=== PATIENT | male | born 1960 | race Caucasian/White ===

== ENCOUNTER 2016-12-30 17:47 | Inpatient (IN) | payer OTHER ==
[2016-12-30] MEDS ORDERED: SODIUM CHLORIDE 0.9% 1,000 ML IV STA (18:07)
[2016-12-30] MEDS ORDERED: IPRATROPIUM-ALBUTEROL 3 ML NEB INHALATION STA (18:07)
--- NOTE | 2016-12-30 18:12 | ED ---
SOB HPI <RonaldDuane - Last Filed: 12/30/16 21:44> - General Source: patient, RN notes reviewed Mode of arrival: wheelchair Limitations: no limitations <Tess Duncanily - Last Filed: 12/30/16 21:57> - General Chief Complaint: Shortness of Breath Stated Complaint: Sob Time Seen by Provider: 12/30/16 17:56 - History of Present Illness Initial Comments: Patient is a 56-year-old male with chief complaint of right-sided chest pain or shortness of breath for approximately 2 days. Patient reports that he has a history of COPD. He states that he is a heavy smoker and smokes approximately one to 2 packs a day. Patient states that he does occasionally take albuterol inhalers however he has ran out of those and cannot last time he used it. Patient reports that he has no other associated symptoms including fever or chills, abdominal pain, nausea or vomiting. Patient denies any past medical history of coronary artery disease. (Juli Duncan) - Related Data Home Medications Medication Instructions Recorded Confirmed Albuterol Inhaler [Ventolin Hfa 2 puff INHALATION RT-Q6H PRN 04/01/16 12/30/16 Inhaler] Allergies Allergy/AdvReac Type Severity Reaction Status Date / Time No Known Allergies Allergy Verified 12/30/16 18:12 Review of Systems ROS Other: All systems not noted in ROS Statement are negative. <RonaldDuane - Last Filed: 12/30/16 21:44> ROS Other: All systems not noted in ROS Statement are negative. <Juli Duncan - Last Filed: 12/30/16 21:57> ROS Statement: Those systems with pertinent positive or pertinent negative responses have been documented in the HPI. Past Medical History Past Medical History: COPD, Prostate Disorder Additional Past Medical History / Comment(s): Emphysema; Alcoholism, prostate CA History of Any Multi-Drug Resistant Organisms: None Reported Past Surgical History: Hernia Repair, Tonsillectomy Past Psychological History: No Psychological Hx Reported Smoking Status: Current every day smoker Past Alcohol Use History: Daily Past Drug Use History: None Reported <Juli Duncan - Last Filed: 12/30/16 21:57> General Exam <Duane Cardenas - Last Filed: 12/30/16 21:44> Limitations: no limitations General appearance: alert, in no apparent distress Head exam: Present: atraumatic, normocephalic, normal inspection Eye exam: Present: normal appearance, PERRL, EOMI. Absent: scleral icterus, conjunctival injection, periorbital swelling ENT exam: Present: normal exam, normal oropharynx, mucous membranes moist, TM's normal bilaterally Neck exam: Present: normal inspection. Absent: tenderness, meningismus, lymphadenopathy Respiratory exam: Present: normal lung sounds bilaterally. Absent: respiratory distress, wheezes, rales, rhonchi, stridor Cardiovascular Exam: Present: regular rate, normal rhythm, normal heart sounds. Absent: systolic murmur, diastolic murmur, rubs, gallop, clicks GI/Abdominal exam: Present: soft, normal bowel sounds. Absent: distended, tenderness, guarding, rebound, rigid Extremities exam: Present: normal inspection, full ROM, normal capillary refill. Absent: tenderness, pedal edema, joint swelling, calf tenderness Back exam: Present: normal inspection Neurological exam: Present: alert, oriented X3, CN II-XII intact Psychiatric exam: Present: normal affect, normal mood Skin exam: Present: warm, dry, intact, normal color. Absent: rash <Juli Duncan - Last Filed: 12/30/16 21:57> - General Exam Comments Initial Comments: Patient is a thin 56-year-old male. He does not appear to be in any acute distress at this time. Temperature 97.7. Heart rate of 100 bpm. Respiratory rate 20 breaths per minute. A pressure is 90/63. Patient is satting 93% on room air. (Juli Duncan) Medical Decision Making - Lab Data Result diagrams: 12/30/16 18:00 12/30/16 18:00 <Duane Cardenas - Last Filed: 12/30/16 21:44> - Lab Data Result diagrams: 12/30/16 18:00 12/30/16 18:00 - Radiology Data Radiology results: report reviewed <Juli Duncan - Last Filed: 12/30/16 21:57> - Medical Decision Making I saw this patient in conjunction with the physician autopsy assistant. I performed independent history and physical exam. Agree with case management. (Duane Cardenas) Patient is a 36-year-old male with 2 days of right-sided chest pain and increased cough. Patient has history of COPD. He reports that he does not use any albuterol inhaler since he does not have any [place]. Patient arrived to the at 93% on room air. Patient chest x-ray shows evidence of a right middle lobe pneumonia. Patient did have an elevated dimer of 4.03. CT angios of the chest reveals no evidence of PE however there is right middle and upper lobe consolidation consistent with pneumonia. Patient was initially given IV Levaquin. Patient reports that his pain is much improved after Toradol and breathing treatment. Patient will be placed on subsequent breathing treatments and also given IV Zosyn for aspiration pneumonia. Patient does have a history of alcoholism and is continue the past. Also placed on CIMI protocol. Patient will be admitted by Dr. Burgos with consult of . ([facility]) - Lab Data Lab Results 12/30/16 12/30/16 12/30/16 Range/Units 18:00 18:00 18:00 WBC 14.5 H (3.8-10.6) k/uL RBC 4.02 L (4.30-5.90) m/uL Hgb 11.6 L (13.0-17.5) gm/dL Hct 36.3 L (39.0-53.0) % MCV 90.2 (80.0-100.0) fL MCH 28.9 (25.0-35.0) pg MCHC 32.0 (31.0-37.0) g/dL RDW 14.2 (11.5-15.5) % Plt Count 412 (150-450) k/uL Neutrophils % 75 % Lymphocytes % 17 % Monocytes % 4 % Eosinophils % 1 % Basophils % 0 % Neutrophils # 10.8 H (1.3-7.7) k/uL Lymphocytes # 2.5 (1.0-4.8) k/uL Monocytes # 0.6 (0-1.0) k/uL Eosinophils # 0.2 (0-0.7) k/uL Basophils # 0.1 (0-0.2) k/uL PT (9.0-12.0) sec INR (<1.1) APTT (22.0-30.0) sec D-Dimer (<0.60) mg/L FEU Sodium 136 L (137-145) mmol/L Potassium 3.7 (3.5-5.1) mmol/L Chloride 99 (98-107) mmol/L Carbon Dioxide 21 L (22-30) mmol/L Anion Gap 16 mmol/L BUN 8 L (9-20) mg/dL Creatinine 0.59 L (0.66-1.25) mg/dL Est GFR (MDRD) Af Amer >60 (>60 ml/min/1.73 sqM) Est GFR (MDRD) Non-Af >60 (>60 ml/min/1.73 sqM) Glucose 115 H (74-99) mg/dL Plasma Lactic Acid Jw (0.7-2.0) mmol/L Calcium 8.8 (8.4-10.2) mg/dL Total Bilirubin 0.4 (0.2-1.3) mg/dL AST 12 L (17-59) U/L ALT 20 L (21-72) U/L Alkaline Phosphatase 93 (38-126) U/L Total Creatine Kinase 27 L (55-170) U/L CK-MB (CK-2) 0.5 (0.0-2.4) ng/mL CK-MB (CK-2) Rel Index 1.9 Troponin I <0.012 (0.000-0.034) ng/mL NT-Pro-B Natriuret Pep pg/mL Total Protein 7.8 (6.3-8.2) g/dL Albumin 3.3 L (3.5-5.0) g/dL Urine Color Urine Appearance (Clear) Urine pH (5.0-8.0) Ur Specific [place] (1.001-1.035) Urine Protein (Negative) Urine Glucose (UA) (Negative) Urine Ketones (Negative) Urine Blood (Negative) Urine Nitrate (Negative) Urine Bilirubin (Negative) Urine Urobilinogen (<2.0) mg/dL Ur Leukocyte Esterase (Negative) 12/30/16 12/30/16 12/30/16 Range/Units 18:00 18:00 18:00 WBC (3.8-10.6) k/uL RBC (4.30-5.90) m/uL Hgb (13.0-17.5) gm/dL Hct (39.0-53.0) % MCV (80.0-100.0) fL MCH (25.0-35.0) pg MCHC (31.0-37.0) g/dL RDW (11.5-15.5) % Plt Count (150-450) k/uL Neutrophils % % Lymphocytes % % Monocytes % % Eosinophils % % Basophils % % Neutrophils # (1.3-7.7) k/uL Lymphocytes # (1.0-4.8) k/uL Monocytes # (0-1.0) k/uL Eosinophils # (0-0.7) k/uL Basophils # (0-0.2) k/uL PT 10.5 (9.0-12.0) sec INR 1.0 (<1.1) APTT 27.3 (22.0-30.0) sec D-Dimer 4.08 H (<0.60) mg/L FEU Sodium (137-145) mmol/L Potassium (3.5-5.1) mmol/L Chloride (98-107) mmol/L Carbon Dioxide (22-30) mmol/L Anion Gap mmol/L BUN (9-20) mg/dL Creatinine (0.66-1.25) mg/dL Est GFR (MDRD) Af Amer (>60 ml/min/1.73 sqM) Est GFR (MDRD) Non-Af (>60 ml/min/1.73 sqM) Glucose (74-99) mg/dL Plasma Lactic Acid Jw (0.7-2.0) mmol/L Calcium (8.4-10.2) mg/dL Total Bilirubin (0.2-1.3) mg/dL AST (17-59) U/L ALT (21-72) U/L Alkaline Phosphatase (38-126) U/L Total Creatine Kinase (55-170) U/L CK-MB (CK-2) (0.0-2.4) ng/mL CK-MB (CK-2) Rel Index Troponin I (0.000-0.034) ng/mL NT-Pro-B Natriuret Pep 261 pg/mL Total Protein (6.3-8.2) g/dL Albumin (3.5-5.0) g/dL Urine Color Light Yellow Urine Appearance Clear (Clear) Urine pH 5.5 (5.0-8.0) Ur Specific [place] 1.002 (1.001-1.035) Urine Protein Negative (Negative) Urine Glucose (UA) Negative (Negative) Urine Ketones Negative (Negative) Urine Blood Negative (Negative) Urine Nitrate Negative (Negative) Urine Bilirubin Negative (Negative) Urine Urobilinogen <2.0 (<2.0) mg/dL Ur Leukocyte Esterase Negative (Negative) 12/30/16 Range/Units 19:30 WBC (3.8-10.6) k/uL RBC (4.30-5.90) m/uL Hgb (13.0-17.5) gm/dL Hct (39.0-53.0) % MCV (80.0-100.0) fL MCH (25.0-35.0) pg MCHC (31.0-37.0) g/dL RDW (11.5-15.5) % Plt Count (150-450) k/uL Neutrophils % % Lymphocytes % % Monocytes % % Eosinophils % % Basophils % % Neutrophils # (1.3-7.7) k/uL Lymphocytes # (1.0-4.8) k/uL Monocytes # (0-1.0) k/uL Eosinophils # (0-0.7) k/uL Basophils # (0-0.2) k/uL PT (9.0-12.0) sec INR (<1.1) APTT (22.0-30.0) sec D-Dimer (<0.60) mg/L FEU Sodium (137-145) mmol/L Potassium (3.5-5.1) mmol/L Chloride (98-107) mmol/L Carbon Dioxide (22-30) mmol/L Anion Gap mmol/L BUN (9-20) mg/dL Creatinine (0.66-1.25) mg/dL Est GFR (MDRD) Af Amer (>60 ml/min/1.73 sqM) Est GFR (MDRD) Non-Af (>60 ml/min/1.73 sqM) Glucose (74-99) mg/dL Plasma Lactic Acid Jw 1.5 (0.7-2.0) mmol/L Calcium (8.4-10.2) mg/dL Total Bilirubin (0.2-1.3) mg/dL AST (17-59) U/L ALT (21-72) U/L Alkaline Phosphatase (38-126) U/L Total Creatine Kinase (55-170) U/L CK-MB (CK-2) (0.0-2.4) ng/mL CK-MB (CK-2) Rel Index Troponin I (0.000-0.034) ng/mL NT-Pro-B Natriuret Pep pg/mL Total Protein (6.3-8.2) g/dL Albumin (3.5-5.0) g/dL Urine Color Urine Appearance (Clear) Urine pH (5.0-8.0) Ur Specific [place] (1.001-1.035) Urine Protein (Negative) Urine Glucose (UA) (Negative) Urine Ketones (Negative) Urine Blood (Negative) Urine Nitrate (Negative) Urine Bilirubin (Negative) Urine Urobilinogen (<2.0) mg/dL Ur Leukocyte Esterase (Negative) 12/30/16 18:12 EKG shows sinus tachycardia. Ventricular 103 bpm. WA interval 154 milliseconds. QRS tracing any formal seconds. QT/QTc is 340/ 445 ms. Normal axis deviation. No evidence of ST elevation or T-wave inversion. No evidence of atrial or ventricular arrhythmias (Juli Duncan) - Radiology Data States he injured chest shows some patchy pneumonic consolidation in the superior segment of the right lower lobe. I see no filling defects in the pulmonary arteries. There is no evidence of thoracic aortic aneurysm or dissection. There is 2 cm renal lymph node. There is increased density at the right pulmonary hilum. There is difficult to establish between adenopathy and pulled her consolidation. There is no pleural effusion. Left lung is clear. Bony thorax is intact. Impression is extensive consolidation in the right lung involving the right upper lobe and right lower lobe. There is probably some) [place] adenopathy. No evidence of pulmonary embolism. Follow-up to show clearing. (Juli Duncan) Disposition <Duane Cardenas - Last Filed: 12/30/16 21:44> Time of Disposition: 21:57 <Juli Duncan - Last Filed: 12/30/16 21:57> Clinical Impression: Right middle lobe pneumonia, COPD (chronic obstructive pulmonary disease), Alcohol abuse, Nicotine addiction Disposition: ADMITTED IP TO THIS HOSP Condition: Good
[2016-12-30 18:52] LABS: Appearance,Urine Clear (Clear); Basophils # (A) 0.1 k/uL (0-0.2); Basophils % (A) 0 %; Bilirubin,Urine Negative (Negative); CHCM 32.3; Eosinophils # (A) 0.2 k/uL (0-0.7); Eosinophils % (A) 1 %; Glucose,Urine (UA) Negative (Negative); HCT 36.3 % (39.0-53.0); HDW 2.24; HGB 11.6 gm/dL (13.0-17.5); Ketones,Urine Negative (Negative); Leukocyte Esterase,Urine Negative (Negative); Luc # (Auto) 0.29; Luc % (Auto) 2; Lymphocytes # (A) 2.5 k/uL (1.0-4.8); Lymphocytes % (A) 17 %; MCH 28.9 pg (25.0-35.0); MCV 90.2 fL (80.0-100.0); Mean Platelet Volume 6.4; Monocytes # (A) 0.6 k/uL (0-1.0); Monocytes % (A) 4 %; Neutrophils # (A) 10.8 k/uL (1.3-7.7); Neutrophils % (A) 75 %; Nitrite,Urine Negative (Negative); PH, Urine 5.5 (5.0-8.0); Protein,Urine Negative (Negative); RBC 4.02 m/uL (4.30-5.90); RDW 14.2 % (11.5-15.5); Specific Gravity,Urine 1.002 (1.001-1.035); UA Billing (MACRO vs. MICRO) CHEM; Urobilinogen,Urine <2.0 mg/dL (<2.0); WBC 14.5 k/uL (3.8-10.6); WBC (Perox) 14.46
[2016-12-30 19:08] LABS: Partial Thromboplastin Time 27.3 sec (22.0-30.0); Prothrombin Time 10.5 sec (9.0-12.0)
[2016-12-30 19:11] LABS: ALT 20 U/L (21-72); AST 12 U/L (17-59); Alkaline Phosphatase 93 U/L (38-126); Anion Gap 16 mmol/L; Blood Urea Nitrogen 8 mg/dL (9-20); Calcium 8.8 mg/dL (8.4-10.2); Carbon Dioxide 21 mmol/L (22-30); Chloride 99 mmol/L (98-107); Glucose 115 mg/dL (74-99); Non-African American GFR(MDRD) >60 (>60 ml/min/1.73 sqM); Potassium 3.7 mmol/L (3.5-5.1); Sodium 136 mmol/L (137-145); Total Bilirubin 0.4 mg/dL (0.2-1.3); Total Protein 7.8 g/dL (6.3-8.2)
[2016-12-30 19:18] LABS: Creatine Kinase 27 U/L (55-170)
[2016-12-30] MEDS ORDERED: LEVOFLOXACIN 750MG-D5W PMX 750 MG in DEXTROSE/WATER 1 150ML.BAG IVPB STA (19:19)
[2016-12-30] MEDS ORDERED: RX INFO: IV CONTRAST WAS GIVEN 1 EACH MISC MISCELLANE PRN (19:19)
--- NOTE | 2016-12-30 19:25 | XR ---
EXAMINATION TYPE: XR chest 2V DATE OF EXAM: 12/30/2016 6:50 PM COMPARISON: NONE HISTORY: Difficulty breathing TECHNIQUE: Frontal and lateral views of the chest are obtained. FINDINGS: There is patchy pneumonic consolidation involving the superior segment of the right lower lobe and probably also some involvement of the posterior segment of the right upper lobe. The left ambrose ng is clear. Heart and mediastinum are normal. There is no pleural effusion. Bony thorax is intact. IMPRESSION: Consolidation in the right lung consistent with pneumonia. Follow-up is recommended to s how radiographic clearing.
[2016-12-30 19:29] LABS: Creatine Kinase MB 0.5 ng/mL (0.0-2.4); Troponin I <0.012 ng/mL (0.000-0.034)
--- NOTE | 2016-12-30 20:09 | CT ---
EXAMINATION TYPE: CT chest angio for PE DATE OF EXAM: 12/30/2016 7:55 PM COMPARISON: NONE HISTORY: Difficulty breathing and right sided chest pain. CT DLP: 418.00 mGycm Automated exposure control for dose reduction was used. CONTRAST: CT Chest for pulmonary embolism performed with with IV Contrast, patient injected with 66 mL of Omnip aque 350. FINDINGS: There are 3-D post processed images. There is some patchy pneumonic consolidation involving the superior segment of the right lower lobe a nd also posterior segment of the right upper lobe. I see no filling defects in the pulmonary arteries . There is no evidence of thoracic aortic aneurysm or dissection. There is a 2 cm subcarinal lymph no de. There is increased density at the right pulmonary hilum. It is difficult to distinguish between a denopathy and the pulmonary consolidation. There is no pleural effusion. The left lung is clear. The bony thorax is intact. IMPRESSION: Extensive consolidation in the right lung involving the right upper lobe and right lower lobe. There is probably some right bronchial adenopathy. No evidence of pulmonary embolism. Follow-up is recommen ded to show clearing.
[2016-12-30] MEDS ORDERED: KETOROLAC 30 MG/ML 1 ML VIAL IVP STA (20:22)
[2016-12-30] MEDS ORDERED: NALOXONE 0.4 MG/ML 1 ML VIAL IV PRN (21:10)
[2016-12-30] MEDS ORDERED: ACETAMINOPHEN TAB 325 MG TAB PO PRN (21:10)
[2016-12-30] MEDS ORDERED: ALPRAZolam 0.25 MG TAB PO PRN (21:10)
[2016-12-30] MEDS ORDERED: ONDANSETRON 4 MG/2 ML VIAL IVP PRN (21:10)
[2016-12-30] MEDS ORDERED: LEVOFLOXACIN 750MG-D5W PMX 750 MG in DEXTROSE/WATER 1 150ML.BAG IVPB SCH (21:15)
[2016-12-30] MEDS ORDERED: IPRATROPIUM-ALBUTEROL 3 ML NEB INHALATION PRN (21:16)
[2016-12-30] MEDS ORDERED: PIPERACILLIN-TAZOBACTAM 3.375 GM in DEXTROSE/WATER 1 50ML.BAG IVPB STA (21:17)
[2016-12-30] MEDS ORDERED: LORazepam 2 MG/ML SYRINGE IV PRN ×3 (21:53)
[2016-12-30] MEDS: SODIUM CHLORIDE 0.9% 1,000 ML IV SCH (22:20)
--- NOTE | 2016-12-31 10:24 | HP ---
DATE OF ADMISSION: 12/30/2016 CHIEF COMPLAINT: A 56-year-old white male with right-sided chest pain. HISTORY OF PRESENT ILLNESS: This is a 56-year-old white male with unremarkable past medical history: COPD and multiple smoking for 2 packs per day for many years, was admitted to the hospital for right upper and lower lobe pneumonia. He also had history of COPD but he came in with right-sided chest pain presumably secondary to pneumonia, ( ) pneumonia to the right lung field. No fever, chills, nausea, vomiting. Denies any heart disease. Home medications: Albuterol once in a while. Otherwise does not take any medicines or sees doctors. ALLERGIES: Negative. REVIEW OF SYSTEMS: Negative except for HPI. Fourteen-point review of systems negative. PAST MEDICAL HISTORY: Possibly a prostate disorder, COPD. Alcoholism. Prostate cancer. PAST SURGICAL HISTORY: Hernia repair, tonsillectomy. SOCIAL HISTORY: Current every day smoker and alcohol drinker. No drug use. PHYSICAL EXAMINATION: CARDIOVASCULAR: Regular rate and rhythm. LUNGS: Show decreased breath sounds on the entire right side of the lung. CARDIOVASCULAR: S1, S2. PSYCH: Fair mood and affect. NEUROLOGIC: Alert and oriented x3. SKIN: Warm, dry. Mild skin turgor. ENDOCRINE: He appears thin and cachectic. Temperature 97.7, heart rate around 100, respiratory 20-25, blood pressure is 90/63 on admission. White count high 14.5, hemoglobin 11.6, platelets 115, sodium 136, BUN 8, creatinine 0.59, potassium 3.7. ASSESSMENT: 1. Acute chronic obstructive pulmonary disease exacerbation. 2. Acute right-sided pneumonia upper and lower lobes. 3. Acute hypoxemia secondary to above. 4. Elevated d-dimer. 5. CT of the chest is negative for pulmonary embolism. 6. History of alcoholism. He is on CIWA protocol. He is started on IV Levaquin and IV Zosyn. Dr. Isidro is consulted. Please see further orders on the chart.
--- NOTE | 2016-12-31 15:37 | P.CNPUL ---
History of Present Illness Consult date: 12/31/16 Reason for consult: cough, chest pain, pneumonia Chief complaint: chest pain and cough History of present illness: 56 year old male presented to the ED complaining of shortness of breath and chest pain. The patient states this began several weeks ago but has gotten worse in the last few days. He states that he was having a hard time breathing in. He is also complaining of cough productive of yellow sputum. He denies any fevers or chills. He is an active smoker he smokes less than 1 pack per day since the age of [age] years old. He states he has been told he has COPD in the past however has never had a PFT. He does use albuterol inhaler 2-3 times a day at baseline however he states that since he's been sick she's been using it more like 5-6 times a day. He states it does help bring up the phlegm. He denies any exposure to asbestosis or inhalational toxins. The patient denies any sick contacts. He states he lives in a newer home and is not exposed to mold. He has no pets in the home. He states that this time he does not have a primary care physician. Review of Systems All systems: negative Past Medical History Past Medical History: Cancer, COPD, Prostate Disorder Additional Past Medical History / Comment(s): Emphysema; Alcoholism, prostate CA History of Any Multi-Drug Resistant Organisms: None Reported Past Surgical History: Hernia Repair, Prostate Surgery, Tonsillectomy Additional Past Surgical History / Comment(s): R inguinal hernia repair, prostate-radiation implant, colonoscopy-normal Past Anesthesia/Blood Transfusion Reactions: No Reported Reaction Past Psychological History: No Psychological Hx Reported Additional Psychological History / Comment(s): Pt denies depression. Pt lives alone. He uses no assistive device. He does not drive. He either walks or takes the bus to [place]. Smoking Status: Current every day smoker Past Alcohol Use History: Daily Additional Past Alcohol Use History / Comment(s): Pt states he started smoking as a teen and is a ppd smoker. He states he now drinks 3-4 beers a day. He states he is an alcoholic. Past Drug Use History: None Reported - Past Family History Father Family Medical History: COPD Additional Family Medical History / Comment(s): Father of COPD in his 70's Mother Family Medical History: Coronary Artery Disease (CAD) Additional Family Medical History / Comment(s): Mother of heart disease at the age of 65 yrs. Medications and Allergies Home Medications Medication Instructions Recorded Confirmed Type Albuterol Inhaler [Ventolin Hfa 2 puff INHALATION RT-Q6H PRN 04/01/16 12/30/16 History Inhaler] Allergies Allergy/AdvReac Type Severity Reaction Status Date / Time No Known Allergies Allergy Verified 12/30/16 18:12 Physical Exam Osteopathic Statement: *. No significant issues noted on an osteopathic structural exam other than those noted in the History and Physical/Consult. Vitals: Vital Signs Temp Pulse Pulse Resp BP BP Pulse Ox 12/31/16 15:14 97.1 F L 95 20 141/87 96 12/31/16 14:32 98.4 F 87 18 135/67 95 12/31/16 13:07 98.4 F 85 16 136/84 96 12/31/16 07:53 99.1 F 100 18 146/85 95 12/31/16 05:00 88 16 162/89 12/31/16 02:21 98.2 F 98 18 129/87 94 L 12/30/16 22:25 98.4 F 90 18 97/62 95 Gen.: Patient is alert and oriented 3, no acute distress Cardiovascular: Regular rate and rhythm, S1/S2 Lungs: Right sided rhonchi, left lung is clear Abdomen: Soft nontender nondistended positive bowel sounds Extremities: No edema Results - Laboratory Findings CBC and BMP: 12/30/16 18:00 12/30/16 18:00 PT/INR, D-dimer PT 10.5 sec (9.0-12.0) 12/30/16 18:00 INR 1.0 (<1.1) 12/30/16 18:00 D-Dimer 4.08 mg/L FEU (<0.60) H 12/30/16 18:00 - Diagnostic Findings Chest x-ray: report reviewed, image reviewed CT scan - chest: report reviewed, image reviewed Assessment and Plan Plan: Right-sided community acquired pneumonia, multilobar Acute exacerbation of COPD Leukocytosis Mild anemia Hyponatremia Active tobacco abuse Alcohol abuse O2 to maintain saturation greater than equal to 88% Antibiotics: Levaquin and Zosyn Bronchodilators and Pulmicort Smoking cessation is highly recommended [facility] protocol Solumedrol taper Sputum culture and blood cultures Mucinex Will check influenza, mycoplasma, legionella IV fluid hydration GI and DVT prophylaxis Incentive spirometry and pulmonary hygiene
[2016-12-31] MEDS: IPRATROPIUM-ALBUTEROL 3 ML NEB INHALATION SCH ×2 (16:40→19:46)
[2016-12-31] MEDS: methylPREDNISolone SOD SUCCI 125 MG/2 ML VIAL IV SCH ×4 (17:10→23:02)
[2016-12-31] MEDS: SODIUM CHLORIDE 0.9% 1,000 ML IV SCH ×3 (17:10→21:01)
[2016-12-31] MEDS: PIPERACILLIN-TAZOBACTAM 3.375 GM in DEXTROSE/WATER 1 50ML.BAG IVPB SCH ×2 (17:13→18:14)
[2016-12-31] MEDS: THIAMINE 100 MG TAB PO SCH ×2 (17:13→18:14)
[2016-12-31] MEDS: NICOTINE 14MG/24HR PATCH TRANSDERM SCH (17:15)
[2016-12-31] MEDS: KETOROLAC 30 MG/ML 1 ML VIAL IVP PRN (18:30)
[2016-12-31] MEDS ORDERED: LEVOFLOXACIN 500MG-D5W PMX 500 MG in DEXTROSE/WATER 1 100ML.BAG IVPB SCH (19:00)
[2016-12-31] MEDS: BUDESONIDE 0.5 MG/2 ML NEBU INHALATION SCH (19:46)
[2016-12-31 21:00] LABS: Glucose,Whole Blood 139 mg/dL (75-99)
[2016-12-31] MEDS: guaiFENesin 600 MG TABLET.ER PO SCH (21:01)
[2016-12-31] MEDS: INSULIN LISPRO (humaLOG) 300 UNIT/3 ML VIAL SQ SCH (21:02)
[2016-12-31 22:19] LABS: Hemoglobin A1C 5.7 % (4.2-6.1)
[2017-01-01] MEDS: PIPERACILLIN-TAZOBACTAM 3.375 GM in DEXTROSE/WATER 1 50ML.BAG IVPB SCH ×4 (01:52→23:38)
[2017-01-01] MEDS: methylPREDNISolone SOD SUCCI 125 MG/2 ML VIAL IV SCH ×4 (05:20→23:38)
[2017-01-01 07:23] LABS: Glucose,Whole Blood 151 mg/dL (75-99)
[2017-01-01 09:55] LABS: Basophils % (A) 0 %; CH 28.8; CHCM 31.1; Eosinophils % (A) 0 %; HCT 38.9 % (39.0-53.0); HDW 2.31; HGB 11.7 gm/dL (13.0-17.5); Hypochromasia Slight; Luc # (Auto) 0.02; Luc % (Auto) 0; Lymphocytes # (A) 0.7 k/uL (1.0-4.8); Lymphocytes % (A) 9 %; MCH 28.1 pg (25.0-35.0); MCHC 30.2 g/dL (31.0-37.0); MCV 92.8 fL (80.0-100.0); Mean Platelet Volume 7.3; Monocytes # (A) 0.1 k/uL (0-1.0); Monocytes % (A) 1 %; Neutrophils # (A) 7.5 k/uL (1.3-7.7); Neutrophils % (A) 89 %; RBC 4.19 m/uL (4.30-5.90); RDW 14.1 % (11.5-15.5); WBC 8.4 k/uL (3.8-10.6); WBC (Perox) 7.69
[2017-01-01] MEDS: BUDESONIDE 0.5 MG/2 ML NEBU INHALATION SCH ×2 (09:55→21:08)
[2017-01-01] MEDS: IPRATROPIUM-ALBUTEROL 3 ML NEB INHALATION SCH ×4 (09:55→21:08)
[2017-01-01] MEDS: guaiFENesin 600 MG TABLET.ER PO SCH ×2 (09:59→21:04)
[2017-01-01] MEDS: NICOTINE 14MG/24HR PATCH TRANSDERM SCH (10:01)
[2017-01-01] MEDS: INSULIN LISPRO (humaLOG) 300 UNIT/3 ML VIAL SQ SCH ×4 (10:02→21:05)
[2017-01-01 10:37] LABS: ALT 20 U/L (21-72); AST 12 U/L (17-59); Alkaline Phosphatase 82 U/L (38-126); Anion Gap 11 mmol/L; Blood Urea Nitrogen 10 mg/dL (9-20); Calcium 8.7 mg/dL (8.4-10.2); Carbon Dioxide 23 mmol/L (22-30); Chloride 101 mmol/L (98-107); Glucose 257 mg/dL (74-99); Non-African American GFR(MDRD) >60 (>60 ml/min/1.73 sqM); Potassium 4.3 mmol/L (3.5-5.1); Sodium 135 mmol/L (137-145); Total Bilirubin 0.4 mg/dL (0.2-1.3); Total Protein 7.1 g/dL (6.3-8.2)
[2017-01-01 11:41] VITALS: BMI 22.6
[2017-01-01 12:11] LABS: Glucose,Whole Blood 266 mg/dL (75-99)
--- NOTE | 2017-01-01 12:39 | P.PN ---
Subjective 56-year-old who presented on day admission to the emergency room with a chief complaint of developing shortness of breath symptomatic ongoing decreased endurance use of accessory muscles to breathe. Patient stated that he been coughing up yellowish secretions. Patient does give a history of significant nicotine dependency 1 pack a day onset at the age of 14 greater than a 40 year history. Influenza AB not detected Pulmonary recommendations reviewed noted and appreciated pulmonary is treating patient for right-sided community-acquired pneumonia multilobular with an acute exacerbation of COPD Patients being seen this morning on rounds states breathing feels slightly improved but continues to feel short of breath with any exertion. Objective - Vital Signs Vital signs: Vital Signs Temp 97.4 F L 01/01/17 07:00 Pulse 96 01/01/17 10:15 Resp 16 01/01/17 08:00 BP 132/87 01/01/17 07:00 Pulse Ox 97 01/01/17 07:00 Intake & Output 12/31/16 01/01/17 01/01/17 18:59 06:59 18:59 Intake Total 1800 240 Balance 1800 240 Weight 63.503 kg 63.503 kg Intake: IV 1000 Sodium Chloride 0.9% 1, 1000 000 ml @ 125 mls/hr IV . Q8H LB Rx#:[id number] Intake, IV Titration 100 Amount Levofloxacin 500Mg-D5w 100 Pmx 500 mg In Dextrose/ Water 1 100ml.bag @ 100 mls/hr IVPB Q24HR@1900 [facility] Rx#:[id number] Oral 700 240 Other: Voiding Method Urinal # Voids 2 - Exam Physical exam 56-year-old male sitting up in bed states feels short of breath with exertion Lungs diminished at the bases bilateral audible wheezing noted no cough noted Heart S1-S2 audible regular Abdomen soft nontender no reports of nausea vomiting Extremities no edema - Labs CBC & Chem 7: 01/01/17 09:09 01/01/17 09:09 Labs: Abnormal Lab Results - Last 24 Hours (Table) 12/31/16 01/01/17 01/01/17 Range/Units 20:59 07:02 09:09 RBC 4.19 L (4.30-5.90) m/uL Hgb 11.7 L (13.0-17.5) gm/dL Hct 38.9 L (39.0-53.0) % MCHC 30.2 L (31.0-37.0) g/dL Lymphocytes # 0.7 L (1.0-4.8) k/uL Sodium (137-145) mmol/L Creatinine (0.66-1.25) mg/dL Glucose (74-99) mg/dL POC Glucose (mg/dL) 139 H 151 H (75-99) mg/dL AST (17-59) U/L ALT (21-72) U/L Albumin (3.5-5.0) g/dL 01/01/17 01/01/17 Range/Units 09:09 12:00 RBC (4.30-5.90) m/uL Hgb (13.0-17.5) gm/dL Hct (39.0-53.0) % MCHC (31.0-37.0) g/dL Lymphocytes # (1.0-4.8) k/uL Sodium 135 L (137-145) mmol/L Creatinine 0.51 L (0.66-1.25) mg/dL Glucose 257 H (74-99) mg/dL POC Glucose (mg/dL) 266 H (75-99) mg/dL AST 12 L (17-59) U/L ALT 20 L (21-72) U/L Albumin 2.8 L (3.5-5.0) g/dL Assessment and Plan Plan: Impression Present on admission shortness of breath suspect due to right side community acquired pneumonia multilobular Acute exacerbation of COPD present on admission COPD Significant nicotine dependency greater than a 40 year history active alcohol abuse Present on admission hyponatremia mild present on admission leukocytosis suspect reactive Elevated d-dimer with a negative CAT scan of the chest for pulmonary emboli present on admission acute hypoxemia respiratory failure Plan Continue recommendations by pulmonology service Continue IV Levaquin and Zosyn Smoking cessation information has been provided patient's been advised to stop smoking cigarettes Monitor for impending DTs using CIWA protocol Respiratory treatments as ordered DVT and GI prophylaxis Further recommendations pending The above dictated assessment and findings were discussed with dr neil . Impression and the plan of care have been dictated as directed. Sujata Moctezuma nurse practitioner acting as a scribe for dr neil
[2017-01-01] MEDS: KETOROLAC 30 MG/ML 1 ML VIAL IVP PRN (13:21)
[2017-01-01] MEDS: THIAMINE 100 MG TAB PO SCH ×2 (13:24→16:16)
[2017-01-01] MEDS: SODIUM CHLORIDE 0.9% 1,000 ML IV SCH ×3 (13:29→21:41)
[2017-01-01] MEDS: HEPARIN SODIUM,PORCINE 5,000 UNIT/ML 1 ML VIAL SQ SCH ×2 (16:13→23:38)
[2017-01-01 17:57] LABS: Glucose,Whole Blood 129 mg/dL (75-99)
--- NOTE | 2017-01-01 18:21 | PN ---
DATE OF SERVICE: 01/01/2017. The patient is a 56-year-old male who is seen sitting up in bed, he is awake and alert. Does feel less short of breath; however, continues to have a productive cough and is not moving much air. The patient is hemodynamically stable, afebrile, in no acute distress. On physical exam, vital signs, temp is 97.4, heart rate is 75, respiratory rate 16, blood pressure is 132/87, oxygen saturation 97% on room air. HEENT: Head is normocephalic, atraumatic. NECK: Supple. Trachea is midline. LUNGS: With decreased breath sounds throughout and prolonged expiratory phase. HEART: S1 and S2 are heard. Not tachycardic. ABDOMEN: Soft. Bowel sounds are heard. EXTREMITIES: With no edema. NEUROLOGIC: The patient is awake and alert. LABS: White count is 8.4, hemoglobin is 11.7, hematocrit 38.9 with 411,000 platelets. Sodium is 135, potassium is 4.3, chloride 101, CO2 is 23. Anion gap is 11. BUN is 10, creatinine 0.5, glucose is 257, calcium is 8.7. Total bilirubin 0.4, AST ALT is 28, alkaline phosphatase 82, total protein 7.1. Albumin is 2.8. No new imaging to review. IMPRESSION: 1. Right-sided multilobar pneumonia community acquired. 2. Acute exacerbation of chronic obstructive pulmonary disease. 3. Leukocytosis resolved. 4. Mild anemia. 5. Hyponatremia. 6. Active tobacco abuse. 7. Alcohol abuse. PLAN: Continue current medications which have been reviewed with bronchodilators and aerosolized steroids. IV Solu-Medrol and IV antibiotics. Continue with oxygen to maintain saturations greater than or equal to 88%. Smoking cessation is highly recommended. Continue with CIWA protocol p.r.n. Will follow up on sputum and blood cultures. Continue GI and DVT prophylaxis with incentive spirometry and pulmonary hygiene and will follow the patient closely with you, making further changes as necessary. I performed a history and physical examination of this patient and discussed the same with the dictator. I agree with the dictator's note. Any additional findings/opinions, etc. will be noted.
[2017-01-01] MEDS ORDERED: LEVOFLOXACIN 500 MG TAB PO SCH (19:00)
[2017-01-01] MEDS: FAMOTIDINE 20 MG TAB PO SCH (20:09)
[2017-01-01 21:40] LABS: Glucose,Whole Blood 183 mg/dL (75-99)
[2017-01-02] MEDS: methylPREDNISolone SOD SUCCI 125 MG/2 ML VIAL IV SCH ×3 (05:37→17:29)
[2017-01-02 06:25] LABS: Mycoplasma IgG Antibody (EIA) 1.99 INDEX (<=0.90); Mycoplasma IgM Antibody 1.35 INDEX (<=0.90)
[2017-01-02] MEDS: IPRATROPIUM-ALBUTEROL 3 ML NEB INHALATION SCH ×4 (07:08→19:34)
[2017-01-02] MEDS: BUDESONIDE 0.5 MG/2 ML NEBU INHALATION SCH ×2 (07:08→19:34)
[2017-01-02 07:13] LABS: Glucose,Whole Blood 141 mg/dL (75-99)
[2017-01-02] MEDS: SODIUM CHLORIDE 0.9% 1,000 ML IV SCH ×3 (08:56→21:18)
[2017-01-02] MEDS: PIPERACILLIN-TAZOBACTAM 3.375 GM in DEXTROSE/WATER 1 50ML.BAG IVPB SCH (08:57)
[2017-01-02] MEDS: HEPARIN SODIUM,PORCINE 5,000 UNIT/ML 1 ML VIAL SQ SCH ×2 (08:57→17:29)
[2017-01-02] MEDS: NICOTINE 14MG/24HR PATCH TRANSDERM SCH (08:57)
[2017-01-02] MEDS: guaiFENesin 600 MG TABLET.ER PO SCH ×2 (08:58→21:13)
[2017-01-02] MEDS: INSULIN LISPRO (humaLOG) 300 UNIT/3 ML VIAL SQ SCH ×4 (08:58→21:13)
[2017-01-02 11:09] LABS: Glucose,Whole Blood 137 mg/dL (75-99)
[2017-01-02] MEDS: THIAMINE 100 MG TAB PO SCH ×2 (13:59→17:29)
--- NOTE | 2017-01-02 14:26 | P.PN ---
Subjective Principal diagnosis: pneumonia Patient seen and examined. Patient states he is still feeling sick. He is c/o shortness of breath, cough, body aches. He states he does feel a little better than when he came in. Objective - Vital Signs Vital signs: Vital Signs Temp 96.4 F L 01/02/17 07:00 Pulse 82 01/02/17 11:35 Resp 20 01/02/17 08:00 BP 134/82 01/02/17 07:00 Pulse Ox 98 01/02/17 07:00 Intake & Output 01/01/17 01/02/17 01/02/17 18:59 06:59 18:59 Intake Total 600 1450 1605 Output Total 600 Balance 600 1450 1005 Weight 63.503 kg Intake: IV 1000 1000 Sodium Chloride 0.9% 1, 1000 1000 000 ml @ 125 mls/hr IV . Q8H [facility] Rx#:[id number] Intake, IV Titration 5 Amount Levofloxacin 500Mg-D5w 5 Pmx 500 mg In Dextrose/ Water 1 100ml.bag @ 100 mls/hr IVPB Q24HR@1900 [facility] Rx#:[id number] Oral 600 450 600 Output: Urine 600 Other: Voiding Method Urinal Urinal Urinal # Voids 2 2 - Exam Gen.: Patient is alert and oriented 3, no acute distress Cardiovascular: Regular rate and rhythm, S1/S2 Lungs: Right sided rhonchi, left lung is clear Abdomen: Soft nontender nondistended positive bowel sounds Extremities: No edema - Labs CBC & Chem 7: 01/01/17 09:09 01/01/17 09:09 Labs: Abnormal Lab Results - Last 24 Hours (Table) 12/31/16 01/01/17 01/01/17 Range/Units 15:54 17:55 20:22 POC Glucose (mg/dL) 129 H 183 H (75-99) mg/dL Mycoplasma pneumon IgG 1.99 H (<=0.90) INDEX Mycoplasma pneumon IgM 1.35 H (<=0.90) INDEX 01/02/17 01/02/17 Range/Units 07:12 11:05 POC Glucose (mg/dL) 141 H 137 H (75-99) mg/dL Mycoplasma pneumon IgG (<=0.90) INDEX Mycoplasma pneumon IgM (<=0.90) INDEX Microbiology - Last 24 Hours (Table) 01/01/17 05:25 Gram Stain - Preliminary Sputum 12/31/16 15:54 Blood Culture - Preliminary Blood No Growth after 24 hours Assessment and Plan Plan: Right-sided community acquired pneumonia, multilobar Myocoplasma pneumonia Acute exacerbation of COPD Leukocytosis Mild anemia Hyponatremia Active tobacco abuse Alcohol abuse O2 to maintain saturation greater than equal to 88% Antibiotics: Will change to macrolide - Azithromycin Bronchodilators and Pulmicort Smoking cessation is highly recommended CIWA protocol Solumedrol taper Sputum culture and blood cultures Mucinex IV fluid hydration GI and DVT prophylaxis Incentive spirometry and pulmonary hygiene
--- NOTE | 2017-01-02 15:41 | P.PN ---
Subjective 56-year-old being seen with the attending on rounds this morning sitting up continues to report having shortness of breath states he does feel a little better but no significant improvement in his breathing. Patient is being followed by pulmonology service Objective - Vital Signs Vital signs: Vital Signs Temp 98 F 01/02/17 14:19 Pulse 81 01/02/17 15:20 Resp 20 01/02/17 14:19 BP 107/65 01/02/17 14:19 Pulse Ox 98 01/02/17 14:19 Intake & Output 01/01/17 01/02/17 01/02/17 18:59 06:59 18:59 Intake Total 600 1450 1605 Output Total 600 Balance 600 1450 1005 Weight 63.503 kg Intake: IV 1000 1000 Sodium Chloride 0.9% 1, 1000 1000 000 ml @ 125 mls/hr IV . Q8H [facility] Rx#:[id number] Intake, IV Titration 5 Amount Levofloxacin 500Mg-D5w 5 Pmx 500 mg In Dextrose/ Water 1 100ml.bag @ 100 mls/hr IVPB Q24HR@1900 [facility] Rx#:[id number] Oral 600 450 600 Output: Urine 600 Other: Voiding Method Urinal Urinal Urinal # Voids 2 2 - Exam Physical exam 56-year-old male sitting up in bed states feels short of breath with exertion Lungs diminished at the bases bilateral audible wheezing noted no cough noted Heart S1-S2 audible regular Abdomen soft nontender no reports of nausea vomiting Extremities no edema - Constitutional Constitutional Comment(s): Physical exam 56-year-old sitting up on the edge of the bed. States breathing feels slightly improved continues to feel short of breath with exertion pleasant oriented 3 Lungs coarse rhonchi throughout right left left lung clear sats are 98% on room air Heart S1-S2 audible regular Abdomen soft nontender Extremities no edema - Labs CBC & Chem 7: 01/01/17 09:09 01/01/17 09:09 Labs: Abnormal Lab Results - Last 24 Hours (Table) 12/31/16 01/01/17 01/01/17 Range/Units 15:54 17:55 20:22 POC Glucose (mg/dL) 129 H 183 H (75-99) mg/dL Mycoplasma pneumon IgG 1.99 H (<=0.90) INDEX Mycoplasma pneumon IgM 1.35 H (<=0.90) INDEX 01/02/17 01/02/17 Range/Units 07:12 11:05 POC Glucose (mg/dL) 141 H 137 H (75-99) mg/dL Mycoplasma pneumon IgG (<=0.90) INDEX Mycoplasma pneumon IgM (<=0.90) INDEX Microbiology - Last 24 Hours (Table) 01/01/17 05:25 Gram Stain - Preliminary Sputum 12/31/16 15:54 Blood Culture - Preliminary Blood No Growth after 24 hours Assessment and Plan Plan: Impression Present on admission shortness of breath suspect due to right side community acquired pneumonia multilobular Acute exacerbation of COPD present on admission Leukocytosis Significant nicotine dependency greater than a 40 year history active alcohol abuse Present on admission hyponatremia mild present on admission leukocytosis suspect reactive Elevated d-dimer with a negative CAT scan of the chest for pulmonary emboli present on admission acute hypoxemia respiratory failure Myocoplasma pneumonia Plan Continue recommendations by pulmonology service Obtain sputum culture follow up on results Smoking cessation information has been provided patient's been advised to stop smoking cigarettes Monitor for impending DTs using CIWA protocol Respiratory treatments as ordered DVT and GI prophylaxis Further recommendations pending Continue zithomax as ordered The above dictated assessment and findings were discussed with dr neil . Impression and the plan of care have been dictated as directed. Sujata Moctezuma nurse practitioner acting as a scribe for dr neil
[2017-01-02 16:53] LABS: Glucose,Whole Blood 171 mg/dL (75-99)
[2017-01-02] MEDS: AZITHROMYCIN 500 MG TAB PO SCH (17:28)
[2017-01-02] MEDS: KETOROLAC 30 MG/ML 1 ML VIAL IVP PRN (17:41)
[2017-01-02 20:17] LABS: Glucose,Whole Blood 179 mg/dL (75-99)
[2017-01-02] MEDS: FAMOTIDINE 20 MG TAB PO SCH (21:13)
[2017-01-02 22:17] VITALS: RESP 16
[2017-01-03] MEDS: methylPREDNISolone SOD SUCCI 125 MG/2 ML VIAL IV SCH ×3 (00:11→12:22)
[2017-01-03] MEDS: HEPARIN SODIUM,PORCINE 5,000 UNIT/ML 1 ML VIAL SQ SCH ×3 (00:12→17:49)
[2017-01-03] MEDS: SODIUM CHLORIDE 0.9% 1,000 ML IV SCH ×3 (06:22→22:29)
[2017-01-03 06:52] LABS: Glucose,Whole Blood 151 mg/dL (75-99)
[2017-01-03 07:19] LABS: Basophils % (A) 0 %; CH 28.5; CHCM 30.9; Eosinophils % (A) 0 %; HCT 32.2 % (39.0-53.0); HDW 2.25; HGB 10.2 gm/dL (13.0-17.5); Hypochromasia Slight; Luc # (Auto) 0.06; Luc % (Auto) 1; Lymphocytes # (A) 0.6 k/uL (1.0-4.8); Lymphocytes % (A) 5 %; MCH 29.4 pg (25.0-35.0); MCHC 31.7 g/dL (31.0-37.0); MCV 92.9 fL (80.0-100.0); Mean Platelet Volume 6.9; Monocytes # (A) 0.2 k/uL (0-1.0); Monocytes % (A) 1 %; Neutrophils # (A) 11.2 k/uL (1.3-7.7); Neutrophils % (A) 93 %; RBC 3.47 m/uL (4.30-5.90); RDW 14.1 % (11.5-15.5); WBC (Perox) 12.15
[2017-01-03 07:40] LABS: ALT 27 U/L (21-72); AST 17 U/L (17-59); Alkaline Phosphatase 62 U/L (38-126); Anion Gap 9 mmol/L; Blood Urea Nitrogen 16 mg/dL (9-20); Calcium 8.4 mg/dL (8.4-10.2); Carbon Dioxide 24 mmol/L (22-30); Chloride 104 mmol/L (98-107); Glucose 138 mg/dL (74-99); Non-African American GFR(MDRD) >60 (>60 ml/min/1.73 sqM); Potassium 4.3 mmol/L (3.5-5.1); Sodium 137 mmol/L (137-145); Total Bilirubin 0.2 mg/dL (0.2-1.3); Total Protein 6.1 g/dL (6.3-8.2)
[2017-01-03] MEDS: guaiFENesin 600 MG TABLET.ER PO SCH ×2 (08:27→21:50)
[2017-01-03] MEDS: INSULIN LISPRO (humaLOG) 300 UNIT/3 ML VIAL SQ SCH ×4 (08:27→21:51)
[2017-01-03] MEDS: AZITHROMYCIN 500 MG TAB PO SCH (08:27)
[2017-01-03] MEDS: NICOTINE 14MG/24HR PATCH TRANSDERM SCH (08:27)
[2017-01-03] MEDS: IPRATROPIUM-ALBUTEROL 3 ML NEB INHALATION SCH ×4 (09:10→19:45)
[2017-01-03] MEDS: BUDESONIDE 0.5 MG/2 ML NEBU INHALATION SCH ×2 (09:10→19:45)
[2017-01-03 12:14] LABS: Glucose,Whole Blood 127 mg/dL (75-99)
[2017-01-03] MEDS: THIAMINE 100 MG TAB PO SCH ×2 (12:23→17:49)
--- NOTE | 2017-01-03 12:59 | P.PN ---
Subjective Principal diagnosis: Community-acquired pneumonia Patient seen and examined. Patient states he is feeling much better today. He is hopeful to go home soon. He denies fevers and chills. He states his breathing is much better today. Objective - Vital Signs Vital signs: Vital Signs Temp 97.7 F 01/03/17 07:00 Pulse 84 01/03/17 12:21 Resp 16 01/03/17 07:00 BP 144/82 01/03/17 07:00 Pulse Ox 99 01/03/17 07:00 Intake & Output 01/02/17 01/03/17 01/03/17 18:59 06:59 18:59 Intake Total 1605 590 Output Total 600 600 Balance 1005 590 -600 Intake: IV 1000 50 Sodium Chloride 0.9% 1, 1000 50 000 ml @ 125 mls/hr IV . Q8H [facility] Rx#:[id number] Intake, IV Titration 5 Amount Levofloxacin 500Mg-D5w 5 Pmx 500 mg In Dextrose/ Water 1 100ml.bag @ 100 mls/hr IVPB Q24HR@1900 [facility] Rx#:[id number] Oral 600 540 Output: Urine 600 600 Other: Voiding Method Urinal # Voids 2 1 - Exam Gen.: Patient is alert and oriented 3, no acute distress Cardiovascular: Regular rate and rhythm, S1/S2 Lungs: Right sided rhonchi, left lung is clear Abdomen: Soft nontender nondistended positive bowel sounds Extremities: No edema - Labs CBC & Chem 7: 01/03/17 06:20 01/03/17 06:20 Labs: Abnormal Lab Results - Last 24 Hours (Table) 01/02/17 01/02/17 01/03/17 Range/Units 16:52 20:11 06:20 WBC (3.8-10.6) k/uL RBC (4.30-5.90) m/uL Hgb (13.0-17.5) gm/dL Hct (39.0-53.0) % Neutrophils # (1.3-7.7) k/uL Lymphocytes # (1.0-4.8) k/uL Creatinine 0.50 L (0.66-1.25) mg/dL Glucose 138 H (74-99) mg/dL POC Glucose (mg/dL) 171 H 179 H (75-99) mg/dL Total Protein 6.1 L (6.3-8.2) g/dL Albumin 2.5 L (3.5-5.0) g/dL 01/03/17 01/03/17 01/03/17 Range/Units 06:20 06:48 12:13 WBC 12.0 H (3.8-10.6) k/uL RBC 3.47 L (4.30-5.90) m/uL Hgb 10.2 L (13.0-17.5) gm/dL Hct 32.2 L (39.0-53.0) % Neutrophils # 11.2 H (1.3-7.7) k/uL Lymphocytes # 0.6 L (1.0-4.8) k/uL Creatinine (0.66-1.25) mg/dL Glucose (74-99) mg/dL POC Glucose (mg/dL) 151 H 127 H (75-99) mg/dL Total Protein (6.3-8.2) g/dL Albumin (3.5-5.0) g/dL Microbiology - Last 24 Hours (Table) 01/01/17 05:25 Gram Stain - Final Sputum Sputum Culture - Final 12/31/16 15:54 Blood Culture - Preliminary Blood No Growth after 48 hours Assessment and Plan Plan: Right-sided community acquired pneumonia, multilobar Myocoplasma pneumonia Acute exacerbation of COPD Leukocytosis Mild anemia Hyponatremia Active tobacco abuse Alcohol abuse O2 to maintain saturation greater than equal to 88% Antibiotics: Will change to macrolide - Azithromycin Bronchodilators and Pulmicort Smoking cessation is highly recommended [place] protocol Solumedrol taper - change to PO Prednisone today Mucinex GI and DVT prophylaxis Incentive spirometry and pulmonary hygiene Ok to DC from pulmonary standpoint with ABX, steroids, Combivent QID Patient to follow up in office in 1 week Will need repeat CXR as outpatient to ensure clearance
[2017-01-03 17:19] LABS: Glucose,Whole Blood 161 mg/dL (75-99)
[2017-01-03 20:11] LABS: Glucose,Whole Blood 169 mg/dL (75-99)
[2017-01-03] MEDS: FAMOTIDINE 20 MG TAB PO SCH (21:51)
--- NOTE | 2017-01-03 22:27 | DS ---
DATE OF ADMISSION: 12/30/2016 DATE OF DISCHARGE: DISCHARGE MEDICATIONS: 1. Z-Amrik dispense one. 2. Medrol Dosepak dispense one. 3. Combivent inhaler 2 puffs q.4 hours p.r.n. CONDITION: Stable. PROGNOSIS: Guarded. Follow up with Dr. Isidro in a week. HOSPITAL COURSE OF EVENTS: This is a white male who was admitted with right upper and lower lobe pneumonias and acute chronic obstructive pulmonary disease exacerbation. He received IV steroids, IV antibiotics. Also has a history of BPH and alcoholism, prostate cancer. The patient received IV antibiotics, IV steroids. CT scan of the chest was done due to elevated d-dimer. ASSESSMENT: 1. Rule out pulmonary embolism. 2. Hyponatremia. Continue with IV fluids and he continues to do well from a medical standpoint. [facility] protocol for alcohol withdrawal was given. The patient stabilized and sent home to follow up as an outpatient.
[2017-01-04] MEDS: HEPARIN SODIUM,PORCINE 5,000 UNIT/ML 1 ML VIAL SQ SCH ×2 (01:24→09:44)
[2017-01-04] MEDS: SODIUM CHLORIDE 0.9% 1,000 ML IV SCH (05:16)
[2017-01-04 06:56] LABS: Glucose,Whole Blood 95 mg/dL (75-99)
[2017-01-04] MEDS: IPRATROPIUM-ALBUTEROL 3 ML NEB INHALATION SCH ×2 (07:16→11:10)
[2017-01-04] MEDS: BUDESONIDE 0.5 MG/2 ML NEBU INHALATION SCH (07:16)
[2017-01-04 07:57] LABS: ALT 99 U/L (21-72); AST 75 U/L (17-59); Alkaline Phosphatase 59 U/L (38-126); Anion Gap 6 mmol/L; Blood Urea Nitrogen 17 mg/dL (9-20); Calcium 8.5 mg/dL (8.4-10.2); Carbon Dioxide 27 mmol/L (22-30); Chloride 104 mmol/L (98-107); Glucose 91 mg/dL (74-99); Non-African American GFR(MDRD) >60 (>60 ml/min/1.73 sqM); Potassium 4.7 mmol/L (3.5-5.1); Sodium 137 mmol/L (137-145); Total Bilirubin 0.2 mg/dL (0.2-1.3); Total Protein 5.8 g/dL (6.3-8.2)
[2017-01-04 08:18] VITALS: BP 160/77; PULSE 77; TEMP 97.7
[2017-01-04] MEDS ORDERED: predniSONE 20 MG TAB PO SCH (09:00)
[2017-01-04] MEDS: INSULIN LISPRO (humaLOG) 300 UNIT/3 ML VIAL SQ SCH (09:44)
[2017-01-04] MEDS: guaiFENesin 600 MG TABLET.ER PO SCH (09:44)
[2017-01-04] MEDS: AZITHROMYCIN 500 MG TAB PO SCH (09:45)
[2017-01-04] MEDS: NICOTINE 14MG/24HR PATCH TRANSDERM SCH (09:48)
== END 2017-01-04 11:10 | disposition home or self-care (01) | DRG 190 ==
LOC: EC 17:47 → 4MS4W 21:10 → 5MS5E 12-31 14:28
PROVIDERS: ADMIT Family Medicine; ATTEND Family Medicine
DX: J44.0 Chronic obstructive pulmonary disease with (acute) lower respiratory infection (principal); J96.01 Acute respiratory failure with hypoxia; I26.99 Other pulmonary embolism without acute cor pulmonale; J18.9 Pneumonia, unspecified organism; E87.1 Hypo-osmolality and hyponatremia; D64.9 Anemia, unspecified; F10.10 Alcohol abuse, uncomplicated; J44.1 Chronic obstructive pulmonary disease with (acute) exacerbation; Y95 Nosocomial condition; F17.210 Nicotine dependence, cigarettes, uncomplicated; Z82.49 Family history of ischemic heart disease and other diseases of the circulatory system; Z82.5 Family history of asthma and other chronic lower respiratory diseases; Z85.46 Personal history of malignant neoplasm of prostate
CPT/HCPCS: 36415; 71020; 71275; 80053; 81003; 82550; 82553; 83036; 83605; 83880; 84484; 85025; 85379; 85610; 85730; 86738; 87040; 87070; 87205; 87449; 87502; 93005; 94640; 96361; 96365; 96366; 96367; 96375; 99285

== ENCOUNTER 2017-10-05 15:31 | Inpatient (IN) | payer OTHER ==
[2017-10-05] MEDS ORDERED: ALBUTEROL NEBULIZED 2.5 MG/3 ML INHALATION STA (15:47)
[2017-10-05] MEDS ORDERED: SODIUM CHLORIDE 0.9% 1,000 ML IV STA (15:47)
[2017-10-05] MEDS ORDERED: IPRATROPIUM 0.5 MG/2.5 ML NEBU INHALATION STA (15:47)
[2017-10-05] MEDS ORDERED: MORPHINE SULFATE 10 MG/ML SYRINGE IVP ONE (15:48)
[2017-10-05] MEDS ORDERED: LORazepam 2 MG/ML INJ IV STA (15:48)
--- NOTE | 2017-10-05 16:05 | ED ---
General Adult HPI - General Chief complaint: Shortness of Breath Stated complaint: SOB Time Seen by Provider: 10/05/17 15:47 Source: patient, RN notes reviewed, old records reviewed Mode of arrival: wheelchair Limitations: no limitations - History of Present Illness Initial comments: this is a 49-year-old male to the ER for evaluation. The patient is a for evaluation regarding short of breath. Patient has history of COPD and CVA. Multiple hospital admissions for pneumonia. Patient comes in for evaluation regarding severe shortness of breath and this cough and congestion. Patient denies specific fever at this time. Taking all medications as directed. No travel history no sick contacts. - Related Data Previous Rx's Medication Instructions Recorded Albuterol Inhaler [Ventolin Hfa 1 - 2 puff INHALATION Q4HR PRN #1 09/26/17 Inhaler] inhaler Allergies Allergy/AdvReac Type Severity Reaction Status Date / Time No Known Allergies Allergy Verified 10/05/17 16:29 Review of Systems ROS Statement: Those systems with pertinent positive or pertinent negative responses have been documented in the HPI. ROS Other: All systems not noted in ROS Statement are negative. Past Medical History Past Medical History: Cancer, COPD, Prostate Disorder Additional Past Medical History / Comment(s): Emphysema; Alcoholism, prostate CA History of Any Multi-Drug Resistant Organisms: None Reported Past Surgical History: Hernia Repair, Prostate Surgery, Tonsillectomy Additional Past Surgical History / Comment(s): R inguinal hernia repair, prostate-radiation implant, colonoscopy-normal Past Anesthesia/Blood Transfusion Reactions: No Reported Reaction Past Psychological History: No Psychological Hx Reported Smoking Status: Current every day smoker Past Alcohol Use History: Abuse, Daily Past Drug Use History: None Reported - Past Family History Father Family Medical History: COPD Additional Family Medical History / Comment(s): Father of COPD in his 70's Mother Family Medical History: Coronary Artery Disease (CAD) Additional Family Medical History / Comment(s): Mother of heart disease at the age of 65 yrs. General Exam Limitations: no limitations General appearance: alert, in no apparent distress Head exam: Present: atraumatic, normocephalic, normal inspection Eye exam: Present: normal appearance, PERRL, EOMI. Absent: scleral icterus, conjunctival injection, periorbital swelling ENT exam: Present: normal exam, mucous membranes moist Neck exam: Present: normal inspection. Absent: tenderness, meningismus, lymphadenopathy Respiratory exam: Present: normal lung sounds bilaterally. Absent: respiratory distress, wheezes, rales, rhonchi, stridor Cardiovascular Exam: Present: regular rate, normal rhythm, normal heart sounds. Absent: systolic murmur, diastolic murmur, rubs, gallop, clicks GI/Abdominal exam: Present: soft, normal bowel sounds. Absent: distended, tenderness, guarding, rebound, rigid Extremities exam: Present: normal inspection, full ROM, normal capillary refill. Absent: tenderness, pedal edema, joint swelling, calf tenderness Back exam: Present: normal inspection Neurological exam: Present: alert, oriented X3, CN II-XII intact Psychiatric exam: Present: normal affect, normal mood Skin exam: Present: warm, dry, intact, normal color. Absent: rash Course Vital Signs 10/05/17 10/05/17 10/05/17 15:34 15:58 16:06 Temperature 97.0 F L Pulse Rate 107 H 101 H 103 H Respiratory 16 26 H Rate Blood Pressure 144/89 126/88 O2 Sat by Pulse 96 99 Oximetry 10/05/17 10/05/17 10/05/17 16:13 16:24 16:47 Temperature Pulse Rate 98 116 H Respiratory 26 H Rate Blood Pressure O2 Sat by Pulse Oximetry - Reevaluation(s) Reevaluation #1: 10/05/17 16:55 patient has mild improvement with breathing treatments EKG Findings - EKG Comments: EKG Findings:: EKG shows normal sinus rhythm rate of 99, UT 156, QRS 60, QTc 426 Medical Decision Making - Medical Decision Making 57 no ER for various of significant shortness of breath cough congestion episodic fevers. Positive pneumonia on x-ray. History of severe COPD. Patient be admitted for breathing treatments and cardiopulmonary resuscitation and monitoring - Lab Data Result diagrams: 10/05/17 15:50 10/05/17 15:50 Lab Results 10/05/17 10/05/17 10/05/17 Range/Units 15:50 15:50 15:50 WBC 11.0 H (3.8-10.6) k/uL RBC 4.40 (4.30-5.90) m/uL Hgb 14.0 (13.0-17.5) gm/dL Hct 43.2 (39.0-53.0) % MCV 98.2 (80.0-100.0) fL MCH 31.8 (25.0-35.0) pg MCHC 32.4 (31.0-37.0) g/dL RDW 13.5 (11.5-15.5) % Plt Count 220 (150-450) k/uL Neutrophils % 73 % Lymphocytes % 17 % Monocytes % 7 % Eosinophils % 1 % Basophils % 0 % Neutrophils # 8.0 H (1.3-7.7) k/uL Lymphocytes # 1.9 (1.0-4.8) k/uL Monocytes # 0.7 (0-1.0) k/uL Eosinophils # 0.1 (0-0.7) k/uL Basophils # 0.1 (0-0.2) k/uL PT (9.0-12.0) sec INR (<1.2) APTT (22.0-30.0) sec Sodium 131 L (137-145) mmol/L Potassium 4.1 (3.5-5.1) mmol/L Chloride 94 L (98-107) mmol/L Carbon Dioxide 25 (22-30) mmol/L Anion Gap 12 mmol/L BUN 10 (9-20) mg/dL Creatinine 0.50 L (0.66-1.25) mg/dL Est GFR (MDRD) Af Amer >60 (>60 ml/min/1.73 sqM) Est GFR (MDRD) Non-Af >60 (>60 ml/min/1.73 sqM) Glucose 90 (74-99) mg/dL Calcium 9.6 (8.4-10.2) mg/dL Total Bilirubin 0.7 (0.2-1.3) mg/dL AST 25 (17-59) U/L ALT 34 (21-72) U/L Alkaline Phosphatase 117 (38-126) U/L CK-MB (CK-2) 1.5 (0.0-2.4) ng/mL Troponin I <0.012 (0.000-0.034) ng/mL NT-Pro-B Natriuret Pep pg/mL Total Protein 7.6 (6.3-8.2) g/dL Albumin 4.1 (3.5-5.0) g/dL 10/05/17 10/05/17 Range/Units 15:50 15:50 WBC (3.8-10.6) k/uL RBC (4.30-5.90) m/uL Hgb (13.0-17.5) gm/dL Hct (39.0-53.0) % MCV (80.0-100.0) fL MCH (25.0-35.0) pg MCHC (31.0-37.0) g/dL RDW (11.5-15.5) % Plt Count (150-450) k/uL Neutrophils % % Lymphocytes % % Monocytes % % Eosinophils % % Basophils % % Neutrophils # (1.3-7.7) k/uL Lymphocytes # (1.0-4.8) k/uL Monocytes # (0-1.0) k/uL Eosinophils # (0-0.7) k/uL Basophils # (0-0.2) k/uL PT 9.8 (9.0-12.0) sec INR 1.0 (<1.2) APTT 28.3 (22.0-30.0) sec Sodium (137-145) mmol/L Potassium (3.5-5.1) mmol/L Chloride (98-107) mmol/L Carbon Dioxide (22-30) mmol/L Anion Gap mmol/L BUN (9-20) mg/dL Creatinine (0.66-1.25) mg/dL Est GFR (MDRD) Af Amer (>60 ml/min/1.73 sqM) Est GFR (MDRD) Non-Af (>60 ml/min/1.73 sqM) Glucose (74-99) mg/dL Calcium (8.4-10.2) mg/dL Total Bilirubin (0.2-1.3) mg/dL AST (17-59) U/L ALT (21-72) U/L Alkaline Phosphatase (38-126) U/L CK-MB (CK-2) (0.0-2.4) ng/mL Troponin I (0.000-0.034) ng/mL NT-Pro-B Natriuret Pep 412 pg/mL Total Protein (6.3-8.2) g/dL Albumin (3.5-5.0) g/dL - Radiology Data Radiology results: report reviewed (chest x-ray is positive for pneumonia), image reviewed Disposition Clinical Impression: Right middle lobe pneumonia, COPD (chronic obstructive pulmonary disease), Acute exacerbation of chronic obstructive airways disease Disposition: ADMITTED IP TO THIS HOSP Condition: Serious Referrals: Aiden Mayfield MD [Primary Care Provider] - 1-2 days
[2017-10-05 16:17] LABS: Basophils # (A) 0.1 k/uL (0-0.2); Basophils % (A) 0 %; CH 31.8; CHCM 32.5; Eosinophils # (A) 0.1 k/uL (0-0.7); Eosinophils % (A) 1 %; HCT 43.2 % (39.0-53.0); HDW 2.08; Luc # (Auto) 0.25; Luc % (Auto) 2; Lymphocytes # (A) 1.9 k/uL (1.0-4.8); Lymphocytes % (A) 17 %; MCH 31.8 pg (25.0-35.0); MCHC 32.4 g/dL (31.0-37.0); MCV 98.2 fL (80.0-100.0); Monocytes # (A) 0.7 k/uL (0-1.0); Monocytes % (A) 7 %; Neutrophils % (A) 73 %; RDW 13.5 % (11.5-15.5); WBC (Perox) 10.88
[2017-10-05 16:25] LABS: Partial Thromboplastin Time 28.3 sec (22.0-30.0); Prothrombin Time 9.8 sec (9.0-12.0)
[2017-10-05 16:31] LABS: ALT 34 U/L (21-72); AST 25 U/L (17-59); Alkaline Phosphatase 117 U/L (38-126); Anion Gap 12 mmol/L; Blood Urea Nitrogen 10 mg/dL (9-20); Calcium 9.6 mg/dL (8.4-10.2); Carbon Dioxide 25 mmol/L (22-30); Chloride 94 mmol/L (98-107); Glucose 90 mg/dL (74-99); Non-African American GFR(MDRD) >60 (>60 ml/min/1.73 sqM); Potassium 4.1 mmol/L (3.5-5.1); Sodium 131 mmol/L (137-145); Total Bilirubin 0.7 mg/dL (0.2-1.3); Total Protein 7.6 g/dL (6.3-8.2)
--- NOTE | 2017-10-05 16:50 | XR ---
EXAMINATION TYPE: XR chest 2V DATE OF EXAM: 10/05/2017 COMPARISON: 09/26/2017 HISTORY: Shortness of breath TECHNIQUE: Frontal and lateral views of the chest are obtained. FINDINGS: Scattered senescent parenchymal changes noted. Hyperinflation compatible with COPD. Increasing right perihilar infiltrate with stable left perihilar infiltrate. Correlate for pneumonia. Peribronchial cuffing noted as well. Heart size is stable. Mediastinal structures are stable and grossly unremarkable. No evidence for hilar prominence. Degenerative changes dorsal spine. IMPRESSION: 1. Increasing right perihilar infiltrate with stable left perihilar infiltrate. Correlate for pneumon ia. Peribronchial cuffing noted as well.
[2017-10-05 16:51] LABS: Creatine Kinase MB 1.5 ng/mL (0.0-2.4); Troponin I <0.012 ng/mL (0.000-0.034)
[2017-10-05] MEDS ORDERED: PIPERACILLIN-TAZOBACTAM 3.375 GM in DEXTROSE/WATER 1 50ML.BAG IVPB STA (16:51)
[2017-10-05] MEDS ORDERED: PNEUMONIA PROTOCOL UTILIZED 1 EACH MISC PO PRN (16:51)
[2017-10-05] MEDS ORDERED: LEVOFLOXACIN 750MG-D5W PMX 750 MG in DEXTROSE/WATER 1 150ML.BAG IVPB STA (16:51)
[2017-10-05] MEDS ORDERED: THIAMINE 100 MG/ML 2 ML VIAL IM STA (16:57)
[2017-10-05] MEDS ORDERED: LORazepam 2 MG/ML INJ IV PRN ×3 (16:57)
[2017-10-05 17:38] LABS: Creatine Kinase 47 U/L (55-170)
[2017-10-05] MEDS: THIAMINE 100 MG TAB PO SCH (20:10)
[2017-10-05] MEDS: SODIUM CHLORIDE 0.9% 1,000 ML IV SCH (20:11)
[2017-10-05] MEDS ORDERED: IPRATROPIUM-ALBUTEROL 3 ML NEB INHALATION PRN (20:46)
[2017-10-05] MEDS: IPRATROPIUM-ALBUTEROL 3 ML NEB INHALATION SCH (21:08)
[2017-10-06] MEDS ORDERED: TEMAZEPAM 15 MG CAP PO PRN (00:03)
[2017-10-06] MEDS: PIPERACILLIN-TAZOBACTAM 3.375 GM in DEXTROSE/WATER 1 50ML.BAG IVPB SCH ×3 (01:21→15:59)
--- NOTE | 2017-10-06 06:07 | HP ---
HISTORY AND PHYSICAL CHIEF COMPLAINT: Shortness of breath and cough. HISTORY OF PRESENT ILLNESS: This 57-year-old gentleman with a past history of COPD, history of prostate disorder, history of alcoholism, prostate cancer, being followed by Dr. Mayfield in the outpatient setting apparently continues to smoke. The patient also has history of alcohol abuse also. The patient complaining of fever, shortness of breath and cough and sputum. Patient is found to have right lower lobe pneumonia and perihilar pneumonia and the patient admitted for further evaluation and treatment. There is no history of any rigors or chills. No history of headache, loss of consciousness or seizures. PAST MEDICAL HISTORY: History of COPD, history of prostate cancer, history of alcohol intake, prostate surgery. MEDICATIONS: Albuterol one to two puffs q.4h p.r.n. ALLERGIES: None. FAMILY HISTORY: Family history of chronic obstructive pulmonary disease. SOCIAL HISTORY: History of smoking and alcohol. REVIEW OF SYSTEMS: ENT is no diminished vision, no diminished hearing. Cardiovascular: No angina. Respiratory: As mentioned earlier. GI no nausea or vomiting. no dysuria. Nervous system: No numbness or weakness. ALLERGY: No asthma or hayfever. Musculoskeletal as mentioned earlier. HEMATOLOGY/ONCOLOGY: No history of anemia. Endocrine no history of diabetes or hypothyroidism. Constitutional: As mentioned earlier. Rheumatology: Negative. Dermatology: Negative. Psychiatric: As mentioned earlier. PHYSICAL EXAMINATION: Alert and orient x3, the pulse is 114, blood pressure 127/71, respiration 18, temperature 98.9, pulse ox 98% on 2 L. HEENT is conjunctivae normal. Oral mucosa moist. Neck is no jugular venous distention. No carotid bruit. No thyroid enlargement. No lymph node enlargement. Cardiovascular system: S1, S2 normal, no S3, no S4. No murmur. Respiratory: Breath sounds diminished in the bases. Breathing efforts are markedly increased. Bilateral scattered rhonchi and crackles. No bronchial breath sounds heard. ABDOMEN: Soft, nontender. No mass palpable. Legs no edema. No swelling. Nervous system: Higher functions as mentioned. Moves all 4 limbs. No focal motor or sensory deficits. Lymphatics: No lymph nodes palpable in the neck, axillae or groin. Skin no ulcer, rash or bleeding. Joints no active deforming arthropathy. LAB: Investigations at this time shows WBC 11, hemoglobin is 14, sodium 139, potassium 4.1. Other labs noted influenza negative. ASSESSMENT: 1. Chronic obstructive pulmonary disease exacerbation with right lower lobe pneumonia possibly gram-negative. 2. History of ETOH. 3. Hyponatremia. 4. History of prostate cancer. 5. History of hernia surgery. 6. History of continued ongoing nicotine dependence. RECOMMENDATIONS AND DISCUSSION: This 57-year-old gentleman who presented with multiple complex medical issues, will monitor the patient closely, continue the current medications, management and will initiate broad-spectrum IV antibiotics and also bronchodilators. I would also recommend pulmonary consultation and otherwise DVT prophylaxis. Guarded prognosis because of multiple complex medical issues. See orders for details. Further recommendations to follow. A copy of dictation being forwarded to Dr. Mayfield who is the primary physician. KORY / HAYDEE: [id number] /
[2017-10-06] MEDS: IPRATROPIUM-ALBUTEROL 3 ML NEB INHALATION SCH ×4 (07:32→20:30)
[2017-10-06] MEDS: ENOXAPARIN 40 MG/0.4 ML SYRINGE SQ SCH (07:48)
[2017-10-06] MEDS: PANTOPRAZOLE 40 MG TABLET PO SCH (07:48)
--- NOTE | 2017-10-06 08:31 | XR ---
EXAMINATION TYPE: XR chest 2V DATE OF EXAM: 10/06/2017 COMPARISON: Prior chest x-ray 10/05/2017 chest x-ray 12/30/2016 HISTORY: Pneumonia TECHNIQUE: Frontal and lateral views of the chest are obtained. FINDINGS: Pleural parenchymal changes show a similar appearance to prior exam. No evident pneumothor ax or pleural effusion. Cardiac mediastinal silhouette, pulmonary vascularity and mainor are stable. Pr ominent lung volumes suggest underlying COPD. Interstitium is increased bilaterally. Left clavicular fracture is chronic. IMPRESSION: Correlate for pneumonia. Emphysema, interstitial lung disease, consider chest CT as jesus cated, follow-up is recommended.
[2017-10-06] MEDS: NICOTINE 21MG/24HR PATCH TRANSDERM SCH (10:35)
[2017-10-06] MEDS: FOLIC ACID 1 MG TAB PO SCH (12:22)
[2017-10-06] MEDS: THIAMINE 100 MG TAB PO SCH ×2 (12:22→17:26)
[2017-10-06] MEDS: MULTIVITAMINS, THERA 1 EACH TAB PO SCH (12:22)
[2017-10-06] MEDS ORDERED: RX INFO: IV CONTRAST WAS GIVEN 1 EACH MISC MISCELLANE PRN (14:36)
--- NOTE | 2017-10-06 14:37 | P.CNPUL ---
History of Present Illness Consult date: 10/06/17 Reason for consult: dyspnea, COPD Chief complaint: Shortness of breath History of present illness: This is a 57 year old male who presented to the emergency department complaining of shortness of breath that began 2-3 days ago. He has been coughing up a copious amount of yellow phlegm. The patient was recently hospitalized with CAP mycoplasma pneumonia. He denies fevers and chills. He does not wear home oxygen. He is complaining of feeling like his chest is tight. He does not have a nebulizer at home. He has an albuterol inhaler he uses 3-4 times per day. He continues to smoke 1 ppd since the age of [age] years old. Review of Systems All systems: negative Past Medical History Past Medical History: Cancer, COPD, Prostate Disorder Additional Past Medical History / Comment(s): Emphysema; Alcoholism, prostate CA History of Any Multi-Drug Resistant Organisms: None Reported Past Surgical History: Hernia Repair, Prostate Surgery, Tonsillectomy Additional Past Surgical History / Comment(s): R inguinal hernia repair, prostate-radiation implant, colonoscopy-normal Past Anesthesia/Blood Transfusion Reactions: No Reported Reaction Past Psychological History: No Psychological Hx Reported Additional Psychological History / Comment(s): Pt denies depression. Pt lives alone. He uses no assistive device. He does not drive. He either walks or takes the bus [place] [employer]. Smoking Status: Current every day smoker Past Alcohol Use History: Abuse, Daily Additional Past Alcohol Use History / Comment(s): Pt states he started smoking as a teen and is a ppd smoker. He states he now drinks 3-4 beers a day. He states he is an alcoholic. Past Drug Use History: None Reported - Past Family History Father Family Medical History: COPD Additional Family Medical History / Comment(s): Father of COPD in his 70's Mother Family Medical History: Coronary Artery Disease (CAD) Additional Family Medical History / Comment(s): Mother of heart disease at the age of 65 yrs. Medications and Allergies Home Medications Medication Instructions Recorded Confirmed Type Albuterol Inhaler [Ventolin Hfa 1 - 2 puff INHALATION Q4HR PRN #1 09/26/1710/05 Rx Inhaler] inhaler Allergies Allergy/AdvReac Type Severity Reaction Status Date / Time No Known Allergies Allergy Verified 10/05/17 16:29 Physical Exam Osteopathic Statement: *. No significant issues noted on an osteopathic structural exam other than those noted in the History and Physical/Consult. Vitals: Vital Signs Temp Pulse Pulse Resp BP BP Pulse Ox 10/06/17 11:43 96 10/06/17 11:33 96 10/06/17 07:43 104 H 10/06/17 07:32 96 10/06/17 07:00 98.2 F 90 18 113/73 96 10/05/17 23:00 98.8 F 103 H 16 112/75 93 L 10/05/17 21:26 114 H 10/05/17 21:12 117 H 10/05/17 20:00 16 10/05/17 19:00 98.9 F 114 H 18 127/71 92 L 10/05/17 18:52 98.6 F 107 H 24 103/59 94 L 10/05/17 18:31 99.8 F H 108 H 16 108/68 93 L 10/05/17 17:00 115 H 22 117/74 96 10/05/17 16:47 26 H 10/05/17 16:24 116 H 10/05/17 16:13 98 10/05/17 16:06 103 H 26 H 126/88 99 10/05/17 15:58 101 H 10/05/17 15:34 97.0 F L 107 H 16 144/89 96 Intake and Output 10/05/17 10/06/17 10/06/17 22:59 06:59 14:59 Intake Total 100 800 Output Total 200 Balance -100 800 Intake: Amount of Fluid Infused ( 100 ml) Intake, IV Titration 800 Amount Levofloxacin 750Mg-D5w 550 Pmx 750 mg In Dextrose/ Water 1 150ml.bag @ 100 mls/hr IVPB ONCE [facility] Rx#: [id number] Levofloxacin 750Mg-D5w 150 Pmx 750 mg In Dextrose/ Water 1 150ml.bag @ 100 mls/hr IVPB Q24H [facility] Rx#: [id number] Piperacillin-Tazobactam 3 100 .375 gm In Dextrose/Water 1 50ml.bag @ 12.5 mls/hr IVPB Q8HR [facility] Rx#: [id number] Output: Urine 200 Other: Weight 67.585 kg General: A+OX3, NAD CV: RRR, s1/s2 Lungs: coarse breath sounds bilaterally with expiratory wheezing Abd: Soft, NT/ND, +BS Ext: no edema Results - Laboratory Findings CBC and BMP: 10/05/17 15:50 10/05/17 15:50 PT/INR, D-dimer PT 9.8 sec (9.0-12.0) 10/05/17 15:50 INR 1.0 (<1.2) 10/05/17 15:50 Abnormal lab findings: Abnormal Labs 10/05/17 10/05/17 10/05/17 15:50 15:50 15:50 WBC 11.0 H Neutrophils # 8.0 H Sodium 131 L Chloride 94 L Creatinine 0.50 L Total Creatine Kinase 47 L - Diagnostic Findings Chest x-ray: report reviewed, image reviewed Assessment and Plan Assessment: Acute hypoxic respiratory failure AECOPD Purulent tracheobronchitis Active tobacco abuse Hyponatremia Increased interstitial markings on CXR Emphysema O2 to maintain saturation > or = 90% Bronchodilators Pulmicort Incentive spirometry and pulmonary hygiene Sputum culture CT chest Smoking cessation Monitor labs Nebulizer for home prior to discharge Outpatient PFT and pulmonary follow up Thank you for this consultation. We will continue to follow along.
[2017-10-06] MEDS: HYDROcodone/APAP 5-325MG 1 EACH TAB PO PRN ×2 (14:53→21:46)
[2017-10-06] MEDS: SODIUM CHLORIDE 0.9% 1,000 ML IV SCH ×2 (16:00→17:26)
[2017-10-06] MEDS ORDERED: LORazepam 2 MG/ML INJ IV PRN ×3 (16:58)
[2017-10-06] MEDS ORDERED: THIAMINE 100 MG/ML 2 ML VIAL IM STA (16:58)
--- NOTE | 2017-10-06 16:58 | P.PN ---
Subjective Progress Note Date: 10/06/17 Progress note being dictated for Dr. Flanagan. Interval history: This is a 57-year-old gentleman admitted with acute hypoxic respiratory failure, acute COPD exacerbation with purulent tracheobronchitis, hyponatremia and multiple other medical issues in a patient with ongoing nicotine abuse. Maintained on nebulized bronchodilators, Zosyn, with slow improvement and breathing. Sodium 131. Denies chest pain, palpitations. Chest x-ray reporting emphysema, interstitial lung disease. Chest CT pending. Objective - Vital Signs Vital signs: Vital Signs Temp 98.2 F 10/06/17 07:00 Pulse 96 10/06/17 11:43 Resp 18 10/06/17 07:00 BP 113/73 10/06/17 07:00 Pulse Ox 96 10/06/17 07:00 Intake & Output 10/05/17 10/06/17 10/06/17 18:59 06:59 18:59 Intake Total 900 Output Total 200 Balance 700 Weight 67.585 kg Intake: Amount of Fluid Infused ( 100 ml) Intake, IV Titration 800 Amount Levofloxacin 750Mg-D5w 550 Pmx 750 mg In Dextrose/ Water 1 150ml.bag @ 100 mls/hr IVPB ONCE [facility] Rx#: [id number] Levofloxacin 750Mg-D5w 150 Pmx 750 mg In Dextrose/ Water 1 150ml.bag @ 100 mls/hr IVPB Q24H [facility] Rx#: [id number] Piperacillin-Tazobactam 3 100 .375 gm In Dextrose/Water 1 50ml.bag @ 12.5 mls/hr IVPB Q8HR [facility] Rx#: [id number] Output: Urine 200 - Exam PHYSICAL EXAM: VITAL SIGNS: As above GENERAL: Sitting up in bed, weak, shaky HEENT: Conjunctivae normal. eyes normal. NECK: No JVD. No thyroid enlargement. No LNs CARDIOVASCULAR: S1, S2 muffled. No murmur RESPIRATION: Breath sounds diminished in the bases. Coarse rhonchi, no crackles. Expiratory wheezing. ABDOMEN: Soft, nontender . No guarding. no masses palpable. No ascites, No hepatosplenomegaly.Bowel sounds heard. LEGS: No edema. no swelling PSYCHIATRY: Alert and oriented -3, mood and affect normal. NERVOUS SYSTEM: Cranial N 2-12 grossly normal. Moves all 4 limbs. Diffuse weakness No focal deficits. Skin: no ulcer no rash Joints: No active swelling. No inflammation. Lymphatic system. No LN neck axilla or groin. - Labs CBC & Chem 7: 10/05/17 15:50 10/05/17 15:50 Labs: Abnormal Lab Results - Last 24 Hours (Table) 10/05/17 Range/Units 15:50 Total Creatine Kinase 47 L (55-170) U/L Assessment and Plan Assessment: 1. [ Acute COPD exacerbation with purulent tracheobronchitis & right lower lobe pneumonia, possibly gram-negative]. 2. [ History of EtOH abuse]. 3. [ Hyponatremia, hypovolemic]. 4. [ Acute hypoxic respiratory failure]. 5. [ Ongoing nicotine dependence]. 6. [ Emphysema, interstitial lung disease per chest x-ray, CT pending]. Plan: Continue on current medication regime, he relates bronchodilators, Pulmicort, antibiotics, monitoring. Aggressive pulmonary toileting. Sputum culture and chest CT pending. IV fluids at 100 MLS an hour ordered. Close monitoring of electrolytes with repeat labs ordered for a.m. Titrate down oxygen, maintaining O2 sats greater than or equal to 90% as per parameters established per pulmonary. Smoking cessation and alcohol cessation readdressed. CIWA Protocol initiated. The impression and plan of care has been dictated as directed. : I performed a history and examination of this patient, discussed the same with the dictator. I agree with the dictator's note ,documented as a scribe. Any additional findings or plans will be noted.
[2017-10-06] MEDS ORDERED: THIAMINE 100 MG TAB PO SCH (17:00)
--- NOTE | 2017-10-06 17:04 | CT ---
EXAMINATION TYPE: CT angio chest DATE OF EXAM: 10/06/2017 COMPARISON: 12/30/2016 HISTORY: 14-year-old male complains of difficulty breathing, chest pain, cough, and diagnosis of pneu monia. TECHNIQUE: Contiguous axial scanning of the chest performed with IV Contrast, patient injected with 1 00 mL of Omnipaque 350. Coronal/sagittal MIP reconstructions performed. CT DLP: 174.6 mGycm Automated exposure control for dose reduction was used. FINDINGS: The heart is normal size without pericardial effusion. Coronary vessel calcifications are present and are remarkable for coronary disease. The aorta is normal-caliber with mild atherosclerotic calcifications and conventional arch vessel bra nching anatomy. Borderline satisfactory opacification of the pulmonary arterial system. No evidence for pulmonary emb olus. Mediastinal lymph nodes are nonenlarged and borderline and mildly enlarged measuring up to 1.3 cm in the AP window, 8 mm precarinal region, and 1.5 cm subcarinal region. There appears to be excessive soft tissue in the right hilar region measuring 2.3 cm. This was also p resent previously and some of the pulmonary arterial branches extend through this thickening. Moderate diffuse bronchial wall thickening is noted. Extensive previous consolidation dependently in the mid to lower right lung seen previously has largely improved though there is residual patchy infi ltrate superior segment right lower lobe, dependent right upper lobe, and scattered tree-in-bud opaci ties throughout the lungs, especially mid to lower lungs. Emphysematous change particularly in the ri ght upper lobe. There are scattered areas of endobronchial plugging in the lower lobes also noted. The visualized upper abdomen shows prominent ingested debris in the stomach with stable nodular thick ening of the left adrenal gland Bones: Spondylosis mid to lower thoracic spine. Subacute to chronic ununited fracture deformity of th e distal third left clavicular shaft. IMPRESSION: 1. COPD WITH MILD EMPHYSEMA. NO EVIDENCE FOR PULMONARY EMBOLUS. 2. DIFFUSE TREE-IN-BUD OPACITIES IN THE MID AND LOWER LUNGS WITH SCATTERED AREAS OF ENDOBRONCHIAL PLU GGING IN THE LOWER LUNGS. CORRELATE FOR POSSIBLE ETIOLOGIES INCLUDING CHRONIC ASPIRATION AND ATYPICAL INFECTIONS. 3. MUCH OF THE PREVIOUSLY SEEN DEPENDENT CONSOLIDATION ON THE RIGHT HAS RESOLVED. THERE IS SOME RESID UAL PATCHY INFILTRATE THAT COULD REPRESENT ACUTE INFECTIOUS OR ASPIRATION PNEUMONITIS. 4. EXCESS SOFT TISSUE IN THE RIGHT HILUM MEASURING UP TO 2.3 CM COULD REPRESENT UNDERLYING HILAR LYMP HADENOPATHY WHICH COULD BE REACTIVE. ADDITIONAL BORDERLINE AND MILDLY ENLARGED MEDIASTINAL LYMPH NODE S ARE UNCHANGED FROM 12/30/2016. RECOMMEND THREE-MONTH FOLLOW-UP AFTER TREATMENT TO REASSESS. IF ANY ROSARIO SPICIOUS GROWTH IS NOTED AT THAT TIME, PET/CT CAN BE PERFORMED.
[2017-10-06] MEDS: LEVOFLOXACIN 750 MG TAB PO SCH (17:26)
[2017-10-06] MEDS ORDERED: LEVOFLOXACIN 750MG-D5W PMX 750 MG in DEXTROSE/WATER 1 150ML.BAG IVPB SCH (18:00)
[2017-10-06] MEDS: BUDESONIDE 0.5 MG/2 ML NEBU INHALATION SCH (20:30)
[2017-10-07] MEDS: PIPERACILLIN-TAZOBACTAM 3.375 GM in DEXTROSE/WATER 1 50ML.BAG IVPB SCH ×5 (06:26→23:19)
[2017-10-07] MEDS: SODIUM CHLORIDE 0.9% 1,000 ML IV SCH ×5 (06:26→23:20)
[2017-10-07] MEDS: BUDESONIDE 0.5 MG/2 ML NEBU INHALATION SCH ×2 (07:36→20:15)
[2017-10-07] MEDS: IPRATROPIUM-ALBUTEROL 3 ML NEB INHALATION SCH ×4 (07:36→20:14)
[2017-10-07] MEDS: ENOXAPARIN 40 MG/0.4 ML SYRINGE SQ SCH (07:51)
[2017-10-07] MEDS: NICOTINE 21MG/24HR PATCH TRANSDERM SCH (07:52)
[2017-10-07] MEDS: PANTOPRAZOLE 40 MG TABLET PO SCH (07:52)
[2017-10-07] MEDS: HYDROcodone/APAP 5-325MG 1 EACH TAB PO PRN ×2 (08:02→14:39)
[2017-10-07 08:03] LABS: Basophils % (A) 1 %; CH 30.7; CHCM 30.7; Eosinophils # (A) 0.2 k/uL (0-0.7); Eosinophils % (A) 3 %; HCT 39.1 % (39.0-53.0); HDW 1.99; HGB 12.4 gm/dL (13.0-17.5); Hypochromasia Slight; Luc # (Auto) 0.18; Luc % (Auto) 3; Lymphocytes # (A) 1.5 k/uL (1.0-4.8); Lymphocytes % (A) 21 %; MCH 31.8 pg (25.0-35.0); MCHC 31.7 g/dL (31.0-37.0); MCV 100.5 fL (80.0-100.0); Macrocytosis Slight; Mean Platelet Volume 7.5; Monocytes # (A) 0.5 k/uL (0-1.0); Monocytes % (A) 8 %; Neutrophils # (A) 4.6 k/uL (1.3-7.7); Neutrophils % (A) 65 %; RBC 3.89 m/uL (4.30-5.90); RDW 14.7 % (11.5-15.5); WBC 7.1 k/uL (3.8-10.6); WBC (Perox) 7.33
[2017-10-07 08:24] LABS: Anion Gap 7 mmol/L; Blood Urea Nitrogen 8 mg/dL (9-20); Calcium 8.9 mg/dL (8.4-10.2); Carbon Dioxide 30 mmol/L (22-30); Chloride 98 mmol/L (98-107); Glucose 117 mg/dL (74-99); Non-African American GFR(MDRD) >60 (>60 ml/min/1.73 sqM); Potassium 3.7 mmol/L (3.5-5.1); Sodium 135 mmol/L (137-145)
--- NOTE | 2017-10-07 11:16 | P.PN ---
Subjective Progress Note Date: 10/07/17 Principal diagnosis: AECOPD Patient seen and examined. Patient states his breathing is much better today. He does note that he is still wheezing although he feels it is improved. He denies daily drinking. He states he does drink alcohol 2-3 times a week. He denies any episodes of aspiration or acid reflux. Objective - Vital Signs Vital signs: Vital Signs Temp 97.0 F L 10/07/17 07:00 Pulse 100 10/07/17 07:49 Resp 18 10/07/17 07:00 BP 116/74 10/07/17 07:00 Pulse Ox 95 10/07/17 07:00 Intake & Output 10/06/17 10/07/17 10/07/17 18:59 06:59 18:59 Intake Total 1200 Output Total 500 900 Balance 700 -900 Intake: Oral 1200 Output: Urine 500 900 Other: Voiding Method Urinal # Voids 2 - Exam General: A+OX3, NAD CV: RRR, s1/s2 Lungs: coarse breath sounds bilaterally with expiratory wheezing Abd: Soft, NT/ND, +BS Ext: no edema - Labs CBC & Chem 7: 10/07/17 07:21 10/07/17 07:21 Labs: Abnormal Lab Results - Last 24 Hours (Table) 10/07/17 10/07/17 Range/Units 07:21 07:21 RBC 3.89 L (4.30-5.90) m/uL Hgb 12.4 L (13.0-17.5) gm/dL MCV 100.5 H (80.0-100.0) fL Sodium 135 L (137-145) mmol/L BUN 8 L (9-20) mg/dL Creatinine 0.59 L (0.66-1.25) mg/dL Glucose 117 H (74-99) mg/dL Microbiology - Last 24 Hours (Table) 10/06/17 07:54 Gram Stain - Preliminary Sputum 10/05/17 17:40 Blood Culture - Preliminary Blood No Growth after 24 hours Assessment and Plan Assessment: Acute hypoxic respiratory failure AECOPD Community acquired pneumonia Active tobacco abuse Hyponatremia Emphysema O2 to maintain saturation > or = 90% Bronchodilators Pulmicort Incentive spirometry and pulmonary hygiene Sputum culture Prednisone taper CT chest reviewed Smoking cessation Monitor labs Nebulizer for home prior to discharge Outpatient PFT and pulmonary follow up Repeat CT chest in 3 months to follow lymphadenopathy and ensure resolution of infiltrates
[2017-10-07] MEDS: FOLIC ACID 1 MG TAB PO SCH (12:41)
[2017-10-07] MEDS: MULTIVITAMINS, THERA 1 EACH TAB PO SCH (12:41)
[2017-10-07] MEDS: THIAMINE 100 MG TAB PO SCH ×2 (12:42→16:49)
--- NOTE | 2017-10-07 16:34 | P.PN ---
Subjective Progress Note Date: 10/07/17 Progress note being dictated for Dr. Flanagan. Interval history: This is a 57-year-old gentleman admitted with acute hypoxic respiratory failure, acute COPD exacerbation with purulent tracheobronchitis, hyponatremia and multiple other medical issues in a patient with ongoing nicotine abuse. Maintained on nebulized bronchodilators, Zosyn, with slow improvement and breathing. Sodium 131. Denies chest pain, palpitations. Chest x-ray reporting emphysema, interstitial lung disease. Chest CT pending. 10/07/2017 significant improvement in breathing. Less overall shaking. Chest CT reporting no evidence for PE, COPD with mild emphysema, diffuse opacities a mid and lower lungs with scattered endobronchial plugging in the lower lungs, possible chronic aspiration and atypical infection, residual patchy infiltrate of the right lung, possible pneumonitis, excess soft tissue in the right hilum measuring up to 2.3 cm, possible underlying hilar lymphadenopathy, borderline and mildly enlarged mediastinal lymph nodes unchanged from 12/30/2016- reevaluate outpatient in 3 months. Denies aspiration, denies reflux. Objective - Vital Signs Vital signs: Vital Signs Temp 97.0 F L 10/07/17 07:00 Pulse 100 10/07/17 11:46 Resp 18 10/07/17 07:00 BP 116/74 10/07/17 07:00 Pulse Ox 95 10/07/17 07:00 Intake & Output 10/06/17 10/07/17 10/07/17 18:59 06:59 18:59 Intake Total 1200 Output Total 500 900 Balance 700 -900 Intake: Oral 1200 Output: Urine 500 900 Other: Voiding Method Urinal # Voids 2 - Exam PHYSICAL EXAM: VITAL SIGNS: As above GENERAL: Sitting up in bed, weak, shaky HEENT: Conjunctivae normal. eyes normal. NECK: No JVD. No thyroid enlargement. No LNs CARDIOVASCULAR: S1, S2 muffled. No murmur RESPIRATION: Breath sounds diminished in the bases. Coarse rhonchi, no crackles. Improving Expiratory wheezing. ABDOMEN: Soft, nontender . No guarding. no masses palpable. No ascites, No hepatosplenomegaly.Bowel sounds heard. LEGS: No edema. no swelling PSYCHIATRY: Alert and oriented -3, mood and affect normal. NERVOUS SYSTEM: Cranial N 2-12 grossly normal. Moves all 4 limbs. Diffuse weakness No focal deficits. Skin: no ulcer no rash Joints: No active swelling. No inflammation. Lymphatic system. No LN neck axilla or groin. - Labs CBC & Chem 7: 10/07/17 07:21 10/07/17 07:21 Labs: Abnormal Lab Results - Last 24 Hours (Table) 10/07/17 10/07/17 Range/Units 07:21 07:21 RBC 3.89 L (4.30-5.90) m/uL Hgb 12.4 L (13.0-17.5) gm/dL MCV 100.5 H (80.0-100.0) fL Sodium 135 L (137-145) mmol/L BUN 8 L (9-20) mg/dL Creatinine 0.59 L (0.66-1.25) mg/dL Glucose 117 H (74-99) mg/dL Microbiology - Last 24 Hours (Table) 10/06/17 07:54 Gram Stain - Preliminary Sputum 10/05/17 17:40 Blood Culture - Preliminary Blood No Growth after 24 hours Assessment and Plan Assessment: 1. [ Acute COPD exacerbation with purulent tracheobronchitis & right lower lobe pneumonia, possibly gram-negative]. 2. [ History of EtOH abuse]. 3. [ Hyponatremia, hypovolemic]. 4. [ Acute hypoxic respiratory failure]. 5. [ Ongoing nicotine dependence]. 6. [ Emphysema, interstitial lung disease per chest x-ray, CT pending]. Plan: Continue on current medication regime, he relates bronchodilators, Pulmicort, antibiotics, monitoring. Wean down oxygen to parameters established by pulmonary, maintaining O2 sats of greater than 90%. Aggressive pulmonary toileting. Sputum culture pending. Increase ambulation with assistance. Close monitoring of electrolytes with repeat labs ordered for a.m. Smoking cessation and alcohol cessation readdressed. Discharge planning in progress for tomorrow, pending pulmonary clearance. The impression and plan of care has been dictated as directed. : I performed a history and examination of this patient, discussed the same with the dictator. I agree with the dictator's note ,documented as a scribe. Any additional findings or plans will be noted.
[2017-10-07] MEDS: LEVOFLOXACIN 750 MG TAB PO SCH (16:49)
[2017-10-08] MEDS: BUDESONIDE 0.5 MG/2 ML NEBU INHALATION SCH ×2 (07:34→19:16)
[2017-10-08] MEDS: IPRATROPIUM-ALBUTEROL 3 ML NEB INHALATION SCH ×4 (07:34→19:16)
[2017-10-08 07:57] LABS: Basophils # (A) 0.1 k/uL (0-0.2); Basophils % (A) 1 %; CH 31.6; Eosinophils # (A) 0.2 k/uL (0-0.7); Eosinophils % (A) 2 %; HDW 2.11; HGB 13.2 gm/dL (13.0-17.5); Luc # (Auto) 0.25; Luc % (Auto) 3; Lymphocytes # (A) 1.6 k/uL (1.0-4.8); Lymphocytes % (A) 19 %; MCHC 31.3 g/dL (31.0-37.0); MCV 102.3 fL (80.0-100.0); Macrocytosis Slight; Mean Platelet Volume 7.1; Monocytes # (A) 0.5 k/uL (0-1.0); Monocytes % (A) 6 %; Neutrophils # (A) 5.9 k/uL (1.3-7.7); Neutrophils % (A) 70 %; RBC 4.11 m/uL (4.30-5.90); RDW 13.4 % (11.5-15.5); WBC 8.5 k/uL (3.8-10.6); WBC (Perox) 8.43
[2017-10-08 08:18] LABS: Anion Gap 7 mmol/L; Blood Urea Nitrogen 10 mg/dL (9-20); Calcium 8.9 mg/dL (8.4-10.2); Carbon Dioxide 30 mmol/L (22-30); Chloride 98 mmol/L (98-107); Glucose 104 mg/dL (74-99); Non-African American GFR(MDRD) >60 (>60 ml/min/1.73 sqM); Potassium 4.4 mmol/L (3.5-5.1); Sodium 135 mmol/L (137-145)
[2017-10-08] MEDS: PIPERACILLIN-TAZOBACTAM 3.375 GM in DEXTROSE/WATER 1 50ML.BAG IVPB SCH ×2 (08:18→15:23)
[2017-10-08] MEDS: HYDROcodone/APAP 5-325MG 1 EACH TAB PO PRN (08:18)
[2017-10-08] MEDS: NICOTINE 21MG/24HR PATCH TRANSDERM SCH (08:19)
[2017-10-08] MEDS: PANTOPRAZOLE 40 MG TABLET PO SCH (08:19)
[2017-10-08] MEDS: ENOXAPARIN 40 MG/0.4 ML SYRINGE SQ SCH (08:19)
[2017-10-08] MEDS: SODIUM CHLORIDE 0.9% 1,000 ML IV SCH ×3 (08:19→17:25)
[2017-10-08] MEDS: predniSONE 20 MG TAB PO SCH (08:19)
[2017-10-08] MEDS: FOLIC ACID 1 MG TAB PO SCH (11:14)
[2017-10-08] MEDS: THIAMINE 100 MG TAB PO SCH ×2 (11:14→17:24)
[2017-10-08] MEDS: MULTIVITAMINS, THERA 1 EACH TAB PO SCH (11:14)
--- NOTE | 2017-10-08 13:12 | P.PN ---
Subjective Progress Note Date: 10/08/17 Progress note being dictated for Dr. Flanagan. Interval history: This is a 57-year-old gentleman admitted with acute hypoxic respiratory failure, acute COPD exacerbation with purulent tracheobronchitis, hyponatremia and multiple other medical issues in a patient with ongoing nicotine abuse. Maintained on nebulized bronchodilators, Zosyn, with slow improvement and breathing. Sodium 131. Denies chest pain, palpitations. Chest x-ray reporting emphysema, interstitial lung disease. Chest CT pending. 10/07/2017 significant improvement in breathing. Less overall shaking. Chest CT reporting no evidence for PE, COPD with mild emphysema, diffuse opacities a mid and lower lungs with scattered endobronchial plugging in the lower lungs, possible chronic aspiration and atypical infection, residual patchy infiltrate of the right lung, possible pneumonitis, excess soft tissue in the right hilum measuring up to 2.3 cm, possible underlying hilar lymphadenopathy, borderline and mildly enlarged mediastinal lymph nodes unchanged from 12/30/2016- reevaluate outpatient in 3 months. Denies aspiration, denies reflux. 10/08/2017. Ambulating in hallway, maintaining O2 sats of 97% on room air. Increased coarseness, wheezing this morning.denies chest pain, palpitations. Afebrile. Objective - Vital Signs Vital signs: Vital Signs Temp 98.3 F 10/08/17 07:00 Pulse 96 10/08/17 11:30 Resp 18 10/08/17 07:00 BP 142/86 10/08/17 07:00 Pulse Ox 95 10/08/17 10:20 Intake & Output 10/07/17 10/08/17 10/08/17 18:59 06:59 18:59 Other: Voiding Method Urinal # Voids 4 2 - Exam PHYSICAL EXAM: VITAL SIGNS: As above GENERAL: Sitting up at side of bed, weak, no acute distress HEENT: Conjunctivae normal. eyes normal. oral mucosa moist NECK: No JVD. No thyroid enlargement. No LNs CARDIOVASCULAR: S1, S2 muffled. No murmur RESPIRATION: Breath sounds diminished in the bases. Coarse rhonchi, no crackles. Improving Expiratory wheezing. ABDOMEN: Soft, nontender . No guarding. no masses palpable.Bowel sounds heard. LEGS: No edema. no swelling PSYCHIATRY: Alert and oriented -3, mood and affect normal. NERVOUS SYSTEM: Cranial N 2-12 grossly normal. Moves all 4 limbs. Diffuse weakness No focal deficits. Skin: no ulcer no rash Joints: No active swelling. No inflammation. Lymphatic system. No LN neck axilla or groin. Microbiology 10/06/17 07:54 Sputum Gram Stain - Final 10/06/17 07:54 Sputum Sputum Culture - Final 10/05/17 17:40 Blood Blood Culture - Preliminary No Growth after 48 hours - Labs CBC & Chem 7: 10/08/17 07:20 10/08/17 07:20 Labs: Abnormal Lab Results - Last 24 Hours (Table) 10/08/17 10/08/17 Range/Units 07:20 07:20 RBC 4.11 L (4.30-5.90) m/uL MCV 102.3 H (80.0-100.0) fL Sodium 135 L (137-145) mmol/L Creatinine 0.60 L (0.66-1.25) mg/dL Glucose 104 H (74-99) mg/dL Microbiology - Last 24 Hours (Table) 10/06/17 07:54 Gram Stain - Final Sputum Sputum Culture - Final 10/05/17 17:40 Blood Culture - Preliminary Blood No Growth after 48 hours Assessment and Plan Assessment: 1. [ Acute COPD exacerbation with purulent tracheobronchitis & right lower lobe pneumonia, possibly gram-negative]. 2. [ History of EtOH abuse]. 3. [ Hyponatremia, hypovolemic]. 4. [ Acute hypoxic respiratory failure]. 5. [ Ongoing nicotine dependence]. 6. [ Emphysema, interstitial lung disease per chest x-ray, CT pending]. Plan: Continue on current medication regime, he relates bronchodilators, Pulmicort, antibiotics, monitoring. oxygen recently weaned off this morning. flutter valve and Mucinexbeen added to med regime as per pulmonary.Aggressive pulmonary toileting. Pulmonary wishes to monitor patient for another 24 hours.Increase ambulation with assistance. Smoking cessation and alcohol cessation readdressed. Discharge planning in progress for tomorrow, pending pulmonary clearance. The impression and plan of care has been dictated as directed. : I performed a history and examination of this patient, discussed the same with the dictator. I agree with the dictator's note ,documented as a scribe. Any additional findings or plans will be noted.
--- NOTE | 2017-10-08 14:12 | P.PN ---
Subjective Progress Note Date: 10/08/17 Principal diagnosis: AECOPD Patient seen and examined. Patient states he is feeling more short of breath today. He was ambulating in the halls and became short of breath. His O2 saturation did not drop below 88% on RA. He is still wheezing and coughing. Objective - Vital Signs Vital signs: Vital Signs Temp 98.3 F 10/08/17 07:00 Pulse 96 10/08/17 11:30 Resp 18 10/08/17 07:00 BP 142/86 10/08/17 07:00 Pulse Ox 95 10/08/17 10:20 Intake & Output 10/07/17 10/08/17 10/08/17 18:59 06:59 18:59 Other: Voiding Method Urinal # Voids 4 2 - Exam General: A+OX3, NAD CV: RRR, s1/s2 Lungs: coarse breath sounds bilaterally with expiratory wheezing Abd: Soft, NT/ND, +BS Ext: no edema - Labs CBC & Chem 7: 10/08/17 07:20 10/08/17 07:20 Labs: Abnormal Lab Results - Last 24 Hours (Table) 10/08/17 10/08/17 Range/Units 07:20 07:20 RBC 4.11 L (4.30-5.90) m/uL MCV 102.3 H (80.0-100.0) fL Sodium 135 L (137-145) mmol/L Creatinine 0.60 L (0.66-1.25) mg/dL Glucose 104 H (74-99) mg/dL Microbiology - Last 24 Hours (Table) 10/06/17 07:54 Gram Stain - Final Sputum Sputum Culture - Final 10/05/17 17:40 Blood Culture - Preliminary Blood No Growth after 48 hours Assessment and Plan Assessment: Acute hypoxic respiratory failure AECOPD Community acquired pneumonia Active tobacco abuse Hyponatremia Emphysema O2 to maintain saturation > or = 90% Bronchodilators Pulmicort Incentive spirometry and pulmonary hygiene Sputum culture Prednisone taper CT chest reviewed Smoking cessation Monitor labs Nebulizer for home prior to discharge Outpatient PFT and pulmonary follow up Repeat CT chest in 3 months to follow lymphadenopathy and ensure resolution of infiltrates Mucinex, flutter Encourage ambulation
[2017-10-08] MEDS: LEVOFLOXACIN 750 MG TAB PO SCH (17:24)
[2017-10-08] MEDS: guaiFENesin 600 MG TABLET.ER PO SCH (20:16)
[2017-10-09] MEDS: PIPERACILLIN-TAZOBACTAM 3.375 GM in DEXTROSE/WATER 1 50ML.BAG IVPB SCH ×3 (00:01→14:59)
[2017-10-09] MEDS: SODIUM CHLORIDE 0.9% 1,000 ML IV SCH ×3 (05:52→17:42)
[2017-10-09] MEDS: HYDROcodone/APAP 5-325MG 1 EACH TAB PO PRN (06:40)
[2017-10-09] MEDS: ENOXAPARIN 40 MG/0.4 ML SYRINGE SQ SCH (07:30)
[2017-10-09] MEDS: guaiFENesin 600 MG TABLET.ER PO SCH (07:30)
[2017-10-09] MEDS: NICOTINE 21MG/24HR PATCH TRANSDERM SCH (07:30)
[2017-10-09] MEDS: predniSONE 20 MG TAB PO SCH (07:30)
[2017-10-09] MEDS: PANTOPRAZOLE 40 MG TABLET PO SCH (07:30)
[2017-10-09] MEDS: IPRATROPIUM-ALBUTEROL 3 ML NEB INHALATION SCH ×3 (07:59→16:37)
[2017-10-09] MEDS: BUDESONIDE 0.5 MG/2 ML NEBU INHALATION SCH (07:59)
--- NOTE | 2017-10-09 08:35 | PN ---
PROGRESS NOTE He was seen on 10/09/2017. He has been hemodynamically stable. He is less short of breath. On physical examination, his blood pressure is 153/92, respiratory rate of 18, pulse rate 85, temperature 98 degrees Fahrenheit. HEENT is unremarkable. Chest reveals prolonged expiration. No clear wheeze. Cardiovascular system reveals an S1, S2. Abdomen is soft. There is no edema. IMPRESSION AT THIS TIME: Chronic obstructive pulmonary disease with acute exacerbation. Medications were reviewed. I agree with discharge planning today. Would be happy to see him in the outpatient setting if need be. Would continue him on oral steroids and antibiotics. MMODL / IJN: [id number] /
[2017-10-09 08:36] LABS: Basophils # (A) 0.1 k/uL (0-0.2); Basophils % (A) 1 %; CH 30.3; CHCM 30.2; Eosinophils # (A) 0.1 k/uL (0-0.7); Eosinophils % (A) 1 %; HDW 2.05; HGB 12.4 gm/dL (13.0-17.5); Hypochromasia Slight; Luc # (Auto) 0.22; Luc % (Auto) 2; Lymphocytes # (A) 2.2 k/uL (1.0-4.8); Lymphocytes % (A) 22 %; MCH 31.2 pg (25.0-35.0); MCHC 31.1 g/dL (31.0-37.0); MCV 100.5 fL (80.0-100.0); Macrocytosis Slight; Mean Platelet Volume 7.5; Monocytes # (A) 0.6 k/uL (0-1.0); Monocytes % (A) 6 %; Neutrophils % (A) 69 %; RBC 3.98 m/uL (4.30-5.90); RDW 14.4 % (11.5-15.5); WBC 10.2 k/uL (3.8-10.6); WBC (Perox) 9.73
[2017-10-09 08:49] LABS: Anion Gap 8 mmol/L; Blood Urea Nitrogen 10 mg/dL (9-20); Calcium 8.9 mg/dL (8.4-10.2); Carbon Dioxide 23 mmol/L (22-30); Chloride 103 mmol/L (98-107); Glucose 95 mg/dL (74-99); Non-African American GFR(MDRD) >60 (>60 ml/min/1.73 sqM); Sodium 134 mmol/L (137-145)
[2017-10-09] MEDS: THIAMINE 100 MG TAB PO SCH (11:37)
[2017-10-09] MEDS: FOLIC ACID 1 MG TAB PO SCH (11:37)
[2017-10-09] MEDS: MULTIVITAMINS, THERA 1 EACH TAB PO SCH (11:37)
[2017-10-09 15:37] VITALS: BP 146/87; RESP 20; TEMP 97.1
--- NOTE | 2017-10-09 15:46 | P.DS ---
Providers Date of admission: 10/05/17 16:54 Expected date of discharge: 10/09/17 Attending physician: Jelly Flanagan Consults: 10/05/17 16:56 Consult Physician Routine Consulting Provider: Laurita Montero Consult Reason/Comments: known Do you want consulting provider notified?: Yes Primary care physician: Tran Wolfe Hospital Course: final Diagnoses: 1. [ Acute COPD exacerbation with purulent tracheobronchitis & right lower lobe pneumonia, possibly gram-negative]. 2. [ History of EtOH abuse]. 3. [ Hyponatremia, hypovolemic]. 4. [ Acute hypoxic respiratory failure]. 5. [ Ongoing nicotine dependence]. 6. [ Emphysema, interstitial lung disease per chest x-ray, mild emphysema right hilum soft tissue mass 2.3 cm, possible hilar lymphadenopathy possibly reactive, borderline and mildly enlarged mediastinal lymph nodes unchanged from prior CT of 12/30/[address]]. Hospital course:This is a 57-year-old gentleman admitted with acute hypoxic respiratory failure, acute COPD exacerbation with purulent tracheobronchitis, hyponatremia and multiple other medical issues in a patient with ongoing nicotine abuse. Maintained on nebulized bronchodilators, steroids,antibiotics .Chest x-ray reported emphysema, interstitial lung disease. Chest CT repored no evidence for PE, COPD with mild emphysema, diffuse opacities a mid and lower lungs with scattered endobronchial plugging in the lower lungs, possible chronic aspiration and atypical infection, residual patchy infiltrate of the right lung, possible pneumonitis, excess soft tissue in the right hilum measuring up to 2.3 cm, possible underlying hilar lymphadenopathy, borderline and mildly enlarged mediastinal lymph nodes unchanged from 12/30/2016- reevaluate outpatient in 3 months. Denies aspiration, denies reflux.oxygen weaned off. Evaluated by pulmonary. Significant clinical improvement. Patient is being discharged home in a stable condition with guarded prognosis. The impression and plan of care has been dictated as directed. : I performed a history and examination of this patient, discussed the same with the dictator. I agree with the dictator's note ,documented as a scribe. Any additional findings or plans will be noted. Patient Condition at Discharge: Stable Plan - Discharge Summary Discharge Rx Participant: Yes New Discharge Prescriptions: New Folic Acid 1 mg PO DAILY@1200 #30 tab guaiFENesin [Mucinex] 1,200 mg PO Q12HR #20 tablet.er Multivitamins, Thera [Multivitamin (formulary)] 1 each PO DAILY@1200 #30 tab Nicotine 21Mg/24Hr Patch [Habitrol] 1 patch TRANSDERM DAILY #30 patch Thiamine [Vitamin B-1] 100 mg PO BID@1200,1700 #30 tab predniSONE 10 mg PO DIRECTED #30 tab Amoxic-Pot Clav 875-125Mg [Augmentin 875-125] 1 tab PO Q12HR #10 tablet Budesonide-Formot 160-4.5 Mcg [Symbicort 160-4.5 Mcg Inhaler] 2 puff INHALATION BID #1 inhaler Ipratropium [place] [Atrovent Hfa] 2 puff INHALATION QID #1 inhaler Changed Albuterol Inhaler [Ventolin Hfa Inhaler] 2 puff INHALATION QID #1 inhaler Discharge Medication List Albuterol Inhaler [Ventolin Hfa Inhaler] 2 puff INHALATION QID #1 inhaler [Rx] Amoxic-Pot Clav 875-125Mg [Augmentin 875-125] 1 tab PO Q12HR #10 tablet [Rx] Budesonide-Formot 160-4.5 Mcg [Symbicort 160-4.5 Mcg Inhaler] 2 puff INHALATION BID #1 inhaler 10/09/17 [Rx] Folic Acid 1 mg PO DAILY@1200 #30 tab 10/09/17 [Rx] Ipratropium [place] [Atrovent Hfa] 2 puff INHALATION QID #1 inhaler 10/09/17 [Rx ] Multivitamins, Thera [Multivitamin (formulary)] 1 each PO DAILY@1200 #30 tab [Rx] Nicotine 21Mg/24Hr Patch [Habitrol] 1 patch TRANSDERM DAILY #30 patch 10/09/17 [ Rx] Thiamine [Vitamin B-1] 100 mg PO BID@1200,1700 #30 tab 10/09/17 [Rx] guaiFENesin [Mucinex] 1,200 mg PO Q12HR #20 tablet.er 10/09/17 [Rx] predniSONE 10 mg PO DIRECTED #30 tab 10/09/17 [Rx] Follow up Appointment(s)/Referral(s): Aiden Mayfield MD [Primary Care Provider] - 1 Week Laurita Montero DO [Doctor of Osteopathic Medicine] - 2 Weeks Ambulatory/Diagnostic Orders: Complete Blood Count w/diff [LAB.AMB] Time Frame: 3 Days, Location: Determined By Patient Patient Instructions/Handouts: Pneumonia (DC) Activity/Diet/Wound Care/Special Instructions: No alcohol use, references provided. Smoking cessation information provided and nicotine patch encouraged.
[2017-10-09 16:46] VITALS: PULSE 89
== END 2017-10-09 17:43 | disposition home or self-care (01) | DRG 137 ==
LOC: EC 15:31 → 4MS4W 16:54
PROVIDERS: ADMIT Hospitalist; ATTEND Hospitalist
DX: J15.6 Pneumonia due to other Gram-negative bacteria (principal); J96.01 Acute respiratory failure with hypoxia; J84.9 Interstitial pulmonary disease, unspecified; E87.1 Hypo-osmolality and hyponatremia; J44.0 Chronic obstructive pulmonary disease with (acute) lower respiratory infection; J20.9 Acute bronchitis, unspecified; F17.200 Nicotine dependence, unspecified, uncomplicated; J44.1 Chronic obstructive pulmonary disease with (acute) exacerbation; F10.21 Alcohol dependence, in remission; E86.1 Hypovolemia; R59.1 Generalized enlarged lymph nodes; Z79.52 Long term (current) use of systemic steroids; Z85.46 Personal history of malignant neoplasm of prostate; Z82.5 Family history of asthma and other chronic lower respiratory diseases
CPT/HCPCS: 36415; 71020; 71275; 80048; 80053; 82550; 82553; 83880; 84484; 85025; 85610; 85730; 87040; 87070; 87205; 87502; 93005; 94640; 94667; 94760; 96361; 96365; 96372; 96375; 99285

== ENCOUNTER 2018-12-29 16:34 | Emergency (ER) | payer OTHER ==
[2018-12-29 16:41] VITALS: RESP 18; TEMP 97.4
[2018-12-29] MEDS ORDERED: SODIUM CHLORIDE 0.9% 1,000 ML IV STA (16:57)
--- NOTE | 2018-12-29 17:01 | ED ---
General Adult HPI - General Chief complaint: Dizziness Stated complaint: Left side numbness, dizzy Time Seen by Provider: 12/29/18 16:52 Source: patient, RN notes reviewed Mode of arrival: ambulatory Limitations: no limitations - History of Present Illness Initial comments: Patient is a pleasant 38-year-old male presenting to the emergency department with concerns for left-sided tingling. Onset of symptoms was around a half an hour ago. Patient states this is the left arm and left leg. Patient later admits that it feels somewhat heavy as well. Patient denies specific weakness however. Patient states he did have some mild chest discomfort earlier which has improved however not completely resolved. Patient denies confusion. Patient states he does feel dizzy and does have a spinning type sensation when he sits up and moves around. No syncope. No nausea or vomiting. No dyspnea. History of similar symptoms previously. - Related Data Allergies Allergy/AdvReac Type Severity Reaction Status Date / Time No Known Allergies Allergy Verified 12/29/18 17:41 Review of Systems ROS Statement: Those systems with pertinent positive or pertinent negative responses have been documented in the HPI. ROS Other: All systems not noted in ROS Statement are negative. Constitutional: Denies: fever Eyes: Denies: eye pain ENT: Denies: ear pain Respiratory: Denies: cough, dyspnea Cardiovascular: Reports: as per HPI Endocrine: Denies: fatigue Gastrointestinal: Denies: abdominal pain Genitourinary: Denies: dysuria Musculoskeletal: Denies: back pain Skin: Denies: rash Neurological: Reports: paresthesias, vertigo. Denies: headache, confusion Past Medical History Past Medical History: Cancer, COPD, Eye Disorder, Pneumonia, Prostate Disorder Additional Past Medical History / Comment(s): tracheobronchitis,Emphysema, past resp failure;hx of Alcoholism, prostate CA, glaucoma History of Any Multi-Drug Resistant Organisms: None Reported Past Surgical History: Hernia Repair, Prostate Surgery, Tonsillectomy Additional Past Surgical History / Comment(s): R inguinal hernia repair, prostate-radiation implant, colonoscopy-normal Past Anesthesia/Blood Transfusion Reactions: No Reported Reaction Past Psychological History: No Psychological Hx Reported Smoking Status: Current every day smoker Past Alcohol Use History: None Reported, Daily Past Drug Use History: None Reported - Past Family History Father Family Medical History: COPD Additional Family Medical History / Comment(s): Father of COPD in his 70's Mother Family Medical History: Coronary Artery Disease (CAD) Additional Family Medical History / Comment(s): Mother of heart disease at the age of 65 yrs. General Exam Limitations: no limitations General appearance: alert, in no apparent distress Head exam: Present: atraumatic Eye exam: Present: normal appearance, PERRL, EOMI. Absent: nystagmus ENT exam: Present: normal oropharynx Neck exam: Present: normal inspection Respiratory exam: Present: normal lung sounds bilaterally Cardiovascular Exam: Present: regular rate, normal rhythm Expanded Peripheral pulses: 2+: Radial (R), Radial (L), Posterior Tibialis (R), Posterior Tibialis (L), Dorsalis Pedis (R), Dorsalis Pedis (L) GI/Abdominal exam: Present: soft. Absent: distended, tenderness Extremities exam: Present: normal inspection. Absent: pedal edema, calf tenderness Neurological exam: Present: alert, CN II-XII intact (Except minimal facial droop left side and some decreased sensation left side of face.) Expanded Neurological exam: Present: protecting the airway Speech: Present: fluid speech Cranial nerves: EOM's Intact: Normal, Facial Sensation: Abnormal Left Cerebellar function: Finger to Nose: Normal Sensory exam: Upper Extremity Light Touch: Normal, Lower Extremity Light Touch: Normal Motor strength exam: RUE: 5, LUE: 5, RLE: 5, LLE: 5 Eye Response: (4) open spontaneously Motor Response: (6) obeys commands Verbal Response: (5) oriented Psychiatric exam: Present: normal affect, normal mood Skin exam: Present: normal color Course Vital Signs 12/29/18 12/29/18 12/29/18 16:38 17:00 17:15 Temperature 97.4 F L Pulse Rate 85 73 75 Respiratory 18 18 18 Rate Blood Pressure 142/85 165/98 152/100 O2 Sat by Pulse 99 10 L 100 Oximetry 12/29/18 12/29/18 12/29/18 17:30 17:45 18:00 Temperature Pulse Rate 82 71 75 Respiratory 18 18 18 Rate Blood Pressure 146/81 142/91 157/89 O2 Sat by Pulse 98 98 100 Oximetry EKG Findings - EKG Comments: EKG Findings:: Normal sinus rhythm 78. SD 162. QRS 84. QT 382. QTC 435. Normal axis. Normal QRS. No acute ST change. Medical Decision Making - Medical Decision Making Patient reevaluated and states he does feel better. Patient is updated on results. Patient is updated on concern and diagnosis of stroke. Patient is recommended transfer secondary to no neurology available here. Patient refuses any transfer or admission. Patient does demonstrate understanding. Patient does them straight medical decision making capability. Patient refers is any further treatment and will leave AGAINST MEDICAL ADVICE. Patient is advised against this. - Lab Data Result diagrams: 12/29/18 17:00 12/29/18 17:00 Lab Results 12/29/18 12/29/18 12/29/18 Range/Units 17:00 17:00 17:00 WBC 7.5 (3.8-10.6) k/uL RBC 4.90 (4.30-5.90) m/uL Hgb 14.4 (13.0-17.5) gm/dL Hct 45.7 (39.0-53.0) % MCV 93.2 (80.0-100.0) fL MCH 29.3 (25.0-35.0) pg MCHC 31.5 (31.0-37.0) g/dL RDW 14.1 (11.5-15.5) % Plt Count 255 (150-450) k/uL Neutrophils % 57 % Lymphocytes % 27 % Monocytes % 4 % Eosinophils % 9 % Basophils % 1 % Neutrophils # 4.3 (1.3-7.7) k/uL Lymphocytes # 2.0 (1.0-4.8) k/uL Monocytes # 0.3 (0-1.0) k/uL Eosinophils # 0.7 (0-0.7) k/uL Basophils # 0.1 (0-0.2) k/uL PT (9.0-12.0) sec INR (<1.2) APTT (22.0-30.0) sec Sodium 138 (137-145) mmol/L Potassium 4.8 (3.5-5.1) mmol/L Chloride 104 (98-107) mmol/L Carbon Dioxide 24 (22-30) mmol/L Anion Gap 10 mmol/L BUN 13 (9-20) mg/dL Creatinine 0.68 (0.66-1.25) mg/dL Est GFR (CKD-EPI)AfAm >90 (>60 ml/min/1.73 sqM) Est GFR (CKD-EPI)NonAf >90 (>60 ml/min/1.73 sqM) Glucose 91 (74-99) mg/dL POC Glucose (mg/dL) (75-99) mg/dL POC Glu [employer] Consultant ID Calcium 9.6 (8.4-10.2) mg/dL Total Bilirubin 0.8 (0.2-1.3) mg/dL AST 22 (17-59) U/L ALT 21 (21-72) U/L Alkaline Phosphatase 48 (38-126) U/L Total Creatine Kinase 103 (55-170) U/L CK-MB (CK-2) 2.2 (0.0-2.4) ng/mL CK-MB (CK-2) Rel Index 2.1 Troponin I <0.012 (0.000-0.034) ng/mL Total Protein 8.0 (6.3-8.2) g/dL Albumin 4.4 (3.5-5.0) g/dL 12/29/18 12/29/18 Range/Units 17:00 17:01 WBC (3.8-10.6) k/uL RBC (4.30-5.90) m/uL Hgb (13.0-17.5) gm/dL Hct (39.0-53.0) % MCV (80.0-100.0) fL MCH (25.0-35.0) pg MCHC (31.0-37.0) g/dL RDW (11.5-15.5) % Plt Count (150-450) k/uL Neutrophils % % Lymphocytes % % Monocytes % % Eosinophils % % Basophils % % Neutrophils # (1.3-7.7) k/uL Lymphocytes # (1.0-4.8) k/uL Monocytes # (0-1.0) k/uL Eosinophils # (0-0.7) k/uL Basophils # (0-0.2) k/uL PT 9.8 (9.0-12.0) sec INR 0.9 (<1.2) APTT 26.4 (22.0-30.0) sec Sodium (137-145) mmol/L Potassium (3.5-5.1) mmol/L Chloride (98-107) mmol/L Carbon Dioxide (22-30) mmol/L Anion Gap mmol/L BUN (9-20) mg/dL Creatinine (0.66-1.25) mg/dL Est GFR (CKD-EPI)AfAm (>60 ml/min/1.73 sqM) Est GFR (CKD-EPI)NonAf (>60 ml/min/1.73 sqM) Glucose (74-99) mg/dL POC Glucose (mg/dL) 87 (75-99) mg/dL POC Glu [employer] Consultant ID [place] Calcium (8.4-10.2) mg/dL Total Bilirubin (0.2-1.3) mg/dL AST (17-59) U/L ALT (21-72) U/L Alkaline Phosphatase (38-126) U/L Total Creatine Kinase (55-170) U/L CK-MB (CK-2) (0.0-2.4) ng/mL CK-MB (CK-2) Rel Index Troponin I (0.000-0.034) ng/mL Total Protein (6.3-8.2) g/dL Albumin (3.5-5.0) g/dL - Radiology Data Radiology results: report reviewed (Computed tomography scan the brain and CTA reveals no acute abnormality.), image reviewed (Chest x-ray shows no acute process) Disposition Clinical Impression: Cerebrovascular accident Disposition: Left Against Medical Advice Condition: Serious Additional Instructions: You are leaving AGAINST MEDICAL ADVICE. Please follow-up with primary care physician tomorrow. Aspirin daily. Return at any time for any worsening symptoms or other concerns including but not limited to speech problems, dizziness, weakness or heaviness, odd sensations or any other concerns. Is patient prescribed a controlled substance at d/c from ED?: No Referrals: Aiden Mayfield MD [Primary Care Provider] - 1-2 days Time of Disposition: 19:03
[2018-12-29 17:18] LABS: Glucose,Whole Blood 87 mg/dL (75-99)
[2018-12-29 17:20] LABS: Basophils # (A) 0.1 k/uL (0-0.2); Basophils % (A) 1 %; Eosinophils # (A) 0.7 k/uL (0-0.7); Eosinophils % (A) 9 %; HCT 45.7 % (39.0-53.0); HGB 14.4 gm/dL (13.0-17.5); Lymphocytes % (A) 27 %; MCH 29.3 pg (25.0-35.0); MCHC 31.5 g/dL (31.0-37.0); MCV 93.2 fL (80.0-100.0); Mean Platelet Volume 7.1; Monocytes # (A) 0.3 k/uL (0-1.0); Monocytes % (A) 4 %; Neutrophils # (A) 4.3 k/uL (1.3-7.7); Neutrophils % (A) 57 %; Platelet Count 255 k/uL (150-450); RDW 14.1 % (11.5-15.5); WBC 7.5 k/uL (3.8-10.6)
[2018-12-29 17:26] LABS: ALT 21 U/L (21-72); AST 22 U/L (17-59); Albumin 4.4 g/dL (3.5-5.0); Alkaline Phosphatase 48 U/L (38-126); Anion Gap 10 mmol/L; Blood Urea Nitrogen 13 mg/dL (9-20); Calcium 9.6 mg/dL (8.4-10.2); Carbon Dioxide 24 mmol/L (22-30); Chloride 104 mmol/L (98-107); Glucose 91 mg/dL (74-99); Potassium 4.8 mmol/L (3.5-5.1); Sodium 138 mmol/L (137-145); Total Bilirubin 0.8 mg/dL (0.2-1.3)
--- NOTE | 2018-12-29 17:26 | CT ---
EXAMINATION TYPE: CT brain wo con for TPA DATE OF EXAM: 12/29/2018 COMPARISON: None HISTORY: Neuro deficits. CT DLP: 1175 mGycm Automated exposure control for dose reduction was used. FINDINGS: There is cerebral cortical atrophy. There is no mass effect nor midline shift. There is no sign of in tracranial hemorrhage. The calvarium is intact. IMPRESSION: CEREBRAL ATROPHY. NO ACUTE INTRACRANIAL ABNORMALITY.
[2018-12-29 17:28] LABS: INR 0.9 (<1.2); Partial Thromboplastin Time 26.4 sec (22.0-30.0); Prothrombin Time 9.8 sec (9.0-12.0)
[2018-12-29 17:38] LABS: Creatine Kinase 103 U/L (55-170)
[2018-12-29 17:51] LABS: Creatine Kinase MB 2.2 ng/mL (0.0-2.4); Troponin I <0.012 ng/mL (0.000-0.034)
--- NOTE | 2018-12-29 17:51 | CT ---
EXAMINATION TYPE: CT angio head neck DATE OF EXAM: 12/29/2018 HISTORY: Neuro deficits and chest pain. COMPARISON: None CT DLP: 375.3 mGycm. Automated Exposure Control for Dose Reduction was Utilized. TECHNIQUE: CTA scan of the neck and brain is performed with IV Contrast, patient injected with 65ml mL of Isovue 370, axial images are obtained, coronal and sagittal reformatted images are reviewed. Th ree-D reconstructed images are created on an independent workstation and reviewed. FINDINGS: There is normal branching pattern of the great vessels on the aortic arch. There is bilateral patency of the subclavian arteries. There is bilateral patency of the common internal and external carotid a rteries bilaterally. The carotid artery bifurcations appear widely patent. There is bilateral arteria l flow in the vertebral arteries which are fairly symmetric. There is no evidence of carotid or verte bral artery aneurysm or dissection. There is arterial flow in the vertebrobasilar artery system. There is arterial flow in the anterior middle and posterior cerebral arteries. There is no evidence o f aneurysm or neovascularity. There is no mass effect. There is no evidence of hemodynamics intracran ial arterial stenosis. There is normal contrast opacification of the venous sinuses. IMPRESSION: Normal CT angiogram of the neck. Normal CT angiogram of the brain. Bilateral maxillary sinusitis noted.
--- NOTE | 2018-12-29 17:53 | XR ---
EXAMINATION TYPE: XR chest 2V DATE OF EXAM: 12/29/2018 COMPARISON: 10/26/2017 HISTORY: Altered mental status TECHNIQUE: Frontal and lateral views of the chest are obtained. FINDINGS: There is no heart failure nor confluent pneumonic infiltrate. Heart size is normal. There are small linear density in the right midlung. There are chest leads. There is no evidence of pleural effusion. Bony thorax is intact but there is old left healed clavicle fracture. IMPRESSION: No active cardiopulmonary disease. There is clearing of the bilateral pneumonia compared to old exam.
[2018-12-29 18:10] VITALS: BP 157/89; PULSE 75
[2018-12-29] MEDS ORDERED: ASPIRIN 81 MG PO STA (18:11)
== END 2018-12-29 19:03 | disposition left against medical advice (07) ==
LOC: EC 16:34
DX: I63.9 Cerebral infarction, unspecified (principal); N42.9 Disorder of prostate, unspecified; F17.200 Nicotine dependence, unspecified, uncomplicated; Z85.46 Personal history of malignant neoplasm of prostate; Z53.29 Procedure and treatment not carried out because of patient's decision for other reasons
CPT/HCPCS: 99285 ×2; 96360 ×2; 96361 ×2; 36415; 80053; 82550; 82553; 84484; 85025; 85610; 85730; 71046; 70496; 70450; 70498; Q9967

== ENCOUNTER 2019-01-31 21:07 | Emergency (ER) | payer OTHER ==
[2019-01-31 21:38] VITALS: BP 114/73; PULSE 107; RESP 20; TEMP 98.5
--- NOTE | 2019-01-31 21:51 | ED ---
Back Pain HPI - General Chief Complaint: Back Pain/Injury Stated Complaint: Lower back and leg pain Time Seen by Provider: 01/31/19 21:47 Source: patient Limitations: no limitations - History of Present Illness Initial Comments: 58-year-old male past medical history of chronic low back pain presenting today for chief complaint of low back pain x 1 week. Patient states he has chronic low back pain however it has been bugging him for the past week. Patient states that increases with walking. Patient denies any radiation of pain. He states it is across the low back bilaterally. Patient denies any radiation of the back pain conscious by exertion, lower extremity edema, abdominal pain, nausea, vomiting, chest pain. Patient denies any falls, trauma or injury to the back. Patient denies any history of cancer, fever or chills night sweats, IV drug use, loss of bowel bladder control, urinary retention, numbness tingling or loss sensation of the lower extremities, muscle weakness of the lower extremities. Patient states he has had some recent weight loss. Remaining review of systems negative, Patient denies any recent numbness or tingling, dysuria or hematuria, constipation or diarrhea, headaches or visual changes, or any other complaints. - Related Data Home Medications Medication Instructions Recorded Confirmed No Known Home Medications 01/31/19 01/31/19 Allergies Allergy/AdvReac Type Severity Reaction Status Date / Time No Known Allergies Allergy Verified 01/31/19 22:26 Review of Systems ROS Statement: Those systems with pertinent positive or pertinent negative responses have been documented in the HPI. ROS Other: All systems not noted in ROS Statement are negative. Past Medical History Past Medical History: Cancer, COPD, Eye Disorder, Pneumonia, Prostate Disorder Additional Past Medical History / Comment(s): tracheobronchitis,Emphysema, past resp failure;hx of Alcoholism, prostate CA, glaucoma History of Any Multi-Drug Resistant Organisms: None Reported Past Surgical History: Hernia Repair, Prostate Surgery, Tonsillectomy Additional Past Surgical History / Comment(s): R inguinal hernia repair, prostate-radiation implant, colonoscopy-normal Past Anesthesia/Blood Transfusion Reactions: No Reported Reaction Past Psychological History: No Psychological Hx Reported Smoking Status: Current every day smoker Past Alcohol Use History: Daily Past Drug Use History: None Reported - Past Family History Father Family Medical History: COPD Additional Family Medical History / Comment(s): Father of COPD in his 70's Mother Family Medical History: Coronary Artery Disease (CAD) Additional Family Medical History / Comment(s): Mother of heart disease at the age of 65 yrs. General Exam - General Exam Comments Initial Comments: General: The patient is awake and alert, in no distress, and does not appear acutely ill. Eye: +3 mm pupils are equal, round and reactive to light, extra-ocular movements are intact. No nystagmus. There is normal conjunctiva bilaterally. No signs of icterus. Ears, nose, mouth and throat: There are moist mucous membranes and no oral lesions. Neck: The neck is supple, there is no tenderness or JVD. Cardiovascular: There is a regular rate and rhythm. No murmur, rub or gallop is appreciated. Respiratory: Lungs are clear to auscultation, respirations are non-labored, breath sounds are equal. No wheezes, stridor, rales, or rhonchi. Gastrointestinal: Soft, non-distended, non-tender abdomen without masses or organomegaly noted. There is no rebound or guarding present. No CVA tenderness. Bowel sounds are unremarkable. Musculoskeletal: Mild midline tenderness of the lumbar spine. Most pain paravertebral with palpable muscle tension. Normal ROM at hips knees and ankles bilaterally. (+) SLR b/l. Strength 5/5 of equal b/l of the lower extremities. Sensation intact of the LE equal b/l including saddle region. DP pulses equal bilaterally 2+. Capillary refill < 2 seconds. Neurological: A&O x 3. CN II-XII intact, There are no obvious motor or sensory deficits. Coordination appears grossly intact. Speech is normal. Skin: Skin is warm and dry and no rashes or lesions are noted. Psychiatric: Cooperative, appropriate mood & affect, normal judgment. Limitations: no limitations Course Vital Signs 01/31/19 21:34 Temperature 98.5 F Pulse Rate 107 H Respiratory 20 Rate Blood Pressure 114/73 O2 Sat by Pulse 94 L Oximetry Medical Decision Making - Medical Decision Making 58-year-old male presenting for low back pain acute on chronic. Patient neurovascular intact. No signs of cauda equina. History of recent weight loss therefore CT obtained, revealing no acute osseous abnormality. Patient given toradol stating it took the pain away. At this time feel patient is stable for discharge with outpatient follow-up for acute on chronic low back pain. Discussed the case with attending provider by Dr. Tipton prior to patient's discharge agreeable plan. Patient aware of all return parameters. Questions answered to the best of my ability. Patient discharged appearing well Disposition Clinical Impression: Acute exacerbation of chronic low back pain Disposition: HOME SELF-CARE Condition: Good Instructions (If sedation given, give patient instructions): Chronic Back Pain (ED) Additional Instructions: Please use medication as discussed. Please follow-up with family doctor in the next 2 days of symptoms have not improved. Please return to emergency room if the symptoms increase or worsen or for any other concerns. Is patient prescribed a controlled substance at d/c from ED?: No Referrals: None,Stated [REFERRING] - 1-2 days [facility] [place] [facility] [NON-STAFF] - 1-2 days Time of Disposition: 23:30
[2019-01-31] MEDS ORDERED: KETOROLAC 60 MG/2 ML VIAL IM STA (22:11)
--- NOTE | 2019-01-31 23:19 | CT ---
EXAM: CT Lumbar Spine Without Intravenous Contrast CLINICAL HISTORY: Pain TECHNIQUE: Axial computed tomography images of the lumbar spine without intravenous contrast. CTDI is 16.5 mGy and DLP is 498.4 mGy-cm. This CT exam was performed using one or more of the following dose reduction techniques: automated exposure control, adjustment of the mA and/or kV according to patient size, and/or use of iterative reconstruction technique. Coronal and sagittal reformatted images were created and reviewed. COMPARISON: No relevant prior studies available. FINDINGS: Vertebrae: Unremarkable. No acute fracture. Degenerative changes facets throughout the lumbar spine. 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 No spinal canal stenosis. Soft tissues: Unremarkable. IMPRESSION: Mild degenerative changes with no evidence for fracture or malalignment. 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
== END 2019-01-31 23:58 | disposition home or self-care (01) ==
LOC: EC 21:07
DX: M54.5 Low back pain (principal); G89.29 Other chronic pain; R63.4 Abnormal weight loss; F17.200 Nicotine dependence, unspecified, uncomplicated; Z85.46 Personal history of malignant neoplasm of prostate; Z98.890 Other specified postprocedural states
CPT/HCPCS: 72131; 99283; 96372; J1885

== ENCOUNTER 2019-06-02 12:58 | Observation (INO) | payer OTHER ==
[2019-06-02] MEDS ORDERED: SODIUM CHLORIDE 0.9% 1,000 ML IV ONE ×2 (13:25→14:46)
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
[2019-06-02] MEDS ORDERED: SODIUM CHLORIDE 0.9% 1,000 ML with MVI, ADULT NO.4 WITH VIT K 10 ML, THIAMINE 100 MG, F... IV ONE ×4 (14:00)
[2019-06-02 14:05] LABS: Basophils % (A) 0 %; Eosinophils # (A) 0.6 k/uL (0-0.7); Eosinophils % (A) 11 %; HCT 44.1 % (39.0-53.0); HGB 14.2 gm/dL (13.0-17.5); Lymphocytes # (A) 1.7 k/uL (1.0-4.8); Lymphocytes % (A) 31 %; MCH 30.7 pg (25.0-35.0); MCHC 32.1 g/dL (31.0-37.0); MCV 95.6 fL (80.0-100.0); Mean Platelet Volume 6.6; Monocytes # (A) 0.3 k/uL (0-1.0); Monocytes % (A) 5 %; Neutrophils # (A) 2.8 k/uL (1.3-7.7); Neutrophils % (A) 50 %; Platelet Count 188 k/uL (150-450); RBC 4.62 m/uL (4.30-5.90); RDW 14.9 % (11.5-15.5); WBC 5.6 k/uL (3.8-10.6)
[2019-06-02 14:10] LABS: ALT 68 U/L (21-72); AST 78 U/L (17-59); African American GFR (CKD) >90 (>60 ml/min/1.73 sqM); Albumin 4.7 g/dL (3.5-5.0); Alkaline Phosphatase 68 U/L (38-126); Anion Gap 14 mmol/L; Blood Urea Nitrogen 9 mg/dL (9-20); Carbon Dioxide 23 mmol/L (22-30); Chloride 106 mmol/L (98-107); Glucose 99 mg/dL (74-99); Magnesium 1.9 mg/dL (1.6-2.3); Potassium 4.4 mmol/L (3.5-5.1); Sodium 143 mmol/L (137-145); Total Bilirubin 0.5 mg/dL (0.2-1.3); Total Protein 8.4 g/dL (6.3-8.2)
[2019-06-02 14:30] LABS: Alcohol 348 mg/dL
[2019-06-02] MEDS ORDERED: THIAMINE 100 MG/ML 2 ML VIAL IM STA (14:44)
[2019-06-02] MEDS ORDERED: LORazepam 2 MG/ML INJ IV PRN ×3 (14:44)
[2019-06-02 15:58] VITALS: BMI 19.3
[2019-06-02] MEDS: THIAMINE 100 MG TAB PO SCH ×2 (16:44→16:52)
[2019-06-02] MEDS: FAMOTIDINE 20 MG TAB PO SCH (20:59)
[2019-06-02 22:39] VITALS: RESP 20
[2019-06-03 06:00] VITALS: BP 174/81; PULSE 71; TEMP 98.5
[2019-06-03] MEDS: THIAMINE 100 MG TAB PO SCH (06:46)
[2019-06-03] MEDS: FAMOTIDINE 20 MG TAB PO SCH (06:46)
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
--- NOTE | 2019-06-03 11:38 | P.DS ---
Providers Date of admission: 06/02/19 14:46 Attending physician: Jelly Murray Primary care physician: Tran Wolfe [facility] Course: 58-year-old admitted for alcohol intoxication patient is not willing to quit alcohol because of which I'll discharge the patient nicotine cessation counseling alcohol cessation counseling was provided patient was asked to take multivitamins at home. PHYSICAL EXAMINATION: GENERAL: The patient is alert and oriented x3, not in any acute distress. Well developed, well nourished. HEENT: Pupils are round and equally reacting to light. EOMI. No scleral icterus. No conjunctival pallor. Normocephalic, atraumatic. No pharyngeal erythema. No thyromegaly. CARDIOVASCULAR: S1 and S2 present. No murmurs, rubs, or gallops. PULMONARY: Chest is clear to auscultation, no wheezing or crackles. ABDOMEN: Soft, nontender, nondistended, normoactive bowel sounds. No palpable organomegaly. MUSCULOSKELETAL: No joint swelling or deformity. EXTREMITIES: No cyanosis, clubbing, or pedal edema. NEUROLOGICAL: Gross neurological examination did not reveal any focal deficits. SKIN: No rashes. Please refer to my dictation of HPI for further details Plan - Discharge Summary Discharge Rx Participant: No New Discharge Prescriptions: No Action No Known Home Medications Discharge Medication List No Known Home Medications 01/31/19 [History] Follow up Appointment(s)/Referral(s): Aiden Mayfield MD [Primary Care Provider] - 3 Days Discharge Disposition: HOME SELF-CARE
== END 2019-06-03 12:32 | disposition home or self-care (01) ==
LOC: EC 12:58 → 4MS4W 14:46
PROVIDERS: ADMIT Hospitalist; ATTEND Hospitalist
DX: F10.129 Alcohol abuse with intoxication, unspecified (principal); V19.3XXA Pedal cyclist (driver) (passenger) injured in unspecified nontraffic accident, initial encounter; H40.9 Unspecified glaucoma; J43.9 Emphysema, unspecified; K70.10 Alcoholic hepatitis without ascites; I48.91 Unspecified atrial fibrillation; Y90.8 Blood alcohol level of 240 mg/100 ml or more; Z85.46 Personal history of malignant neoplasm of prostate; Z87.01 Personal history of pneumonia (recurrent); Z92.3 Personal history of irradiation; Z71.41 Alcohol abuse counseling and surveillance of alcoholic; Z71.6 Tobacco abuse counseling; F17.200 Nicotine dependence, unspecified, uncomplicated; Z82.49 Family history of ischemic heart disease and other diseases of the circulatory system; Z82.5 Family history of asthma and other chronic lower respiratory diseases
CPT/HCPCS: 96366 ×3; 96365; 96372; 99285; 36415; 80053; 83735; 85025; G0378 ×2; G0480; J3411; 80320

== ENCOUNTER 2019-07-28 20:18 | Observation (INO) | payer OTHER ==
[2019-07-28] MEDS ORDERED: SODIUM CHLORIDE 0.9% 1,000 ML IV STA (21:37)
--- NOTE | 2019-07-28 21:49 | ED ---
General Adult HPI - General Chief complaint: Shortness of Breath Stated complaint: R side pain, SOB Time Seen by Provider: 07/28/19 20:58 Source: patient Mode of arrival: wheelchair Limitations: no limitations - History of Present Illness Initial comments: Dictation was produced using K[employer] dictation software. please excuse any gramma tical, word or spelling errors. Chief Complaint: 59-year-old male with past medical history of atrial fibrillation, pneumonia and prostate disease presents with pleuritic chest pain. History of Present Illness: Miladys is a 59-year-old male he presents today with pleuritic chest pain. He states his symptoms began 3 days ago. Patient has history of prostate cancer. He states that he has right anterior chest pain worse with deep inspiration. Denies any coughing. He describes the pain as sharp without any radiation symptoms. Patient has a history of blood clot. No history of DVT. The ROS documented in this emergency department record has been reviewed and confirmed by me. Those systems with pertinent positive or negative responses have been documented in the HPI. All other systems are other negative and/or noncontributory. PHYSICAL EXAM: General Impression: Alert and oriented x3, not in acute distress HEENT: Normocephalic atraumatic, extra-ocular movements intact, pupils equal and reactive to light bilaterally, mucous membranes moist. Cardiovascular: Heart regular rate and rhythm, S1&S2 audible, no murmurs, rubs or gallops Chest: Lungs clear to auscultation bilaterally, no rhonchi, no wheeze, no rales Abdomen: Bowel sounds present, abdomen soft, non-tender, non-distended, no organomegaly Musculoskeletal: Pulses present and equal in all extremities, no peripheral edema Motor: no focal deficits noted Neurological: CN II-XII grossly intact, no focal motor or sensory deficits noted Skin: Intact with no visualized rashes Psych: Normal affect and mood ED course: 59-year-old male presents with pleuritic chest pain. Onset of symptoms approximately 2 days ago. Vital signs upon arrival shows heart rate 11, respiratory of 26, rest of vital signs within acceptable limits. Laboratory evaluation obtained. Mild expressive dose of 11.2, coag panel unremarkable. Sodium was 131, this laboratory evaluation unremarkable. Chest x-ray shows right upper lobe pneumonia which is new compared to old exam. Patient has history of pneumonia multiple occasions in the past. Patient given medication for community acquired pneumonia. Patient be admitted for further m edical monitoring and pulmonology consultation for frequent pneumonia. EKG interpretation: Ventricular rate 100, normal sinus rhythm,. 142, QS 90, QTc 433. No GA prolongation, no QTC prolongation, no ST or T-wave changes noted. Overall, this EKG is unremarkable - Related Data Home Medications Medication Instructions Recorded Confirmed No Known Home Medications 01/31/19 07/28/19 Allergies Allergy/AdvReac Type Severity Reaction Status Date / Time No Known Allergies Allergy Verified 07/28/19 20:58 Review of Systems ROS Statement: Those systems with pertinent positive or pertinent negative responses have been documented in the HPI. ROS Other: All systems not noted in ROS Statement are negative. Past Medical History Past Medical History: Atrial Fibrillation, Cancer, COPD, Eye Disorder, Pneumoni a, Prostate Disorder Additional Past Medical History / Comment(s): ETOH abuse, DTs, tracheobronchitis, pneumonias, pleurisy, acute respiratory failure/vented, bilateral glaucoma History of Any Multi-Drug Resistant Organisms: None Reported Past Surgical History: Hernia Repair, Prostate Surgery, Tonsillectomy Additional Past Surgical History / Comment(s): R inguinal hernia repair, prostate-radiation implant, colonoscopy-normal Past Anesthesia/Blood Transfusion Reactions: No Reported Reaction Past Psychological History: No Psychological Hx Reported Smoking Status: Current every day smoker Past Alcohol Use History: Daily, Heavy Past Drug Use History: None Reported - Past Family History Father Family Medical History: COPD Additional Family Medical History / Comment(s): Father of COPD in his 70's Mother Family Medical History: Coronary Artery Disease (CAD) Additional Family Medical History / Comment(s): Mother of heart disease at the age of 65 yrs. General Exam Limitations: no limitations Course Vital Signs 07/28/19 07/28/19 20:48 22:01 Temperature 97.9 F Pulse Rate 101 H Respiratory 26 H 22 Rate Blood Pressure 118/72 O2 Sat by Pulse 96 Oximetry Medical Decision Making - Lab Data Result diagrams: 07/28/19 21:38 07/28/19 21:41 Lab Results 07/28/19 07/28/19 07/28/19 Range/Units 21:38 21:38 21:41 WBC 11.2 H (3.8-10.6) k/uL RBC 4.22 L (4.30-5.90) m/uL Hgb 12.7 L (13.0-17.5) gm/dL Hct 39.1 (39.0-53.0) % MCV 92.7 (80.0-100.0) fL MCH 30.1 (25.0-35.0) pg MCHC 32.5 (31.0-37.0) g/dL RDW 13.3 (11.5-15.5) % Plt Count 315 (150-450) k/uL Neutrophils % 76 % Lymphocytes % 13 % Monocytes % 7 % Eosinophils % 1 % Basophils % 1 % Neutrophils # 8.6 H (1.3-7.7) k/uL Lymphocytes # 1.5 (1.0-4.8) k/uL Monocytes # 0.8 (0-1.0) k/uL Eosinophils # 0.1 (0-0.7) k/uL Basophils # 0.1 (0-0.2) k/uL PT 9.7 (9.0-12.0) sec INR 0.9 (<1.2) APTT 27.0 (22.0-30.0) sec Sodium 131 L (137-145) mmol/L Potassium 4.7 (3.5-5.1) mmol/L Chloride 91 L (98-107) mmol/L Carbon Dioxide 27 (22-30) mmol/L Anion Gap 13 mmol/L BUN 8 L (9-20) mg/dL Creatinine 0.44 L (0.66-1.25) mg/dL Est GFR (CKD-EPI)AfAm >90 (>60 ml/min/1.73 sqM) Est GFR (CKD-EPI)NonAf >90 (>60 ml/min/1.73 sqM) Glucose 102 H (74-99) mg/dL Calcium 8.8 (8.4-10.2) mg/dL Magnesium 1.6 (1.6-2.3) mg/dL Total Bilirubin 0.5 (0.2-1.3) mg/dL AST 25 (17-59) U/L ALT 23 (21-72) U/L Alkaline Phosphatase 78 (38-126) U/L Troponin I (0.000-0.034) ng/mL Total Protein 7.0 (6.3-8.2) g/dL Albumin 3.4 L (3.5-5.0) g/dL 07/28/19 Range/Units 21:41 WBC (3.8-10.6) k/uL RBC (4.30-5.90) m/uL Hgb (13.0-17.5) gm/dL Hct (39.0-53.0) % MCV (80.0-100.0) fL MCH (25.0-35.0) pg MCHC (31.0-37.0) g/dL RDW (11.5-15.5) % Plt Count (150-450) k/uL Neutrophils % % Lymphocytes % % Monocytes % % Eosinophils % % Basophils % % Neutrophils # (1.3-7.7) k/uL Lymphocytes # (1.0-4.8) k/uL Monocytes # (0-1.0) k/uL Eosinophils # (0-0.7) k/uL Basophils # (0-0.2) k/uL PT (9.0-12.0) sec INR (<1.2) APTT (22.0-30.0) sec Sodium (137-145) mmol/L Potassium (3.5-5.1) mmol/L Chloride (98-107) mmol/L Carbon Dioxide (22-30) mmol/L Anion Gap mmol/L BUN (9-20) mg/dL Creatinine (0.66-1.25) mg/dL Est GFR (CKD-EPI)AfAm (>60 ml/min/1.73 sqM) Est GFR (CKD-EPI)NonAf (>60 ml/min/1.73 sqM) Glucose (74-99) mg/dL Calcium (8.4-10.2) mg/dL Magnesium (1.6-2.3) mg/dL Total Bilirubin (0.2-1.3) mg/dL AST (17-59) U/L ALT (21-72) U/L Alkaline Phosphatase (38-126) U/L Troponin I <0.012 (0.000-0.034) ng/mL Total Protein (6.3-8.2) g/dL Albumin (3.5-5.0) g/dL Disposition Clinical Impression: Pneumonia Disposition: ADMITTED IP TO THIS HOSP Condition: Fair Referrals: Aiden Mayfield MD [Primary Care Provider] - 1-2 days Decision Time: 23:00
--- NOTE | 2019-07-28 22:01 | XR ---
EXAMINATION TYPE: XR chest 2V DATE OF EXAM: 07/28/2019 COMPARISON: 12/29/2018 HISTORY: Right-sided rib pain TECHNIQUE: Frontal and lateral views of the chest are obtained. FINDINGS: There is a 10 cm area of airspace consolidation in the lateral aspect right upper lobe. Th e other lung boo are fairly clear. Heart and mediastinum are normal. There is old healed left clav icle fracture. There is no pleural effusion. There are chest leads. Bony thorax is intact. IMPRESSION: There is a right upper lobe pneumonia that is new compared to old exam. Normal heart.
[2019-07-28 22:04] LABS: Basophils # (A) 0.1 k/uL (0-0.2); Basophils % (A) 1 %; Eosinophils # (A) 0.1 k/uL (0-0.7); Eosinophils % (A) 1 %; HCT 39.1 % (39.0-53.0); HGB 12.7 gm/dL (13.0-17.5); Lymphocytes # (A) 1.5 k/uL (1.0-4.8); Lymphocytes % (A) 13 %; MCH 30.1 pg (25.0-35.0); MCHC 32.5 g/dL (31.0-37.0); MCV 92.7 fL (80.0-100.0); Mean Platelet Volume 6.6; Monocytes # (A) 0.8 k/uL (0-1.0); Monocytes % (A) 7 %; Neutrophils # (A) 8.6 k/uL (1.3-7.7); Neutrophils % (A) 76 %; Platelet Count 315 k/uL (150-450); RBC 4.22 m/uL (4.30-5.90); RDW 13.3 % (11.5-15.5); WBC 11.2 k/uL (3.8-10.6)
[2019-07-28 22:17] LABS: ALT 23 U/L (21-72); AST 25 U/L (17-59); African American GFR (CKD) >90 (>60 ml/min/1.73 sqM); Albumin 3.4 g/dL (3.5-5.0); Alkaline Phosphatase 78 U/L (38-126); Anion Gap 13 mmol/L; Blood Urea Nitrogen 8 mg/dL (9-20); Calcium 8.8 mg/dL (8.4-10.2); Carbon Dioxide 27 mmol/L (22-30); Chloride 91 mmol/L (98-107); Glucose 102 mg/dL (74-99); Magnesium 1.6 mg/dL (1.6-2.3); Potassium 4.7 mmol/L (3.5-5.1); Sodium 131 mmol/L (137-145); Total Bilirubin 0.5 mg/dL (0.2-1.3)
[2019-07-28 22:19] LABS: INR 0.9 (<1.2); Prothrombin Time 9.7 sec (9.0-12.0)
[2019-07-28] MEDS ORDERED: AZITHROMYCIN 500 MG in SODIUM CHLORIDE 0.9% 250 ML IVPB STA (22:31)
[2019-07-28] MEDS ORDERED: PNEUMONIA PROTOCOL UTILIZED 1 EACH MISC PO PRN (23:00)
[2019-07-29] MEDS: HEPARIN SODIUM,PORCINE 5,000 UNIT/ML 1 ML VIAL SQ SCH ×3 (00:17→15:06)
[2019-07-29 01:13] VITALS: BMI 21.2
[2019-07-29] MEDS: AZITHROMYCIN 500 MG TAB PO SCH (08:37)
--- NOTE | 2019-07-29 15:43 | XR ---
EXAMINATION TYPE: XR chest 2V DATE OF EXAM: 07/29/2019 COMPARISON: 07/28/2019 TECHNIQUE: PA and lateral views submitted. HISTORY: Right-sided pain FINDINGS: There is a large masslike area of consolidation right upper lobe. Coarsened interstitium noted and th ere is hyperinflation suggestive COPD. No pneumothorax. Arthropathy of the shoulders. Degenerative ch armando of the spine. IMPRESSION: 1. Large area of consolidation right upper lobe correlate for pneumonia otherwise consider neoplasm. No significant interval change. 2. COPD.
[2019-07-29] MEDS ORDERED: LORazepam 2 MG/ML INJ IV PRN ×3 (15:50)
[2019-07-29] MEDS: methylPREDNISolone SOD SUCCI 125 MG/2 ML VIAL IV SCH (17:57)
--- NOTE | 2019-07-29 18:23 | P.CNPUL ---
History of Present Illness Consult date: 07/29/19 Reason for consult: pneumonia History of present illness: A 59-year-old male patient known history of COPD known history of bronchiectasis known history of recurrent pneumonias in addition to previous history of tobacco smoking and alcohol abuse and previous history of prostate cancer and has undergone brachytherapy. The patient comes into the hospital because of other pleuritic right-sided chest pain. He was having some chills but no documented fever. He had a congested cough and he was bringing up purulent mucus. No hemoptysis. No previous history of DVT or pulmonary embolism. Does not utilize any form of maintenance of her medications. Note that utilize a nebulizer or oxygen. He has had previous bouts of pneumonias extensive wounds on the right treated either through another pulmonary practice or through our practice. He also has history of paroxysmal atrial fibrillation and he is not taking any form of rate control medications or anticoagulants at this point in time. His previous echo of the heart showed an ejection fraction of 50-55%. No altered mentation. No nausea. No vomiting. No renal insufficiency. Review of Systems Constitutional: Reports chills, Reports poor appetite, Reports weight loss Eyes: denies as per HPI, denies blurred vision, denies bulging eye, denies decreased vision, denies diplopia, denies discharge, denies dry eye, denies irritation, denies itching, denies pain, denies photophobia, denies loss of peripheral vision, denies loss of vision, denies tunnel vision/blind spots Ears: deny: decreased hearing, ear discharge, earache, tinnitus Ears, nose, mouth and throat: Denies headache, Denies sore throat Breasts: absent: as per HPI, gynecomastia Cardiovascular: Reports decreased exercise tolerance, Reports dyspnea on exertion Respiratory: Reports cough, Reports dyspnea, Reports pleurisy Gastrointestinal: Reports as per HPI Genitourinary: Reports as per HPI Musculoskeletal: Reports as per HPI Musculoskeletal: absent: ankle pain, ankle stiffness, ankle swelling, as per HPI, elbow pain, elbow stiffness, elbow swelling, foot pain, foot stiffness, foot swelling, hand pain, hand stiffness, hand swelling, hip pain, hip stiffness, hip swelling, knee pain, knee stiffness, knee swelling, shoulder pain, shoulder stiffness, shoulder swelling, wrist pain, wrist stiffness, wrist swelling Integumentary: Reports as per HPI Neurological: Reports as per HPI Psychiatric: Reports as per HPI Endocrine: Reports as per HPI Hematologic/Lymphatic: Reports as per HPI Allergic/Immunologic: Reports as per HPI Past Medical History Past Medical History: Atrial Fibrillation, Cancer, COPD, Eye Disorder, Pneumonia, Prostate Disorder Additional Past Medical History / Comment(s): COPD and bronchiectasis, smoker, ETOH abuse, DTs, tracheobronchitis, pneumonias, pleurisy, acute respiratory fail ure/vented, bilateral glaucoma, prostate cancer History of Any Multi-Drug Resistant Organisms: None Reported Past Surgical History: Hernia Repair, Prostate Surgery, Tonsillectomy Additional Past Surgical History / Comment(s): R inguinal hernia repair, prostate-radiation implant, colonoscopy-normal Past Anesthesia/Blood Transfusion Reactions: No Reported Reaction Past Psychological History: No Psychological Hx Reported Additional Psychological History / Comment(s): Pt is living with his niece. He rides his bike or walks. Smoking Status: Current every day smoker Past Alcohol Use History: Daily, Heavy Additional Past Alcohol Use History / Comment(s): Pt states he started smoking as a teen and is a 1.5 ppd smoker. Ptstates he drinks a couple like 2 beer a day. Last drank today. Past Drug Use History: None Reported - Past Family History Father Family Medical History: COPD Additional Family Medical History / Comment(s): Father of COPD in his 70's Mother Family Medical History: Coronary Artery Disease (CAD) Additional Family Medical History / Comment(s): Mother of heart disease at the age of 65 yrs. Medications and Allergies Home Medications Medication Instructions Recorded Confirmed Type Albuterol Inhaler [Ventolin Hfa 2 puff INHALATION Q6HR PRN 07/29/19 07/29/19 History Inhaler] Allergies Allergy/AdvReac Type Severity Reaction Status Date / Time No Known Allergies Allergy Verified 07/29/19 00:54 Physical Exam Vitals: Vital Signs Temp Pulse Pulse Resp BP BP Pulse Ox 07/29/19 16:25 16 07/29/19 13:50 98.5 F 79 16 122/76 96 07/29/19 07:11 99.3 F 97 15 122/77 94 L 07/29/19 00:51 98.8 F 89 24 124/80 98 07/28/19 23:41 98.1 F 94 18 105/79 98 07/28/19 23:00 94 34 H 125/79 96 07/28/19 22:30 96 39 H 138/112 93 L 07/28/19 22:01 22 07/28/19 20:48 97.9 F 101 H 26 H 118/72 96 Intake and Output 07/29/19 07/29/19 07/29/19 06:59 14:59 22:59 Intake Total 350 180 Output Total 350 Balance 0 180 Intake: Oral 350 180 Output: Urine 350 Other: Voiding Method Urinal # Voids 1 2 GENERAL EXAM: Appears older than stated age. Frail, cachectic. Disheveled. Alert, comfortable in no apparent distress. HEAD: Normocephalic. EYES: Normal reaction of pupils, equal size. Sclera icteric. NOSE: Clear with pink turbinates. THROAT: No erythema or exudates. NECK: No masses, no JVD. CHEST: No chest wall deformity. LUNGS: Equal air entry with few scattered rhonchi, bilateral wheeze, diminished. CVS: S1 and S2 normal with no audible murmur, irregular rhythm. ABDOMEN: No hepatosplenomegaly, normal bowel sounds, no guarding or rigidity. SPINE: No scoliosis or deformity SKIN: No rashes CENTRAL NERVOUS SYSTEM: No focal deficits, tone is normal in all 4 extremities. EXTREMITIES: There is no peripheral edema. No clubbing, no cyanosis. Peripheral pulses are intact. Results - Laboratory Findings CBC and BMP: 07/28/19 21:38 07/28/19 21:41 PT/INR, D-dimer PT 9.7 sec (9.0-12.0) 07/28/19 21:38 INR 0.9 (<1.2) 07/28/19 21:38 Abnormal lab findings: Abnormal Labs 07/28/19 07/28/19 21:38 21:41 WBC 11.2 H RBC 4.22 L Hgb 12.7 L Neutrophils # 8.6 H Sodium 131 L Chloride 91 L BUN 8 L Creatinine 0.44 L Glucose 102 H Albumin 3.4 L - Diagnostic Findings CT scan - chest: image reviewed Assessment and Plan Plan: 1 large right upper lobe pneumonia, likely bacterial in nature based on extensive consolidation and clinical presentation. 2 acute COPD exacerbation secondary to above 3 COPD/chronic bronchiectasis 4 chronic smoker 5 alcoholism 6 history of atrial fibrillation current rhythm is sinus 7 history of prostate cancer post-brachytherapy. 8 history of glaucoma Plan Obtain sputum Gram stain and culture. Obtain blood culture. Put the patient on a combination of Rocephin and Zithromax. IV Solu-Medrol. DuoNeb about treatments around the clock. Heparin subcu for DVT prophylaxis. Monitor the chest x-ray findings. We'll continue to follow and make further recommendations based on his progress. Smoking cessation counseling was done. Watch for any signs of delirium tremens.
[2019-07-29] MEDS: IPRATROPIUM-ALBUTEROL 3 ML NEB INHALATION SCH ×2 (19:47→19:48)
[2019-07-30] MEDS: methylPREDNISolone SOD SUCCI 125 MG/2 ML VIAL IV SCH ×5 (00:03→23:24)
[2019-07-30] MEDS: HEPARIN SODIUM,PORCINE 5,000 UNIT/ML 1 ML VIAL SQ SCH ×4 (00:03→23:23)
[2019-07-30 07:13] LABS: Basophils % (A) 0 %; Eosinophils # (A) 0.1 k/uL (0-0.7); Eosinophils % (A) 1 %; HCT 38.5 % (39.0-53.0); HGB 12.7 gm/dL (13.0-17.5); Lymphocytes # (A) 0.9 k/uL (1.0-4.8); Lymphocytes % (A) 12 %; MCH 30.8 pg (25.0-35.0); MCV 93.3 fL (80.0-100.0); Mean Platelet Volume 7.1; Monocytes # (A) 0.1 k/uL (0-1.0); Monocytes % (A) 2 %; Neutrophils % (A) 84 %; Platelet Count 405 k/uL (150-450); RBC 4.12 m/uL (4.30-5.90); RDW 14.8 % (11.5-15.5); WBC 7.2 k/uL (3.8-10.6)
[2019-07-30] MEDS: AZITHROMYCIN 500 MG TAB PO SCH (07:25)
[2019-07-30 07:26] LABS: African American GFR (CKD) >90 (>60 ml/min/1.73 sqM); Anion Gap 9 mmol/L; Blood Urea Nitrogen 12 mg/dL (9-20); Calcium 8.8 mg/dL (8.4-10.2); Carbon Dioxide 24 mmol/L (22-30); Chloride 98 mmol/L (98-107); Glucose 172 mg/dL (74-99); Potassium 4.4 mmol/L (3.5-5.1); Sodium 131 mmol/L (137-145)
[2019-07-30] MEDS: IPRATROPIUM-ALBUTEROL 3 ML NEB INHALATION SCH ×4 (07:59→20:21)
--- NOTE | 2019-07-30 09:43 | P.HPIM ---
History of Present Illness H&P Date: 07/29/19 Chief Complaint: pleuritic right-sided chest pain 59-year-old male patient known history of COPD known history of bronchiectasis known history of recurrent pneumonias in addition to previous history of tobacco smoking and alcohol abuse and previous history of prostate cancer and has undergone brachytherapy. The patient comes into the hospital because of other pleuritic right-sided chest pain. He was having some chills but no documented fever. He had a congested cough and he was bringing up purulent mucus. No hemoptysis. No previous history of DVT or pulmonary embolism. Does not utilize any form of maintenance of her medications. Note that utilize a nebulizer or oxygen. He has had previous bouts of pneumonias extensive wounds on the right treated either through another pulmonary practice or through our practice. He also has history of paroxysmal atrial fibrillation and he is not taking any form of rate control medications or anticoagulants at this point in time. His previous echo of the heart showed an ejection fraction of 50-55%. No altered mentation. No nausea. No vomiting. No renal insufficiency. Review of Systems Constitutional: Reports chills, Reports poor appetite, Reports weight loss Eyes: denies as per HPI, denies blurred vision, denies bulging eye, denies decreased vision, denies diplopia, denies discharge, denies dry eye, denies irritation, denies itching, denies pain, denies photophobia, denies loss of peripheral vision, denies loss of vision, denies tunnel vision/blind spots Ears: deny: decreased hearing, ear discharge, earache, tinnitus Ears, nose, mouth and throat: Denies headache, Denies sore throat Breasts: absent: as per HPI, gynecomastia Cardiovascular: Reports decreased exercise tolerance, Reports dyspnea on exertion Respiratory: Reports cough, Reports dyspnea, Reports pleurisy Gastrointestinal: Reports as per HPI Genitourinary: Reports as per HPI Musculoskeletal: Reports as per HPI Musculoskeletal: absent: ankle pain, ankle stiffness, ankle swelling, as per HPI, elbow pain, elbow stiffness, elbow swelling, foot pain, foot stiffness, foot swelling, hand pain, hand stiffness, hand swelling, hip pain, hip stiffness, hip swelling, knee pain, knee stiffness, knee swelling, shoulder pain, shoulder stiffness, shoulder swelling, wrist pain, wrist stiffness, wrist swelling Integumentary: Reports as per HPI Neurological: Reports as per HPI Psychiatric: Reports as per HPI Endocrine: Reports as per HPI Hematologic/Lymphatic: Reports as per HPI Allergic/Immunologic: Reports as per HPI Past Medical History Past Medical History: Atrial Fibrillation, Cancer, COPD, Eye Disorder, Pneumonia, Prostate Disorder Additional Past Medical History / Comment(s): ETOH abuse, DTs, tracheobronchitis, pneumonias, pleurisy, acute respiratory failure/vented, bilateral glaucoma, prostate cancer History of Any Multi-Drug Resistant Organisms: None Reported Past Surgical History: Hernia Repair, Prostate Surgery, Tonsillectomy Additional Past Surgical History / Comment(s): R inguinal hernia repair, prostate-radiation implant, colonoscopy-normal Past Anesthesia/Blood Transfusion Reactions: No Reported Reaction Past Psychological History: No Psychological Hx Reported Additional Psychological History / Comment(s): Pt is living with his niece. He rides his bike or walks. Smoking Status: Current every day smoker Past Alcohol Use History: Daily, Heavy Additional Past Alcohol Use History / Comment(s): Pt states he started smoking as a teen and is a 1.5 ppd smoker. Ptstates he drinks a couple like 2 beer a day. Last drank today. Past Drug Use History: None Reported - Past Family History Father Family Medical History: COPD Additional Family Medical History / Comment(s): Father of COPD in his 70's Mother Family Medical History: Coronary Artery Disease (CAD) Additional Family Medical History / Comment(s): Mother of heart disease at the age of 65 yrs. Medications and Allergies Home Medications Medication Instructions Recorded Confirmed Type Albuterol Inhaler [Ventolin Hfa 2 puff INHALATION Q6HR PRN 07/29/19 07/29/19 History Inhaler] Allergies Allergy/AdvReac Type Severity Reaction Status Date / Time No Known Allergies Allergy Verified 07/29/19 00:54 Physical Exam Vitals: Vital Signs Temp Pulse Pulse Resp BP BP Pulse Ox 07/29/19 07:11 99.3 F 97 15 122/77 94 L 07/29/19 00:51 98.8 F 89 24 124/80 98 07/28/19 23:41 98.1 F 94 18 105/79 98 07/28/19 23:00 94 34 H 125/79 96 07/28/19 22:30 96 39 H 138/112 93 L 07/28/19 22:01 22 07/28/19 20:48 97.9 F 101 H 26 H 118/72 96 Intake and Output 07/28/19 07/29/19 07/29/19 22:59 06:59 14:59 Intake Total 350 Output Total 350 Balance 0 Intake: Oral 350 Output: Urine 350 Other: Voiding Method Urinal # Voids 1 Weight 58.06 kg GENERAL EXAM: Appears older than stated age. Frail, cachectic. Disheveled. Alert, comfortable in no apparent distress. HEAD: Normocephalic. EYES: Normal reaction of pupils, equal size. Sclera icteric. NOSE: Clear with pink turbinates. THROAT: No erythema or exudates. NECK: No masses, no JVD. CHEST: No chest wall deformity. LUNGS: Equal air entry with few scattered rhonchi, bilateral wheeze, diminished. CVS: S1 and S2 normal with no audible murmur, irregular rhythm. ABDOMEN: No hepatosplenomegaly, normal bowel sounds, no guarding or rigidity. SPINE: No scoliosis or deformity SKIN: No rashes CENTRAL NERVOUS SYSTEM: No focal deficits, tone is normal in all 4 extremities. EXTREMITIES: There is no peripheral edema. No clubbing, no cyanosis. Peripheral pulses are intact. Results CBC & Chem 7: 07/30/19 06:49 07/30/19 06:49 Labs: Abnormal Lab Results - Last 24 Hours (Table) 07/28/19 07/28/19 Range/Units 21:38 21:41 WBC 11.2 H (3.8-10.6) k/uL RBC 4.22 L (4.30-5.90) m/uL Hgb 12.7 L (13.0-17.5) gm/dL Neutrophils # 8.6 H (1.3-7.7) k/uL Sodium 131 L (137-145) mmol/L Chloride 91 L (98-107) mmol/L BUN 8 L (9-20) mg/dL Creatinine 0.44 L (0.66-1.25) mg/dL Glucose 102 H (74-99) mg/dL Albumin 3.4 L (3.5-5.0) g/dL Thrombosis Risk Factor Assmnt - Choose All That Apply Any of the Below Risk Factors Present?: Yes Each Factor Represents 1 point: Abnormal pulmonary function (COPD), Age 41-60 years Other Risk Factors: No Other congenital or acquired thrombophilia - If yes, enter type in comment: No Thrombosis Risk Factor Assessment Total Risk Factor Score: 2 Thrombosis Risk Factor Assessment Level: Low Risk Assessment and Plan Assessment: 1. Right upper lobe pneumonia - likely bacterial in nature based on extensive consolidation and clinical presentation. - Pulmonary service is following and recommending to continue IV Rocephin and Zithromax; blood culture and sputum culture has been ordered and pending 2. Acute COPD exacerbation - IV Solu-Medrol 60 mg every 6 hours; DuoNeb nebulizer treatments 4 times a day and when necessary; continue O2 per nasal cannula keeping SpO2 greater than 92% 3. COPD/chronic bronchiectasis; patient not on any maintenance medications 4. Chronic EtOH abuse; we will monitor closely and add CIWA protocol if patient shows signs of withdrawal 5. Atrial fibrillation; in normal sinus rhythm - Patient does not take any medication for rate control or anticoagulation therapy; last echocardiogram showed an ejection fraction of 50-55% 6. Chronic smoker; counseling done for smoking cessation 7. History of prostate cancer post-brachytherapy. 8. DVT prophylaxis; subcu heparin CODE STATUS; DO NOT RESUSCITATE Time with Patient: Greater than 30
--- NOTE | 2019-07-30 14:11 | P.PN ---
Subjective Progress Note Date: 07/30/19 A 59-year-old male patient known history of COPD known history of bronchiectasis known history of recurrent pneumonias in addition to previous history of tobacco smoking and alcohol abuse and previous history of prostate cancer and has undergone brachytherapy. The patient comes into the hospital because of other pleuritic right-sided chest pain. He was having some chills but no documented fever. He had a congested cough and he was bringing up purulent mucus. No hemoptysis. No previous history of DVT or pulmonary embolism. Does not utilize any form of maintenance of her medications. Note that utilize a nebulizer or oxygen. He has had previous bouts of pneumonias extensive wounds on the right treated either through another pulmonary practice or through our practice. He also has history of paroxysmal atrial fibrillation and he is not taking any form of rate control medications or anticoagulants at this point in time. His previous echo of the heart showed an ejection fraction of 50-55%. No altered mentation. No nausea. No vomiting. No renal insufficiency. On 07/30/2019 of seeing this patient for a follow-up. Is less short of breath compared to yesterday. He was able to give us a sputum sample. Awaiting final cultures and sensitivities. No fever or chills. No hemoptysis. His pleurisy is improved on the right side. He has an extensive right lung consolidation as noted on the admitting chest x-ray. He also has bronchiectasis addition to COPD. No other complaints otherwise for now. White cell count is at 7.2. Renal function stable with a creatinine of 0.39. BUN is at 12. He is on a combination of antibiotics using Rocephin and Zithromax. Objective - Vital Signs Vital signs: Vital Signs Temp 97.6 F 07/30/19 07:00 Pulse 88 07/30/19 11:47 Resp 16 07/30/19 07:25 BP 119/72 07/30/19 07:00 Pulse Ox 94 L 07/30/19 07:00 Intake & Output 07/29/19 07/30/19 07/30/19 18:59 06:59 18:59 Intake Total 180 480 Output Total 650 Balance 180 -650 480 Intake: Oral 180 480 Output: Urine 650 Other: Voiding Method Urinal # Voids 2 1 - Exam GENERAL EXAM: Appears older than stated age. Frail, cachectic. Disheveled. Alert, comfortable in no apparent distress. HEAD: Normocephalic. EYES: Normal reaction of pupils, equal size. Sclera icteric. NOSE: Clear with pink turbinates. THROAT: No erythema or exudates. NECK: No masses, no JVD. CHEST: No chest wall deformity. LUNGS: Equal air entry with few scattered rhonchi, bilateral wheeze, diminished. CVS: S1 and S2 normal with no audible murmur, irregular rhythm. ABDOMEN: No hepatosplenomegaly, normal bowel sounds, no guarding or rigidity. SPINE: No scoliosis or deformity SKIN: No rashes CENTRAL NERVOUS SYSTEM: No focal deficits, tone is normal in all 4 extremities. EXTREMITIES: There is no peripheral edema. No clubbing, no cyanosis. [place] pheral pulses are intact. - Labs CBC & Chem 7: 07/30/19 06:49 07/30/19 06:49 Labs: Abnormal Lab Results - Last 24 Hours (Table) 07/30/19 07/30/19 Range/Units 06:49 06:49 RBC 4.12 L (4.30-5.90) m/uL Hgb 12.7 L (13.0-17.5) gm/dL Hct 38.5 L (39.0-53.0) % Lymphocytes # 0.9 L (1.0-4.8) k/uL Sodium 131 L (137-145) mmol/L Creatinine 0.39 L (0.66-1.25) mg/dL Glucose 172 H (74-99) mg/dL Microbiology - Last 24 Hours (Table) 07/28/19 22:55 Blood Culture - Preliminary Blood No Growth after 24 hours Assessment and Plan Plan: 1 large right upper lobe pneumonia, likely bacterial in nature based on extens alex consolidation and clinical presentation. 2 acute COPD exacerbation secondary to above 3 COPD/chronic bronchiectasis 4 chronic smoker 5 alcoholism 6 history of atrial fibrillation current rhythm is sinus 7 history of prostate cancer post-brachytherapy. 8 history of glaucoma Plan Awaiting sputum gas in and culture. Continue same antibiotic coverage. Clinically improved. Repeat chest x-ray in the morning. We'll continue to follow.
[2019-07-30] MEDS: NICOTINE 21MG/24HR PATCH TRANSDERM SCH (16:27)
[2019-07-31] MEDS: methylPREDNISolone SOD SUCCI 125 MG/2 ML VIAL IV SCH ×4 (05:27→23:25)
--- NOTE | 2019-07-31 07:46 | XR ---
EXAMINATION TYPE: XR chest 1V portable DATE OF EXAM: 07/31/2019 COMPARISON: 07/29/2019 HISTORY: Right upper lobe masslike consolidation. Follow-up exam. Shortness of breath. TECHNIQUE: Single frontal view of the chest is obtained. FINDINGS: Remains a right upper lobe cavitary mass measuring approximately 6 cm in craniocaudal dime nsion. There is improved surrounding reticular opacity. Remainder the lungs are well aerated and hype rexpanded. Cardiomediastinal silhouette is within normal limits. Old healed left clavicular fracture. No acute osseous pathology is seen. IMPRESSION: Improved reticular opacity surrounding the right upper lobe cavitary lesion. Bronchoscop y is recommended if not previously performed.
[2019-07-31] MEDS: IPRATROPIUM-ALBUTEROL 3 ML NEB INHALATION SCH ×4 (07:56→21:06)
[2019-07-31 08:13] LABS: Basophils % (A) 0 %; Eosinophils # (A) 0.1 k/uL (0-0.7); Eosinophils % (A) 0 %; HCT 37.2 % (39.0-53.0); HGB 12.1 gm/dL (13.0-17.5); Lymphocytes # (A) 0.9 k/uL (1.0-4.8); Lymphocytes % (A) 5 %; MCH 30.7 pg (25.0-35.0); MCHC 32.4 g/dL (31.0-37.0); MCV 94.7 fL (80.0-100.0); Mean Platelet Volume 7.1; Monocytes # (A) 0.4 k/uL (0-1.0); Monocytes % (A) 2 %; Neutrophils % (A) 92 %; Platelet Count 480 k/uL (150-450); RBC 3.93 m/uL (4.30-5.90); WBC 18.4 k/uL (3.8-10.6)
[2019-07-31 08:27] LABS: African American GFR (CKD) >90 (>60 ml/min/1.73 sqM); Anion Gap 10 mmol/L; Blood Urea Nitrogen 13 mg/dL (9-20); Calcium 9.1 mg/dL (8.4-10.2); Carbon Dioxide 27 mmol/L (22-30); Chloride 99 mmol/L (98-107); Glucose 130 mg/dL (74-99); Potassium 4.1 mmol/L (3.5-5.1); Sodium 136 mmol/L (137-145)
[2019-07-31] MEDS: NICOTINE 21MG/24HR PATCH TRANSDERM SCH (09:02)
[2019-07-31] MEDS: AZITHROMYCIN 500 MG TAB PO SCH (09:02)
[2019-07-31] MEDS: HEPARIN SODIUM,PORCINE 5,000 UNIT/ML 1 ML VIAL SQ SCH ×3 (09:02→23:24)
--- NOTE | 2019-07-31 13:20 | P.PN ---
Subjective Progress Note Date: 07/31/19 A 59-year-old male patient known history of COPD known history of bronchiectasis known history of recurrent pneumonias in addition to previous history of tobacco smoking and alcohol abuse and previous history of prostate cancer and has undergone brachytherapy. The patient comes into the hospital because of other pleuritic right-sided chest pain. He was having some chills but no documented fever. He had a congested cough and he was bringing up purulent mucus. No hemoptysis. No previous history of DVT or pulmonary embolism. Does not utilize any form of maintenance of her medications. Note that utilize a nebulizer or oxygen. He has had previous bouts of pneumonias extensive wounds on the right treated either through another pulmonary practice or through our practice. He also has history of paroxysmal atrial fibrillation and he is not taking any form of rate control medications or anticoagulants at this point in time. His previous echo of the heart showed an ejection fraction of 50-55%. No altered mentation. No nausea. No vomiting. No renal insufficiency. On 07/30/2019 of seeing this patient for a follow-up. Is less short of breath compared to yesterday. He was able to give us a sputum sample. Awaiting final cultures and sensitivities. No fever or chills. No hemoptysis. His pleurisy is improved on the right side. He has an extensive right lung consolidation as noted on the admitting chest x-ray. He also has bronchiectasis addition to COPD. No other complaints otherwise for now. White cell count is at 7.2. Renal function stable with a creatinine of 0.39. BUN is at 12. He is on a combination of antibiotics using Rocephin and Zithromax. On 07/31/2019, the patient reports pleurisy improving. Repeat chest x-ray was done today. The chest x-ray shows improvement in the right upper lobe consolidation although not completely recovered. The patient on examination Rocephin and Zithromax. He remains on IV Solu-Medrol. He remains on do not. No nausea or vomiting. No pain. No altered mentation. Sputum Gram stain and culture came back negative for any microbial growth for the time being. His blood work shows a white cell, of 18.4. His was a cause elevated despite the observed improvement in her chest x-ray findings. Renal function stable. Objective - Vital Signs Vital signs: Vital Signs Temp 98.4 F 07/31/19 07:00 Pulse 84 07/31/19 11:29 Resp 16 07/31/19 07:00 BP 150/79 07/31/19 07:00 Pulse Ox 95 07/31/19 07:00 Intake & Output 07/30/19 07/31/19 07/31/19 18:59 06:59 18:59 Intake Total 480 360 Balance 480 360 Intake: Oral 480 360 Other: Voiding Method Urinal # Voids 4 2 - Exam GENERAL EXAM: Appears older than stated age. Frail, cachectic. Disheveled. Alert, comfortable in no apparent distress. HEAD: Normocephalic. EYES: Normal reaction of pupils, equal size. Sclera icteric. NOSE: Clear with pink turbinates. THROAT: No erythema or exudates. NECK: No masses, no JVD. CHEST: No chest wall deformity. LUNGS: Equal air entry with few scattered rhonchi, bilateral wheeze, diminished. CVS: S1 and S2 normal with no audible murmur, irregular rhythm. ABDOMEN: No hepatosplenomegaly, normal bowel sounds, no guarding or rigidity. SPINE: No scoliosis or deformity SKIN: No rashes CENTRAL NERVOUS SYSTEM: No focal deficits, tone is normal in all 4 extremities. EXTREMITIES: There is no peripheral edema. No clubbing, no cyanosis. Peripheral pulses are intact. - Labs CBC & Chem 7: 07/31/19 07:17 07/31/19 07:17 Labs: Abnormal Lab Results - Last 24 Hours (Table) 07/31/19 07/31/19 Range/Units 07:17 07:17 WBC 18.4 H (3.8-10.6) k/uL RBC 3.93 L (4.30-5.90) m/uL Hgb 12.1 L (13.0-17.5) gm/dL Hct 37.2 L (39.0-53.0) % Plt Count 480 H (150-450) k/uL Neutrophils # 17.0 H (1.3-7.7) k/uL Lymphocytes # 0.9 L (1.0-4.8) k/uL Sodium 136 L (137-145) mmol/L Creatinine 0.49 L (0.66-1.25) mg/dL Glucose 130 H (74-99) mg/dL Microbiology - Last 24 Hours (Table) 07/30/19 08:05 Gram Stain - Preliminary Sputum Sputum Culture - Preliminary 07/28/19 22:55 Blood Culture - Preliminary Blood No Growth after 48 hours Assessment and Plan Plan: 1 large right upper lobe pneumonia, likely bacterial in nature based on extensive consolidation and clinical presentation, improving 2 acute COPD exacerbation secondary to above, improving 3 COPD/chronic bronchiectasis 4 chronic smoker 5 alcoholism 6 history of atrial fibrillation current rhythm is sinus 7 history of prostate cancer post-brachytherapy. 8 history of glaucoma Plan Continue Rocephin and Zithromax. Sputum Gram stain and culture is negative. The patient has an extensive right upper lobe consolidation which is improving and the follow-up chest x-ray shows improvement in the right upper lobe cons olidation. Continue Rocephin and Zithromax. Continue bronchodilators. Continue steroids. Encourage ambulation. Smoking cessation counseling was done. We'll continue to follow.
--- NOTE | 2019-07-31 13:23 | P.PN ---
Subjective Progress Note Date: 07/30/19 59-year-old male patient known history of COPD known history of bronchiectasis known history of recurrent pneumonias in addition to previous history of tobacco smoking and alcohol abuse and previous history of prostate cancer and has undergone brachytherapy. The patient comes into the hospital because of other pleuritic right-sided chest pain. Patient is admitted to the hospital for treatment of large right-sided pneumonia and acute exacerbation of COPD 07/30/2019 Patient is seen for a follow-up; less short of breath compared to yesterday. He was able to give us a sputum sample. Awaiting final cultures and sensitivities. No fever or chills. No hemoptysis. His pleurisy is improved on the right side. He has an extensive right lung consolidation as noted on the admitting chest x-ray. He also has bronchiectasis addition to COPD. No other complaints otherwise for now. White cell count is at 7.2. Renal function stable with a creatinine of 0.39. BUN is at 12. He is on a combination of antibiotics using Rocephin and Zithromax. Objective - Vital Signs Vital signs: Vital Signs Temp 97.6 F 07/30/19 07:00 Pulse 92 07/30/19 08:12 Resp 16 07/30/19 07:00 BP 119/72 07/30/19 07:00 Pulse Ox 94 L 07/30/19 07:00 Intake & Output 07/29/19 07/30/19 07/30/19 18:59 06:59 18:59 Intake Total 180 480 Output Total 650 Balance 180 -650 480 Intake: Oral 180 480 Output: Urine 650 Other: Voiding Method Urinal # Voids 2 1 - Exam GENERAL EXAM: Appears older than stated age. Frail, cachectic. Disheveled. Alert, comfortable in no apparent distress. HEAD: Normocephalic. EYES: Normal reaction of pupils, equal size. Sclera icteric. NOSE: Clear with pink turbinates. THROAT: No erythema or exudates. NECK: No masses, no JVD. CHEST: No chest wall deformity. LUNGS: Equal air entry with few scattered rhonchi, bilateral wheeze, diminished. CVS: S1 and S2 normal with no audible murmur, irregular rhythm. ABDOMEN: No hepatosplenomegaly, normal bowel sounds, no guarding or rigidity. SPINE: No scoliosis or deformity SKIN: No rashes - Labs CBC & Chem 7: 07/31/19 07:17 07/31/19 07:17 Labs: Abnormal Lab Results - Last 24 Hours (Table) 07/30/19 07/30/19 Range/Units 06:49 06:49 RBC 4.12 L (4.30-5.90) m/uL Hgb 12.7 L (13.0-17.5) gm/dL Hct 38.5 L (39.0-53.0) % Lymphocytes # 0.9 L (1.0-4.8) k/uL Sodium 131 L (137-145) mmol/L Creatinine 0.39 L (0.66-1.25) mg/dL Glucose 172 H (74-99) mg/dL Microbiology - Last 24 Hours (Table) 07/28/19 22:55 Blood Culture - Preliminary Blood No Growth after 24 hours Assessment and Plan Assessment: 1. Right upper lobe pneumonia - likely bacterial in nature based on extensive consolidation and clinical presentation. - Pulmonary service is following and recommending to continue IV Rocephin and Zithromax; blood culture and sputum culture has been ordered and pending 2. Acute COPD exacerbation - IV Solu-Medrol 60 mg every 6 hours; DuoNeb nebulizer treatments 4 times a day and when necessary; continue O2 per nasal cannula keeping SpO2 greater than 92% 3. COPD/chronic bronchiectasis; patient not on any maintenance medications 4. Chronic EtOH abuse; we will monitor closely and add CIWA protocol if patient shows signs of withdrawal 5. Atrial fibrillation; in normal sinus rhythm - Patient does not take any medication for rate control or anticoagulation therapy; last echocardiogram showed an ejection fraction of 50-55% 6. Chronic smoker; counseling done for smoking cessation 7. History of prostate cancer post-brachytherapy. 8. DVT prophylaxis; subcu heparin CODE STATUS; DO NOT RESUSCITATE Time with Patient: Greater than 30
--- NOTE | 2019-07-31 16:43 | P.PN ---
Subjective Progress Note Date: 07/31/19 Principal diagnosis: Large right upper lobe pneumonia Acute exacerbation COPD 59-year-old male patient known history of COPD known history of bronchiectasis known history of recurrent pneumonias in addition to previous history of tobacco smoking and alcohol abuse and previous history of prostate cancer and has undergone brachytherapy. The patient comes into the hospital because of other pleuritic right-sided chest pain. Patient is admitted to the hospital for treatment of large right-sided pneumonia and acute exacerbation of COPD 07/30/2019 Patient is seen for a follow-up; less short of breath compared to yesterday. He was able to give us a sputum sample. Awaiting final cultures and sensitivities. No fever or chills. No hemoptysis. His pleurisy is improved on the right side. He has an extensive right lung consolidation as noted on the admitting chest x-ray. He also has bronchiectasis addition to COPD. No other complaints otherwise for now. White cell count is at 7.2. Renal function stable with a creatinine of 0.39. BUN is at 12. He is on a combination of antibiotics using Rocephin and Zithromax. 07/31/2019, Patient is seen and evaluated in the room at bedside and reports improvement in symptoms. Vital signs remained stable with a temperature of 98.4, pulse 84, respirations 16 and blood pressure of 150/79. SpO2 of 95% on room air Repeat chest x-ray was done today. The chest x-ray shows improvement in the right upper lobe consolidation although not completely recovered. Sputum Gram s tain and culture is negative for any growth; Lab review shows a white blood count of 18.4, hemoglobin 12.1 and platelet count of 480 ; sodium 136, potassium 4.1; elevated white blood count most likely secondary to steroid treatment; patient shows clinical improvement The patient remains on IV Rocephin and Zithromax; IV Solu-Medrol; bronchodilator nebulizer treatments. 07/31/2019, Patient reports pleurisy improving. Repeat chest x-ray was done today. The chest x-ray shows improvement in the right upper lobe consolidation although not completely recovered. The patient on examination Rocephin and Zithromax. He remains on IV Solu-Medrol. He remains on do not. No nausea or vomiting. No pain. No altered mentation. Sputum Gram stain and culture came back negative for any microbial growth for the time being. His blood work shows a white cell, of 18.4. His was a cause elevated despite the observed improvement in her chest x-ray findings. Renal function stable. Objective - Vital Signs Vital signs: Vital Signs Temp 98.4 F 07/31/19 07:00 Pulse 84 07/31/19 11:29 Resp 16 07/31/19 07:00 BP 150/79 07/31/19 07:00 Pulse Ox 95 07/31/19 07:00 Intake & Output 07/30/19 07/31/19 07/31/19 18:59 06:59 18:59 Intake Total 480 360 Balance 480 360 Intake: Oral 480 360 Other: Voiding Method Urinal # Voids 4 2 - Exam GENERAL EXAM: Appears older than stated age. Frail, cachectic. Disheveled. Alert, comfortable in no apparent distress. HEAD: Normocephalic. EYES: Normal reaction of pupils, equal size. Sclera icteric. NOSE: Clear with pink turbinates. THROAT: No erythema or exudates. NECK: No masses, no JVD. CHEST: No chest wall deformity. LUNGS: Equal air entry with few scattered rhonchi, bilateral wheeze, diminished. CVS: S1 and S2 normal with no audible murmur, irregular rhythm. ABDOMEN: No hepatosplenomegaly, normal bowel sounds, no guarding or rigidity. SPINE: No scoliosis or deformity SKIN: No rashes - Labs CBC & Chem 7: 07/31/19 07:17 07/31/19 07:17 Labs: Abnormal Lab Results - Last 24 Hours (Table) 07/31/19 07/31/19 Range/Units 07:17 07:17 WBC 18.4 H (3.8-10.6) k/uL RBC 3.93 L (4.30-5.90) m/uL Hgb 12.1 L (13.0-17.5) gm/dL Hct 37.2 L (39.0-53.0) % Plt Count 480 H (150-450) k/uL Neutrophils # 17.0 H (1.3-7.7) k/uL Lymphocytes # 0.9 L (1.0-4.8) k/uL Sodium 136 L (137-145) mmol/L Creatinine 0.49 L (0.66-1.25) mg/dL Glucose 130 H (74-99) mg/dL Microbiology - Last 24 Hours (Table) 07/30/19 08:05 Gram Stain - Preliminary Sputum Sputum Culture - Preliminary 07/28/19 22:55 Blood Culture - Preliminary Blood No Growth after 48 hours Assessment and Plan Assessment: 1. Right upper lobe pneumonia - likely bacterial in nature based on extensive consolidation and clinical presentation. - Pulmonary service is following and recommending to continue IV Rocephin and Zithromax; blood culture and sputum culture has been ordered and pending 2. Acute COPD exacerbation - IV Solu-Medrol 60 mg every 6 hours; DuoNeb nebulizer treatments 4 times a day and when necessary; continue O2 per nasal cannula keeping SpO2 greater than 92% 3. COPD/chronic bronchiectasis; patient not on any maintenance medications 4. Chronic EtOH abuse; we will monitor closely and add CIWA protocol if patient shows signs of withdrawal 5. Atrial fibrillation; in normal sinus rhythm - Patient does not take any medication for rate control or anticoagulation therapy; last echocardiogram showed an ejection fraction of 50-55% 6. Chronic smoker; counseling done for smoking cessation 7. History of prostate cancer post-brachytherapy. 8. DVT prophylaxis; subcu heparin CODE STATUS; DO NOT RESUSCITATE Time with Patient: Greater than 30
[2019-08-01] MEDS: methylPREDNISolone SOD SUCCI 125 MG/2 ML VIAL IV SCH ×3 (05:50→17:33)
[2019-08-01 07:08] LABS: Basophils % (A) 0 %; Eosinophils % (A) 0 %; HCT 37.8 % (39.0-53.0); HGB 11.9 gm/dL (13.0-17.5); Lymphocytes # (A) 0.9 k/uL (1.0-4.8); Lymphocytes % (A) 7 %; MCH 30.1 pg (25.0-35.0); MCHC 31.6 g/dL (31.0-37.0); MCV 95.3 fL (80.0-100.0); Mean Platelet Volume 6.6; Monocytes # (A) 0.3 k/uL (0-1.0); Monocytes % (A) 2 %; Neutrophils % (A) 90 %; Platelet Count 457 k/uL (150-450); RBC 3.96 m/uL (4.30-5.90); RDW 13.4 % (11.5-15.5); WBC 13.4 k/uL (3.8-10.6)
[2019-08-01 07:30] LABS: African American GFR (CKD) >90 (>60 ml/min/1.73 sqM); Anion Gap 9 mmol/L; Blood Urea Nitrogen 17 mg/dL (9-20); Calcium 9.1 mg/dL (8.4-10.2); Carbon Dioxide 28 mmol/L (22-30); Chloride 99 mmol/L (98-107); Glucose 124 mg/dL (74-99); Potassium 4.3 mmol/L (3.5-5.1); Sodium 136 mmol/L (137-145)
[2019-08-01] MEDS: IPRATROPIUM-ALBUTEROL 3 ML NEB INHALATION SCH ×3 (07:31→16:16)
[2019-08-01 08:54] VITALS: TEMP 97.9
[2019-08-01] MEDS: NICOTINE 21MG/24HR PATCH TRANSDERM SCH (11:05)
[2019-08-01] MEDS: AZITHROMYCIN 500 MG TAB PO SCH (11:06)
[2019-08-01] MEDS: HEPARIN SODIUM,PORCINE 5,000 UNIT/ML 1 ML VIAL SQ SCH ×2 (11:06→17:32)
[2019-08-01 16:07] VITALS: BP 157/84
[2019-08-01 16:18] VITALS: RESP 16
[2019-08-01 16:25] VITALS: PULSE 81
--- NOTE | 2019-08-01 17:23 | P.PN ---
Subjective Progress Note Date: 08/01/19 Principal diagnosis: Large right upper lobe pneumonia, COPD exacerbation A 59-year-old male patient known history of COPD known history of bronchiectasis known history of recurrent pneumonias in addition to previous history of tobacco smoking and alcohol abuse and previous history of prostate cancer and has undergone brachytherapy. The patient comes into the hospital because of other pleuritic right-sided chest pain. He was having some chills but no documented fever. He had a congested cough and he was bringing up purulent mucus. No hemoptysis. No previous history of DVT or pulmonary embolism. Does not utilize any form of maintenance of her medications. Note that utilize a nebulizer or oxygen. He has had previous bouts of pneumonias extensive wounds on the right treated either through another pulmonary practice or through our practice. He also has history of paroxysmal atrial fibrillation and he is not taking any form of rate control medications or anticoagulants at this point in time. His previous echo of the heart showed an ejection fraction of 50-55%. No altered mentation. No nausea. No vomiting. No renal insufficiency. On 07/30/2019 of seeing this patient for a follow-up. Is less short of breath compared to yesterday. He was able to give us a sputum sample. Awaiting final cultures and sensitivities. No fever or chills. No hemoptysis. His pleurisy is improved on the right side. He has an extensive right lung consolidation as noted on the admitting chest x-ray. He also has bronchiectasis addition to COPD. No other complaints otherwise for now. White cell count is at 7.2. Renal function stable with a creatinine of 0.39. BUN is at 12. He is on a combination of antibiotics using Rocephin and Zithromax. On 07/31/2019, the patient reports pleurisy improving. Repeat chest x-ray was done today. The chest x-ray shows improvement in the right upper lobe consolidation although not completely recovered. The patient on examination Rocephin and Zithromax. He remains on IV Solu-Medrol. He remains on do not. No nausea or vomiting. No pain. No altered mentation. Sputum Gram stain and culture came back negative for any microbial growth for the time being. His blood work shows a white cell, of 18.4. His was a cause elevated despite the observed improvement in her chest x-ray findings. Renal function stable. On 08/01/2019 patient seen in follow-up in medical surgical floor. He states he is feeling much better, reading easier, he is tolerating ambulation, lung sounds reveal a few scattered rhonchi, no significant wheezing or rales, no cough or congestion, he is on room air, his been afebrile, sputum culture is pending, Gram stain was positive for a few gram positive cocci, few gram-negative bacilli, rare hyphae, final culture is pending, blood culture has been negative thus far. No hemoptysis, no chest wall tenderness. Today's blood work shows improvement in patient's white blood cell count down to 13.4 from 18.4 on yesterday's labs, hemoglobin is 11.9, serum sodium is 136, the rest of the electrolytes were within normal limits, BUN is 17 and creatinine 0.57. Patient has been treated with a combination of Zithromax and Rocephin, IV steroids and nebulized bronchodilators. Objective - Vital Signs Vital signs: Vital Signs Temp 97.9 F 08/01/19 08:53 Pulse 87 08/01/19 11:26 Resp 16 08/01/19 08:53 BP 149/86 08/01/19 08:53 Pulse Ox 96 08/01/19 08:53 Intake & Output 07/31/19 08/01/19 08/01/19 18:59 06:59 18:59 Intake Total 610 350 300 Output Total 950 Balance 610 -600 300 Intake: Intake, IV Titration 50 Amount cefTRIAXone 1 gm In 50 Sodium Chloride 0.9% 50 ml @ 100 mls/hr IVPB Q24H [facility] Rx#:[id number] Oral 610 300 300 Output: Urine 950 Other: Voiding Method Urinal Toilet Urinal # Voids 1 1 - Exam GENERAL EXAM: Alert, pleasant, 59-year-old white male, on room air, comfortable in no apparent distress. HEAD: Normocephalic/atraumatic. EYES: Normal reaction of pupils, equal size. Conjunctiva pink, sclera white. NOSE: Clear with pink turbinates. THROAT: No erythema or exudates. NECK: No masses, no JVD, no thyroid enlargement, no adenopathy. CHEST: No chest wall deformity. Symmetrical expansion. LUNGS: Equal air entry with few scattered rhonchi CVS: Regular rate and rhythm, normal S1 and S2, no gallops, no murmurs, no rubs ABDOMEN: Soft, nontender. No hepatosplenomegaly, normal bowel sounds, no guarding or rigidity. EXTREMITIES: No clubbing, no edema, no cyanosis, 2+ pulses and upper and lower extremities. MUSCULOSKELETAL: Muscle strength and tone normal. SPINE: No scoliosis or deformity SKIN: No rashes CENTRAL NERVOUS SYSTEM: Alert and oriented -3. No focal deficits, tone is normal in all 4 extremities. PSYCHIATRIC: Alert and oriented -3. Appropriate affect. Intact judgment and insight. - Labs CBC & Chem 7: 08/01/19 06:36 08/01/19 06:36 Labs: Abnormal Lab Results - Last 24 Hours (Table) 08/01/19 08/01/19 Range/Units 06:36 06:36 WBC 13.4 H (3.8-10.6) k/uL RBC 3.96 L (4.30-5.90) m/uL Hgb 11.9 L (13.0-17.5) gm/dL Hct 37.8 L (39.0-53.0) % Plt Count 457 H (150-450) k/uL Neutrophils # 12.0 H (1.3-7.7) k/uL Lymphocytes # 0.9 L (1.0-4.8) k/uL Sodium 136 L (137-145) mmol/L Creatinine 0.57 L (0.66-1.25) mg/dL Glucose 124 H (74-99) mg/dL Microbiology - Last 24 Hours (Table) 07/28/19 22:55 Blood Culture - Preliminary Blood No Growth after 72 hours Assessment and Plan Plan: Assessment: 1 large right upper lobe pneumonia, likely bacterial in nature based on extensive consolidation and clinical presentation, improving 2 acute COPD exacerbation secondary to above, improving 3 COPD/chronic bronchiectasis 4 chronic smoker 5 alcoholism 6 history of atrial fibrillation current rhythm is sinus 7 history of prostate cancer post-brachytherapy. 8 history of glaucoma Plan: Continue current antibiotics, patient is afebrile, he is on room air, tolerating ambulation, no fever or chills. Continue bronchodilators, smoking cessation was again addressed. Clinically stable, may be considered for discharge, with out patient follow-up with Dr. Thorne in the office in 7-10 days. I performed a history & physical examination of the patient and discussed their management with my nurse practitioner, Linda Donaldson. I reviewed the nurse practitioner's note and agree with the documented findings and plan of care. Lung sounds are positive for . The findings and the impression was discussed with the patient. I attest to the documentation by the nurse practitioner. Time with Patient: Less than 30
--- NOTE | 2019-08-02 09:07 | P.DS ---
Providers Date of admission: 07/30/19 15:26 Expected date of discharge: 08/01/19 Attending physician: Jelly Murray Consults: 07/28/19 23:00 Consult Physician Routine Consulting Provider: Tatyana Thorne Consult Reason/Comments: recurrent pneumonia Do you want consulting provider notified?: Yes Primary care physician: Tran Rao [facility] Course: Final diagnosis Large right upper lobe pneumonia, likely bacterial in nature Acute COPD exacerbation secondary to right upper lobe pneumonia COPD, chronic bronchiectasis Chronic smoker History of chronic EtOH abuse History of atrial fibrillation, currently in sinus rhythm History of prostate cancer post brachytherapy History of glaucoma DVT prophylaxis CODE STATUS: DO NOT RESUSCITATE Discharge disposition Patient is being discharged in a stable condition with guarded prognosis to home. Patient will follow up with pulmonary Dr. Thorne in the outpatient setting in 1-2 weeks. Patient will go home with a course of oral Levaquin 500 mg daily for the next 7 days. Patient will also go home on oral prednisone taper. Total time taken is 35 minutes. History of present illness This is a 59-year-old male who was recently admitted with a history of COPD and was found to have pneumonia of the right side as well as COPD exacerbation and was being closely monitored. Patient denies any chest pain or palpitations at this time. Patient states that his shortness of breath has improved and would like to go home today. Patient was maintained on bronchodilators as well as IV steroids and oral antibiotics. Patient will continue with his inhalers, oral prednisone taper, and oral Levaquin in the outpatient setting and will follow-up with pulmonary in one week. Patient denies any nausea or vomiting and has been tolerating diet. Patient has remained afebrile. Currently patient's condition is stable with much improvement. Guarded prognosis. On exam vital signs are stable. Temp is 97.9F, pulse is 74, respirations are 16, blood pressure is 149/86, oxygen saturation is 96% on room air. Cardio S1 and S2 are normal. Respiratory system shows diminished breath sounds at the bases with a few scattered rhonchi noted. Abdomen is soft, thin, nontender. Nervous system shows no focal deficits and gait is steady. Please refer to medication reconciliation sheet for a list of medications. Patient Condition at Discharge: Fair Plan - Discharge Summary Discharge Rx Participant: Yes New Discharge Prescriptions: New Nicotine 21Mg/24Hr Patch [Habitrol] 1 patch TRANSDERM DAILY 30 Days #30 patch Levofloxacin [Levaquin] 500 mg PO DAILY 7 Days #7 tab predniSONE 10 mg PO DIRECTED #30 tab Continue Albuterol Inhaler [Ventolin Hfa Inhaler] 2 puff INHALATION Q6HR PRN PRN Reason: Shortness Of Breath Discharge Medication List Albuterol Inhaler [Ventolin Hfa Inhaler] 2 puff INHALATION Q6HR PRN 07/29/19 [History] Levofloxacin [Levaquin] 500 mg PO DAILY 7 Days #7 tab 08/01/19 [Rx] Nicotine 21Mg/24Hr Patch [Habitrol] 1 patch TRANSDERM DAILY 30 Days #30 patch 08/01/19 [Rx] predniSONE 10 mg PO DIRECTED #30 tab 08/01/19 [Rx] Follow up Appointment(s)/Referral(s): Aiden Mayfield MD [Primary Care Provider] - 1-2 days (office closed at time of discharge please call to make appointment) Tatyana Thorne MD [STAFF PHYSICIAN] - 1 Week (office closed please call to make appointment) Ambulatory/Diagnostic Orders: Basic Metabolic Panel [LAB.AMB] Time Frame: 3 Days, Location: None Selected Complete Blood Count w/diff [LAB.AMB] Time Frame: 3 Days, Location: None Selected Patient Instructions/Handouts: Pneumonia (DC) Activity/Diet/Wound Care/Special Instructions: Activity Limited until follow-up Follow-up with primary care provider this week Continue antibiotics until complete Avoid cigarette smoking Repeat labs in 2-3 days Continue current diet Discharge Disposition: HOME SELF-CARE
== END 2019-08-01 17:45 | disposition home or self-care (01) ==
LOC: EC 20:18 → 4SSUR 23:00 → UNDOADMOB 23:00 → INTOOBSV 07-30 15:26 → OBSVTOIN 07-30 15:26 → UNDODISIN 08-01 17:45
PROVIDERS: ADMIT Hospitalist; ATTEND Hospitalist
DX: J18.1 Lobar pneumonia, unspecified organism (principal); J44.1 Chronic obstructive pulmonary disease with (acute) exacerbation; J44.0 Chronic obstructive pulmonary disease with (acute) lower respiratory infection; I48.0 Paroxysmal atrial fibrillation; H40.9 Unspecified glaucoma; F17.210 Nicotine dependence, cigarettes, uncomplicated; F10.10 Alcohol abuse, uncomplicated; R09.1 Pleurisy; R64 Cachexia; Z68.21 Body mass index [BMI] 21.0-21.9, adult; Z66 Do not resuscitate; Z85.46 Personal history of malignant neoplasm of prostate; Z87.01 Personal history of pneumonia (recurrent); Z82.49 Family history of ischemic heart disease and other diseases of the circulatory system; Z82.5 Family history of asthma and other chronic lower respiratory diseases
CPT/HCPCS: 96376 ×3; 96366; 96372 ×5; 96375; 96361; 96365; 96367; 99285; 36415; 94640 ×7; 94760 ×2; 93005; 80053; 80048 ×3; 83735; 84484; 85025 ×4; 85610; 85730; 87040; 87070; 87205; 71045; 71046 ×2; G0378 ×5; S4990 ×3; J1644 ×4; J2930 ×4; J0456; J0696 ×4; 96368

== ENCOUNTER 2019-08-04 16:44 | Inpatient (IN) | payer OTHER ==
[2019-08-04] MEDS ORDERED: KETOROLAC 60 MG/2 ML VIAL IVP STA (17:28)
[2019-08-04] MEDS ORDERED: cefTRIAXone IN SWFI 1,000 MG/10 ML SYRINGE IVP STA (17:28)
--- NOTE | 2019-08-04 17:28 | ED ---
General Adult HPI - General Chief complaint: Shortness of Breath Stated complaint: SOB, Chest Pain Time Seen by Provider: 08/04/19 16:45 Source: patient, RN notes reviewed Mode of arrival: ambulatory Limitations: no limitations - History of Present Illness Initial comments: This is a 59-year-old male who presents to the emergency department stating that he was just discharged 2 days ago after having been diagnosed with pneumonia. Patient states his symptoms still persist he still short of breath having quite a bit of right lateral chest wall pain and is coughing quite a bit. Patient states he thinks is actually gotten worse since he left. Patient denies any anterior chest pain. Patient denies any palpitations. Patient denies any lightheadedness or dizziness. Patient denies any abdominal pain patient's nausea vomiting. Patient denies any leg swelling or calf tenderness. Patient denies any injury or trauma. - Related Data Home Medications Medication Instructions Recorded Confirmed predniSONE See Taper PO DIRECTED 08/04/19 08/04/19 Previous Rx's Medication Instructions Recorded Levofloxacin [Levaquin] 500 mg PO DAILY 7 Days #7 tab 08/01/19 Nicotine 21Mg/24Hr Patch [Habitrol] 1 patch TRANSDERM DAILY 30 Days 08/01/19 #30 patch Allergies Allergy/AdvReac Type Severity Reaction Status Date / Time No Known Allergies Allergy Verified 08/04/19 17:48 Review of Systems ROS Statement: Those systems with pertinent positive or pertinent negative responses have been documented in the HPI. ROS Other: All systems not noted in ROS Statement are negative. Past Medical History Past Medical History: Atrial Fibrillation, Cancer, COPD, Eye Disorder, Pneumonia, Prostate Disorder Additional Past Medical History / Comment(s): ETOH abuse, DTs, tracheobronchitis, pneumonias, pleurisy, acute respiratory failure/vented, bilateral glaucoma, prostate cancer History of Any Multi-Drug Resistant Organisms: None Reported Past Surgical History: Hernia Repair, Prostate Surgery, Tonsillectomy Additional Past Surgical History / Comment(s): R inguinal hernia repair, prostate-radiation implant, colonoscopy-normal Past Anesthesia/Blood Transfusion Reactions: No Reported Reaction Past Psychological History: No Psychological Hx Reported Smoking Status: Current every day smoker Past Alcohol Use History: Daily, Heavy Past Drug Use History: None Reported - Past Family History Father Family Medical History: COPD Additional Family Medical History / Comment(s): Father of COPD in his 70's Mother Family Medical History: Coronary Artery Disease (CAD) Additional Family Medical History / Comment(s): Mother of heart disease at the age of 65 yrs. General Exam - General Exam Comments Initial Comments: GENERAL: Patient is well-developed and well-nourished. Patient is nontoxic and well-hydrated and is in mild distress. ENT: Neck is soft and supple. No significant lymphadenopathy is noted. Oropharynx is clear. Moist mucous membranes. Neck has full range of motion without eliciting any pain. EYES: The sclera were anicteric and conjunctiva were pink and moist. Extraocular movements were intact and pupils were equal round and reactive to light. Eyelids were unremarkable. PULMONARY: Unlabored respirations. Good breath sounds bilaterally. No audible rales rhonchi or wheezing was noted. CARDIOVASCULAR: Diminished breath sounds in the right middle lobe ABDOMEN: Soft and nontender with normal bowel sounds. No palpable organomegaly was noted. There is no palpable pulsatile mass. SKIN: Skin is clear with no lesions or rashes and otherwise unremarkable. NEUROLOGIC: Patient is alert and oriented x3. Cranial nerves II through XII are grossly intact. Motor and sensory are also intact. Normal speech, volume and content. Symmetrical smile. MUSCULOSKELETAL: Normal extremities with adequate strength and full range of motion. LYMPHATICS: No significant lymphadenopathy is noted PSYCHIATRIC: Normal psychiatric evaluation. Limitations: no limitations Course Vital Signs 08/04/19 08/04/19 08/04/19 16:47 18:20 18:29 Temperature 97.4 F L Pulse Rate 95 75 Respiratory 24 16 16 Rate Blood Pressure 102/68 121/74 O2 Sat by Pulse 98 98 Oximetry Medical Decision Making - Medical Decision Making EKG shows normal sinus rhythm at 76 bpm NC interval is 156 QRS is 82 QT interval 380 QTC is 427. Patient's EKG shows no ST segment elevation or depression. CT shows no PE. However does show a right upper lobe infiltrate versus possible mass however there is some clearing of the infiltrate since last chest x-ray. I spoke with because he agreed to admit the patient admitted the patient wrote admitting orders. - Lab Data Result diagrams: 08/04/19 18:00 08/04/19 18:00 Lab Results 08/04/19 08/04/19 08/04/19 Range/Units 18:00 18:00 18:00 WBC 11.2 H (3.8-10.6) k/uL RBC 4.08 L (4.30-5.90) m/uL Hgb 12.7 L (13.0-17.5) gm/dL Hct 38.2 L (39.0-53.0) % MCV 93.8 (80.0-100.0) fL MCH 31.2 (25.0-35.0) pg MCHC 33.2 (31.0-37.0) g/dL RDW 14.6 (11.5-15.5) % Plt Count 363 (150-450) k/uL Neutrophils % 71 % Lymphocytes % 20 % Monocytes % 5 % Eosinophils % 2 % Basophils % 1 % Neutrophils # 7.9 H (1.3-7.7) k/uL Lymphocytes # 2.2 (1.0-4.8) k/uL Monocytes # 0.5 (0-1.0) k/uL Eosinophils # 0.2 (0-0.7) k/uL Basophils # 0.1 (0-0.2) k/uL PT (9.0-12.0) sec INR (<1.2) APTT (22.0-30.0) sec Sodium 133 L (137-145) mmol/L Potassium 5.0 (3.5-5.1) mmol/L Chloride 100 (98-107) mmol/L Carbon Dioxide 23 (22-30) mmol/L Anion Gap 10 mmol/L BUN 20 (9-20) mg/dL Creatinine 0.54 L (0.66-1.25) mg/dL Est GFR (CKD-EPI)AfAm >90 (>60 ml/min/1.73 sqM) Est GFR (CKD-EPI)NonAf >90 (>60 ml/min/1.73 sqM) Glucose 84 (74-99) mg/dL Plasma Lactic Acid Jw 1.3 (0.7-2.0) mmol/L Calcium 8.6 (8.4-10.2) mg/dL Magnesium 2.2 (1.6-2.3) mg/dL Total Bilirubin 0.5 (0.2-1.3) mg/dL AST 34 (17-59) U/L ALT 30 (21-72) U/L Alkaline Phosphatase 62 (38-126) U/L Troponin I (0.000-0.034) ng/mL Total Protein 6.3 (6.3-8.2) g/dL Albumin 3.2 L (3.5-5.0) g/dL 08/04/19 08/04/19 Range/Units 18:00 18:00 WBC (3.8-10.6) k/uL RBC (4.30-5.90) m/uL Hgb (13.0-17.5) gm/dL Hct (39.0-53.0) % MCV (80.0-100.0) fL MCH (25.0-35.0) pg MCHC (31.0-37.0) g/dL RDW (11.5-15.5) % Plt Count (150-450) k/uL Neutrophils % % Lymphocytes % % Monocytes % % Eosinophils % % Basophils % % Neutrophils # (1.3-7.7) k/uL Lymphocytes # (1.0-4.8) k/uL Monocytes # (0-1.0) k/uL Eosinophils # (0-0.7) k/uL Basophils # (0-0.2) k/uL PT 9.8 (9.0-12.0) sec INR 0.9 (<1.2) APTT 25.0 (22.0-30.0) sec Sodium (137-145) mmol/L Potassium (3.5-5.1) mmol/L Chloride (98-107) mmol/L Carbon Dioxide (22-30) mmol/L Anion Gap mmol/L BUN (9-20) mg/dL Creatinine (0.66-1.25) mg/dL Est GFR (CKD-EPI)AfAm (>60 ml/min/1.73 sqM) Est GFR (CKD-EPI)NonAf (>60 ml/min/1.73 sqM) Glucose (74-99) mg/dL Plasma Lactic Acid Jw (0.7-2.0) mmol/L Calcium (8.4-10.2) mg/dL Magnesium (1.6-2.3) mg/dL Total Bilirubin (0.2-1.3) mg/dL AST (17-59) U/L ALT (21-72) U/L Alkaline Phosphatase (38-126) U/L Troponin I <0.012 (0.000-0.034) ng/mL Total Protein (6.3-8.2) g/dL Albumin (3.5-5.0) g/dL Disposition Clinical Impression: Pneumonia Disposition: ADMITTED IP TO THIS HOSP Referrals: Aiden Mayfield MD [Primary Care Provider] - 1-2 days Time of Disposition: 20:16
--- NOTE | 2019-08-04 18:10 | XR ---
EXAMINATION TYPE: XR chest 2V DATE OF EXAM: 08/04/2019 COMPARISON: 07/31/2019 HISTORY: Chest pain TECHNIQUE: Frontal and lateral views of the chest are obtained. FINDINGS: Heart is normal. There is a 6 x 4 cm patch of consolidation in the lateral aspect right up per lobe. Left lung is fairly clear. Heart size is normal. There are no hilar masses. There is no ple ural effusion. IMPRESSION: Right upper lobe pneumonia unchanged or slightly improved compared to last exam. Pneumon ia is new compared to 12/29/2018 and more consistent with inflammatory disease. Normal heart
[2019-08-04 18:54] LABS: Basophils # (A) 0.1 k/uL (0-0.2); Basophils % (A) 1 %; Eosinophils # (A) 0.2 k/uL (0-0.7); Eosinophils % (A) 2 %; HCT 38.2 % (39.0-53.0); HGB 12.7 gm/dL (13.0-17.5); Lymphocytes # (A) 2.2 k/uL (1.0-4.8); Lymphocytes % (A) 20 %; MCH 31.2 pg (25.0-35.0); MCHC 33.2 g/dL (31.0-37.0); MCV 93.8 fL (80.0-100.0); Mean Platelet Volume 7.1; Monocytes # (A) 0.5 k/uL (0-1.0); Monocytes % (A) 5 %; Neutrophils # (A) 7.9 k/uL (1.3-7.7); Neutrophils % (A) 71 %; Platelet Count 363 k/uL (150-450); RBC 4.08 m/uL (4.30-5.90); RDW 14.6 % (11.5-15.5); WBC 11.2 k/uL (3.8-10.6)
[2019-08-04 18:59] LABS: ALT 30 U/L (21-72); AST 34 U/L (17-59); African American GFR (CKD) >90 (>60 ml/min/1.73 sqM); Albumin 3.2 g/dL (3.5-5.0); Alkaline Phosphatase 62 U/L (38-126); Anion Gap 10 mmol/L; Blood Urea Nitrogen 20 mg/dL (9-20); Calcium 8.6 mg/dL (8.4-10.2); Carbon Dioxide 23 mmol/L (22-30); Chloride 100 mmol/L (98-107); Glucose 84 mg/dL (74-99); Magnesium 2.2 mg/dL (1.6-2.3); Sodium 133 mmol/L (137-145); Total Bilirubin 0.5 mg/dL (0.2-1.3); Total Protein 6.3 g/dL (6.3-8.2)
[2019-08-04 19:08] LABS: INR 0.9 (<1.2); Prothrombin Time 9.8 sec (9.0-12.0)
--- NOTE | 2019-08-04 20:08 | CT ---
EXAMINATION TYPE: CT chest angio for PE DATE OF EXAM: 08/04/2019 COMPARISON: 10/26/2017 HISTORY: Difficulty breathing. CT DLP: 260.9 mGycm Automated exposure control for dose reduction was used. CONTRAST: CT Chest for pulmonary embolism performed with with IV Contrast, patient injected with 85 mL of Isovu e 370. There are 3-D post processed images. FINDINGS: There is moderate bullous emphysema. There is a 4 cm spiculated infiltrate lateral aspect right upper lobe. There is more inferior coalescent infiltrate in the lateral aspect right midlung that measures 6 x 3 cm. There is coarse infiltrate right posterior lung base. There are enlarged right bronchial l ymph nodes. Thoracic aorta shows atheromatous change. There is no aneurysm or dissection. I see no fi lling defects in the pulmonary arteries. The left lung is clear of consolidation. There is mild pretr acheal mediastinal adenopathy with lymph nodes up to almost 1.5 cm. IMPRESSION: No evidence of pulmonary embolism. Extensive infiltrate in the right lung with right bronchial adenop athy. There is improvement at the right lung base but increased infiltrate in the right upper lobe co mpared to old CT scan. Pulmonary emphysema. Right bronchial adenopathy unchanged. Tumor and inflammat ory disease should both be considered. Adenopathy improved slightly compared to old CT scan.
[2019-08-04] MEDS ORDERED: LEVOFLOXACIN 750MG-D5W PMX 750 MG in DEXTROSE/WATER 1 150ML.BAG IVPB STA (20:20)
[2019-08-04] MEDS ORDERED: PIPERACILLIN-TAZOBACTAM 3.375 GM in SODIUM CHLORIDE 0.9% 100 ML IVPB STA (20:20)
[2019-08-04] MEDS ORDERED: PNEUMONIA PROTOCOL UTILIZED 1 EACH MISC PO PRN (20:20)
[2019-08-04 23:15] VITALS: BMI 20.6
[2019-08-05] MEDS: PIPERACILLIN-TAZOBACTAM 3.375 GM in SODIUM CHLORIDE 0.9% 100 ML IVPB SCH ×3 (04:50→21:44)
[2019-08-05] MEDS: HYDROcodone/APAP 5-325MG 1 EACH TAB PO PRN ×2 (04:57→19:53)
[2019-08-05] MEDS: NICOTINE 21MG/24HR PATCH TRANSDERM SCH ×2 (09:09→16:19)
--- NOTE | 2019-08-05 09:30 | XR ---
EXAMINATION TYPE: XR chest 2V DATE OF EXAM: 08/05/2019 COMPARISON: Prior chest x-ray and CT 08/04/2019 HISTORY: Pneumonia TECHNIQUE: Frontal and lateral views of the chest are obtained. FINDINGS: Prominent lung volumes compatible with underlying COPD, emphysema. Patchy increased density persists the right upper lobe. No evident pneumothorax or pleural effusion. Heart size is stable. Ao rta is dense. Bones are stable. IMPRESSION: Correlate for pneumonia, follow-up to resolution to exclude mass.
[2019-08-05] MEDS ORDERED: IPRATROPIUM-ALBUTEROL 3 ML NEB INHALATION PRN (10:12)
--- NOTE | 2019-08-05 10:23 | P.CNPUL ---
History of Present Illness Consult date: 08/05/19 Requesting physician: Carol Flanagan Reason for consult: dyspnea, pneumonia, abnormal CXR/CT Chief complaint: Right upper lobe pneumonia History of present illness: This is a 59-year-old white male patient who was recently discharged from the hospital on 08/01/2019 after being treated for community-acquired right upper lobe pneumonia. Cultures were negative during that admission, patient was treated with antibiotics in the form of Zithromax and Rocephin, IV steroids and nebulized bronchodilators, and was discharged home in stable condition. His last chest x-ray on 07/31/2019 was showing some improvement in appearance of the right upper lobe consolidation. After discharge patient did feel better, yesterday he took a bike ride, became very short of breath, started experiencing increased soreness in his right upper chest exacerbated by deep breathing and coughing. Some limited cough, with production of clear whitish sputum, denied any fever or chills. He did fill his prescription for outpatient antibiotics and was taking them. Patient has a long history of smoking, and did resume his smoking as well although he cut back. Other medical history includes COPD, his previous CT chest showed chronic bronchiectasis, history of atrial fibrillation currently in sinus, prostate cancer post brachii therapy, and history of glaucoma. On 08/04/2019 patient came in to the emergency department for evaluation. Chest x-ray shows right upper lobe pneumonia unchanged or slightly improved compared to last exam. CT angiogram of the chest negative for pulmonary embolism, did show extensive infiltrate in the right lung with the right bronchial adenopathy. There is background of pulmonary emphysema. Admission blood work showed white blood cell count of 11.2, hemoglobin of 12.7, white count of 363, coagulation profile is within normal limits, sodium is 133, the rest of the electrolytes and renal profile unremarkable. Troponin is negative 1, LFTs are within normal limits. Antibiotic coverage initiated in the form of Levaquin and Zosyn and this consult was initiated. Review of Systems All systems: negative Constitutional: Denies chills, Denies fever Eyes: denies blurred vision, denies pain Ears, nose, mouth and throat: Denies headache, Denies sore throat Cardiovascular: Denies chest pain, Denies shortness of breath Respiratory: Reports cough with sputum, Reports dyspnea, Reports pain on inspiration, Reports respiratory infections, Denies cough Gastrointestinal: Denies abdominal pain, Denies diarrhea, Denies nausea, Denies vomiting Musculoskeletal: Denies myalgias Integumentary: Denies pruritus, Denies rash Neurological: Denies numbness, Denies weakness Psychiatric: Denies anxiety, Denies depression Endocrine: Denies fatigue, Denies weight change Past Medical History Past Medical History: Atrial Fibrillation, Cancer, COPD, Eye Disorder, Pneumonia, Prostate Disorder Additional Past Medical History / Comment(s): ETOH abuse, DTs, tracheobronchitis, pneumonias, pleurisy, acute respiratory failure/vented, bilateral glaucoma, prostate cancer History of Any Multi-Drug Resistant Organisms: None Reported Past Surgical History: Hernia Repair, Prostate Surgery, Tonsillectomy Additional Past Surgical History / Comment(s): R inguinal hernia repair, prostate-radiation implant, colonoscopy-normal Past Anesthesia/Blood Transfusion Reactions: No Reported Reaction Past Psychological History: No Psychological Hx Reported Additional Psychological History / Comment(s): Pt is living with his niece. He rides his bike or walks. Smoking Status: Current every day smoker Past Alcohol Use History: Daily, Heavy Additional Past Alcohol Use History / Comment(s): Pt states he started smoking as a teen and is a 1.5 ppd smoker. Ptstates he drinks a couple like 2 beer a day. Last drank today. Past Drug Use History: None Reported - Past Family History Father Family Medical History: COPD Additional Family Medical History / Comment(s): Father of COPD in his 70's Mother Family Medical History: Coronary Artery Disease (CAD) Additional Family Medical History / Comment(s): Mother of heart disease at the age of 65 yrs. Medications and Allergies Home Medications Medication Instructions Recorded Confirmed Type Levofloxacin [Levaquin] 500 mg PO DAILY 7 Days #7 tab 08/01/19 08/04/19 Rx Nicotine 21Mg/24Hr Patch [Habitrol] 1 patch TRANSDERM DAILY 30 Days 08/01/19 08/04/19 Rx #30 patch predniSONE See Taper PO DIRECTED 08/04/19 08/04/19 History Allergies Allergy/AdvReac Type Severity Reaction Status Date / Time No Known Allergies Allergy Verified 08/04/19 17:48 Physical Exam Vitals: Vital Signs Temp Pulse Pulse Resp BP BP Pulse Ox 08/05/19 04:50 98.2 F 73 20 119/71 98 08/04/19 22:35 97.8 F 104 H 20 101/61 98 08/04/19 21:27 80 18 121/74 99 08/04/19 18:29 75 16 121/74 98 08/04/19 18:20 16 08/04/19 16:47 97.4 F L 95 24 102/68 98 Intake and Output 08/04/19 08/05/19 08/05/19 22:59 06:59 14:59 Intake Total 100 Balance 100 Intake: Oral 100 Other: Voiding Method Toilet # Voids 1 Weight 58.06 kg GENERAL EXAM: Alert, pleasant, thin 59-year-old white male, tanned, with multiple tattoos, on room air with a pulse ox of 98% comfortable in no apparent distress. HEAD: Normocephalic/atraumatic. EYES: Normal reaction of pupils, equal size. Conjunctiva pink, sclera white. NOSE: Clear with pink turbinates. THROAT: No erythema or exudates. NECK: No masses, no JVD, no thyroid enlargement, no adenopathy. CHEST: No chest wall deformity. Symmetrical expansion. Right upper chest tenderness on palpation, and with deep breathing and coughing LUNGS: Equal air entry with faint inspiratory crackles over right upper lung anteriorly and posteriorly, no wheeze, rhonchi or dullness. CVS: Regular rate and rhythm, normal S1 and S2, no gallops, no murmurs, no rubs ABDOMEN: Soft, nontender. No hepatosplenomegaly, normal bowel sounds, no guarding or rigidity. EXTREMITIES: No clubbing, no edema, no cyanosis, 2+ pulses and upper and lower extremities. MUSCULOSKELETAL: Muscle strength and tone normal. SPINE: No scoliosis or deformity SKIN: No rashes CENTRAL NERVOUS SYSTEM: Alert and oriented -3. No focal deficits, tone is normal in all 4 extremities. PSYCHIATRIC: Alert and oriented -3. Appropriate affect. Intact judgment and insight. Results - Laboratory Findings CBC and BMP: 08/04/19 18:00 08/04/19 18:00 PT/INR, D-dimer PT 9.8 sec (9.0-12.0) 08/04/19 18:00 INR 0.9 (<1.2) 08/04/19 18:00 Abnormal lab findings: Abnormal Labs 08/04/19 08/04/19 18:00 18:00 WBC 11.2 H RBC 4.08 L Hgb 12.7 L Hct 38.2 L Neutrophils # 7.9 H Sodium 133 L Creatinine 0.54 L Albumin 3.2 L - Diagnostic Findings Chest x-ray: report reviewed, image reviewed CT scan - chest: report reviewed, image reviewed Additional studies: EKG reviewed Assessment and Plan Plan: Assessment: #1. Shortness of breath related to right upper lobe pneumonia, community- acquired, versus lung malignancy #2. Recent hospitalization for treatment of community-acquired right upper lobe pneumonia, discharged home 3 days ago, the patient was completing his course of oral antibiotics at home #3. Chronic and ongoing independence #4. COPD and chronic bronchiectasis #5. History of previous pneumonias #6. History of atrial fibrillation, currently in sinus not on any chronic anticoagulation #7. History of chronic alcoholism #8. History of prostate cancer post brachii therapy #9. History of glaucoma Plan: Patient did eat breakfast this morning, we'll make him nothing by mouth after breakfast, will put him on the schedule for bronchoscopy with possible biopsy of the right upper lobe lesion, and bronchoalveolar lavage. Continue current antibiotic coverage, we'll add breathing treatments, will add oral steroids. The plan was discussed with the patient and he is agreeable to proceed I performed a history & physical examination of the patient and discussed their management with my nurse practitioner, Linda Donaldson. I reviewed the nurse practitioner's note and agree with the documented findings and plan of care. Lung sounds are positive for fine inspiratory crackles in the right upper lobe. The findings and the impression was discussed with the patient. I attest to the documentation by the nurse practitioner. Time with Patient: Greater than 30
[2019-08-05] MEDS: IPRATROPIUM-ALBUTEROL 3 ML NEB INHALATION SCH ×2 (12:51→19:44)
--- NOTE | 2019-08-05 13:51 | P.HPIM ---
History of Present Illness 5-year-old pleasant gentleman was discharged from hospital for 5 days ago after he was treated for right upper lobe pneumonia and COPD exacerbation patient had couple cigarettes after he was discharged and started having shortness of breath yesterday when she was a riding a bike. Patient also company of pleuritic chest pain sharp in nature and right side of the chest is with deep breathing and coughing moderate severity. Patient denied any fever chills chest x-ray is actually showing improving pneumonia patient apparently was wheezing yesterday although wheezing resolved at this time patient shortness of breath improved his chest pain is better as well. Patient had a CAT scan of the chest which did not show any pulmonary embolism but showed bronchiectasis. And patient is on appropriate antibiotics with the Zosyn and levofloxacin at this time patient is comparing of care were discontinued and production. Patient does have right mediastinal adenopathy probably from infection with significant pulmonary emphysema. There was a suspicion of a lesion where he has a pneumonic infiltrate because of which patient will undergo biopsy Review of Systems PHYSICAL EXAMINATION: GENERAL: The patient is alert and oriented x3, not in any acute distress. Well developed, well nourished. HEENT: Pupils are round and equally reacting to light. EOMI. No scleral icterus. No conjunctival pallor. Normocephalic, atraumatic. No pharyngeal erythema. No thyromegaly. CARDIOVASCULAR: S1 and S2 present. No murmurs, rubs, or gallops. PULMONARY: Chest is clear to auscultation, no wheezing or crackles. ABDOMEN: Soft, nontender, nondistended, normoactive bowel sounds. No palpable organomegaly. MUSCULOSKELETAL: No joint swelling or deformity. EXTREMITIES: No cyanosis, clubbing, or pedal edema. NEUROLOGICAL: Gross neurological examination did not reveal any focal deficits. SKIN: No rashes. Past Medical History Past Medical History: Atrial Fibrillation, Cancer, COPD, Eye Disorder, Pneumonia, Prostate Disorder Additional Past Medical History / Comment(s): ETOH abuse, DTs, tracheobronchitis, pneumonias, pleurisy, acute respiratory failure/vented, bilateral glaucoma, prostate cancer History of Any Multi-Drug Resistant Organisms: None Reported Past Surgical History: Hernia Repair, Prostate Surgery, Tonsillectomy Additional Past Surgical History / Comment(s): R inguinal hernia repair, prostate-radiation implant, colonoscopy-normal Past Anesthesia/Blood Transfusion Reactions: No Reported Reaction Past Psychological History: No Psychological Hx Reported Additional Psychological History / Comment(s): Pt is living with his niece. He rides his bike or walks. Smoking Status: Current every day smoker Past Alcohol Use History: Daily, Heavy Additional Past Alcohol Use History / Comment(s): Pt states he started smoking as a teen and is a 1.5 ppd smoker. Ptstates he drinks a couple like 2 beer a d ay. Last drank today. Past Drug Use History: None Reported - Past Family History Father Family Medical History: COPD Additional Family Medical History / Comment(s): Father of COPD in his 70's Mother Family Medical History: Coronary Artery Disease (CAD) Additional Family Medical History / Comment(s): Mother of heart disease at the age of 65 yrs. Medications and Allergies Home Medications Medication Instructions Recorded Confirmed Type Levofloxacin [Levaquin] 500 mg PO DAILY 7 Days #7 tab 08/01/19 08/04/19 Rx Nicotine 21Mg/24Hr Patch [Habitrol] 1 patch TRANSDERM DAILY 30 Days 08/01/19 08/04/19 Rx #30 patch predniSONE See Taper PO DIRECTED 08/04/19 08/04/19 History Allergies Allergy/AdvReac Type Severity Reaction Status Date / Time No Known Allergies Allergy Verified 08/04/19 17:48 Physical Exam Vitals: Vital Signs Temp Pulse Pulse Resp BP BP Pulse Ox 08/05/19 13:01 74 08/05/19 12:54 68 97 08/05/19 04:50 98.2 F 73 20 119/71 98 08/04/19 22:35 97.8 F 104 H 20 101/61 98 08/04/19 21:27 80 18 121/74 99 08/04/19 18:29 75 16 121/74 98 08/04/19 18:20 16 08/04/19 16:47 97.4 F L 95 24 102/68 98 Intake and Output 08/04/19 08/05/19 08/05/19 22:59 06:59 14:59 Intake Total 100 Balance 100 Intake: Oral 100 Other: Voiding Method Toilet # Voids 1 Weight 58.06 kg Results CBC & Chem 7: 08/04/19 18:00 08/04/19 18:00 Labs: Abnormal Lab Results - Last 24 Hours (Table) 08/04/19 08/04/19 Range/Units 18:00 18:00 WBC 11.2 H (3.8-10.6) k/uL RBC 4.08 L (4.30-5.90) m/uL Hgb 12.7 L (13.0-17.5) gm/dL Hct 38.2 L (39.0-53.0) % Neutrophils # 7.9 H (1.3-7.7) k/uL Sodium 133 L (137-145) mmol/L Creatinine 0.54 L (0.66-1.25) mg/dL Albumin 3.2 L (3.5-5.0) g/dL Thrombosis Risk Factor Assmnt - Choose All That Apply Each Factor Represents 1 point: Abnormal pulmonary function (COPD), Age 41-60 years Other congenital or acquired thrombophilia - If yes, enter type in comment: No Thrombosis Risk Factor Assessment Total Risk Factor Score: 2 Thrombosis Risk Factor Assessment Level: Low Risk Assessment and Plan Plan: -Pleuritic chest pain: Secondary to pleurisy from right upper lobe pneumonia symptomatically treatment for this -Right upper lobe pneumonia with possible lesion in the lung for which patient underwent will undergo biopsy and bronchoscopy. -Shortness of breath secondary to COPD exacerbation which improved patient will be continued on oral steroids -Continue nicotine dependence: Counseling was provided -COPD and bronchiectasis chronic -Chronic alcohol in the next and-hyponatremia euvolemic hyponatremia expected to improve with IV fluids. -History of prostate cancer which is in remission now. -DVT prophylaxis early ambulation and patient will need a GI prophylaxis because of systemic steroids
[2019-08-05] MEDS ORDERED: MIDAZOLAM 2 MG/2 ML VIAL ONE (15:00)
[2019-08-05] MEDS ORDERED: PROPOFOL 10 MG/ML 20 ML VIAL IV ONE (15:00)
[2019-08-05] MEDS ORDERED: GLYCOPYRROLATE 0.2 MG/ML 2 ML VIAL ONE (15:00)
[2019-08-05] MEDS ORDERED: KETAMINE 10 MG/ML 20 ML VIAL ONE (15:00)
[2019-08-05] MEDS ORDERED: IV FLUID CONTINUATION 400 ML IV ONE (15:10)
[2019-08-05] MEDS ORDERED: LIDOCAINE 2% INJ 20 MG/ML INTRATRACH ONE (15:42)
--- NOTE | 2019-08-05 16:11 | XR ---
EXAMINATION TYPE: XR chest 1V DATE OF EXAM: 08/05/2019 CLINICAL HISTORY: Postbronchoscopy with right upper lung sampling. TECHNIQUE: Single AP portable upright view of the chest is obtained. COMPARISON: Chest x-ray from earlier today. CTA chest yesterday. FINDINGS: Background chronic emphysematous change with peripheral right upper lung masslike consolid ation redemonstrated. No pneumothorax identified after bronchoscopy. Left lung is clear. Cardiac silh ouette size remains within normal limits. Osseous structures are intact. IMPRESSION: No pneumothorax after right-sided bronchoscopy and sampling.
[2019-08-05] MEDS: SODIUM CHLORIDE 0.9% 1,000 ML IV SCH (16:16)
--- NOTE | 2019-08-05 17:22 | FL ---
EXAMINATION TYPE: FL bronchoscopy DATE OF EXAM: 08/05/2019 CLINICAL HISTORY: Pneumonia, abnormal CT and x-ray. TECHNIQUE: Fluoroscopy. COMPARISON: None. FINDINGS: Fluoroscopic guidance was provided during bronchoscopy procedure performed by pulmonologhong friedman. A total of 41 seconds of fluoroscopic time was utilized during the procedure and single spot fluo roscopic intraoperative image is acquired. Single image shows advancement of the bronchoscope to the periphery of the right upper lung. IMPRESSION: As Above.
[2019-08-05 18:38] LABS: Appearance,BF Clear; Nucleated Cells, Body Fluid 85 /uL; RBC, Body Fluid 160 /uL
[2019-08-05 18:41] LABS: Mononuclear WBC,Body Fluid 9 %; Polynuclear WBC,Body Fluid 91 %; Total Cells Counted,Body Fluid 100
[2019-08-05] MEDS ORDERED: LEVOFLOXACIN 750MG-D5W PMX 750 MG in DEXTROSE/WATER 1 150ML.BAG IVPB SCH (20:30)
--- NOTE | 2019-08-05 22:18 | OP ---
OPERATIVE REPORT OPERATIVE PROCEDURE: Bronchoscopy, bronchoalveolar lavage of the right upper lobe, and transbronchial biopsies of the right upper lobe under fluoroscopy. PREOPERATIVE DIAGNOSIS: Right upper lobe pneumonia. POSTOPERATIVE DIAGNOSIS: Right upper lobe pneumonia; possible bronchogenic carcinoma. ANESTHESIA USED: IV conscious sedation. PROCEDURE DESCRIPTION: The patient was prepared according the bronchoscopy protocol. He was brought into the bronchoscopy suite, placed in supine position. Oxygen was applied via nasal cannula. After adequate IV conscious sedation, the bronchoscope was inserted through a bite block and it was advanced into the area of the vocal cords. In the meantime, the patient was being monitored. Oxygen saturation was continuously monitored. Blood pressure was monitored intermittently and cardiac rhythm was continuously monitored. The vocal cords were visualized. They were noted to be patent. Lidocaine was applied over the vocal cords, and the bronchoscope was advanced further down to the trachea. A thorough examination was done of the trachea, danna, right upper lobe, right middle lobe, right lower lobe, left upper lobe, lingula and left lower lobe. There was no evidence of any endobronchial tumors. There was no evidence of purulent secretions noted in the right upper lobe. Then bronchoalveolar lavage was done of the different segments of the right upper lobe; more specifically, the anterior segment and the apical segment. Then the bronchoscope was wedged into the right upper lobe anterior segment, and multiple transbronchial biopsies were done using fluoroscopy. The procedure was well tolerated; no evidence of any immediate complications. Minimal blood loss; less than 10 mL total. Chest x-ray postoperatively showed no evidence of complications. MMODL / IJN: [id number] /
[2019-08-06] MEDS: SODIUM CHLORIDE 0.9% 1,000 ML IV SCH ×2 (00:16→10:45)
[2019-08-06 05:41] VITALS: BP 120/72; RESP 24; TEMP 98.2
[2019-08-06] MEDS: PIPERACILLIN-TAZOBACTAM 3.375 GM in SODIUM CHLORIDE 0.9% 100 ML IVPB SCH (07:10)
[2019-08-06] MEDS: NICOTINE 21MG/24HR PATCH TRANSDERM SCH (07:25)
[2019-08-06] MEDS: IPRATROPIUM-ALBUTEROL 3 ML NEB INHALATION SCH (07:35)
[2019-08-06 07:47] VITALS: PULSE 89
[2019-08-06 08:22] LABS: HCT 38.3 % (39.0-53.0); HGB 11.9 gm/dL (13.0-17.5); MCH 30.1 pg (25.0-35.0); Mean Platelet Volume 6.8; Platelet Count 384 k/uL (150-450); RBC 3.95 m/uL (4.30-5.90); RDW 13.5 % (11.5-15.5)
[2019-08-06 08:25] LABS: African American GFR (CKD) >90 (>60 ml/min/1.73 sqM); Anion Gap 6 mmol/L; Blood Urea Nitrogen 12 mg/dL (9-20); Calcium 8.3 mg/dL (8.4-10.2); Carbon Dioxide 27 mmol/L (22-30); Chloride 101 mmol/L (98-107); Glucose 97 mg/dL (74-99); Potassium 4.8 mmol/L (3.5-5.1); Sodium 134 mmol/L (137-145)
[2019-08-06] MEDS ORDERED: FAMOTIDINE 20 MG TAB PO SCH (09:00)
[2019-08-06] MEDS ORDERED: predniSONE 10 MG TAB PO SCH (09:00)
--- NOTE | 2019-08-06 11:53 | P.DS ---
Providers Date of admission: 08/04/19 20:20 Attending physician: Carol Flanagan Consults: 08/04/19 20:20 Consult Physician Routine Consulting Provider: Adan Smith Consult Reason/Comments: Pneumonia Do you want consulting provider notified?: Yes Primary care physician: Tran Wolfe [place] [facility] Course: 59-year-old pleasant gentleman was discharged from hospital for 5 days ago after he was treated for right upper lobe pneumonia and COPD exacerbation patient had couple cigarettes after he was discharged and started having shortness of breath yesterday when she was a riding a bike. Patient also company of pleuritic chest pain sharp in nature and right side of the chest is with deep breathing and coughing moderate severity. Patient denied any fever chills chest x-ray is actually showing improving pneumonia patient apparently was wheezing yesterday although wheezing resolved at this time patient shortness of breath improved his chest pain is better as well. Patient had a CAT scan of the chest which did not show any pulmonary embolism but showed bronchiectasis. And patient is on appropriate antibiotics with the Zosyn and levofloxacin at this time patient is comparing of care were discontinued and production. Patient does have right mediastinal adenopathy probably from infection with significant pulmonary emphysema. There was a suspicion of a lesion where he has a pneumonic infilt rate because of which patient will undergo biopsy. 08/06/2019 Patient underwent bronchoscopy and biopsy those are pending patient will be discharged today on Augmentin for 5 more days and inhalational the steroids along with the Spiriva and albuterol. Patient is clinically doing well, will follow with pulmonology as an outpatient. PHYSICAL EXAMINATION: GENERAL: The patient is alert and oriented x3, not in any acute distress. Well developed, well nourished. HEENT: Pupils are round and equally reacting to light. EOMI. No scleral icterus. No conjunctival pallor. Normocephalic, atraumatic. No pharyngeal erythema. No thyromegaly. CARDIOVASCULAR: S1 and S2 present. No murmurs, rubs, or gallops. PULMONARY: Chest is clear to auscultation, no wheezing or crackles. ABDOMEN: Soft, nontender, nondistended, normoactive bowel sounds. No palpable organomegaly. MUSCULOSKELETAL: No joint swelling or deformity. EXTREMITIES: No cyanosis, clubbing, or pedal edema. NEUROLOGICAL: Gross neurological examination did not reveal any focal deficits. SKIN: No rashes. Assessment and Plan Plan: -Pleuritic chest pain: Secondary to pleurisy from right upper lobe pneumonia symptomatically treatment for this, doesn't have any recurrence of pneumonia this is from his previous pneumonia -Right upper lobe pneumonia with possible lesion in the lung for which patient underwent will undergo biopsy and bronchoscopy. -Shortness of breath secondary to COPD exacerbation which improved patient will be continued on oral steroids -Continue nicotine dependence: Counseling was provided -COPD and bronchiectasis chronic -Chronic alcohol in the -hyponatremia hypovolemichyponatremia improved minimally with IV fluids -History of prostate cancer which is in remission now. Plan - Discharge Summary Discharge Rx Participant: Yes New Discharge Prescriptions: New Amoxicillin/Potassium Clav [Augmentin 875-125 Tablet] 1 tab PO BID 5 Days #10 tab Tiotropium [place] [Spiriva] 1 cap INHALATION DAILY #1 device Budesonide-Formot 160-4.5 Mcg [Symbicort 160-4.5 Mcg Inhaler] 2 puff INHALATION BID #1 inhaler Albuterol Inhaler [Ventolin Hfa Inhaler] 1 - 2 puff INHALATION Q6HR PRN #1 inhaler PRN Reason: Shortness Of Breath Or Wheezing Ranitidine HCl [Zantac] 150 mg PO BID #20 tab Discontinued Levofloxacin [Levaquin] 500 mg PO DAILY 7 Days #7 tab No Action Nicotine 21Mg/24Hr Patch [Habitrol] 1 patch TRANSDERM DAILY 30 Days #30 patch predniSONE See Taper PO DIRECTED Discharge Medication List Nicotine 21Mg/24Hr Patch [Habitrol] 1 patch TRANSDERM DAILY 30 Days #30 patch 08/01/19 [Rx] predniSONE See Taper PO DIRECTED 08/04/19 [History] Albuterol Inhaler [Ventolin Hfa Inhaler] 1 - 2 puff INHALATION Q6HR PRN #1 inhaler 08/06/19 [Rx] Amoxicillin/Potassium Clav [Augmentin 875-125 Tablet] 1 tab PO BID 5 Days #10 tab 08/06/19 [Rx] Budesonide-Formot 160-4.5 Mcg [Symbicort 160-4.5 Mcg Inhaler] 2 puff INHALATION BID #1 inhaler 08/06/19 [Rx] Ranitidine HCl [Zantac] 150 mg PO BID #20 tab 08/06/19 [Rx] Tiotropium [place] [Spiriva] 1 cap INHALATION DAILY #1 device 08/06/19 [Rx] Follow up Appointment(s)/Referral(s): Aiden Mayfield MD [Primary Care Provider] - 3 Days Activity/Diet/Wound Care/Special Instructions: Wants D/c Rx. Discharge Disposition: HOME SELF-CARE
--- NOTE | 2019-08-06 14:48 | P.PN ---
Subjective Progress Note Date: 08/06/19 Principal diagnosis: Right upper lobe pneumonia This is a 59-year-old white male patient who was recently discharged from the hospital on 08/01/2019 after being treated for community-acquired right upper lobe pneumonia. Cultures were negative during that admission, patient was treated with antibiotics in the form of Zithromax and Rocephin, IV steroids and nebulized bronchodilators, and was discharged home in stable condition. His last chest x-ray on 07/31/2019 was showing some improvement in appearance of the right upper lobe consolidation. After discharge patient did feel better, yesterday he took a bike ride, became very short of breath, started experiencing increased soreness in his right upper chest exacerbated by deep breathing and coughing. Some limited cough, with production of clear whitish sputum, denied any fever or chills. He did fill his prescription for outpatient antibiotics and was taking them. Patient has a long history of smoking, and did resume his smoking as well although he cut back. Other medical history includes COPD, his previous CT chest showed chronic bronchiectasis, history of atrial fibrillation currently in sinus, prostate cancer post brachii therapy, and history of glaucoma. On 08/04/2019 patient came in to the emergency department for evaluation. Chest x-ray shows right upper lobe pneumonia unchanged or slightly improved compared to last exam. CT angiogram of the chest negative for pulmonary embolism, did show extensive infiltrate in the right lung with the right bronchial adenopathy. There is background of pulmonary emphysema. Admission blood work showed white blood cell count of 11.2, hemoglobin of 12.7, white count of 363, coagulation profile is within normal limits, sodium is 133, the rest of the electrolytes and renal profile unremarkable. Troponin is negative 1, LFTs are within normal limits. Antibiotic coverage initiated in the form of Levaquin and Zosyn and this consult was initiated. The patient is seen today August 06 2019 in follow-up on the regular medical floor. He is awake and alert in no acute distress. Denies any worsening shortness of breath, cough or congestion. He did undergo bronchoscopy with BAL and biopsies of the right upper lobe yesterday. No complications. Maintaining good O2 saturations in the 90s on room air. He is afebrile. Hemodynamically stable. Bronchial wash cultures and pathology are pending. White count 8.0. Hemoglobin 11.9. Platelet count 384,000. Sodium 134. Creatinine 0.67. Objective - Vital Signs Vital signs: Vital Signs Temp 98.2 F 08/06/19 05:00 Pulse 89 08/06/19 07:47 Resp 24 08/06/19 05:00 BP 120/72 08/06/19 05:00 Pulse Ox 97 08/06/19 07:37 Intake & Output 08/05/19 08/06/19 08/06/19 18:59 06:59 18:59 Intake Total 350 400 Balance 350 400 Intake: IV 350 Oral 400 Other: Voiding Method Toilet # Voids 3 4 - Exam GENERAL EXAM: Alert, pleasant, thin 59-year-old male patient, on room air, comfortable in no apparent distress. HEAD: Normocephalic/atraumatic. EYES: Normal reaction of pupils, equal size. Conjunctiva pink, sclera white. NOSE: Clear with pink turbinates. THROAT: No erythema or exudates. NECK: No masses, no JVD, no thyroid enlargement, no adenopathy. CHEST: No chest wall deformity. Symmetrical expansion. Right upper chest tenderness on palpation, and with deep breathing and coughing LUNGS: Equal air entry with faint inspiratory crackles over right upper lung anteriorly and posteriorly, no wheeze, rhonchi or dullness. CVS: Regular rate and rhythm, normal S1 and S2, no gallops, no murmurs, no rubs ABDOMEN: Soft, nontender. No hepatosplenomegaly, normal bowel sounds, no guarding or rigidity. EXTREMITIES: No clubbing, no edema, no cyanosis, 2+ pulses and upper and lower extremities. MUSCULOSKELETAL: Muscle strength and tone normal. SPINE: No scoliosis or deformity SKIN: No rashes CENTRAL NERVOUS SYSTEM: No focal deficits, tone is normal in all 4 extremities. PSYCHIATRIC: Alert and oriented -3. Appropriate affect. Intact judgment and insight. - Labs CBC & Chem 7: 08/06/19 07:39 08/06/19 07:39 Labs: Abnormal Lab Results - Last 24 Hours (Table) 08/06/19 08/06/19 Range/Units 07:39 07:39 RBC 3.95 L (4.30-5.90) m/uL Hgb 11.9 L (13.0-17.5) gm/dL Hct 38.3 L (39.0-53.0) % Sodium 134 L (137-145) mmol/L Calcium 8.3 L (8.4-10.2) mg/dL Microbiology - Last 24 Hours (Table) 08/05/19 15:15 Gram Stain - Preliminary Bronchoalviolar Lavage - Right Bronchial Washings Culture - Preliminary 08/05/19 09:30 Gram Stain - Preliminary Sputum Sputum Culture - Preliminary 08/05/19 15:15 Acid Fast Bacilli Culture - Preliminary Bronchoalviolar Lavage - Right 08/05/19 15:15 Fungal Culture - Preliminary Bronchoalviolar Lavage - Right 08/04/19 18:00 Blood Culture - Preliminary Blood No Growth after 24 hours Assessment and Plan Assessment: Assessment: #1. Shortness of breath related to right upper lobe pneumonia, community- acquired, versus lung malignancy #2. Recent hospitalization for treatment of community-acquired right upper lobe pneumonia, discharged home 3 days ago, the patient was completing his course of oral antibiotics at home #3. Chronic and ongoing independence #4. COPD and chronic bronchiectasis #5. History of previous pneumonias #6. History of atrial fibrillation, currently in sinus not on any chronic anticoagulation #7. History of chronic alcoholism #8. History of prostate cancer post brachii therapy #9. History of glaucoma Plan: The patient was seen and evaluated by Dr. Smith. He is stable from the pulmonary standpoint and could be discharged home. His pathology and fluid cultures pending from the bronchoscopy performed yesterday. He is to follow-up in our office in 1-2 weeks' time. He will call sooner with any further questions or concerns. I, the cosigning physician, performed a history & physical examination of the patient. Lungs sounds scattered rhonchi. Maintaining good O2 saturations in the 90s on room air. I discussed the assessment and plan of care with my nurse practitioner, Lashonda Damico. I attest to the above note as dictated by her.
[2019-08-06] MEDS ORDERED: LEVOFLOXACIN 750 MG TAB PO SCH (21:00)
== END 2019-08-06 12:49 | disposition home or self-care (01) | DRG 194 ==
LOC: EC 16:44 → 4MS4W 20:20
PROVIDERS: ADMIT Internal Medicine; ATTEND Internal Medicine
PROC: 0B9C8ZX Drainage of Right Upper Lung Lobe, Via Natural or Artificial Opening Endoscopic, Diagnostic (ICD-10-PCS; principal; 2019-08-05 08:10)
PROC: 0BDC8ZX Extraction of Right Upper Lung Lobe, Via Natural or Artificial Opening Endoscopic, Diagnostic (ICD-10-PCS; 2019-08-05 08:10)
DX: J18.9 Pneumonia, unspecified organism (principal); J44.0 Chronic obstructive pulmonary disease with (acute) lower respiratory infection; J44.1 Chronic obstructive pulmonary disease with (acute) exacerbation; E87.1 Hypo-osmolality and hyponatremia; F17.210 Nicotine dependence, cigarettes, uncomplicated; R09.1 Pleurisy; H40.9 Unspecified glaucoma; I48.91 Unspecified atrial fibrillation; Z82.49 Family history of ischemic heart disease and other diseases of the circulatory system; Z82.5 Family history of asthma and other chronic lower respiratory diseases; Z85.46 Personal history of malignant neoplasm of prostate; Z87.01 Personal history of pneumonia (recurrent); Z71.6 Tobacco abuse counseling; Z92.3 Personal history of irradiation; Z79.2 Long term (current) use of antibiotics; Z79.52 Long term (current) use of systemic steroids; Z79.899 Other long term (current) drug therapy
CPT/HCPCS: 31624; 31628; 36415; 71045; 71046; 71275; 80048; 80053; 83605; 83735; 84484; 85025; 85027; 85610; 85730; 87040; 87070; 87102; 87116; 87205; 87206; 87252; 87496; 87498; 87502; 87529; 87634; 87798; 88108; 88305; 89050; 93005; 94640; 94760; 96365; 96375; 99285

== ENCOUNTER 2019-10-03 15:52 | Observation (INO) | payer OTHER ==
[2019-10-03] MEDS ORDERED: IPRATROPIUM-ALBUTEROL 3 ML NEB INHALATION STA ×3 (16:09→18:32)
[2019-10-03] MEDS ORDERED: SODIUM CHLORIDE 0.9% 1,000 ML IV STA (16:09)
[2019-10-03] MEDS ORDERED: methylPREDNISolone SOD SUCCI 125 MG/2 ML VIAL IV STA (16:09)
--- NOTE | 2019-10-03 16:23 | ED ---
SOB HPI - General Chief Complaint: Shortness of Breath Stated Complaint: SOB Time Seen by Provider: 10/03/19 15:58 Source: patient, RN notes reviewed Mode of arrival: wheelchair Limitations: no limitations - History of Present Illness Initial Comments: This is a [id number] male who is still a smoker one half pack cigarettes per day who also has a history of emphysema and does have a history of recent pneumonia who presents with complaints of the onset shortness of breath which started last evening. He does have a cough productive of some phlegm somewhat yellow in nature he denies any fevers chills or sweats no overt chest pain. He does have exertional dyspnea. He states that shortness of breath is refractory to his home medication. MD Complaint: shortness of breath, cough - Related Data Previous Rx's Medication Instructions Recorded Albuterol Inhaler [Ventolin Hfa 1 - 2 puff INHALATION Q6HR PRN #1 08/06/19 Inhaler] inhaler Budesonide-Formot 160-4.5 Mcg 2 puff INHALATION BID #1 inhaler 08/06/19 [Symbicort 160-4.5 Mcg Inhaler] Allergies Allergy/AdvReac Type Severity Reaction Status Date / Time No Known Allergies Allergy Verified 10/03/19 15:56 Review of Systems ROS Statement: Those systems with pertinent positive or pertinent negative responses have been documented in the HPI. ROS Other: All systems not noted in ROS Statement are negative. Past Medical History Past Medical History: Atrial Fibrillation, Cancer, COPD, Eye Disorder, Pneumonia, Prostate Disorder Additional Past Medical History / Comment(s): ETOH abuse, DTs, tracheobronchitis, pneumonias, pleurisy, acute respiratory failure/vented, bilateral glaucoma, prostate cancer History of Any Multi-Drug Resistant Organisms: None Reported Past Surgical History: Hernia Repair, Prostate Surgery, Tonsillectomy Additional Past Surgical History / Comment(s): R inguinal hernia repair, prostate-radiation implant, colonoscopy-normal Past Anesthesia/Blood Transfusion Reactions: No Reported Reaction Past Psychological History: No Psychological Hx Reported Smoking Status: Current every day smoker Past Alcohol Use History: Daily, Heavy Past Drug Use History: None Reported - Past Family History Father Family Medical History: COPD Additional Family Medical History / Comment(s): Father of COPD in his 70's Mother Family Medical History: Coronary Artery Disease (CAD) Additional Family Medical History / Comment(s): Mother of heart disease at the age of 65 yrs. General Exam - General Exam Comments Initial Comments: Is a well-developed well-nourished awake alert oriented 3 male Limitations: no limitations General appearance: alert, anxious, in distress Head exam: Present: atraumatic, normocephalic, normal inspection Eye exam: Present: normal appearance, PERRL, EOMI. Absent: scleral icterus, conjunctival injection, periorbital swelling ENT exam: Present: normal exam, mucous membranes dry, mucous membranes moist Neck exam: Present: normal inspection, full ROM, other. Absent: tenderness, meningismus, lymphadenopathy Respiratory exam: Present: respiratory distress, wheezes, accessory muscle use, decreased breath sounds. Absent: rales, rhonchi, stridor Cardiovascular Exam: Present: normal rhythm, tachycardia, normal heart sounds. Absent: systolic murmur, diastolic murmur, rubs, gallop, clicks GI/Abdominal exam: Present: soft, normal bowel sounds. Absent: distended, ten derness, guarding, rebound, rigid Extremities exam: Present: normal inspection, full ROM, normal capillary refill. Absent: tenderness, pedal edema, joint swelling, calf tenderness Back exam: Present: normal inspection Neurological exam: Present: alert, oriented X3, CN II-XII intact Psychiatric exam: Present: normal affect, normal mood Skin exam: Present: warm, dry, intact, normal color. Absent: rash Course Vital Signs 10/03/19 10/03/19 10/03/19 15:54 16:22 16:23 Temperature 97.9 F 97.9 F Pulse Rate 103 H 93 Respiratory 24 24 Rate Blood Pressure 166/88 O2 Sat by Pulse 94 L 97 Oximetry 10/03/19 10/03/19 10/03/19 16:29 18:03 18:14 Temperature Pulse Rate 97 92 99 Respiratory 20 22 20 Rate Blood Pressure O2 Sat by Pulse Oximetry - Reevaluation(s) Reevaluation #1: 10/03/19 18:33 I did reevaluate patient several occasions he is getting minimal improvement thus far with the medications were rendered for his apparent COPD exacerbation. Procedures - Smoking Cessation Time Spent Discussing Smoking Cessation w/Patient (Minutes): 3 Patient Acknowledges Need for Cessation: Yes Medical Decision Making - Medical Decision Making I did discuss the findings with the patient is getting minimal improvement thus far he will be admitted with consultation to Dr. Montes. I did discuss the case with Dr. Sanchez - Lab Data Result diagrams: 10/03/19 16:15 10/03/19 16:15 Lab Results 10/03/19 10/03/19 10/03/19 Range/Units 16:15 16:15 16:15 WBC 9.6 (3.8-10.6) k/uL RBC 4.44 (4.30-5.90) m/uL Hgb 14.3 (13.0-17.5) gm/dL Hct 42.3 (39.0-53.0) % MCV 95.2 (80.0-100.0) fL MCH 32.1 (25.0-35.0) pg MCHC 33.8 (31.0-37.0) g/dL RDW 14.1 (11.5-15.5) % Plt Count 257 (150-450) k/uL Neutrophils % 74 % Lymphocytes % 14 % Monocytes % 6 % Eosinophils % 2 % Basophils % 1 % Neutrophils # 7.1 (1.3-7.7) k/uL Lymphocytes # 1.3 (1.0-4.8) k/uL Monocytes # 0.5 (0-1.0) k/uL Eosinophils # 0.2 (0-0.7) k/uL Basophils # 0.1 (0-0.2) k/uL PT (9.0-12.0) sec INR (<1.2) APTT (22.0-30.0) sec Sodium 136 L (137-145) mmol/L Potassium 4.5 (3.5-5.1) mmol/L Chloride 98 (98-107) mmol/L Carbon Dioxide 23 (22-30) mmol/L Anion Gap 15 mmol/L BUN 11 (9-20) mg/dL Creatinine 0.58 L (0.66-1.25) mg/dL Est GFR (CKD-EPI)AfAm >90 (>60 ml/min/1.73 sqM) Est GFR (CKD-EPI)NonAf >90 (>60 ml/min/1.73 sqM) Glucose 88 (74-99) mg/dL Calcium 9.7 (8.4-10.2) mg/dL Magnesium 1.8 (1.6-2.3) mg/dL Total Bilirubin 0.6 (0.2-1.3) mg/dL AST 34 (17-59) U/L ALT 28 (21-72) U/L Alkaline Phosphatase 75 (38-126) U/L Troponin I (0.000-0.034) ng/mL NT-Pro-B Natriuret Pep 120 pg/mL Total Protein 8.2 (6.3-8.2) g/dL Albumin 4.7 (3.5-5.0) g/dL 10/03/19 10/03/19 Range/Units 16:15 16:15 WBC (3.8-10.6) k/uL RBC (4.30-5.90) m/uL Hgb (13.0-17.5) gm/dL Hct (39.0-53.0) % MCV (80.0-100.0) fL MCH (25.0-35.0) pg MCHC (31.0-37.0) g/dL RDW (11.5-15.5) % Plt Count (150-450) k/uL Neutrophils % % Lymphocytes % % Monocytes % % Eosinophils % % Basophils % % Neutrophils # (1.3-7.7) k/uL Lymphocytes # (1.0-4.8) k/uL Monocytes # (0-1.0) k/uL Eosinophils # (0-0.7) k/uL Basophils # (0-0.2) k/uL PT 9.3 (9.0-12.0) sec INR 0.8 (<1.2) APTT 28.0 (22.0-30.0) sec Sodium (137-145) mmol/L Potassium (3.5-5.1) mmol/L Chloride (98-107) mmol/L Carbon Dioxide (22-30) mmol/L Anion Gap mmol/L BUN (9-20) mg/dL Creatinine (0.66-1.25) mg/dL Est GFR (CKD-EPI)AfAm (>60 ml/min/1.73 sqM) Est GFR (CKD-EPI)NonAf (>60 ml/min/1.73 sqM) Glucose (74-99) mg/dL Calcium (8.4-10.2) mg/dL Magnesium (1.6-2.3) mg/dL Total Bilirubin (0.2-1.3) mg/dL AST (17-59) U/L ALT (21-72) U/L Alkaline Phosphatase (38-126) U/L Troponin I <0.012 (0.000-0.034) ng/mL NT-Pro-B Natriuret Pep pg/mL Total Protein (6.3-8.2) g/dL Albumin (3.5-5.0) g/dL - EKG Data -: EKG Interpreted by Me EKG shows normal: sinus rhythm (Sinus tachycardia rate 104 WI interval 134 QRS duration 90 QT since QTC 352/[address]-T wave changes) - Radiology Data Radiology results: report reviewed (I did review the imaging and report evidence of clearing of the right upper lobe infiltrate that had been seen previously.), image reviewed Critical Care Time Critical Care Time: Yes Critical Care Time: 35 minutes of critical care time which includes initial presentation with history physical labs x-rays multiple reevaluation the patient to responsive therapy review of old charting was available discussed with the admitting phys ician admission orders and documentation of the above Disposition Clinical Impression: Acute exacerbation of chronic obstructive pulmonary disease, Acute respiratory distress syndrome in adult, Bronchitis Disposition: ADMITTED IP TO THIS HOSP Condition: Fair Referrals: None,Stated [Primary Care Provider] - 1-2 days
[2019-10-03 16:26] LABS: Basophils # (A) 0.1 k/uL (0-0.2); Basophils % (A) 1 %; Eosinophils # (A) 0.2 k/uL (0-0.7); Eosinophils % (A) 2 %; HCT 42.3 % (39.0-53.0); HGB 14.3 gm/dL (13.0-17.5); Lymphocytes # (A) 1.3 k/uL (1.0-4.8); Lymphocytes % (A) 14 %; MCH 32.1 pg (25.0-35.0); MCHC 33.8 g/dL (31.0-37.0); MCV 95.2 fL (80.0-100.0); Mean Platelet Volume 5.8; Monocytes # (A) 0.5 k/uL (0-1.0); Monocytes % (A) 6 %; Neutrophils # (A) 7.1 k/uL (1.3-7.7); Neutrophils % (A) 74 %; Platelet Count 257 k/uL (150-450); RBC 4.44 m/uL (4.30-5.90); RDW 14.1 % (11.5-15.5); WBC 9.6 k/uL (3.8-10.6)
[2019-10-03 16:35] LABS: INR 0.8 (<1.2); Prothrombin Time 9.3 sec (9.0-12.0)
[2019-10-03 16:41] LABS: ALT 28 U/L (21-72); AST 34 U/L (17-59); African American GFR (CKD) >90 (>60 ml/min/1.73 sqM); Albumin 4.7 g/dL (3.5-5.0); Alkaline Phosphatase 75 U/L (38-126); Anion Gap 15 mmol/L; Blood Urea Nitrogen 11 mg/dL (9-20); Calcium 9.7 mg/dL (8.4-10.2); Carbon Dioxide 23 mmol/L (22-30); Chloride 98 mmol/L (98-107); Glucose 88 mg/dL (74-99); Magnesium 1.8 mg/dL (1.6-2.3); Non-African American GFR(CKD) >90 (>60 ml/min/1.73 sqM); Potassium 4.5 mmol/L (3.5-5.1); Sodium 136 mmol/L (137-145); Total Bilirubin 0.6 mg/dL (0.2-1.3); Total Protein 8.2 g/dL (6.3-8.2)
--- NOTE | 2019-10-03 17:50 | XR ---
EXAMINATION TYPE: XR chest 2V DATE OF EXAM: 10/03/2019 COMPARISON: 08/05/2019 HISTORY: Difficulty breathing TECHNIQUE: Frontal and lateral views of the chest are obtained. FINDINGS: There is some coarse infiltrate in the lateral right upper lobe. The left lung is clear. H eart size is normal. There are chest leads. Costophrenic angles are clear. There is no heart failure. IMPRESSION: There is partial clearing of right upper lobe pneumonia compared to last exam. There is approximate 50% clearing. Old left clavicle fracture noted.
[2019-10-03] MEDS ORDERED: MAGNESIUM SULFATE-D5W PMX 1 GM in DEXTROSE/WATER 1 100ML.BAG IVPB ONE (17:59)
[2019-10-03] MEDS ORDERED: NICOTINE 14MG/24HR PATCH TRANSDERM STA (18:38)
[2019-10-03] MEDS: SODIUM CHLORIDE 0.9% 1,000 ML IV SCH (19:21)
[2019-10-03] MEDS: IPRATROPIUM-ALBUTEROL 3 ML NEB INHALATION SCH ×2 (20:07→23:22)
[2019-10-03 21:10] VITALS: BMI 20.8
[2019-10-03] MEDS: AMOXIC-POT CLAV 875-125MG 1 EACH TAB PO SCH (21:10)
[2019-10-03 21:12] LABS: Glucose,Whole Blood 177 mg/dL (75-99)
[2019-10-03] MEDS: methylPREDNISolone SOD SUCCI 125 MG/2 ML VIAL IV SCH (23:36)
[2019-10-04] MEDS: IPRATROPIUM-ALBUTEROL 3 ML NEB INHALATION SCH ×6 (03:33→23:32)
[2019-10-04] MEDS: methylPREDNISolone SOD SUCCI 125 MG/2 ML VIAL IV SCH ×4 (05:21→23:42)
[2019-10-04] MEDS: SODIUM CHLORIDE 0.9% 1,000 ML IV SCH ×3 (05:23→23:43)
[2019-10-04] MEDS: AMOXIC-POT CLAV 875-125MG 1 EACH TAB PO SCH ×2 (07:56→20:02)
[2019-10-04 08:07] LABS: Glucose,Whole Blood 170 mg/dL (75-99)
[2019-10-04] MEDS: INSULIN ASPART (NovoLOG) 100 UNIT/ML VIAL SQ SCH ×4 (08:11→20:58)
[2019-10-04 11:36] LABS: Glucose,Whole Blood 218 mg/dL (75-99)
[2019-10-04] MEDS ORDERED: IPRATROPIUM-ALBUTEROL 3 ML NEB INHALATION PRN (12:17)
--- NOTE | 2019-10-04 12:38 | P.CNPUL ---
History of Present Illness Consult date: 10/04/19 Reason for consult: dyspnea, cough, COPD Chief complaint: Cough, congestion, phlegm production, shortness of breath History of present illness: This is a 59-year-old white male patient who currently has no primary care p [facility], who we had previously seen back in July 2019 for right upper lobe pneumonia. Patient was treated with antibiotics, he had a bronchoscopy with bronchial alveolar lavage, and the cultures were negative, and the final culture just showed Faith, penicillium species and Aspergillus not fumigatus. Transbronchial biopsy of the right upper lobe showed bronchial mucosa with acute and chronic inflammation, but negative for malignant cells. Cytology of the right upper lobe showed no cytologically malignant cells. Patient was treated, and discharged home, however he never followed up in the outpatient clinic for follow-up chest x-ray. He is a chronic smoker, smoking cigarettes a day, he has history of COPD, his previous CT chest showed chronic bronchiectasis, he has history of paroxysmal atrial fibrillation, prostate cancer status post brachii therapy and history of glaucoma. He has a previous history of alcohol abuse, currently denies drinking. Patient presents to the emergency department on 10/03/2019 with complaints of increasing shortness of breath, cough, phlegm production, subjective fever and chills. He states he was helping his relative move a few days ago, and for last couple of days his breathing has been increasingly worse. Denied any chest pain, denied any hemoptysis. Reports sweats and chills, and some chest tightness. Chest x-ray showed partial ghazal ring of right upper lobe pneumonia compared to his last exam on 08/05/2019, and it was estimated to be 50% cleared. The left lung is clear. Lab work showed white blood cell count of 9.6, hemoglobin of 14.3, correlation profile was within normal limits, electrolytes and renal profile were unremarkable, troponin was negative, proBNP was 120, patient has been started on oral antibiotics in the form of Augmentin, nebulized bronchodilators, and IV steroids, and was seeing this patient in consultation for acute COPD exacerbation with partial clearing of previously known right upper lobe pneumonia Review of Systems All systems: negative Constitutional: Denies chills, Denies fever Eyes: denies blurred vision, denies pain Ears, nose, mouth and throat: Denies headache, Denies sore throat Cardiovascular: Denies chest pain, Denies shortness of breath Respiratory: Reports congestion, Reports cough with sputum, Reports dyspnea, Reports respiratory infections, Reports wheezing, Denies cough Gastrointestinal: Denies abdominal pain, Denies diarrhea, Denies nausea, Denies vomiting Musculoskeletal: Denies myalgias Integumentary: Denies pruritus, Denies rash Neurological: Denies numbness, Denies weakness Psychiatric: Denies anxiety, Denies depression Endocrine: Denies fatigue, Denies weight change Past Medical History Past Medical History: Atrial Fibrillation, Cancer, COPD, Eye Disorder, Pneumonia, Prostate Disorder Additional Past Medical History / Comment(s): ETOH abuse, DTs, tracheobronchitis, pneumonias, pleurisy, acute respiratory failure/vented, bilateral glaucoma, prostate cancer History of Any Multi-Drug Resistant Organisms: None Reported Past Surgical History: Hernia Repair, Prostate Surgery, Tonsillectomy Additional Past Surgical History / Comment(s): R inguinal hernia repair, prostate-radiation implant, colonoscopy-normal Past Anesthesia/Blood Transfusion Reactions: No Reported Reaction Past Psychological History: No Psychological Hx Reported Additional Psychological History / Comment(s): Pt is living with his niece. He rides his bike or walks. Smoking Status: Current every day smoker Past Alcohol Use History: Daily, Heavy Additional Past Alcohol Use History / Comment(s): Pt states he started smoking as a teen and is a 1.5 ppd smoker. Ptstates he drinks a couple like 2 beer a day. Last drank today. Past Drug Use History: None Reported - Past Family History Father Family Medical History: COPD Additional Family Medical History / Comment(s): Father of COPD in his 70's Mother Family Medical History: Coronary Artery Disease (CAD) Additional Family Medical History / Comment(s): Mother of heart disease at the age of 65 yrs. Medications and Allergies Home Medications Medication Instructions Recorded Confirmed Type Albuterol Inhaler [Ventolin Hfa 1 - 2 puff INHALATION Q6HR PRN #1 08/06/19 10/03/19 Rx Inhaler] inhaler Budesonide-Formot 160-4.5 Mcg 2 puff INHALATION BID #1 inhaler 08/06/19 10/03/19 Rx [Symbicort 160-4.5 Mcg Inhaler] Allergies Allergy/AdvReac Type Severity Reaction Status Date / Time No Known Allergies Allergy Verified 10/03/19 15:56 Physical Exam Vitals: Vital Signs Temp Pulse Pulse Resp BP BP Pulse Ox 10/04/19 08:56 93 10/04/19 08:48 89 10/04/19 05:00 97.6 F 77 20 139/81 92 L 10/04/19 03:51 92 10/04/19 03:35 92 10/03/19 23:33 93 10/03/19 23:24 93 10/03/19 23:00 98.5 F 92 20 132/75 92 L 10/03/19 20:03 96 10/03/19 19:52 96 24 10/03/19 19:09 97.8 F 93 18 150/92 93 L 10/03/19 19:02 99.3 F 92 20 147/86 91 L 10/03/19 19:00 94 20 147/86 93 L 10/03/19 18:14 99 20 10/03/19 18:03 92 22 10/03/19 18:00 88 20 134/83 10/03/19 17:00 98 20 130/85 10/03/19 16:29 97 20 10/03/19 16:23 93 24 10/03/19 16:22 97.9 F 97 10/03/19 16:16 96 20 93 L 10/03/19 15:54 97.9 F 103 H 24 166/88 94 L Intake and Output 10/03/19 10/04/19 10/04/19 22:59 06:59 14:59 Intake Total 100 480 Balance 100 480 Intake: Oral 100 480 Other: Voiding Method Toilet Toilet # Voids 2 Weight 54.431 kg GENERAL EXAM: Alert, pleasant, thin 59-year-old white male, tanned, with multiple tattoos, on room air with a pulse ox of 98% comfortable in no apparent distress. HEAD: Normocephalic/atraumatic. EYES: Normal reaction of pupils, equal size. Conjunctiva pink, sclera white. NOSE: Clear with pink turbinates. THROAT: No erythema or exudates. NECK: No masses, no JVD, no thyroid enlargement, no adenopathy. CHEST: No chest wall deformity. Symmetrical expansion. LUNGS: Diminished breath sounds bilaterally, with prolongation of the expiratory phase of breathing, no wheezing auscultated, no crackles, no rhonchi CVS: Regular rate and rhythm, normal S1 and S2, no gallops, no murmurs, no rubs ABDOMEN: Soft, nontender. No hepatosplenomegaly, normal bowel sounds, no guarding or rigidity. EXTREMITIES: No clubbing, no edema, no cyanosis, 2+ pulses and upper and lower extremities. MUSCULOSKELETAL: Muscle strength and tone normal. SPINE: No scoliosis or deformity SKIN: No rashes CENTRAL NERVOUS SYSTEM: Alert and oriented -3. No focal deficits, tone is normal in all 4 extremities. PSYCHIATRIC: Alert and oriented -3. Appropriate affect. Intact judgment and insight. Results - Laboratory Findings CBC and BMP: 10/03/19 16:15 10/03/19 16:15 PT/INR, D-dimer PT 9.3 sec (9.0-12.0) 10/03/19 16:15 INR 0.8 (<1.2) 10/03/19 16:15 Abnormal lab findings: Abnormal Labs 10/03/19 10/03/19 10/04/19 16:15 20:57 07:56 Sodium 136 L Creatinine 0.58 L POC Glucose (mg/dL) 177 H 170 H 10/04/19 11:25 Sodium Creatinine POC Glucose (mg/dL) 218 H - Diagnostic Findings Chest x-ray: report reviewed, image reviewed Assessment and Plan Plan: Assessment: #1. Acute exacerbation of chronic obstructive pulmonary disease, complicated by purulent tracheobronchitis, chest x-ray showed partial clearing of the previously treated right upper lobe pneumonia #2. Hospitalization in July 2019 for community-acquired right upper lobe pneumonia, with bronchoalveolar lavage cultures show no growth other than Penicillium species and Aspergillus not fumigatus, likely contaminant. Right upper lobe transbronchial biopsy showed no malignant cells, cytology of the right upper lobe was negative #3. History of COPD/emphysema, and chronic bronchiectasis #4. Chronic and ongoing nicotine dependence patient carries at least [id number] smoking history #5. Previous history of pneumonias #6. History of paroxysmal atrial fibrillation, currently in sinus mechanism, not on any chronic anticoagulation #7. History of chronic alcoholism #8. History of prostate cancer status post radiation therapy #9. History of glaucoma Plan: Continue current antibiotics, send a sputum culture, continue IV steroids, nebulized bronchodilators, will add Pulmicort and Perforomist, chest x-ray shows partial clearing of the previously treated right upper lobe pneumonia, no leukocytosis, no fever, we'll treat the patient for COPD with purulent tracheobronchitis, we'll continue to follow, smoking cessation was strongly advised I performed a history & physical examination of the patient and discussed their management with my nurse practitioner, Linda Donaldson. I reviewed the nurse practitioner's note and agree with the documented findings and plan of care. Lung sounds are positive for diminished breath sounds with the prolongation of expiratory phase. The findings and the impression was discussed with the patient. I attest to the documentation by the nurse practitioner. Time with Patient: Greater than 30
[2019-10-04] MEDS ORDERED: LORazepam 2 MG/ML INJ IV PRN ×3 (14:03)
[2019-10-04] MEDS ORDERED: THIAMINE 100 MG/ML 2 ML VIAL IM STA (14:03)
[2019-10-04] MEDS ORDERED: THIAMINE 100 MG TAB PO ONE (14:35)
[2019-10-04] MEDS: NICOTINE 14MG/24HR PATCH TRANSDERM SCH (14:37)
[2019-10-04] MEDS: THIAMINE 100 MG TAB PO SCH (16:40)
[2019-10-04 17:20] LABS: Glucose,Whole Blood 149 mg/dL (75-99)
[2019-10-04] MEDS: BUDESONIDE 1 MG/2 ML NEBU INHALATION SCH (20:01)
[2019-10-04] MEDS: FORMOTEROL FUMARATE 20 MCG/2 ML NEBU INHALATION SCH (20:02)
[2019-10-04 20:52] LABS: Glucose,Whole Blood 146 mg/dL (75-99)
[2019-10-05] MEDS: IPRATROPIUM-ALBUTEROL 3 ML NEB INHALATION SCH ×6 (03:43→23:13)
[2019-10-05] MEDS: methylPREDNISolone SOD SUCCI 125 MG/2 ML VIAL IV SCH ×4 (05:41→23:47)
[2019-10-05] MEDS: BUDESONIDE 1 MG/2 ML NEBU INHALATION SCH ×2 (07:15→19:31)
[2019-10-05] MEDS: FORMOTEROL FUMARATE 20 MCG/2 ML NEBU INHALATION SCH ×2 (07:15→19:31)
--- NOTE | 2019-10-05 07:18 | P.HPIM ---
History of Present Illness This is a pleasant 59 years old male with past medical history of atrial fibrillation, COPD, pneumonia, alcohol abuse, delirium tremens, glaucoma, prostate cancer who presents because of dyspnea wwith cough and phlegm of one day duration , no chest pain , no diarrhea or change in his urine, no headache, no dizziness. he still smokes cigarettes about 5 cig per day as per pt. no alcohol or illicit drugs he was recently in the hospital about 2 months ago where he was treated for right sided pneumonia but he failed to follow up with his dental laboratory technician post discharge Vitas looks stable. Unremarkable CBC, BMP, liver enzymes. Chest x-ray: Clearing of the right upper lobe pneumonia partial. EKG showing sinus tachycardia at [address]-T changes and QTC is 462. On admission patient was started on dual, IV fluids, magnesium replacement, nicotine patch and normal saline at 100 mL per hour with Augmentin. Also was started on Solu-Medrol Review of Systems CONSTITUTIONAL: No fever, no malaise, no fatigue. HEENT: No recent visual problems or hearing problems. Denied any sore throat. CARDIOVASCULAR: No orthopnea, PND, no palpitations, no syncope. PULMONARY: No shortness of breath, no cough, no hemoptysis. GASTROINTESTINAL: No diarrhea, no nausea, no vomiting, no abdominal pain. Normoactive bowel sounds. NEUROLOGICAL: No headaches, no weakness, no numbness. HEMATOLOGICAL: Denies any bleeding or petechiae. GENITOURINARY: Denies any burning micturition, frequency, or urgency. MUSCULOSKELETAL/RHEUMATOLOGICAL: Denies any joint pain, swelling, or any muscle pain. ENDOCRINE: Denies any polyuria or polydipsia. Past Medical History Past Medical History: Atrial Fibrillation, Cancer, COPD, Eye Disorder, Pneumonia, Prostate Disorder Additional Past Medical History / Comment(s): ETOH abuse, DTs, trac heobronchitis, pneumonias, pleurisy, acute respiratory failure/vented, bilateral glaucoma, prostate cancer History of Any Multi-Drug Resistant Organisms: None Reported Past Surgical History: Hernia Repair, Prostate Surgery, Tonsillectomy Additional Past Surgical History / Comment(s): R inguinal hernia repair, prostate-radiation implant, colonoscopy-normal Past Anesthesia/Blood Transfusion Reactions: No Reported Reaction Past Psychological History: No Psychological Hx Reported Additional Psychological History / Comment(s): Pt is living with his niece. He rides his bike or walks. Smoking Status: Current every day smoker Past Alcohol Use History: Daily, Heavy Additional Past Alcohol Use History / Comment(s): Pt states he started smoking as a teen and is a 1.5 ppd smoker. Ptstates he drinks a couple like 2 beer a day. Last drank today. Past Drug Use History: None Reported - Past Family History Father Family Medical History: COPD Additional Family Medical History / Comment(s): Father of COPD in his 70's Mother Family Medical History: Coronary Artery Disease (CAD) Additional Family Medical History / Comment(s): Mother of heart disease at the age of 65 yrs. Medications and Allergies Home Medications Medication Instructions Recorded Confirmed Type Albuterol Inhaler [Ventolin Hfa 1 - 2 puff INHALATION Q6HR PRN #1 08/06/19 10/03/19 Rx Inhaler] inhaler Budesonide-Formot 160-4.5 Mcg 2 puff INHALATION BID #1 inhaler 08/06/19 10/03/19 Rx [Symbicort 160-4.5 Mcg Inhaler] Allergies Allergy/AdvReac Type Severity Reaction Status Date / Time No Known Allergies Allergy Verified 10/03/19 15:56 Physical Exam Vitals: Vital Signs Temp Pulse Pulse Resp BP BP Pulse Ox 10/04/19 12:30 89 10/04/19 12:18 88 10/04/19 08:56 93 10/04/19 08:48 89 10/04/19 05:00 97.6 F 77 20 139/81 92 L 10/04/19 03:51 92 10/04/19 03:35 92 10/03/19 23:33 93 10/03/19 23:24 93 10/03/19 23:00 98.5 F 92 20 132/75 92 L 10/03/19 20:03 96 10/03/19 19:52 96 24 10/03/19 19:09 97.8 F 93 18 150/92 93 L 10/03/19 19:02 99.3 F 92 20 147/86 91 L 10/03/19 19:00 94 20 147/86 93 L 10/03/19 18:14 99 20 10/03/19 18:03 92 22 10/03/19 18:00 88 20 134/83 10/03/19 17:00 98 20 130/85 10/03/19 16:29 97 20 10/03/19 16:23 93 24 10/03/19 16:22 97.9 F 97 10/03/19 16:16 96 20 93 L 10/03/19 15:54 97.9 F 103 H 24 166/88 94 L Intake and Output 10/03/19 10/04/19 10/04/19 22:59 06:59 14:59 Intake Total 100 480 Balance 100 480 Intake: Oral 100 480 Other: Voiding Method Toilet Toilet # Voids 2 Weight 54.431 kg GENERAL: The patient is alert and oriented x3, not in any acute distress. Well developed, well nourished. HEENT: Pupils are round and equally reacting to light. EOMI. No scleral icterus. No conjunctival pallor. Normocephalic, atraumatic. No pharyngeal erythema. No thyromegaly. CARDIOVASCULAR: S1 and S2 present. No murmurs, rubs, or gallops. -PULMONARY: Chest is clear to auscultation, bilateral scattered wheezing ABDOMEN: Soft, nontender, nondistended, normoactive bowel sounds. No palpable organomegaly. MUSCULOSKELETAL: No joint swelling or deformity. EXTREMITIES: No cyanosis, clubbing, or pedal edema. NEUROLOGICAL: Gross neurological examination did not reveal any focal deficits. SKIN: No rashes. No petechiae Results CBC & Chem 7: 10/03/19 16:15 10/03/19 16:15 Labs: Abnormal Lab Results - Last 24 Hours (Table) 10/03/19 10/03/19 10/04/19 Range/Units 16:15 20:57 07:56 Sodium 136 L (137-145) mmol/L Creatinine 0.58 L (0.66-1.25) mg/dL POC Glucose (mg/dL) 177 H 170 H (75-99) mg/dL 10/04/19 Range/Units 11:25 Sodium (137-145) mmol/L Creatinine (0.66-1.25) mg/dL POC Glucose (mg/dL) 218 H (75-99) mg/dL Thrombosis Risk Factor Assmnt - Choose All That Apply Each Factor Represents 1 point: Age 41-60 years Thrombosis Risk Factor Assessment Total Risk Factor Score: 1 Thrombosis Risk Factor Assessment Level: Low Risk Assessment and Plan Assessment: Acute COPD exacerbation Recent history of dementia acquired upper lobe pneumonia on 07/2019 Chronic paroxysmal atrial fibrillation Alcohol abuse at-risk of local withdrawal History of delirium tremens History of glaucoma History of prostate cancer Plan: This is a pleasant 67 years old male who presents with acute COPD exacerbation. Appreciate pulmonary input and follow-up the recommendation. Continue with antibiotics, steroids, bronchodilators and oxygen as needed Labs and medication were reviewed.. Continue same treatment. Continue with symptomatic treatment. Resume home medication. Monitor lytes and vitals. DVT and GI prophylaxis. Further recommendations of the clinical course of the patient DVT prophylaxis: Subcutaneous heparin GI Prophylaxis: Pepcid
[2019-10-05 07:34] LABS: Glucose,Whole Blood 141 mg/dL (75-99)
[2019-10-05] MEDS: THIAMINE 100 MG TAB PO SCH ×2 (08:44→17:48)
[2019-10-05] MEDS: NICOTINE 14MG/24HR PATCH TRANSDERM SCH (08:44)
[2019-10-05] MEDS: AMOXIC-POT CLAV 875-125MG 1 EACH TAB PO SCH ×2 (08:44→20:35)
[2019-10-05] MEDS: INSULIN ASPART (NovoLOG) 100 UNIT/ML VIAL SQ SCH ×4 (08:44→20:35)
[2019-10-05 12:23] LABS: Glucose,Whole Blood 133 mg/dL (75-99)
[2019-10-05] MEDS: SODIUM CHLORIDE 0.9% 1,000 ML IV SCH ×2 (12:28→23:47)
--- NOTE | 2019-10-05 12:50 | P.PN ---
Subjective Progress Note Date: 10/05/19 Principal diagnosis: Acute exacerbation of chronic obstructive pulmonary disease, complicated by purulent tracheobronchitis. This is a 59-year-old white male patient who currently has no primary care provider, who we had previously seen back in July 2019 for right upper lobe pneumonia. Patient was treated with antibiotics, he had a bronchoscopy with bronchial alveolar lavage, and the cultures were negative, and the final culture just showed Faith, penicillium species and Aspergillus not fumigatus. Transbronchial biopsy of the right upper lobe showed bronchial mucosa with acute and chronic inflammation, but negative for malignant cells. Cytology of the right upper lobe showed no cytologically malignant cells. Patient was treated, and discharged home, however he never followed up in the outpatient clinic for follow-up chest x-ray. He is a chronic smoker, smoking cigarettes a day, he has history of COPD, his previous CT chest showed chronic bronchiectasis, he has history of paroxysmal atrial fibrillation, prostate cancer status post brachii therapy and history of glaucoma. He has a previous history of alcohol abuse, currently denies drinking. Patient presents to the emergency department on 10/03/2019 with complaints of increasing shortness of breath, cough, phlegm production, subjective fever and chills. He states he was helping his relative move a few days ago, and for last couple of days his breathing has been increasingly worse. Denied any chest pain, denied any hemoptysis. Reports sweats and chills, and some chest tightness. Chest x-ray showed partial clearing of right upper lobe pneumonia compared to his last exam on 08/05/2019, and it was estimated to be 50% cleared. The left lung is clear. Lab work showed white blood cell count of 9.6, hemoglobin of 14.3, correlation profile was within normal limits, electrolytes and renal profile were unremarkable, troponin was negative, proBNP was 120, patient has been started on oral antibiotics in the form of Augmentin, nebulized bronchodilators, and IV steroids, and was seeing this patient in consultation for acute COPD exacerbation with partial clearing of previously known right upper lobe pneumonia. The patient is seen today 10/05/2019 in follow-up on the regular medical floor. He is currently sitting up at the bedside. Still quite dyspneic on minimal exertion. Still a loose productive cough. Currently maintaining O2 saturations in the mid 90s on room air. He is afebrile. Blood culture reveals no growth. Sputum culture pending. Blood glucose 133. He is continued on DuoNeb inhalations, Pulmicort and Perforomist inhalations, IV Solu-Medrol. Antibiotics in the form of Augmentin. NicoDerm patch is in place. Objective - Vital Signs Vital signs: Vital Signs Temp 98.2 F 10/05/19 04:55 Pulse 88 10/05/19 11:28 Resp 20 10/05/19 04:55 BP 149/85 10/05/19 04:55 Pulse Ox 97 10/05/19 07:15 Intake & Output 10/04/19 10/05/19 10/05/19 18:59 06:59 18:59 Intake Total 720 1000 Balance 720 1000 Intake: Oral 720 1000 Other: Voiding Method Toilet # Voids 3 2 - Exam GENERAL EXAM: Alert, pleasant, 59-year-old male patient, on room air with a pulse ox of 97% comfortable in no apparent distress. HEAD: Normocephalic/atraumatic. EYES: Normal reaction of pupils, equal size. Conjunctiva pink, sclera white. NOSE: Clear with pink turbinates. THROAT: No erythema or exudates. NECK: No masses, no JVD, no thyroid enlargement, no adenopathy. CHEST: No chest wall deformity. Symmetrical expansion. LUNGS: Diminished breath sounds bilaterally, bilateral end expiratory wheeze. CVS: Regular rate and rhythm, normal S1 and S2, no gallops, no murmurs, no rubs ABDOMEN: Soft, nontender. No hepatosplenomegaly, normal bowel sounds, no guarding or rigidity. EXTREMITIES: No clubbing, no edema, no cyanosis, 2+ pulses and upper and lower extremities. MUSCULOSKELETAL: Muscle strength and tone normal. SPINE: No scoliosis or deformity SKIN: No rashes CENTRAL NERVOUS SYSTEM: No focal deficits, tone is normal in all 4 extremities. PSYCHIATRIC: Alert and oriented -3. Appropriate affect. Intact judgment and insight. - Labs CBC & Chem 7: 10/03/19 16:15 10/03/19 16:15 Labs: Abnormal Lab Results - Last 24 Hours (Table) 10/04/19 10/04/19 10/05/19 Range/Units 17:09 20:39 07:22 POC Glucose (mg/dL) 149 H 146 H 141 H (75-99) mg/dL 10/05/19 Range/Units 12:10 POC Glucose (mg/dL) 133 H (75-99) mg/dL Microbiology - Last 24 Hours (Table) 10/04/19 14:06 Gram Stain - Preliminary Sputum 10/03/19 16:25 Blood Culture - Preliminary Blood No Growth after 24 hours Assessment and Plan Assessment: #1. Acute exacerbation of chronic obstructive pulmonary disease, complicated by purulent tracheobronchitis, chest x-ray showed partial clearing of the previously treated right upper lobe pneumonia #2. Hospitalization in July 2019 for community-acquired right upper lobe pneumonia, with bronchoalveolar lavage cultures show no growth other than Penicillium species and Aspergillus not fumigatus, likely contaminant. Right upper lobe transbronchial biopsy showed no malignant cells, cytology of the right upper lobe was negative #3. History of COPD/emphysema, and chronic bronchiectasis #4. Chronic and ongoing nicotine dependence patient carries at least [id number] smoking history #5. Previous history of pneumonias #6. History of paroxysmal atrial fibrillation, currently in sinus mechanism, not on any chronic anticoagulation #7. History of chronic alcoholism #8. History of prostate cancer status post radiation therapy #9. History of glaucoma Plan: The patient was seen and evaluated by Dr. Smith. He is not much improved today compared to yesterday. We'll continue the current treatment plan. We'll increase his activity as tolerated. We'll continue to follow make further recommendations based on his clinical status. I, the cosigning physician, performed a history & physical examination of the patient. Lungs sounds with bilateral end expiratory wheeze. Maintaining good O2 saturations in the 90s on room air. I discussed the assessment and plan of care with my nurse practitioner, Lashonda Damico. I attest to the above note as dictated by her.
[2019-10-05 17:29] LABS: Glucose,Whole Blood 197 mg/dL (75-99)
[2019-10-05 20:33] LABS: Glucose,Whole Blood 175 mg/dL (75-99)
[2019-10-06] MEDS: IPRATROPIUM-ALBUTEROL 3 ML NEB INHALATION SCH ×4 (03:08→15:30)
[2019-10-06] MEDS: methylPREDNISolone SOD SUCCI 125 MG/2 ML VIAL IV SCH (05:22)
[2019-10-06] MEDS: SODIUM CHLORIDE 0.9% 1,000 ML IV SCH (05:24)
--- NOTE | 2019-10-06 06:47 | P.PN ---
Subjective Progress Note Date: 10/05/19 Principal diagnosis: This is a pleasant 59 years old male with past medical history of atrial fibrillation, COPD, pneumonia, alcohol abuse, delirium tremens, glaucoma, prostate cancer who presents because of dyspnea wwith cough and phlegm of one day duration , no chest pain , no diarrhea or change in his urine, no headache, no dizziness. he still smokes cigarettes about 5 cig per day as per pt. no alcohol or illicit drugs he was recently in the hospital about 2 months ago where he was treated for right sided pneumonia but he failed to follow up with his car oiler post discharge Vitas looks stable. Unremarkable CBC, BMP, liver enzymes. Chest x-ray: Clearing of the right upper lobe pneumonia partial. EKG showing sinus tachycardia at [address]-T changes and QTC is 462. On admission patient was started on dual, IV fluids, magnesium replacement, nicotine patch and normal saline at 100 mL per hour with Augmentin. Also was started on Solu-Medrol Review of Systems CONSTITUTIONAL: No fever, no malaise, no fatigue. HEENT: No recent visual problems or hearing problems. Denied any sore throat. CARDIOVASCULAR: No orthopnea, PND, no palpitations, no syncope. PULMONARY: No shortness of breath, no cough, no hemoptysis. GASTROINTESTINAL: No diarrhea, no nausea, no vomiting, no abdominal pain. Normoactive bowel sounds. NEUROLOGICAL: No headaches, no weakness, no numbness. HEMATOLOGICAL: Denies any bleeding or petechiae. GENITOURINARY: Denies any burning micturition, frequency, or urgency. MUSCULOSKELETAL/RHEUMATOLOGICAL: Denies any joint pain, swelling, or any muscle pain. ENDOCRINE: Denies any polyuria or polydipsia. 10/05/2019 Patient is sitting up at the side of the bed in no acute distress. Patient states that his shortness of breath has not improved much from yesterday and states that it worsens when he has coughing spells. He states that his cough feels somewhat productive but he isn't able to expectorate any phlegm. Patient denies any chest pain or palpitations. Patient has been afebrile. Patient denies any nausea or vomiting and is tolerating diet. Patient denies any lightheadednes s or dizziness and has been getting up to the bathroom. Encouraged the patient to get up and walk around and to continue with cough and deep breathing. No acute overnight issues. Will continue to monitor closely. Objective - Vital Signs Vital signs: Vital Signs Temp 98.2 F 10/05/19 04:55 Pulse 88 10/05/19 11:28 Resp 20 10/05/19 04:55 BP 149/85 10/05/19 04:55 Pulse Ox 97 10/05/19 07:15 Intake & Output 10/04/19 10/05/19 10/05/19 18:59 06:59 18:59 Intake Total 720 1000 Balance 720 1000 Intake: Oral 720 1000 Other: Voiding Method Toilet # Voids 3 2 - Exam GENERAL: The patient is alert and oriented x3, not in any acute distress. Well developed, well nourished. HEENT: Pupils are round and equally reacting to light. EOMI. No scleral icterus. No conjunctival pallor. Normocephalic, atraumatic. No pharyngeal erythema. No thyromegaly. CARDIOVASCULAR: S1 and S2 present. No murmurs, rubs, or gallops. -PULMONARY: Chest is clear to auscultation, bilateral scattered wheezing that is somewhat noticed on expiration ABDOMEN: Soft, nontender, nondistended, normoactive bowel sounds. No palpable organomegaly. MUSCULOSKELETAL: No joint swelling or deformity. EXTREMITIES: No cyanosis, clubbing, or pedal edema. NEUROLOGICAL: Gross neurological examination did not reveal any focal deficits. SKIN: No rashes. No petechiae - Labs CBC & Chem 7: 10/03/19 16:15 10/03/19 16:15 Labs: Abnormal Lab Results - Last 24 Hours (Table) 10/04/19 10/04/19 10/05/19 Range/Units 17:09 20:39 07:22 POC Glucose (mg/dL) 149 H 146 H 141 H (75-99) mg/dL 10/05/19 Range/Units 12:10 POC Glucose (mg/dL) 133 H (75-99) mg/dL Microbiology - Last 24 Hours (Table) 10/04/19 14:06 Gram Stain - Preliminary Sputum 10/03/19 16:25 Blood Culture - Preliminary Blood No Growth after 24 hours Assessment and Plan Assessment: -Acute COPD exacerbation -Recent history of dementia acquired upper lobe pneumonia on 07/2019 -Chronic paroxysmal atrial fibrillation -Alcohol abuse at-risk of local withdrawal -History of delirium tremens -History of glaucoma -History of prostate cancer -DVT prophylaxis: Heparin subq -GI prophylaxis: Pepcid Recommendations and discussion: Recommend to continue current medications, management, and symptomatic treatment. Will continue to monitor closely. Pulmonary is following. Encouraged the patient to increase his activity. Will continue with bronchodilators, oral antibiotics, and steroids at this time. May transition to oral tomorrow. Guarded prognosis. Further recommendations to follow. Possible discharge in 24-48 hours.
[2019-10-06] MEDS: FORMOTEROL FUMARATE 20 MCG/2 ML NEBU INHALATION SCH (07:29)
[2019-10-06] MEDS: BUDESONIDE 1 MG/2 ML NEBU INHALATION SCH (07:29)
[2019-10-06 07:31] LABS: Glucose,Whole Blood 128 mg/dL (75-99)
[2019-10-06] MEDS: THIAMINE 100 MG TAB PO SCH (08:36)
[2019-10-06] MEDS: AMOXIC-POT CLAV 875-125MG 1 EACH TAB PO SCH (08:36)
[2019-10-06] MEDS: NICOTINE 14MG/24HR PATCH TRANSDERM SCH (08:36)
[2019-10-06] MEDS: INSULIN ASPART (NovoLOG) 100 UNIT/ML VIAL SQ SCH ×2 (08:36→13:16)
[2019-10-06] MEDS ORDERED: BENZONATATE 100 MG CAP PO PRN (10:26)
[2019-10-06] MEDS ORDERED: guaiFENesin 600 MG TABLET.ER PO PRN (10:26)
[2019-10-06] MEDS ORDERED: predniSONE 20 MG TAB PO SCH (10:30)
--- NOTE | 2019-10-06 11:43 | P.PN ---
Subjective Progress Note Date: 10/06/19 Principal diagnosis: Acute exacerbation of chronic obstructive pulmonary disease, complicated by purulent tracheobronchitis. This is a 59-year-old white male patient who currently has no primary care provider, who we had previously seen back in July 2019 for right upper lobe pneumonia. Patient was treated with antibiotics, he had a bronchoscopy with bronchial alveolar lavage, and the cultures were negative, and the final culture just showed Faith, penicillium species and Aspergillus not fumigatus. Transbronchial biopsy of the right upper lobe showed bronchial mucosa with acute and chronic inflammation, but negative for malignant cells. Cytology of the right upper lobe showed no cytologically malignant cells. Patient was treated, and discharged home, however he never followed up in the outpatient clinic for follow-up chest x-ray. He is a chronic smoker, smoking cigarettes a day, he has history of COPD, his previous CT chest showed chronic bronchiectasis, he has history of paroxysmal atrial fibrillation, prostate cancer status post brachii therapy and history of glaucoma. He has a previous history of alcohol abuse, currently denies drinking. Patient presents to the emergency department on 10/03/2019 with complaints of increasing shortness of breath, cough, phlegm production, subjective fever and chills. He states he was helping his relative move a few days ago, and for last couple of days his breathing has been increasingly worse. Denied any chest pain, denied any hemoptysis. Reports sweats and chills, and some chest tightness. Chest x-ray showed partial clearing of right upper lobe pneumonia compared to his last exam on 08/05/2019, and it was estimated to be 50% cleared. The left lung is clear. Lab work showed white blood cell count of 9.6, hemoglobin of 14.3, correlation profile was within normal limits, electrolytes and renal profile were unremarkable, troponin was negative, proBNP was 120, patient has been started on oral antibiotics in the form of Augmentin, nebulized bronchodilators, and IV steroids, and was seeing this patient in consultation for acute COPD exacerbation with partial clearing of previously known right upper lobe pneumonia. The patient is seen today 10/05/2019 in follow-up on the regular medical floor. He is currently sitting up at the bedside. Still quite dyspneic on minimal exertion. Still a loose productive cough. Currently maintaining O2 saturations in the mid 90s on room air. He is afebrile. Blood culture reveals no growth. Sputum culture pending. Blood glucose 133. He is continued on DuoNeb inhalations, Pulmicort and Perforomist inhalations, IV Solu-Medrol. Antibiotics in the form of Augmentin. NicoDerm patch is in place. Patient is seen today 10/06/2019 in follow-up on the regular medical floor. He is awake and alert in no acute distress. Resting comfortably in bed. Breathing a bit easier today compared to yesterday. Still has some dyspnea on minimal exertion. He is maintaining good O2 saturations in the 90s on room air. He's been afebrile. Hemodynamically stable. Blood and sputum cultures reveal no growth. Blood glucose 128. He is continued on DuoNeb inhalations, Pulmicort and Perforomist inhalations, prednisone. Antibiotics in the form of Augmentin. NicoDerm patch is in place. Objective - Vital Signs Vital signs: Vital Signs Temp 97.9 F 10/06/19 09:19 Pulse 97 10/06/19 09:19 Resp 28 H 10/06/19 09:48 BP 117/65 10/06/19 09:19 Pulse Ox 94 L 10/06/19 09:19 Intake & Output 10/05/19 10/06/19 10/06/19 18:59 06:59 18:59 Other: Voiding Method Toilet # Voids 3 3 - Exam GENERAL EXAM: Alert, pleasant, 59-year-old male patient, on room air with a pulse ox of 94% comfortable in no apparent distress. HEAD: Normocephalic/atraumatic. EYES: Normal reaction of pupils, equal size. Conjunctiva pink, sclera white. NOSE: Clear with pink turbinates. THROAT: No erythema or exudates. NECK: No masses, no JVD, no thyroid enlargement, no adenopathy. CHEST: No chest wall deformity. Symmetrical expansion. LUNGS: Diminished breath sounds, bilateral end expiratory wheeze. CVS: Regular rate and rhythm, normal S1 and S2, no gallops, no murmurs, no rubs ABDOMEN: Soft, nontender. No hepatosplenomegaly, normal bowel sounds, no guarding or rigidity. EXTREMITIES: No clubbing, no edema, no cyanosis, 2+ pulses and upper and lower extremities. MUSCULOSKELETAL: Muscle strength and tone normal. SPINE: No scoliosis or deformity SKIN: No rashes CENTRAL NERVOUS SYSTEM: No focal deficits, tone is normal in all 4 extremities. PSYCHIATRIC: Alert and oriented -3. Appropriate affect. Intact judgment and insight. - Labs CBC & Chem 7: 10/03/19 16:15 10/03/19 16:15 Labs: Abnormal Lab Results - Last 24 Hours (Table) 10/05/19 10/05/19 10/05/19 Range/Units 12:10 17:17 20:22 POC Glucose (mg/dL) 133 H 197 H 175 H (75-99) mg/dL 10/06/19 Range/Units 07:28 POC Glucose (mg/dL) 128 H (75-99) mg/dL Microbiology - Last 24 Hours (Table) 10/03/19 16:25 Blood Culture - Preliminary Blood No Growth after 48 hours Assessment and Plan Assessment: #1. Acute exacerbation of chronic obstructive pulmonary disease, complicated by purulent tracheobronchitis, chest x-ray showed partial clearing of the previously treated right upper lobe pneumonia #2. Hospitalization in July 2019 for community-acquired right upper lobe pneumonia, with bronchoalveolar lavage cultures show no growth other than Penicillium species and Aspergillus not fumigatus, likely contaminant. Right upper lobe transbronchial biopsy showed no malignant cells, cytology of the right upper lobe was negative #3. History of COPD/emphysema, and chronic bronchiectasis #4. Chronic and ongoing nicotine dependence patient carries at least [id number] smoking history #5. Previous history of pneumonias #6. History of paroxysmal atrial fibrillation, currently in sinus mechanism, not on any chronic anticoagulation #7. History of chronic alcoholism #8. History of prostate cancer status post radiation therapy #9. History of glaucoma Plan: The patient was seen and evaluated by Dr. Smith. He is improved today compared to yesterday. We'll continue the current treatment plan. On prednisone and oral antibiotics. Upon discharge, follow-up in our office in 1-2 weeks' time. He is again encouraged regarding the importance of complete smoking cessation. He will call sooner with any recurrence of symptoms or other questions or concerns. I, the cosigning physician, performed a history & physical examination of the patient. Lungs sounds with bilateral end expiratory wheeze. Maintaining good O2 saturations in the 90s on room air. I discussed the assessment and plan of care with my nurse practitioner, Lashonda Damico. I attest to the above note as dictated by her.
[2019-10-06 11:54] LABS: Glucose,Whole Blood 103 mg/dL (75-99)
--- NOTE | 2019-10-06 14:22 | P.DS ---
Providers Date of admission: 10/05/19 12:02 Expected date of discharge: 10/06/19 Attending physician: Ran Sanchez MD Consults: 10/03/19 18:35 Consult Physician Routine Consulting Provider: Adan Smith Consult Reason/Comments: COPD exacerbation Do you want consulting provider notified?: Yes Primary care physician: Stated None Hospital Course: Final diagnosis -Acute COPD exacerbation -Recent history of community acquired upper lobe pneumonia on 07/2019 -Chronic paroxysmal atrial fibrillation -Alcohol abuse at-risk of local withdrawal -History of delirium tremens -History of glaucoma -History of prostate cancer -DVT prophylaxis -GI prophylaxis Discharge disposition Patient is being discharged in a stable condition with guarded prognosis to home and will follow up with pulmonary in the outpatient setting in one week. Patient will continue on oral antibiotics along with a prednisone taper upon discharge. Prescriptions were written for refills on inhalers as he states he has none at home. History of present illness This is a 59-year-old male who was recently admitted for acute exacerbation of chronic obstructive pulmonary disease along with acute respiratory distress syndrome and was being closely monitored. Patient was recently admitted in the hospital in July for pneumonia and had an x-ray upon ED presentation showing a partial clearing of the right upper lobe pneumonia approximately 50%. Patient noticed that his shortness of breath and cough had gotten worse. Patient never followed up with pulmonary after last hospitalization for repeat chest x-rays. Patient denies any chest pain, shortness of breath, or palpitations at this time. Patient is afebrile. Patient denies any nausea or vomiting and is tolerating diet. Patient continues to have a cough and states that he is not bringing up any phlegm but the cough continues to make him quite short of breath. Discussed with the patient at length about avoiding tobacco use and prescription written for Nicotrol patches. Currently patient's condition is stable with improvement and is ready for discharge today. She will continue on a prednisone taper along with inhalers and complete the course of antibiotics in the outpatient setting and will follow-up with pulmonary in 1-2 weeks. On exam vital signs are stable. Temp is 97.9F, pulse is 97, respirations are 18, blood pressure 117/65, oxygen saturation is 94% on room air. Cardio S1, S2 are present. Respiratory system shows diminished breath sounds at the bases with no wheezing or crackles noted. Abdomen is soft, thin, non-tender. Nervous system shows no focal deficits. Please refer to medication reconciliation sheet for a list of medications. Patient Condition at Discharge: Fair Plan - Discharge Summary Discharge Rx Participant: No New Discharge Prescriptions: New Amoxic-Pot Clav 875-125Mg [Augmentin 875-125] 1 each PO BID 7 Days #14 tab Nicotine 14Mg/24Hr Patch [Habitrol] 1 patch TRANSDERM DAILY #20 patch guaiFENesin [Mucinex] 600 mg PO Q12HR PRN 6 Days #12 tablet.er PRN Reason: Congestion Benzonatate [Tessalon Perles] 100 mg PO TID PRN 10 Days #30 cap PRN Reason: Cough Thiamine [Vitamin B-1] 100 mg PO BID-W/MEALS 30 Days #60 tab predniSONE 10 mg PO DIRECTED #30 tab Continue Budesonide-Formot 160-4.5 Mcg [Symbicort 160-4.5 Mcg Inhaler] 2 puff INHALATION BID 30 Days #1 inhaler Albuterol Inhaler [Ventolin Hfa Inhaler] 1 - 2 puff INHALATION Q6HR PRN 30 Days #1 inhaler PRN Reason: Shortness Of Breath Or Wheezing Discharge Medication List Albuterol Inhaler [Ventolin Hfa Inhaler] 1 - 2 puff INHALATION Q6HR PRN 30 Days #1 inhaler 10/06/19 [Rx] Amoxic-Pot Clav 875-125Mg [Augmentin 875-125] 1 each PO BID 7 Days #14 tab 10/06/19 [Rx] Benzonatate [Tessalon Perles] 100 mg PO TID PRN 10 Days #30 cap 10/06/19 [Rx] Budesonide-Formot 160-4.5 Mcg [Symbicort 160-4.5 Mcg Inhaler] 2 puff INHALATION BID 30 Days #1 inhaler 10/06/19 [Rx] Nicotine 14Mg/24Hr Patch [Habitrol] 1 patch TRANSDERM DAILY #20 patch 10/06/19 [Rx] Thiamine [Vitamin B-1] 100 mg PO BID-W/MEALS 30 Days #60 tab 10/06/19 [Rx] guaiFENesin [Mucinex] 600 mg PO Q12HR PRN 6 Days #12 tablet.er 10/06/19 [Rx] predniSONE 10 mg PO DIRECTED #30 tab 10/06/19 [Rx] Follow up Appointment(s)/Referral(s): Adan Smith MD [STAFF PHYSICIAN] - 10/13/19 9:00 am Aiden Mayfield MD [REFERRING] - 10/12/19 1:10 pm Patient Instructions/Handouts: How to Stop Smoking (GEN), Cigarette Smoking and Your Health (GEN) Activity/Diet/Wound Care/Special Instructions: Activity Limited until follow-up Complete full course of antibiotics Continue steroid taper Follow-up with primary care provider upon discharge Follow-up with pulmonary as discussed and scheduled in 1-2 weeks. Continue current diet Avoid all tobacco use Discharge Disposition: HOME SELF-CARE
[2019-10-06 15:33] VITALS: RESP 18
[2019-10-06 15:39] VITALS: BP 143/75; TEMP 97.5
[2019-10-06 15:42] VITALS: PULSE 92
== END 2019-10-06 16:02 | disposition home or self-care (01) ==
LOC: EC 15:52 → 4MS4W 18:35 → UNDOADMOB 18:35 → 4MS4W 19:46 → INTOOBSV 10-05 12:02 → OBSVTOIN 10-05 12:02 → UNDODISIN 10-06 16:02
PROVIDERS: ADMIT Internal Medicine; ATTEND Internal Medicine
DX: J43.9 Emphysema, unspecified (principal); J80 Acute respiratory distress syndrome; F10.239 Alcohol dependence with withdrawal, unspecified; F03.90 Unspecified dementia, unspecified severity, without behavioral disturbance, psychotic disturbance, mood disturbance, and anxiety; F17.210 Nicotine dependence, cigarettes, uncomplicated; I48.0 Paroxysmal atrial fibrillation; Z79.51 Long term (current) use of inhaled steroids; Z82.49 Family history of ischemic heart disease and other diseases of the circulatory system; Z82.5 Family history of asthma and other chronic lower respiratory diseases; Z85.46 Personal history of malignant neoplasm of prostate; Z87.01 Personal history of pneumonia (recurrent); Z92.3 Personal history of irradiation; H40.9 Unspecified glaucoma
CPT/HCPCS: 96376 ×4; 96361; 96365; 96375; 99291; 36415; 99406; 94640 ×8; 94760 ×2; 93005; 83880; 80053; 83735; 84484; 85025; 85610; 85730; 87040; 87070; 87205; 87502; 71046; G0378 ×4; S4990 ×4; J2930 ×4; J3475; J7512

== ENCOUNTER 2019-11-11 19:38 | Observation (INO) | payer OTHER ==
[2019-11-11] MEDS ORDERED: IPRATROPIUM-ALBUTEROL 3 ML NEB INHALATION STA ×3 (19:52→22:17)
[2019-11-11] MEDS ORDERED: methylPREDNISolone SOD SUCCI 125 MG/2 ML VIAL IV STA (19:52)
[2019-11-11] MEDS ORDERED: SODIUM CHLORIDE 0.9% 500 ML 500 ML IV STA (19:52)
[2019-11-11] MEDS ORDERED: SODIUM CHLORIDE 0.9% 1,000 ML IV STA (19:52)
--- NOTE | 2019-11-11 19:54 | ED ---
SOB HPI - General Chief Complaint: Shortness of Breath Stated Complaint: SOB,Chest Pain Time Seen by Provider: 11/11/19 19:48 Source: patient, RN notes reviewed Mode of arrival: ambulatory Limitations: no limitations - History of Present Illness Initial Comments: This is a [id number] male history of COPD history of alcoholism a smoker who quit smoking 2 weeks ago who presents with complaints of shortness of breath is gotten progressively worse over last week or so he states he did run out of his home medications. He states he does have a cough with thick white phlegm he has chest tightness but no particular area pain. No palpitations no nausea vomiting no other symptoms. He does have exertional dyspnea and dyspnea at rest. MD Complaint: shortness of breath, cough - Related Data Previous Rx's Medication Instructions Recorded Albuterol Inhaler [Ventolin Hfa 1 - 2 puff INHALATION Q6HR PRN 30 10/06/19 Inhaler] Days #1 inhaler Amoxic-Pot Clav 875-125Mg 1 each PO BID 7 Days #14 tab 10/06/19 [Augmentin 875-125] Benzonatate [Tessalon Perles] 100 mg PO TID PRN 10 Days #30 cap 10/06/19 Budesonide-Formot 160-4.5 Mcg 2 puff INHALATION BID 30 Days #1 10/06/19 [Symbicort 160-4.5 Mcg Inhaler] inhaler Ipratropium-Albuterol Nebulize 3 ml INHALATION RT-Q4H 30 Days 10/06/19 [Duoneb 0.5 mg-3 mg/3 ml Soln] #180 ampul.neb Nicotine 14Mg/24Hr Patch [Habitrol] 1 patch TRANSDERM DAILY #20 patch 10/06/19 Thiamine [Vitamin B-1] 100 mg PO BID-W/MEALS 30 Days #60 10/06/19 tab guaiFENesin [Mucinex] 600 mg PO Q12HR PRN 6 Days #12 10/06/19 tablet.er predniSONE 10 mg PO DIRECTED #30 tab 10/06/19 Allergies Allergy/AdvReac Type Severity Reaction Status Date / Time No Known Allergies Allergy Verified 11/11/19 19:45 Review of Systems ROS Statement: Those systems with pertinent positive or pertinent negative responses have been documented in the HPI. ROS Other: All systems not noted in ROS Statement are negative. Past Medical History Past Medical History: Atrial Fibrillation, Cancer, COPD, Eye Disorder, Pneumonia, Prostate Disorder Additional Past Medical History / Comment(s): ETOH abuse, DTs, tracheobronchitis, pneumonias, pleurisy, acute respiratory failure/vented, bilat eral glaucoma, prostate cancer History of Any Multi-Drug Resistant Organisms: None Reported Past Surgical History: Hernia Repair, Prostate Surgery, Tonsillectomy Additional Past Surgical History / Comment(s): R inguinal hernia repair, prostate-radiation implant, colonoscopy-normal Past Anesthesia/Blood Transfusion Reactions: No Reported Reaction Past Psychological History: No Psychological Hx Reported Smoking Status: Current every day smoker Past Alcohol Use History: Daily, Heavy Past Drug Use History: None Reported - Past Family History Father Family Medical History: COPD Additional Family Medical History / Comment(s): Father of COPD in his 70's Mother Family Medical History: Coronary Artery Disease (CAD) Additional Family Medical History / Comment(s): Mother of heart disease at the age of 65 yrs. General Exam - General Exam Comments Initial Comments: This is a well-developed sec appearing male who is awake alert oriented 3 Limitations: no limitations General appearance: alert, anxious, in distress Head exam: Present: atraumatic, normocephalic, normal inspection Eye exam: Present: normal appearance, PERRL, EOMI. Absent: scleral icterus, conjunctival injection, periorbital swelling ENT exam: Present: mucous membranes dry Neck exam: Present: normal inspection. Absent: tenderness, meningismus, lymphadenopathy Respiratory exam: Present: wheezes, accessory muscle use, decreased breath joy nds. Absent: respiratory distress, rales, rhonchi, stridor, chest wall tenderness Cardiovascular Exam: Present: normal rhythm, tachycardia, normal heart sounds. Absent: systolic murmur, diastolic murmur, rubs, gallop, clicks GI/Abdominal exam: Present: soft, normal bowel sounds. Absent: distended, tenderness, guarding, rebound, rigid Extremities exam: Present: normal inspection, full ROM, normal capillary refill. Absent: tenderness, pedal edema, joint swelling, calf tenderness Back exam: Present: normal inspection Neurological exam: Present: alert, oriented X3, CN II-XII intact Psychiatric exam: Present: normal affect, normal mood Skin exam: Present: warm, dry, intact, normal color. Absent: rash Course Vital Signs 11/11/19 11/11/19 11/11/19 19:42 20:27 20:34 Temperature 97.7 F Pulse Rate 101 H 88 84 Respiratory 26 H Rate Blood Pressure 115/68 O2 Sat by Pulse 97 Oximetry 11/11/19 11/11/19 11/11/19 21:16 21:21 21:24 Temperature Pulse Rate 92 77 80 Respiratory 18 Rate Blood Pressure 124/73 O2 Sat by Pulse 99 Oximetry - Reevaluation(s) Reevaluation #1: 11/11/19 22:18 Did reevaluate the patient multiple occasions he is getting minimal improvement thus far with the treatment rendered. Medical Decision Making - Medical Decision Making Patient is not responding to the initial treatment and remains dyspneic. He is failing the initial treatment he will be admitted the case is discussed with Dr. Murray's group who is covering Dr. Barfield - Lab Data Result diagrams: 11/11/19 20:10 11/11/19 20:10 Lab Results 11/11/19 11/11/19 11/11/19 Range/Units 20:10 20:10 20:10 WBC 10.6 (3.8-10.6) k/uL RBC 4.40 (4.30-5.90) m/uL Hgb 14.0 (13.0-17.5) gm/dL Hct 42.2 (39.0-53.0) % MCV 95.8 (80.0-100.0) fL MCH 31.9 (25.0-35.0) pg MCHC 33.2 (31.0-37.0) g/dL RDW 14.1 (11.5-15.5) % Plt Count 254 (150-450) k/uL Neutrophils % 65 % Lymphocytes % 22 % Monocytes % 4 % Eosinophils % 8 % Basophils % 0 % Neutrophils # 6.8 (1.3-7.7) k/uL Lymphocytes # 2.3 (1.0-4.8) k/uL Monocytes # 0.4 (0-1.0) k/uL Eosinophils # 0.8 H (0-0.7) k/uL Basophils # 0.1 (0-0.2) k/uL PT (9.0-12.0) sec INR (<1.2) APTT (22.0-30.0) sec Sodium 141 (137-145) mmol/L Potassium 3.7 (3.5-5.1) mmol/L Chloride 107 (98-107) mmol/L Carbon Dioxide 23 (22-30) mmol/L Anion Gap 11 mmol/L BUN 10 (9-20) mg/dL Creatinine 0.77 (0.66-1.25) mg/dL Est GFR (CKD-EPI)AfAm >90 (>60 ml/min/1.73 sqM) Est GFR (CKD-EPI)NonAf >90 (>60 ml/min/1.73 sqM) Glucose 107 H (74-99) mg/dL Calcium 9.6 (8.4-10.2) mg/dL Magnesium 1.7 (1.6-2.3) mg/dL Total Bilirubin 0.5 (0.2-1.3) mg/dL AST 23 (17-59) U/L ALT 15 (4-49) U/L Alkaline Phosphatase 46 (38-126) U/L Creatine Kinase 52 L (55-170) U/L Troponin I (0.000-0.034) ng/mL NT-Pro-B Natriuret Pep 201 pg/mL Total Protein 7.3 (6.3-8.2) g/dL Albumin 4.5 (3.5-5.0) g/dL 11/11/19 11/11/19 Range/Units 20:10 20:10 WBC (3.8-10.6) k/uL RBC (4.30-5.90) m/uL Hgb (13.0-17.5) gm/dL Hct (39.0-53.0) % MCV (80.0-100.0) fL MCH (25.0-35.0) pg MCHC (31.0-37.0) g/dL RDW (11.5-15.5) % Plt Count (150-450) k/uL Neutrophils % % Lymphocytes % % Monocytes % % Eosinophils % % Basophils % % Neutrophils # (1.3-7.7) k/uL Lymphocytes # (1.0-4.8) k/uL Monocytes # (0-1.0) k/uL Eosinophils # (0-0.7) k/uL Basophils # (0-0.2) k/uL PT 9.8 (9.0-12.0) sec INR 0.9 (<1.2) APTT 26.3 (22.0-30.0) sec Sodium (137-145) mmol/L Potassium (3.5-5.1) mmol/L Chloride (98-107) mmol/L Carbon Dioxide (22-30) mmol/L Anion Gap mmol/L BUN (9-20) mg/dL Creatinine (0.66-1.25) mg/dL Est GFR (CKD-EPI)AfAm (>60 ml/min/1.73 sqM) Est GFR (CKD-EPI)NonAf (>60 ml/min/1.73 sqM) Glucose (74-99) mg/dL Calcium (8.4-10.2) mg/dL Magnesium (1.6-2.3) mg/dL Total Bilirubin (0.2-1.3) mg/dL AST (17-59) U/L ALT (4-49) U/L Alkaline Phosphatase (38-126) U/L Creatine Kinase (55-170) U/L Troponin I <0.012 (0.000-0.034) ng/mL NT-Pro-B Natriuret Pep pg/mL Total Protein (6.3-8.2) g/dL Albumin (3.5-5.0) g/dL - EKG Data -: EKG Interpreted by Me EKG shows normal: sinus rhythm, axis, intervals, QRS complexes, ST-T waves Rate: normal EKG Comments: Normal sinus rhythm at 94. Interval 144 QRS duration 88 QT since QTC 362/[address]-T wave changes. - Radiology Data Radiology results: report reviewed (I did review the imaging and report is evidence of right upper lobe infiltrate that is improved from the last x-ray. Evidence of scarring.), image reviewed Critical Care Time Critical Care Time: Yes Critical Care Time: 35 minutes of critical care time which includes initial presentation with history physical labs x-rays multiple reevaluation the patient to responsive therapy discussion with the admitting physicians admission orders and documentation the above this also included old chart reviews. Disposition Clinical Impression: Acute exacerbation of chronic obstructive pulmonary disease, Acute respiratory distress syndrome in adult Disposition: ADMITTED IP TO THIS HOSP Condition: Fair Referrals: None,Stated [Primary Care Provider] - 1-2 days
[2019-11-11 20:29] LABS: Basophils # (A) 0.1 k/uL (0-0.2); Basophils % (A) 0 %; Eosinophils # (A) 0.8 k/uL (0-0.7); Eosinophils % (A) 8 %; HCT 42.2 % (39.0-53.0); Lymphocytes # (A) 2.3 k/uL (1.0-4.8); Lymphocytes % (A) 22 %; MCH 31.9 pg (25.0-35.0); MCHC 33.2 g/dL (31.0-37.0); MCV 95.8 fL (80.0-100.0); Mean Platelet Volume 7.1; Monocytes # (A) 0.4 k/uL (0-1.0); Monocytes % (A) 4 %; Neutrophils # (A) 6.8 k/uL (1.3-7.7); Neutrophils % (A) 65 %; Platelet Count 254 k/uL (150-450); RDW 14.1 % (11.5-15.5); WBC 10.6 k/uL (3.8-10.6)
[2019-11-11 20:41] LABS: ALT 15 U/L (4-49); AST 23 U/L (17-59); African American GFR (CKD) >90 (>60 ml/min/1.73 sqM); Albumin 4.5 g/dL (3.5-5.0); Alkaline Phosphatase 46 U/L (38-126); Anion Gap 11 mmol/L; Blood Urea Nitrogen 10 mg/dL (9-20); Calcium 9.6 mg/dL (8.4-10.2); Carbon Dioxide 23 mmol/L (22-30); Chloride 107 mmol/L (98-107); Creatine Kinase 52 U/L (55-170); Glucose 107 mg/dL (74-99); Magnesium 1.7 mg/dL (1.6-2.3); Non-African American GFR(CKD) >90 (>60 ml/min/1.73 sqM); Potassium 3.7 mmol/L (3.5-5.1); Sodium 141 mmol/L (137-145); Total Bilirubin 0.5 mg/dL (0.2-1.3); Total Protein 7.3 g/dL (6.3-8.2)
--- NOTE | 2019-11-11 20:42 | XR ---
EXAMINATION TYPE: XR chest 2V DATE OF EXAM: 11/11/2019 COMPARISON: 10/03/2019 HISTORY: Difficulty breathing TECHNIQUE: 2 views FINDINGS: Heart is normal. There is some coarse linear infiltrate in the right upper lobe. The other lung boo are clear. There is no heart failure. There is no pleural effusion. Bony thorax is intact . IMPRESSION: There is some chronic linear infiltrate in the right upper lobe consistent with scarring and atelectasis slightly improved compared to last exam. Normal heart.
[2019-11-11 20:45] LABS: INR 0.9 (<1.2); Partial Thromboplastin Time 26.3 sec (22.0-30.0); Prothrombin Time 9.8 sec (9.0-12.0)
[2019-11-11] MEDS ORDERED: MAGNESIUM SULFATE-D5W PMX 1 GM in DEXTROSE/WATER 1 100ML.BAG IVPB ONE ×2 (20:58→22:18)
[2019-11-11] MEDS: IPRATROPIUM-ALBUTEROL 3 ML NEB INHALATION SCH (23:02)
[2019-11-12] MEDS: methylPREDNISolone SOD SUCCI 125 MG/2 ML VIAL IV SCH ×4 (00:52→17:06)
[2019-11-12] MEDS: SODIUM CHLORIDE 0.9% 1,000 ML IV SCH ×2 (00:54→11:13)
[2019-11-12] MEDS: IPRATROPIUM-ALBUTEROL 3 ML NEB INHALATION SCH ×4 (04:03→17:06)
[2019-11-12] MEDS ORDERED: AMOXIC-POT CLAV 875-125MG 1 EACH TAB PO SCH (09:00)
[2019-11-12 14:25] VITALS: BP 132/60; RESP 17; TEMP 98.3
--- NOTE | 2019-11-12 15:05 | P.DS ---
Providers Date of admission: 11/11/19 22:26 Attending physician: Carol Flanagan Primary care physician: Stated None Hospital Course: Please refer to my HPI for further details Patient Condition at Discharge: Fair Plan - Discharge Summary Discharge Rx Participant: Yes New Discharge Prescriptions: New Doxycycline Monohydrate [Monodox] 100 mg PO BID 3 Days #6 cap Famotidine [Pepcid] 20 mg PO BID #30 tablet predniSONE 10 mg PO DAILY #30 tab Tiotropium [place] [Spiriva] 1 cap INHALATION DAILY #1 device Budesonide-Formot 160-4.5 Mcg [Symbicort 160-4.5 Mcg Inhaler] 2 puff INHALATION BID #1 inhaler Albuterol Inhaler [Ventolin Hfa Inhaler] 1 - 2 puff INHALATION Q6HR PRN #1 inhaler PRN Reason: Shortness Of Breath Or Wheezing Discharge Medication List Albuterol Inhaler [Ventolin Hfa Inhaler] 1 - 2 puff INHALATION Q6HR PRN #1 inhaler 11/12/19 [Rx] Budesonide-Formot 160-4.5 Mcg [Symbicort 160-4.5 Mcg Inhaler] 2 puff INHALATION BID #1 inhaler 11/12/19 [Rx] Doxycycline Monohydrate [Monodox] 100 mg PO BID 3 Days #6 cap 11/12/19 [Rx] Famotidine [Pepcid] 20 mg PO BID #30 tablet 11/12/19 [Rx] Tiotropium [place] [Spiriva] 1 cap INHALATION DAILY #1 device 11/12/19 [Rx] predniSONE 10 mg PO DAILY #30 tab 11/12/19 [Rx] Follow up Appointment(s)/Referral(s): Hazel Hardy MD [STAFF PHYSICIAN] - 1 Week None,Stated [Primary Care Provider] - 1-2 days Patient Instructions/Handouts: ARDS (Acute Respiratory Distress Syndrome) (GEN), COPD (Chronic Obstructive Pulmonary Disease) (DC), COPD (Chronic Obstructive Pulmonary Disease) (GEN) Discharge Disposition: HOME SELF-CARE
--- NOTE | 2019-11-12 15:05 | P.HPIM ---
History of Present Illness Patient is a pleasant 59-year-old male with known history of COPD doesn't use any oxygen at home came in with the complaints of shortness of breath which started about 2-3 days ago and patient quit smoking 3 weeks ago. Patient is f eeling better will ablate the patient if patient is saturating well patient will be discharged on weaning dose of steroids patient is comparing of cough with thick white to yellowish sputum production denied any chest pain at this time patient had some chest tightness because of his COPD. Patient denied any fever chills chest x-ray did not show any pneumonic process. Patient denied any alcohol abuse. Patient doesn't appear to be following any primary care physician and he ran out of his inhalers. Review of Systems REVIEW OF SYSTEMS: CONSTITUTIONAL: No fever, no malaise, no fatigue. HEENT: No recent visual problems or hearing problems. Denied any sore throat. CARDIOVASCULAR: No chest pain, orthopnea, PND, no palpitations, no syncope. PULMONARY:no hemoptysis. GASTROINTESTINAL: No diarrhea, no nausea, no vomiting, no abdominal pain. NEUROLOGICAL: No headaches, no weakness, no numbness. HEMATOLOGICAL: Denies any bleeding or petechiae. GENITOURINARY: Denies any burning micturition, frequency, or urgency. MUSCULOSKELETAL/RHEUMATOLOGICAL: Denies any joint pain, swelling, or any muscle pain. ENDOCRINE: Denies any polyuria or polydipsia. The rest of the 14-point review of systems is negative. Past Medical History Past Medical History: Atrial Fibrillation, Cancer, COPD, Eye Disorder, Pneumonia, Prostate Disorder Additional Past Medical History / Comment(s): ETOH abuse, DTs, tr acheobronchitis, pneumonias, pleurisy, acute respiratory failure/vented, bilateral glaucoma, prostate cancer History of Any Multi-Drug Resistant Organisms: None Reported Past Surgical History: Hernia Repair, Prostate Surgery, Tonsillectomy Additional Past Surgical History / Comment(s): R inguinal hernia repair, prostate-radiation implant, colonoscopy-normal Past Anesthesia/Blood Transfusion Reactions: No Reported Reaction Past Psychological History: No Psychological Hx Reported Additional Psychological History / Comment(s): Pt is living with his niece. He rides his bike or walks. Smoking Status: Former smoker Past Alcohol Use History: Daily, Heavy Additional Past Alcohol Use History / Comment(s): Pt states he started smoking as a teen and is a 1.5 ppd smoker. States he stopped smoking about 3 weeks ago. Pt states he drinks a couple like 2 beer a day. Last drank today. Past Drug Use History: None Reported - Past Family History Father Family Medical History: COPD Additional Family Medical History / Comment(s): Father of COPD in his 70's Mother Family Medical History: Coronary Artery Disease (CAD) Additional Family Medical History / Comment(s): Mother of heart disease at the age of 65 yrs. Medications and Allergies Home Medications Medication Instructions Recorded Confirmed Type Albuterol Inhaler [Ventolin Hfa 1 - 2 puff INHALATION Q6HR PRN #1 11/12/19 Rx Inhaler] inhaler Budesonide-Formot 160-4.5 Mcg 2 puff INHALATION BID #1 inhaler 11/12/19 Rx [Symbicort 160-4.5 Mcg Inhaler] Doxycycline Monohydrate [Monodox] 100 mg PO BID 3 Days #6 cap 11/12/19 Rx Famotidine [Pepcid] 20 mg PO BID #30 tablet 11/12/19 Rx Tiotropium [place] [Spiriva] 1 cap INHALATION DAILY #1 device 11/12/19 Rx predniSONE 10 mg PO DAILY #30 tab 11/12/19 Rx Allergies Allergy/AdvReac Type Severity Reaction Status Date / Time No Known Allergies Allergy Verified 11/11/19 22:44 Physical Exam Vitals: Vital Signs Temp Pulse Pulse Resp BP BP Pulse Ox 11/12/19 14:25 98.3 F 72 17 132/60 96 11/12/19 11:42 76 11/12/19 11:30 72 11/12/19 08:26 76 11/12/19 08:18 73 11/12/19 07:00 97.9 F 73 16 147/80 96 11/12/19 04:43 16 11/12/19 04:13 88 11/12/19 04:03 81 95 11/12/19 00:13 16 11/11/19 23:27 98.0 F 79 16 175/86 94 L 11/11/19 23:02 88 16 11/11/19 22:52 88 16 11/11/19 22:51 85 H 147/80 96 11/11/19 21:24 80 11/11/19 21:21 77 18 124/73 99 11/11/19 21:16 92 11/11/19 20:34 84 11/11/19 20:27 88 11/11/19 19:42 97.7 F 101 H 26 H 115/68 97 Intake and Output 11/12/19 11/12/19 11/12/19 06:59 14:59 22:59 Output Total 500 Balance -500 Output: Urine 500 Other: Voiding Method Toilet # Voids 1 1 Weight 58.06 kg PHYSICAL EXAMINATION: GENERAL: The patient is alert and oriented x3, not in any acute distress. Well developed, well nourished. HEENT: Pupils are round and equally reacting to light. EOMI. No scleral icterus. No conjunctival pallor. Normocephalic, atraumatic. No pharyngeal erythema. No thyromegaly. CARDIOVASCULAR: S1 and S2 present. No murmurs, rubs, or gallops. PULMONARY: Good air entry into bilateral lung boo minimal expiratory wheezing on exam ABDOMEN: Soft, nontender, nondistended, normoactive bowel sounds. No palpable organomegaly. MUSCULOSKELETAL: No joint swelling or deformity. EXTREMITIES: No cyanosis, clubbing, or pedal edema. NEUROLOGICAL: Gross neurological examination did not reveal any focal deficits. SKIN: No rashes. Results CBC & Chem 7: 11/11/19 20:10 11/11/19 20:10 Labs: Abnormal Lab Results - Last 24 Hours (Table) 11/11/19 11/11/19 Range/Units 20:10 20:10 Eosinophils # 0.8 H (0-0.7) k/uL Glucose 107 H (74-99) mg/dL Creatine Kinase 52 L (55-170) U/L Thrombosis Risk Factor Assmnt - Choose All That Apply Each Factor Represents 1 point: Abnormal pulmonary function (COPD), Age 41-60 years Thrombosis Risk Factor Assessment Total Risk Factor Score: 2 Thrombosis Risk Factor Assessment Level: Low Risk Assessment and Plan Plan: COPD exacerbation without any evidence of pneumonia: Patient will be discharged on weaning dose of steroids patient will will prescribe albuterol ipratropium as well. -Patient had history of A. fib but has not been taking any medications for for this and the patient will be asked to to follow up with the cardiology as an outpatient will not be initiated on any medications now, patient probably has proximal A. fib patient is presently normal sinus rhythm. -History of prostate cancer in all call abuse in the past patient denies abusing alcohol.
[2019-11-12 17:18] VITALS: PULSE 74
== END 2019-11-12 17:51 | disposition home or self-care (01) ==
LOC: EC 19:38 → 4SSUR 22:26
PROVIDERS: ADMIT Internal Medicine; ATTEND Internal Medicine
DX: J44.1 Chronic obstructive pulmonary disease with (acute) exacerbation (principal); I48.91 Unspecified atrial fibrillation; H40.9 Unspecified glaucoma; Z91.128 Patient's intentional underdosing of medication regimen for other reason; Z87.891 Personal history of nicotine dependence; Z85.46 Personal history of malignant neoplasm of prostate; Z87.01 Personal history of pneumonia (recurrent); Z87.09 Personal history of other diseases of the respiratory system; Z98.890 Other specified postprocedural states; Z90.89 Acquired absence of other organs; Z92.3 Personal history of irradiation; Z79.51 Long term (current) use of inhaled steroids; Z79.899 Other long term (current) drug therapy; Z82.5 Family history of asthma and other chronic lower respiratory diseases; Z82.49 Family history of ischemic heart disease and other diseases of the circulatory system
CPT/HCPCS: 96376 ×2; 96365; 96366; 96375; 99291; 36415; 94640 ×4; 94760; 93005; 83880; 80053; 82550; 83735; 84484; 85025; 85610; 85730; 71046; G0378 ×2; J2930 ×2; J3475

== ENCOUNTER 2020-03-13 15:15 | Inpatient (IN) | payer OTHER ==
--- NOTE | 2020-03-13 16:17 | XR ---
EXAMINATION TYPE: XR chest 1V portable DATE OF EXAM: 03/13/2020 COMPARISON: Chest x-ray November 11, 2019 and older studies. HISTORY: Shortness of breath cough and congestion, suspected cold with pneumonia. TECHNIQUE: Single AP portable frontal upright view of the chest is obtained. FINDINGS: There is background chronic parenchymal change with new left basilar opacity silhouetting left heart border. Persistent right suprahilar linear scarring. The cardiac silhouette size is diffi cult to assess due to silhouetting left heart border. Atherosclerotic change aortic knob redemonstrat ed. Old left midclavicular fracture noted. IMPRESSION: Chronic parenchymal changes with new lingular acute infiltrate.
[2020-03-13 16:52] LABS: ALT 16 U/L (4-49); AST 25 U/L (17-59); African American GFR (CKD) >90 (>60 ml/min/1.73 sqM); Albumin 4.5 g/dL (3.5-5.0); Alkaline Phosphatase 51 U/L (38-126); Anion Gap 13 mmol/L; Blood Urea Nitrogen 17 mg/dL (9-20); Calcium 9.1 mg/dL (8.4-10.2); Carbon Dioxide 22 mmol/L (22-30); Chloride 97 mmol/L (98-107); Glucose 118 mg/dL (74-99); LDH 454 U/L (313-618); Magnesium 1.3 mg/dL (1.6-2.3); Non-African American GFR(CKD) >90 (>60 ml/min/1.73 sqM); Sodium 132 mmol/L (137-145); Total Bilirubin 1.2 mg/dL (0.2-1.3); Total Protein 7.6 g/dL (6.3-8.2)
[2020-03-13 17:00] LABS: D-Dimer 0.57 mg/L FEU (<0.60); Partial Thromboplastin Time 27.6 sec (22.0-30.0); Prothrombin Time 10.5 sec (9.0-12.0)
[2020-03-13 17:03] LABS: C Reactive Protein 240.8 mg/L (<10.0)
[2020-03-13 17:19] LABS: Basophils % (A) 0 %; Eosinophils % (A) 0 %; HCT 47.1 % (39.0-53.0); HGB 15.3 gm/dL (13.0-17.5); Lymphocytes # (A) 0.7 k/uL (1.0-4.8); Lymphocytes % (A) 5 %; MCH 31.2 pg (25.0-35.0); MCHC 32.4 g/dL (31.0-37.0); MCV 96.2 fL (80.0-100.0); Mean Platelet Volume 7.7; Monocytes # (A) 0.7 k/uL (0-1.0); Monocytes % (A) 5 %; Neutrophils # (A) 12.6 k/uL (1.3-7.7); Neutrophils % (A) 89 %; Platelet Count 228 k/uL (150-450); WBC 14.1 k/uL (3.8-10.6)
--- NOTE | 2020-03-13 17:19 | ED ---
General Adult HPI - General Chief complaint: Shortness of Breath Stated complaint: short of breath, flank pain Time Seen by Provider: 03/13/20 15:30 Source: patient, RN notes reviewed, old records reviewed Mode of arrival: wheelchair Limitations: no limitations - History of Present Illness Initial comments: This is a 59-year-old male who presents emergency Department complaining of pain in his left chest that radiates to his left shoulder. Patient states started last night when he was just sitting around relaxant. Patient states it's worse with movement or deep breathing. Patient states she also feels very short of breath. Patient has a history of COPD and states she quit smoking about a month and a half ago. Patient denies any fever chills or cough. Patient denies headache patient denies numbness weakness. Patient denies abdominal pain patient denies nausea vomiting diarrhea. Patient denies any lightheadedness or dizziness. Patient denies any swelling to his calves or calf tenderness. - Related Data Previous Rx's Medication Instructions Recorded Albuterol Inhaler (Bulk) [Ventolin 1 - 2 puff INHALATION Q6HR PRN #1 11/12/19 Hfa Inhaler (Bulk)] inhaler Budesonide-Formot 160-4.5 Mcg 2 puff INHALATION BID #1 inhaler 11/12/19 [Symbicort 160-4.5 Mcg Inhaler] Doxycycline Monohydrate [Monodox] 100 mg PO BID 3 Days #6 cap 11/12/19 Famotidine [Pepcid] 20 mg PO BID #30 tablet 11/12/19 Tiotropium [place] [Spiriva] 1 cap INHALATION DAILY #1 device 11/12/19 predniSONE 10 mg PO DAILY #30 tab 11/12/19 Allergies Allergy/AdvReac Type Severity Reaction Status Date / Time No Known Allergies Allergy Verified 03/13/20 15:32 Review of Systems ROS Statement: Those systems with pertinent positive or pertinent negative responses have been documented in the HPI. ROS Other: All systems not noted in ROS Statement are negative. Past Medical History Past Medical History: Atrial Fibrillation, Cancer, COPD, Eye Disorder, Pneumonia, Prostate Disorder Additional Past Medical History / Comment(s): ETOH abuse, DTs, tracheobronchitis, pneumonias, pleurisy, acute respiratory failure/vented, bilateral glaucoma, prostate cancer History of Any Multi-Drug Resistant Organisms: None Reported Past Surgical History: Hernia Repair, Prostate Surgery, Tonsillectomy Additional Past Surgical History / Comment(s): R inguinal hernia repair, prostate-radiation implant, colonoscopy-normal Past Anesthesia/Blood Transfusion Reactions: No Reported Reaction Past Psychological History: No Psychological Hx Reported Smoking Status: Former smoker Past Alcohol Use History: Daily, Heavy Past Drug Use History: None Reported - Past Family History Father Family Medical History: COPD Additional Family Medical History / Comment(s): Father of COPD in his 70's Mother Family Medical History: Coronary Artery Disease (CAD) Additional Family Medical History / Comment(s): Mother of heart disease at the age of 65 yrs. General Exam - General Exam Comments Initial Comments: GENERAL: Patient is well-developed and well-nourished. Patient is nontoxic and well- hydrated and is in mild distress. ENT: Neck is soft and supple. No significant lymphadenopathy is noted. Oropharynx is clear. Moist mucous membranes. Neck has full range of motion without eliciting any pain. EYES: The sclera were anicteric and conjunctiva were pink and moist. Extraocular movements were intact and pupils were equal round and reactive to light. Eyelids were unremarkable. PULMONARY: Unlabored respirations. Good breath sounds bilaterally. No audible rales rhonchi or wheezing was noted. CARDIOVASCULAR: Patient is tender to the lateral aspect of his left chest. Patient splints with deep breathing. ABDOMEN: Soft and nontender with normal bowel sounds. No palpable organomegaly was noted. There is no palpable pulsatile mass. SKIN: Skin is clear with no lesions or rashes and otherwise unremarkable. NEUROLOGIC: Patient is alert and oriented x3. Cranial nerves II through XII are grossly intact. Motor and sensory are also intact. Normal speech, volume and content. Symmetrical smile. MUSCULOSKELETAL: Normal extremities with adequate strength and full range of motion. Patient is no swelling or calf tenderness. LYMPHATICS: No significant lymphadenopathy is noted PSYCHIATRIC: Normal psychiatric evaluation. Limitations: no limitations Course Vital Signs 03/13/20 03/13/20 15:28 15:32 Temperature 98.2 F Pulse Rate 113 H Respiratory 26 H 20 Rate Blood Pressure 92/56 O2 Sat by Pulse 92 L Oximetry Procedures - [place] Protocol (Time Out) Nurse: Cristiana Saha Medical Decision Making - Medical Decision Making EKG shows sinus tachycardia at 110 bpm FL interval 152 QRS is 76 QT interval 316 QTC is 427. Patient's EKG shows no ST segment elevation or depression. Chest x-ray showed left lower lobe pneumonia. It was determined that he had pneumonia at 605. I spoke with Dr. Murray's PA and he agreed to accept the patient I admitted the patient wrote admitting orders. I started the patient on antibiotics. I gave the P patient 2 L of fluid. - Lab Data Result diagrams: 03/13/20 15:50 03/13/20 15:50 Lab Results 03/13/20 03/13/20 03/13/20 Range/Units 15:50 15:50 15:50 WBC 14.1 H (3.8-10.6) k/uL RBC 4.90 (4.30-5.90) m/uL Hgb 15.3 (13.0-17.5) gm/dL Hct 47.1 (39.0-53.0) % MCV 96.2 (80.0-100.0) fL MCH 31.2 (25.0-35.0) pg MCHC 32.4 (31.0-37.0) g/dL RDW 14.0 (11.5-15.5) % Plt Count 228 (150-450) k/uL Neutrophils % 89 % Lymphocytes % 5 % Monocytes % 5 % Eosinophils % 0 % Basophils % 0 % Neutrophils # 12.6 H (1.3-7.7) k/uL Lymphocytes # 0.7 L (1.0-4.8) k/uL Monocytes # 0.7 (0-1.0) k/uL Eosinophils # 0.0 (0-0.7) k/uL Basophils # 0.0 (0-0.2) k/uL PT 10.5 (9.0-12.0) sec INR 1.0 (<1.2) APTT 27.6 (22.0-30.0) sec D-Dimer 0.57 (<0.60) mg/L FEU Sodium 132 L (137-145) mmol/L Potassium 5.0 (3.5-5.1) mmol/L Chloride 97 L (98-107) mmol/L Carbon Dioxide 22 (22-30) mmol/L Anion Gap 13 mmol/L BUN 17 (9-20) mg/dL Creatinine 0.87 (0.66-1.25) mg/dL Est GFR (CKD-EPI)AfAm >90 (>60 ml/min/1.73 sqM) Est GFR (CKD-EPI)NonAf >90 (>60 ml/min/1.73 sqM) Glucose 118 H (74-99) mg/dL Plasma Lactic Acid Jw (0.7-2.0) mmol/L Calcium 9.1 (8.4-10.2) mg/dL Magnesium 1.3 L (1.6-2.3) mg/dL Total Bilirubin 1.2 (0.2-1.3) mg/dL AST 25 (17-59) U/L ALT 16 (4-49) U/L Alkaline Phosphatase 51 (38-126) U/L Lactate Dehydrogenase 454 (313-618) U/L C-Reactive Protein 240.8 H (<10.0) mg/L Total Protein 7.6 (6.3-8.2) g/dL Albumin 4.5 (3.5-5.0) g/dL Coronavirus (PCR) (Not Detectd) 03/13/20 03/13/20 Range/Units 15:50 16:35 WBC (3.8-10.6) k/uL RBC (4.30-5.90) m/uL Hgb (13.0-17.5) gm/dL Hct (39.0-53.0) % MCV (80.0-100.0) fL MCH (25.0-35.0) pg MCHC (31.0-37.0) g/dL RDW (11.5-15.5) % Plt Count (150-450) k/uL Neutrophils % % Lymphocytes % % Monocytes % % Eosinophils % % Basophils % % Neutrophils # (1.3-7.7) k/uL Lymphocytes # (1.0-4.8) k/uL Monocytes # (0-1.0) k/uL Eosinophils # (0-0.7) k/uL Basophils # (0-0.2) k/uL PT (9.0-12.0) sec INR (<1.2) APTT (22.0-30.0) sec D-Dimer (<0.60) mg/L FEU Sodium (137-145) mmol/L Potassium (3.5-5.1) mmol/L Chloride (98-107) mmol/L Carbon Dioxide (22-30) mmol/L Anion Gap mmol/L BUN (9-20) mg/dL Creatinine (0.66-1.25) mg/dL Est GFR (CKD-EPI)AfAm (>60 ml/min/1.73 sqM) Est GFR (CKD-EPI)NonAf (>60 ml/min/1.73 sqM) Glucose (74-99) mg/dL Plasma Lactic Acid Jw 3.3 H* (0.7-2.0) mmol/L Calcium (8.4-10.2) mg/dL Magnesium (1.6-2.3) mg/dL Total Bilirubin (0.2-1.3) mg/dL AST (17-59) U/L ALT (4-49) U/L Alkaline Phosphatase (38-126) U/L Lactate Dehydrogenase (313-618) U/L C-Reactive Protein (<10.0) mg/L Total Protein (6.3-8.2) g/dL Albumin (3.5-5.0) g/dL Coronavirus (PCR) Not Detected (Not Detectd) Disposition Clinical Impression: Pneumonia, Pleuritic chest pain Disposition: ADMITTED IP TO THIS HOSP Referrals: Aiden Mayfield MD [Primary Care Provider] - 1-2 days Time of Disposition: 18:37
[2020-03-13] MEDS ORDERED: SODIUM CHLORIDE 0.9% 2,000 ML IV ONE (18:34)
[2020-03-13] MEDS ORDERED: cefTRIAXone IN SWFI 1,000 MG/10 ML SYRINGE IVP STA (18:35)
[2020-03-13] MEDS ORDERED: KETOROLAC 60 MG/2 ML VIAL IVP STA (18:36)
[2020-03-13] MEDS ORDERED: AZITHROMYCIN 500 MG in SODIUM CHLORIDE 0.9% 250 ML IVPB STA (18:38)
[2020-03-13] MEDS ORDERED: PNEUMONIA PROTOCOL UTILIZED 1 EACH MISC PO PRN (18:38)
[2020-03-13] MEDS ORDERED: ALBUTEROL HFA INHALER INHALATION STA (18:41)
[2020-03-13] MEDS ORDERED: methylPREDNISolone SOD SUCCI 125 MG/2 ML VIAL IV STA (18:53)
[2020-03-13 23:03] LABS: Ferritin 137.7 ng/mL (22.0-322.0)
[2020-03-14] MEDS: methylPREDNISolone SOD SUCCI 125 MG/2 ML VIAL IV SCH ×5 (00:37→23:08)
[2020-03-14] MEDS: KETOROLAC 30 MG/ML 1 ML VIAL IVP PRN ×2 (05:59→12:27)
[2020-03-14] MEDS ORDERED: KETOROLAC 30 MG/ML 1 ML VIAL IVP SCH (06:00)
[2020-03-14] MEDS: PANTOPRAZOLE 40 MG TABLET PO SCH (08:02)
--- NOTE | 2020-03-14 08:45 | XR ---
EXAMINATION TYPE: XR chest 1V portable DATE OF EXAM: 03/14/2020 COMPARISON: 03/13/2020 HISTORY: Shortness of breath. TECHNIQUE: Single frontal view of the chest is obtained. FINDINGS: Worsening lingular and now probable left upper lobe airspace disease is seen. Atelectasis and/or scarring or bandlike within the right midlung peripherally. No sizable pneumothorax or pleural effusion. Stable cardiomediastinal silhouette slightly rotated by patient positioning. No acute osse ous process. IMPRESSION: Worsening left-sided airspace disease. Primary consideration is for pneumonia.
--- NOTE | 2020-03-14 13:28 | P.CNPUL ---
History of Present Illness Consult date: 03/14/20 Reason for consult: dyspnea Chief complaint: Shortness of breath, flank pain History of present illness: 59-year-old white male patient with past medical history of COPD, chronic bronchiectasis, previous episode of pneumonia, former smoker, patient care is [id number] smoking history, glaucoma, past history of chronic alcoholism, prostate cancer status post radiation therapy, paroxysmal atrial fibrillation and patient takes no anticoagulation for it. Patient is familiar to our service from previous admissions related to pneumonia and COPD exacerbation. In July 2019 patient was treated for right upper lobe pneumonia patient was treated with antibiotics and had bronchoscopy with bronchoalveolar lavage with negative cultures only positive for penicillium and Aspergillus, and negative cytology. Last time we saw the patient in the hospital was in September, and patient was treated for acute COPD exacerbation with chest x-ray showing partial clearing of the previously treated right upper lobe pneumonia. On 03/13/2020 patient presents to the emergency department with complaints of pain in his left chest that radiates to his left shoulder, and the pain was exacerbated with deep breathing. Also reports shortness of breath, but no fever, chills or cough, no body aches. No weakness or numbness, no abdominal pain, nausea vomiting or diarrhea. Reports no swelling in his calves. Patient reports quitting smoking about a month ago. He is on Ventolin and Symbicort for his COPD. Chest x-ray showed a chronic parenchyma changes with the new lingular acute infiltrate. Lab work showed a mild leukocytosis with a white blood cell count of 14.1, hemoglobin of 15.3, platelet count is 228, neutrophil, is 12.6, lymphocytes was 0.7, d-dimer was negative at 0.57, PT/INR were within normal limits, sodium was 132, potassium is 5.0, chloride was 97, the rest of the electrolytes and renal profile were within normal limits, plasma lactic acid was increased at 3.3, patient was tachycardic on admission, with borderline low blood pressure of 92/56, pulse ox was 92% on room air. Patient was placed on supplemental oxygen, patient has been placed on accommodation of Zithromax and Rocephin, IV steroids, he was given 2 L and IV fluid boluses, follow-up chest x- ray today shows worsening of the lingular airspace disease, hemodynamically patient stable, room air pulse ox is 95%, lung sounds reveal diminished breath sounds with end expiratory wheezing bilaterally. Occasional cough, nonproductive. Review of Systems All systems: negative Constitutional: Denies chills, Denies fever Eyes: denies blurred vision, denies pain Ears, nose, mouth and throat: Denies headache, Denies sore throat Cardiovascular: Reports chest pain, Denies shortness of breath Respiratory: Reports cough, Reports dyspnea Gastrointestinal: Denies abdominal pain, Denies diarrhea, Denies nausea, Denies vomiting Musculoskeletal: Denies myalgias Integumentary: Denies pruritus, Denies rash Neurological: Denies numbness, Denies weakness Psychiatric: Denies anxiety, Denies depression Endocrine: Denies fatigue, Denies weight change Past Medical History Past Medical History: Atrial Fibrillation, Cancer, COPD, Eye Disorder, Pneumonia, Prostate Disorder Additional Past Medical History / Comment(s): ETOH abuse, DTs, tracheobronchitis, pneumonias, pleurisy, acute respiratory failure/vented, bilateral glaucoma, prostate cancer History of Any Multi-Drug Resistant Organisms: None Reported Past Surgical History: Hernia Repair, Prostate Surgery, Tonsillectomy Additional Past Surgical History / Comment(s): R inguinal hernia repair, prostate-radiation implant, colonoscopy-normal Past Anesthesia/Blood Transfusion Reactions: No Reported Reaction Past Psychological History: No Psychological Hx Reported Additional Psychological History / Comment(s): Pt is living with his niece. He rides his bike or walks. Smoking Status: Former smoker Past Alcohol Use History: Daily, Heavy Additional Past Alcohol Use History / Comment(s): Pt states he started smoking as a teen and is a 1.5 ppd smoker. States he stopped smoking about 3 weeks ago. Pt states he drinks 3 24 oz beers a day last drink 03/12 Past Drug Use History: None Reported - Past Family History Father Family Medical History: COPD Additional Family Medical History / Comment(s): Father of COPD in his 70's Mother Family Medical History: Coronary Artery Disease (CAD) Additional Family Medical History / Comment(s): Mother of heart disease at the age of 65 yrs. Medications and Allergies Home Medications Medication Instructions Recorded Confirmed Type Albuterol Sulfate [Ventolin HFA] 1 - 2 puff INHALATION RT-Q6H PRN 03/13/20 03/13/20 History Allergies Allergy/AdvReac Type Severity Reaction Status Date / Time No Known Allergies Allergy Verified 03/13/20 15:32 Physical Exam Vitals: Vital Signs Temp Pulse Pulse Resp BP BP Pulse Ox 03/14/20 11:00 97.8 F 90 18 135/80 95 03/14/20 07:00 97.7 F 82 18 128/78 96 03/14/20 04:00 18 03/14/20 03:55 98.4 F 83 18 119/85 95 03/13/20 22:47 18 03/13/20 21:09 98.1 F 100 18 127/74 99 03/13/20 20:06 98 28 H 106/70 96 03/13/20 18:39 117 H 26 H 106/66 96 03/13/20 15:32 20 03/13/20 15:28 98.2 F 113 H 26 H 92/56 92 L Intake and Output 03/13/20 03/14/20 03/14/20 22:59 06:59 14:59 Intake Total 1999 Balance 1999 Intake: Intake, IV Titration 1999 Amount Sodium Chloride 0.9% 2, 1999 000 ml @ 999 mls/hr IV . Q2H1M ONE Rx#:[id number] Other: Voiding Method Urinal Toilet Urinal # Voids 2 Weight 65.771 kg GENERAL EXAM: Alert, pleasant, thin 59-year-old white male, tanned, with multiple tattoos, on room air with a pulse ox of 95% comfortable in no apparent distress. HEAD: Normocephalic/atraumatic. EYES: Normal reaction of pupils, equal size. Conjunctiva pink, sclera white. NOSE: Clear with pink turbinates. THROAT: No erythema or exudates. NECK: No masses, no JVD, no thyroid enlargement, no adenopathy. CHEST: No chest wall deformity. Symmetrical expansion. Right upper chest tenderness on palpation, and with deep breathing and coughing LUNGS: Diminished breath sounds bilaterally, with end expiratory wheezing bilaterally, no rhonchi or dullness. CVS: Regular rate and rhythm, normal S1 and S2, no gallops, no murmurs, no rubs ABDOMEN: Soft, nontender. No hepatosplenomegaly, normal bowel sounds, no guard ing or rigidity. EXTREMITIES: No clubbing, no edema, no cyanosis, 2+ pulses and upper and lower extremities. MUSCULOSKELETAL: Muscle strength and tone normal. SPINE: No scoliosis or deformity SKIN: No rashes CENTRAL NERVOUS SYSTEM: Alert and oriented -3. No focal deficits, tone is normal in all 4 extremities. PSYCHIATRIC: Alert and oriented -3. Appropriate affect. Intact judgment and insight. Results - Laboratory Findings CBC and BMP: 03/13/20 15:50 03/13/20 15:50 PT/INR, D-dimer PT 10.5 sec (9.0-12.0) 03/13/20 15:50 INR 1.0 (<1.2) 03/13/20 15:50 D-Dimer 0.57 mg/L FEU (<0.60) 03/13/20 15:50 Abnormal lab findings: Abnormal Labs 03/13/20 03/13/20 03/13/20 15:50 15:50 15:50 WBC 14.1 H Neutrophils # 12.6 H Lymphocytes # 0.7 L Sodium 132 L Chloride 97 L Glucose 118 H Plasma Lactic Acid Jw 3.3 H* Magnesium 1.3 L C-Reactive Protein 240.8 H Procalcitonin 03/13/20 03/14/20 03/14/20 15:50 07:05 10:48 WBC Neutrophils # Lymphocytes # Sodium Chloride Glucose Plasma Lactic Acid Jw 2.4 H* 2.3 H* Magnesium C-Reactive Protein Procalcitonin 2.35 H - Diagnostic Findings Chest x-ray: report reviewed, image reviewed Additional studies: EKG reviewed Assessment and Plan Plan: Assessment: #1. Shortness of breath and pleuritic chest pain related to lingular pneumonia, community acquired, COVID 19 infection has been ruled out #2. Lactic acidosis, improved with IV hydration, related to sepsis related to pneumonia #3. Elevated pro-calcitonin related to acute pneumonia #4. Elevated CRP related to pneumonia #5. Pleuritic chest discomfort, d-dimer is negative #6. Previous hospitalization for treatment of community-acquired right upper lobe pneumonia, in July and September 2019, with bronchoscopy with BAL on 08/05/2019 with bronchial lavage cultures positive only for penicillium species and Aspergillus not fumigatus, and negative cytology #7. Former smoker, patient carries a [id number] smoking history, which is currently in remission #8. COPD and chronic bronchiectasis #9. History of previous pneumonias #10. History of atrial fibrillation, currently in sinus not on any chronic anticoagulation #11. History of chronic alcoholism #12. History of prostate cancer post brachii therapy #13. History of glaucoma Plan: Continue current antibiotics, send a sputum culture, today's chest x-ray has been reviewed with Dr. Thorne, patient has been seen and evaluated by Dr. Obey simon, hemodynamically stable, mildly bronchospastic, but no acute distress, continue with IV steroids, Covid 19 status has been negative. Hemodynamically stable, follow-up chest x-ray tomorrow I performed a history & physical examination of the patient and discussed their management with my nurse practitioner, Linda Donaldson. I reviewed the nurse practitioner's note and agree with the documented findings and plan of care. Lung sounds are positive for end expiratory wheezes. The findings and the impression was discussed with the patient. I attest to the documentation by the nurse practitioner. Time with Patient: Greater than 30
[2020-03-14] MEDS ORDERED: ALBUTEROL NEBULIZED 2.5 MG/3 ML INHALATION SCH (14:00)
[2020-03-14] MEDS: ALBUTEROL HFA INHALER INHALATION SCH ×2 (16:18→19:43)
[2020-03-14] MEDS: HEPARIN SODIUM,PORCINE 5,000 UNIT/ML 1 ML VIAL SQ SCH ×2 (17:26→23:07)
[2020-03-14] MEDS: AZITHROMYCIN 500 MG TAB PO SCH (20:57)
[2020-03-14] MEDS ORDERED: IPRATROPIUM-ALBUTEROL 3 ML NEB INHALATION PRN (22:26)
--- NOTE | 2020-03-14 22:51 | P.HPIM ---
History of Present Illness H&P Date: 03/14/20 Chief Complaint: Shortness of breath Patient is a 59-year-old male with a known history of COPD, prostate cancer status post radiation, previous history of pneumonia, ongoing nicotine addiction and heavy alcohol use and paroxysmal atrial fibrillation currently not on any anticoagulation presents to ER with complaints of left lower chest pain worsens with deep breathing and sometimes radiate to the left shoulder along with shortness of breath. Denied any fever or chills. Patient does have cough with whitish sputum production. No complaints of headache or dizziness or lightheadedness. No nausea vomiting or diarrhea. Chest x-ray showed chronic parenchyma changes with newly lingular acute infiltrate. Laboratory data showed visit 14.1, hemoglobin 15.3, crit patient 228, absolute lymphocytes 0.7, d-dimer is not elevated. Sodium 132, potassium 5.0, chloride 97, BUN 17, creatinine 0.87 Lactic acid level III.3 The ER patient was found have hypotension with blood pressure 92/56 and pulse ox 92% on room air. Patient was given 2 L of fluid boluses. Patient is being continued on breathing treatments and also IV steroids and antibiotics the form of ceftriaxone and azithromycin. Patient had right upper lobe pneumonia in July 2019. He had bronchoscopy and bronchoalveolar loss cultures showed Aspergillus and penicillium. Negative for cytology. Patient does drink 3 beers per day. Last drink was on 03/12/2020. Review of Systems Constitutional: Patient denies any fever or chills . No generalized weakness or weight loss. Abdomen: Patient denied nausea vomiting and diarrhea and abdominal pain. Cardiovascular: Patient denies any chest pain or short of breath no palpitations. Chest tightness and pleuritic pain left lower chest Respiratory: Patient does have cough with whitish sputum production and nia rtness of breath Neurologic: Patient denied any numbness or tingling headache. Musculoskeletal: Patient denies any complaints of joint swelling or deformity. Skin: Negative Psychiatric: Negative Endocrine: No heat or cold intolerance. No recent weight gain. Genitourinary: No dysuria or hematuria. All other 14 point ROS negative except the above Past Medical History Past Medical History: Atrial Fibrillation, Cancer, COPD, Eye Disorder, Pneumoni a, Prostate Disorder Additional Past Medical History / Comment(s): ETOH abuse, DTs, tracheobronchitis, pneumonias, pleurisy, acute respiratory failure/vented, bilateral glaucoma, prostate cancer History of Any Multi-Drug Resistant Organisms: None Reported Past Surgical History: Hernia Repair, Prostate Surgery, Tonsillectomy Additional Past Surgical History / Comment(s): R inguinal hernia repair, p rostate-radiation implant, colonoscopy-normal Past Anesthesia/Blood Transfusion Reactions: No Reported Reaction Past Psychological History: No Psychological Hx Reported Additional Psychological History / Comment(s): Pt is living with his niece. He rides his bike or walks. Smoking Status: Former smoker Past Alcohol Use History: Daily, Heavy Additional Past Alcohol Use History / Comment(s): Pt states he started smoking as a teen and is a 1.5 ppd smoker. States he stopped smoking about 3 weeks ago. Pt states he drinks 3 24 oz beers a day last drink 03/12 Past Drug Use History: None Reported - Past Family History Father Family Medical History: COPD Additional Family Medical History / Comment(s): Father of COPD in his 70's Mother Family Medical History: Coronary Artery Disease (CAD) Additional Family Medical History / Comment(s): Mother of heart disease at the age of 65 yrs. Medications and Allergies Home Medications Medication Instructions Recorded Confirmed Type Albuterol Sulfate [Ventolin HFA] 1 - 2 puff INHALATION RT-Q6H PRN 03/13/20 03/13/20 History Allergies Allergy/AdvReac Type Severity Reaction Status Date / Time No Known Allergies Allergy Verified 03/13/20 15:32 Physical Exam Vitals: Vital Signs Temp Pulse Pulse Resp BP BP Pulse Ox 03/14/20 11:00 97.8 F 90 18 135/80 95 03/14/20 07:00 97.7 F 82 18 128/78 96 03/14/20 04:00 18 03/14/20 03:55 98.4 F 83 18 119/85 95 03/13/20 22:47 18 03/13/20 21:09 98.1 F 100 18 127/74 99 03/13/20 20:06 98 28 H 106/70 96 03/13/20 18:39 117 H 26 H 106/66 96 03/13/20 15:32 20 03/13/20 15:28 98.2 F 113 H 26 H 92/56 92 L Intake and Output 03/13/20 03/14/20 03/14/20 22:59 06:59 14:59 Intake Total 1999 Balance 1999 Intake: Intake, IV Titration 1999 Amount Sodium Chloride 0.9% 1999 000 ml @ 999 mls/hr IV . Q2H1M [facility] Rx#:[id number] Other: Voiding Method Urinal Toilet Urinal # Voids 2 Weight 65.771 kg PHYSICAL EXAMINATION: Patient is lying in the bed comfortably, no acute distress, awake alert and oriented.. HEENT: Normocephalic. Neck is supple. Pupils reactive. Nostrils clear. Oral cavity is moist. Ears reveal no drainage. Neck reveals no JVD, carotid bruits, or thyromegaly. CHEST EXAMINATION: Trachea is central. Symmetrical expansion. Bilateral diminished air entry and expiratory wheezing present no rhonchi and no crackles.. CARDIAC: Normal S1, S2 with no gallops. No murmurs ABDOMEN: Soft. Bowel sounds normal. No organomegaly. No abdominal bruits. Extremities: reveal no edema. No clubbing or cyanosis Neurologically awake, alert, oriented x3 with well-coordinated movements. No focal deficits noted Skin: No rash or skin lesions. Psychiatric: Coperative. Nonsuicidal, anxious. Musculoskeletal: No joint swelling or deformity. Normal range of motion. Results CBC & Chem 7: 03/13/20 15:50 03/13/20 15:50 Labs: Abnormal Lab Results - Last 24 Hours (Table) 03/13/20 03/13/20 03/13/20 Range/Units 15:50 15:50 15:50 WBC 14.1 H (3.8-10.6) k/uL Neutrophils # 12.6 H (1.3-7.7) k/uL Lymphocytes # 0.7 L (1.0-4.8) k/uL Sodium 132 L (137-145) mmol/L Chloride 97 L (98-107) mmol/L Glucose 118 H (74-99) mg/dL Plasma Lactic Acid Jw 3.3 H* (0.7-2.0) mmol/L Magnesium 1.3 L (1.6-2.3) mg/dL C-Reactive Protein 240.8 H (<10.0) mg/L Procalcitonin (0.02-0.09) ng/mL 03/13/20 03/14/20 03/14/20 Range/Units 15:50 07:05 10:48 WBC (3.8-10.6) k/uL Neutrophils # (1.3-7.7) k/uL Lymphocytes # (1.0-4.8) k/uL Sodium (137-145) mmol/L Chloride (98-107) mmol/L Glucose (74-99) mg/dL Plasma Lactic Acid Jw 2.4 H* 2.3 H* (0.7-2.0) mmol/L Magnesium (1.6-2.3) mg/dL C-Reactive Protein (<10.0) mg/L Procalcitonin 2.35 H (0.02-0.09) ng/mL Thrombosis Risk Factor Assmnt - DVT/VTE Prophylaxis DVT/VTE Prophylaxis: Pharmacologic Prophylaxis ordered - Choose All That Apply Each Factor Represents 1 point: Age 41-60 years Each Risk Factor Represents 2 Points: Malignancy Thrombosis Risk Factor Assessment Total Risk Factor Score: 3 Thrombosis Risk Factor Assessment Level: Moderate Risk Assessment and Plan Assessment: Shortness of breath secondary to left lingular pneumonia. Covid 19 rapid test negative. Pleuritic chest pain secondary to pneumonia. Improving now. D-dimer not elevated. 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 Status post bronchoscopy. Alcohol abuse Previous history of smoking currently in remission. COPD with acute exacerbation Paroxysmal atrial fibrillation currently not on anticoagulation at home. History of prostate cancer status post brachytherapy History of bilateral glaucoma DVT prophylaxis with heparin subcu Plan: Patient will be continued on breathing treatments and IV steroids and antibiotics in the form of ceftriaxone and azithromycin. Continue with oxygen therapy as needed. Monitor for alcohol withdrawal symptoms. Pulmonary is on board. Further recommendations based on the clinical course. Time with Patient: Greater than 30
[2020-03-15] MEDS: ALBUTEROL HFA INHALER INHALATION SCH ×4 (01:24→19:51)
[2020-03-15 03:54] LABS: HCT 41.5 % (39.0-53.0); HGB 13.2 gm/dL (13.0-17.5); MCH 30.7 pg (25.0-35.0); MCHC 31.8 g/dL (31.0-37.0); MCV 96.4 fL (80.0-100.0); Mean Platelet Volume 7.6; Platelet Count 228 k/uL (150-450); WBC 15.2 k/uL (3.8-10.6)
[2020-03-15 04:29] LABS: African American GFR (CKD) >90 (>60 ml/min/1.73 sqM); Anion Gap 7 mmol/L; Blood Urea Nitrogen 26 mg/dL (9-20); Calcium 8.7 mg/dL (8.4-10.2); Carbon Dioxide 22 mmol/L (22-30); Chloride 107 mmol/L (98-107); Glucose 143 mg/dL (74-99); Non-African American GFR(CKD) >90 (>60 ml/min/1.73 sqM); Potassium 4.2 mmol/L (3.5-5.1); Sodium 136 mmol/L (137-145)
[2020-03-15 04:45] LABS: Band Neutrophils % 8 %; Lymphocytes # (M) 0.61 k/uL (1.0-4.8); Monocytes # (M) 0.46 k/uL (0-1.0); Neutrophils % (M) 85 %; Nucleated Red Blood Cells 0 /100 WBC (0-0); Total Cells Counted 100
[2020-03-15] MEDS: methylPREDNISolone SOD SUCCI 125 MG/2 ML VIAL IV SCH ×4 (05:50→23:22)
[2020-03-15] MEDS: HEPARIN SODIUM,PORCINE 5,000 UNIT/ML 1 ML VIAL SQ SCH ×3 (07:49→23:22)
[2020-03-15] MEDS: PANTOPRAZOLE 40 MG TABLET PO SCH (07:49)
--- NOTE | 2020-03-15 13:23 | P.PN ---
Subjective Progress Note Date: 03/15/20 Principal diagnosis: Shortness of breath and pleuritic chest pain 59-year-old white male patient with past medical history of COPD, chronic bronchiectasis, previous episode of pneumonia, former smoker, patient care is [id number] smoking history, glaucoma, past history of chronic alcoholism, prostate cancer status post radiation therapy, paroxysmal atrial fibrillation and patient takes no anticoagulation for it. Patient is familiar to our service from previous admissions related to pneumonia and COPD exacerbation. In July 2019 patient was treated for right upper lobe pneumonia patient was treated with antibiotics and had bronchoscopy with bronchoalveolar lavage with negative cultures only positive for penicillium and Aspergillus, and negative cytology. Last time we saw the patient in the hospital was in September, and patient was treated for acute COPD exacerbation with chest x-ray showing partial clearing of the previously treated right upper lobe pneumonia. On 03/13/2020 patient presents to the emergency department with complaints of pain in his left chest that radiates to his left shoulder, and the pain was exacerbated with deep breathing. Also reports shortness of breath, but no fever, chills or cough, no body aches. No weakness or numbness, no abdominal pain, nausea vomiting or diarrhea. Reports no swelling in his calves. Patient reports quitting smoking about a month ago. He is on Ventolin and Symbicort for his COPD. Chest x-ray showed a chronic parenchyma changes with the new lingular acute infiltrate. Lab work showed a mild leukocytosis with a white blood cell count of 14.1, hemoglobin of 15.3, platelet count is 228, neutrophil, is 12.6, lymphocytes was 0.7, d-dimer was negative at 0.57, PT/INR were within normal limits, sodium was 132, potassium is 5.0, chloride was 97, the rest of the electrolytes and renal profile were within normal limits, plasma lactic acid was increased at 3.3, patient was tachycardic on admission, with borderline low blood pressure of 92/56, pulse ox was 92% on room air. Patient was placed on supplemental oxygen, patient has been placed on accommodation of Zithromax and Rocephin, IV steroids, he was given 2 L and IV fluid boluses, follow-up chest x- ray today shows worsening of the lingular airspace disease, hemodynamically patient stable, room air pulse ox is 95%, lung sounds reveal diminished breath sounds with end expiratory wheezing bilaterally. Occasional cough, nonproductive. On 03/15/2020 patient seen in follow-up on a general medical floor. He is feeling better, denies ear, he is on 2 L of oxygen with a pulse ox of 98%, hemodynamically stable, he is afebrile, lung sounds are diminished, with expiratory wheezing, and crackles over left lower lobe. Waqar on azithromycin and Rocephin for antibiotic coverage. His labs have been reviewed, slight increase in his white blood cell count up to 15.2, hemoglobin is 13.2, electrolytes unremarkable, BUN is 26, creatinine 0.66. His coronavirus was ruled out, PA spoke acetone level came back elevated at 2.35. Patient is afebrile Objective - Vital Signs Vital signs: Vital Signs Temp 97.8 F 03/15/20 07:23 Pulse 76 03/15/20 07:23 Resp 16 03/15/20 07:23 BP 127/82 03/15/20 07:23 Pulse Ox 98 03/15/20 07:23 Intake & Output 03/14/20 03/15/20 03/15/20 18:59 06:59 18:59 Intake Total 50 Balance 50 Intake: Intake, IV Titration 50 Amount cefTRIAXone 1 gm In 50 Sodium Chloride 0.9% 50 ml @ 100 mls/hr IVPB Q24H [facility] Rx#:[id number] Other: Voiding Method Toilet Toilet Toilet Urinal Urinal Urinal # Voids 300 1 - Exam GENERAL EXAM: Alert, pleasant, thin 59-year-old white male, tanned, with multiple tattoos, 2 L of oxygen with a pulse ox of 98 % comfortable in no apparent distress. HEAD: Normocephalic/atraumatic. EYES: Normal reaction of pupils, equal size. Conjunctiva pink, sclera white. NOSE: Clear with pink turbinates. THROAT: No erythema or exudates. NECK: No masses, no JVD, no thyroid enlargement, no adenopathy. CHEST: No chest wall deformity. Symmetrical expansion. Right upper chest tenderness on palpation, and with deep breathing and coughing LUNGS: Diminished breath sounds bilaterally, with end expiratory wheezing bilaterally, no rhonchi or dullness. CVS: Regular rate and rhythm, normal S1 and S2, no gallops, no murmurs, no rubs ABDOMEN: Soft, nontender. No hepatosplenomegaly, normal bowel sounds, no guarding or rigidity. EXTREMITIES: No clubbing, no edema, no cyanosis, 2+ pulses and upper and lower extremities. MUSCULOSKELETAL: Muscle strength and tone normal. SPINE: No scoliosis or deformity SKIN: No rashes CENTRAL NERVOUS SYSTEM: Alert and oriented -3. No focal deficits, tone is normal in all 4 extremities. PSYCHIATRIC: Alert and oriented -3. Appropriate affect. Intact judgment and insight. - Labs CBC & Chem 7: 03/15/20 03:41 03/15/20 03:41 Labs: Abnormal Lab Results - Last 24 Hours (Table) 03/14/20 03/14/20 03/14/20 Range/Units 15:24 19:49 23:40 WBC (3.8-10.6) k/uL Neutrophils # (Manual) (1.3-7.7) k/uL Lymphocytes # (Manual) (1.0-4.8) k/uL Sodium (137-145) mmol/L BUN (9-20) mg/dL Glucose (74-99) mg/dL Plasma Lactic Acid Jw 3.0 H* 2.5 H* 2.9 H* (0.7-2.0) mmol/L 03/15/20 03/15/20 Range/Units 03:41 03:41 WBC 15.2 H (3.8-10.6) k/uL Neutrophils # (Manual) 14.10 H (1.3-7.7) k/uL Lymphocytes # (Manual) 0.61 L (1.0-4.8) k/uL Sodium 136 L (137-145) mmol/L BUN 26 H (9-20) mg/dL Glucose 143 H (74-99) mg/dL Plasma Lactic Acid Jw (0.7-2.0) mmol/L Microbiology - Last 24 Hours (Table) 03/13/20 18:40 Blood Culture - Preliminary Blood No Growth after 24 hours Assessment and Plan Plan: Assessment: #1. Shortness of breath and pleuritic chest pain related to lingular pneumonia, community acquired, COVID 19 infection has been ruled out #2. Lactic acidosis, improved with IV hydration, related to sepsis related to pneumonia #3. Elevated pro-calcitonin related to acute pneumonia #4. Elevated CRP related to pneumonia #5. Pleuritic chest discomfort, d-dimer is negative #6. Previous hospitalization for treatment of community-acquired right upper lobe pneumonia, in July and September 2019, with bronchoscopy with BAL on 08/05/2019 with bronchial lavage cultures positive only for penicillium species and Aspergillus not fumigatus, and negative cytology #7. Former smoker, patient carries a [id number] smoking history, which is currently in remission #8. COPD and chronic bronchiectasis #9. History of previous pneumonias #10. History of atrial fibrillation, currently in sinus not on any chronic anticoagulation #11. History of chronic alcoholism #12. History of prostate cancer post brachii therapy #13. History of glaucoma Plan: Continue current antibiotics, patient is afebrile, follow-up chest x-ray in the morning, no acute events overnight, increase activity as tolerated, continue nebulized bronchodilators, continue IV steroids, patient is improving. I performed a history & physical examination of the patient and discussed their management with my nurse practitioner, Linda Donaldson. I reviewed the nurse practitioner's note and agree with the documented findings and plan of care. Lung sounds are positive for end expiratory wheezes. The findings and the impression was discussed with the patient. I attest to the documentation by the nurse practitioner. Time with Patient: Less than 30
[2020-03-15] MEDS: AZITHROMYCIN 500 MG TAB PO SCH (19:39)
[2020-03-15] MEDS: KETOROLAC 30 MG/ML 1 ML VIAL IVP PRN (19:39)
[2020-03-15 19:40] LABS: Glucose,Whole Blood 184 mg/dL (75-99)
--- NOTE | 2020-03-15 23:34 | P.PN ---
Subjective Progress Note Date: 03/15/20 Principal diagnosis: Left lingular pneumonia Acute COPD exacerbation Patient is a 59-year-old male with a known history of COPD, prostate cancer status post radiation, previous history of pneumonia, ongoing nicotine addiction and heavy alcohol use and paroxysmal atrial fibrillation currently not on any anticoagulation presents to ER with complaints of left lower chest pain worsens with deep breathing and sometimes radiate to the left shoulder along with shortness of breath. Denied any fever or chills. Patient does have cough with whitish sputum production. No complaints of headache or dizziness or lightheadedness. No nausea vomiting or diarrhea. Chest x-ray showed chronic parenchyma changes with newly lingular acute infiltrate. Laboratory data showed visit 14.1, hemoglobin 15.3, crit patient 228, absolute lymphocytes 0.7, d-dimer is not elevated. Sodium 132, potassium 5.0, chloride 97, BUN 17, creatinine 0.87 Lactic acid level III.3 The ER patient was found have hypotension with blood pressure 92/56 and pulse ox 92% on room air. Patient was given 2 L of fluid boluses. Patient is being continued on breathing treatments and also IV steroids and antibiotics the form of ceftriaxone and azithromycin. Patient had right upper lobe pneumonia in July 2019. He had bronchoscopy and bronchoalveolar loss cultures showed Aspergillus and penicillium. Negative for cytology. Patient does drink 3 beers per day. Last drink was on 03/12/2020. 03/15/2020 Patient says that his breathing is better today. No complaints of chest pain. Currently requiring oxygen at 2 L nasal cannula. Currently on antibiotics the form of ceftriaxone and azithromycin. Lactic acid level is normalized. Patient has been afebrile. Laboratory data showed elevated white count of 15.2 likely due to steroids., Hemoglobin 13.2 and BUN 26 and creatinine 0.66 No nausea vomiting or abdominal pain. No diarrhea. Current medications reviewed. Objective - Vital Signs Vital signs: Vital Signs Temp 97.9 F 03/15/20 19:21 Pulse 84 03/15/20 19:21 Resp 17 03/15/20 19: BP 159/79 03/15/20 19:21 Pulse Ox 96 03/15/20 19:21 Intake & Output 03/15/20 03/15/20 03/16/20 06:59 18:59 06:59 Intake Total 50 50 Balance 50 50 Intake: Intake, IV Titration 50 50 Amount cefTRIAXone 1 gm In 50 50 Sodium Chloride 0.9% 50 ml @ 100 mls/hr IVPB Q24H [facility] Rx#:[id number] Other: Voiding Method Toilet Toilet Toilet Urinal Urinal Urinal # Voids 1 2 1 - Exam PHYSICAL EXAMINATION: Patient is lying in the bed comfortably, no acute distress, awake alert and oriented.. HEENT: Normocephalic. Neck is supple. Pupils reactive. Nostrils clear. Oral cavity is moist. Ears reveal no drainage. Neck reveals no JVD, carotid bruits, or thyromegaly. CHEST EXAMINATION: Trachea is central. Symmetrical expansion. Bilateral expiratory wheeze and left basilar crackles. CARDIAC: Normal S1, S2 with no gallops. No murmurs ABDOMEN: Soft. Bowel sounds normal. No organomegaly. No abdominal bruits. Extremities: reveal no edema. No clubbing or cyanosis Neurologically awake, alert, oriented x3 with well-coordinated movements. No focal deficits noted Skin: No rash or skin lesions. Psychiatric: Coperative. Nonsuicidal Musculoskeletal: No joint swelling or deformity. Normal range of motion. - Labs CBC & Chem 7: 03/15/20 03:41 03/15/20 03:41 Labs: Abnormal Lab Results - Last 24 Hours (Table) 03/14/20 03/15/20 03/15/20 Range/Units 23:40 03:41 03:41 WBC 15.2 H (3.8-10.6) k/uL Neutrophils # (Manual) 14.10 H (1.3-7.7) k/uL Lymphocytes # (Manual) 0.61 L (1.0-4.8) k/uL Sodium 136 L (137-145) mmol/L BUN 26 H (9-20) mg/dL Glucose 143 H (74-99) mg/dL POC Glucose (mg/dL) (75-99) mg/dL Plasma Lactic Acid Jw 2.9 H* (0.7-2.0) mmol/L 03/15/20 Range/Units 19:37 WBC (3.8-10.6) k/uL Neutrophils # (Manual) (1.3-7.7) k/uL Lymphocytes # (Manual) (1.0-4.8) k/uL Sodium (137-145) mmol/L BUN (9-20) mg/dL Glucose (74-99) mg/dL POC Glucose (mg/dL) 184 H (75-99) mg/dL Plasma Lactic Acid Jw (0.7-2.0) mmol/L Microbiology - Last 24 Hours (Table) 03/13/20 18:40 Blood Culture - Preliminary Blood No Growth after 48 hours 03/15/20 09:00 Gram Stain - Preliminary Sputum Assessment and Plan Assessment: Shortness of breath secondary to left lingular pneumonia. Covid 19 rapid test negative. Pleuritic chest pain secondary to pneumonia. Improving now. D-dimer not elevated. 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 Status post bronchoscopy. Alcohol abuse Previous history of smoking currently in remission. COPD with acute exacerbation Paroxysmal atrial fibrillation currently not on anticoagulation at home. History of prostate cancer status post brachytherapy History of bilateral glaucoma DVT prophylaxis with heparin subcu Plan: Patient will be continued on breathing treatments and IV steroids and antibiotics in the form of ceftriaxone and azithromycin. Continue with oxygen therapy as needed. Elevated leukocytosis is likely due to steroids., Monitor for alcohol withdrawal symptoms. Pulmonary is on board. Further recommendations based on the clinical course. Time with Patient: Greater than 30
[2020-03-16] MEDS: ALBUTEROL HFA INHALER INHALATION SCH ×4 (02:04→20:09)
[2020-03-16] MEDS: methylPREDNISolone SOD SUCCI 125 MG/2 ML VIAL IV SCH ×3 (05:17→16:40)
--- NOTE | 2020-03-16 07:46 | XR ---
EXAMINATION TYPE: XR chest 1V DATE OF EXAM: 03/16/2020 COMPARISON: 03/14/2020 HISTORY: 59-year-old male with pneumonia TECHNIQUE: Single frontal view of the chest is obtained. FINDINGS: Heart normal size. Atherosclerotic arch calcifications. Mild hyperinflation. Left mid and lower lung consolidation persists, minimally less confluent. Some strandy density at the right midlung is unchan ged. IMPRESSION: COPD and persistent left mid and lower lung pneumonia, slightly less confluent from prior. Strandy de nsity at the right midlung could represent atelectasis or scarring and is unchanged.
[2020-03-16 08:12] LABS: Basophils % (A) 0 %; Eosinophils % (A) 0 %; HCT 39.7 % (39.0-53.0); Lymphocytes # (A) 1.2 k/uL (1.0-4.8); Lymphocytes % (A) 8 %; MCHC 32.8 g/dL (31.0-37.0); MCV 97.5 fL (80.0-100.0); Monocytes # (A) 0.4 k/uL (0-1.0); Monocytes % (A) 2 %; Neutrophils % (A) 89 %; Platelet Count 275 k/uL (150-450); RBC 4.08 m/uL (4.30-5.90); WBC 15.7 k/uL (3.8-10.6)
[2020-03-16 08:17] LABS: African American GFR (CKD) >90 (>60 ml/min/1.73 sqM); Anion Gap 7 mmol/L; Blood Urea Nitrogen 24 mg/dL (9-20); Calcium 8.5 mg/dL (8.4-10.2); Carbon Dioxide 23 mmol/L (22-30); Chloride 109 mmol/L (98-107); Glucose 130 mg/dL (74-99); Non-African American GFR(CKD) >90 (>60 ml/min/1.73 sqM); Potassium 4.1 mmol/L (3.5-5.1); Sodium 139 mmol/L (137-145)
[2020-03-16] MEDS: PANTOPRAZOLE 40 MG TABLET PO SCH (09:00)
[2020-03-16] MEDS: HEPARIN SODIUM,PORCINE 5,000 UNIT/ML 1 ML VIAL SQ SCH ×2 (09:00→16:40)
--- NOTE | 2020-03-16 13:38 | P.PN ---
Subjective Progress Note Date: 03/16/20 Principal diagnosis: Shortness of breath and pleuritic chest pain 59-year-old white male patient with past medical history of COPD, chronic bronchiectasis, previous episode of pneumonia, former smoker, patient care is [id number] smoking history, glaucoma, past history of chronic alcoholism, prostate cancer status post radiation therapy, paroxysmal atrial fibrillation and patient takes no anticoagulation for it. Patient is familiar to our service from previous admissions related to pneumonia and COPD exacerbation. In July 2019 patient was treated for right upper lobe pneumonia patient was treated with antibiotics and had bronchoscopy with bronchoalveolar lavage with negative cultures only positive for penicillium and Aspergillus, and negative cytology. Last time we saw the patient in the hospital was in September, and patient was treated for acute COPD exacerbation with chest x-ray showing partial clearing of the previously treated right upper lobe pneumonia. On 03/13/2020 patient presents to the emergency department with complaints of pain in his left chest that radiates to his left shoulder, and the pain was exacerbated with deep breathing. Also reports shortness of breath, but no fever, chills or cough, no body aches. No weakness or numbness, no abdominal pain, nausea vomiting or diarrhea. Reports no swelling in his calves. Patient reports quitting smoking about a month ago. He is on Ventolin and Symbicort for his COPD. Chest x-ray showed a chronic parenchyma changes with the new lingular acute infiltrate. Lab work showed a mild leukocytosis with a white blood cell count of 14.1, hemoglobin of 15.3, platelet count is 228, neutrophil, is 12.6, lymphocytes was 0.7, d-dimer was negative at 0.57, PT/INR were within normal limits, sodium was 132, potassium is 5.0, chloride was 97, the rest of the electrolytes and renal profile were within normal limits, plasma lactic acid was increased at 3.3, patient was tachycardic on admission, with borderline low blood pressure of 92/56, pulse ox was 92% on room air. Patient was placed on supplemental oxygen, patient has been placed on accommodation of Zithromax and Rocephin, IV steroids, he was given 2 L and IV fluid boluses, follow-up chest x- ray today shows worsening of the lingular airspace disease, hemodynamically patient stable, room air pulse ox is 95%, lung sounds reveal diminished breath sounds with end expiratory wheezing bilaterally. Occasional cough, nonproductive. On 03/15/2020 patient seen in follow-up on a general medical floor. He is feeling better, denies ear, he is on 2 L of oxygen with a pulse ox of 98%, hemodynamically stable, he is afebrile, lung sounds are diminished, with expiratory wheezing, and crackles over left lower lobe. Waqar on azithromycin and Rocephin for antibiotic coverage. His labs have been reviewed, slight increase in his white blood cell count up to 15.2, hemoglobin is 13.2, electrolytes unremarkable, BUN is 26, creatinine 0.66. His coronavirus was ruled out, PA spoke acetone level came back elevated at 2.35. Patient is afebrile On 03/16/2020 patient seen in follow-up on a general medical floor, continues to improve, he remains on 2 L of oxygen his pulse ox is 95-98%, hemodynamically stable, breathing is improving, less dyspneic last bronchospastic, no complaints of chest pain, his been afebrile, microbiology results have been reviewed showing blood cultures showing no growth so far, preliminary Gram stain of the sputum culture showed rare gram-positive cocci and rare yeast. Patient is on a combination of Rocephin and Zithromax, continues on IV steroids for COPD exacerbation, today's chest x-ray has been reviewed showing persistent left mid and lower lung pneumonia slightly less confluent and prior chest x-ray, overall improving. Objective - Vital Signs Vital signs: Vital Signs Temp 97.9 F 03/16/20 08:08 Pulse 71 03/16/20 08:08 Resp 16 03/16/20 08:08 BP 164/93 03/16/20 08:08 Pulse Ox 98 03/16/20 08:08 Intake & Output 03/15/20 03/16/20 03/16/20 18:59 06:59 18:59 Intake Total 50 Balance 50 Intake: Intake, IV Titration 50 Amount cefTRIAXone 1 gm In 50 Sodium Chloride 0.9% 50 ml @ 100 mls/hr IVPB Q24H [facility] Rx#:[id number] Other: Voiding Method Toilet Toilet Toilet Urinal Urinal Urinal # Voids 2 3 - Exam GENERAL EXAM: Alert, pleasant, thin 59-year-old white male, tanned, with multiple tattoos, 2 L of oxygen with a pulse ox of 98 % comfortable in no apparent distress. HEAD: Normocephalic/atraumatic. EYES: Normal reaction of pupils, equal size. Conjunctiva pink, sclera white. NOSE: Clear with pink turbinates. THROAT: No erythema or exudates. NECK: No masses, no JVD, no thyroid enlargement, no adenopathy. CHEST: No chest wall deformity. Symmetrical expansion. Right upper chest tenderness on palpation, and with deep breathing and coughing LUNGS: Diminished breath sounds bilaterally, with end expiratory wheezing bilaterally, no rhonchi or dullness. CVS: Regular rate and rhythm, normal S1 and S2, no gallops, no murmurs, no rubs ABDOMEN: Soft, nontender. No hepatosplenomegaly, normal bowel sounds, no guarding or rigidity. EXTREMITIES: No clubbing, no edema, no cyanosis, 2+ pulses and upper and lower extremities. MUSCULOSKELETAL: Muscle strength and tone normal. SPINE: No scoliosis or deformity SKIN: No rashes CENTRAL NERVOUS SYSTEM: Alert and oriented -3. No focal deficits, tone is normal in all 4 extremities. PSYCHIATRIC: Alert and oriented -3. Appropriate affect. Intact judgment and insight. - Labs CBC & Chem 7: 03/16/20 07:22 03/16/20 07:22 Labs: Abnormal Lab Results - Last 24 Hours (Table) 03/15/20 03/16/20 03/16/20 Range/Units 19:37 07:22 07:22 WBC 15.7 H (3.8-10.6) k/uL RBC 4.08 L (4.30-5.90) m/uL Neutrophils # 14.0 H (1.3-7.7) k/uL Chloride 109 H (98-107) mmol/L BUN 24 H (9-20) mg/dL Creatinine 0.62 L (0.66-1.25) mg/dL Glucose 130 H (74-99) mg/dL POC Glucose (mg/dL) 184 H (75-99) mg/dL Microbiology - Last 24 Hours (Table) 03/13/20 18:40 Blood Culture - Preliminary Blood No Growth after 48 hours 03/15/20 09:00 Gram Stain - Preliminary Sputum Assessment and Plan Plan: Assessment: #1. Shortness of breath and pleuritic chest pain related to lingular pneumonia, community acquired, COVID 19 infection has been ruled out #2. Lactic acidosis, improved with IV hydration, related to sepsis related to pneumonia #3. Elevated pro-calcitonin related to acute pneumonia #4. Elevated CRP related to pneumonia #5. Pleuritic chest discomfort, d-dimer is negative #6. Previous hospitalization for treatment of community-acquired right upper lobe pneumonia, in July and September 2019, with bronchoscopy with BAL on 08/05/2019 with bronchial lavage cultures positive only for penicillium species and Aspergillus not fumigatus, and negative cytology #7. Former smoker, patient carries a [id number] smoking history, which is currently in remission #8. COPD and chronic bronchiectasis #9. History of previous pneumonias #10. History of atrial fibrillation, currently in sinus not on any chronic anticoagulation #11. History of chronic alcoholism #12. History of prostate cancer post brachii therapy #13. History of glaucoma Plan: Continue current antibiotic coverage, chest x-ray is improving, patient is breathing easier, increase activity as tolerated, we'll continue to follow sputum cultures, follow-up chest x-ray in the morning, possible discharge home in next 24 hours patient continues to remain stable and improved. I performed a history & physical examination of the patient and discussed their management with my nurse practitioner, Linda Donaldson. I reviewed the nurse practitioner's note and agree with the documented findings and plan of care. Lung sounds are positive for end expiratory wheezes. The findings and the impression was discussed with the patient. I attest to the documentation by the nurse practitioner. Time with Patient: Less than 30
--- NOTE | 2020-03-16 15:25 | P.PN ---
Subjective Progress Note Date: 03/16/20 Principal diagnosis: Left lingular pneumonia Acute COPD exacerbation Patient is a 59-year-old male with a known history of COPD, prostate cancer status post radiation, previous history of pneumonia, ongoing nicotine addiction and heavy alcohol use and paroxysmal atrial fibrillation currently not on any anticoagulation presents to ER with complaints of left lower chest pain worsens with deep breathing and sometimes radiate to the left shoulder along with shortness of breath. Denied any fever or chills. Patient does have cough with whitish sputum production. No complaints of headache or dizziness or lightheadedness. No nausea vomiting or diarrhea. Chest x-ray showed chronic parenchyma changes with newly lingular acute infiltrate. Laboratory data showed visit 14.1, hemoglobin 15.3, crit patient 228, absolute lymphocytes 0.7, d-dimer is not elevated. Sodium 132, potassium 5.0, chloride 97, BUN 17, creatinine 0.87 Lactic acid level III.3 The ER patient was found have hypotension with blood pressure 92/56 and pulse ox 92% on room air. Patient was given 2 L of fluid boluses. Patient is being continued on breathing treatments and also IV steroids and antibiotics the form of ceftriaxone and azithromycin. Patient had right upper lobe pneumonia in July 2019. He had bronchoscopy and bronchoalveolar loss cultures showed Aspergillus and penicillium. Negative for cytology. Patient does drink 3 beers per day. Last drink was on 03/12/2020. 03/15/2020 Patient says that his breathing is better today. No complaints of chest pain. Currently requiring oxygen at 2 L nasal cannula. Currently on antibiotics the form of ceftriaxone and azithromycin. Lactic acid level is normalized. Patient has been afebrile. Laboratory data showed elevated white count of 15.2 likely due to steroids., Hemoglobin 13.2 and BUN 26 and creatinine 0.66 No nausea vomiting or abdominal pain. No diarrhea. Current medications reviewed. 03/16/2020 Patient is seen and evaluated and follow-up and he denies any worsening shortness of breath. Continues to have a cough with some congestion noted. Patient remains on 2-3 L of oxygen via nasal cannula and does not normally wear this at home. Discussed with nursing staff about performing a home O2 eval and a prescription was provided in the event he needs oxygen upon discharge. Pulmonary is following. Patient remains on antibiotic in the form of ceftriaxone along with Zithromax and to continue at this time. Patient also remains on IV steroids and will continue at this time. No reports of chest pain, worsening shortness of breath, or palpitations. Patient is afebrile. No reports of nausea or vomiting and patient is tolerating diet. Will continue to monitor closely. Objective - Vital Signs Vital signs: Vital Signs Temp 97.9 F 03/16/20 08:08 Pulse 71 03/16/20 08:08 Resp 16 03/16/20 08:08 BP 164/93 03/16/20 08:08 Pulse Ox 98 03/16/20 08:08 Intake & Output 03/15/20 03/16/20 03/16/20 18:59 06:59 18:59 Intake Total 50 Balance 50 Intake: Intake, IV Titration 50 Amount cefTRIAXone 1 gm In 50 Sodium Chloride 0.9% 50 ml @ 100 mls/hr IVPB Q24H [facility] Rx#:[id number] Other: Voiding Method Toilet Toilet Toilet Urinal Urinal Urinal # Voids 2 3 2 - Exam Patient is sitting in the bed comfortably, no acute distress, awake alert and oriented.. HEENT: Normocephalic. Neck is supple. Pupils reactive. Nostrils clear. Oral cavity is moist. Ears reveal no drainage. Neck reveals no JVD, carotid bruits, or thyromegaly. CHEST EXAMINATION: Trachea is central. Symmetrical expansion. Bilateral expiratory wheeze and left basilar crackles. CARDIAC: Normal S1, S2 with no gallops. No murmurs ABDOMEN: Soft. Bowel sounds normal. No organomegaly. No abdominal bruits. Extremities: reveal no edema. No clubbing or cyanosis Neurologically awake, alert, oriented x3 with well-coordinated movements. No focal deficits noted Skin: No rash or skin lesions. Psychiatric: Cooperative. Non-suicidal Musculoskeletal: No joint swelling or deformity. Normal range of motion. - Labs CBC & Chem 7: 03/16/20 07:22 03/16/20 07:22 Labs: Abnormal Lab Results - Last 24 Hours (Table) 03/15/20 03/16/20 03/16/20 Range/Units 19:37 07:22 07:22 WBC 15.7 H (3.8-10.6) k/uL RBC 4.08 L (4.30-5.90) m/uL Neutrophils # 14.0 H (1.3-7.7) k/uL Chloride 109 H (98-107) mmol/L BUN 24 H (9-20) mg/dL Creatinine 0.62 L (0.66-1.25) mg/dL Glucose 130 H (74-99) mg/dL POC Glucose (mg/dL) 184 H (75-99) mg/dL Microbiology - Last 24 Hours (Table) 03/13/20 18:40 Blood Culture - Preliminary Blood No Growth after 48 hours 03/15/20 09:00 Gram Stain - Preliminary Sputum Assessment and Plan Assessment: Shortness of breath secondary to left lingular pneumonia. Covid 19 rapid test negative. Covid 19 ruled out Pleuritic chest pain secondary to pneumonia. Improving now. D-dimer not elevated. 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 Status post bronchoscopy. Alcohol abuse Previous history of smoking currently in remission. COPD with acute exacerbation Paroxysmal atrial fibrillation currently not on anticoagulation at home. History of prostate cancer status post brachytherapy History of bilateral glaucoma DVT prophylaxis with heparin subcu Plan: Patient will be continued on breathing treatments and IV steroids and antibiotics in the form of ceftriaxone and azithromycin. Continue with oxygen therapy as needed. Patient will need home O2 eval. Elevated leukocytosis is likely due to steroids., Monitor for alcohol withdrawal symptoms. Not currently having any symptoms of alcohol withdrawal. Pulmonary is on board. Further recommendations based on the clinical course. Possible discharge in 24- 48 hours.
[2020-03-16] MEDS: AZITHROMYCIN 500 MG TAB PO SCH (20:04)
[2020-03-17] MEDS: methylPREDNISolone SOD SUCCI 125 MG/2 ML VIAL IV SCH ×2 (00:52→06:16)
[2020-03-17] MEDS: HEPARIN SODIUM,PORCINE 5,000 UNIT/ML 1 ML VIAL SQ SCH ×2 (00:52→08:25)
[2020-03-17] MEDS: ALBUTEROL HFA INHALER INHALATION SCH ×3 (02:58→11:43)
--- NOTE | 2020-03-17 07:40 | XR ---
EXAMINATION TYPE: XR chest 1V portable DATE OF EXAM: 03/17/2020 HISTORY: follow up lingular pneumonia. REFERENCE: Previous study dated 03/16/2020. FINDINGS: Heart size upper limits of normal. There is continued improvement in the appearance of the left lung infiltrates. Patchy opacities persi st in the right lung. Pleural spaces are clear. IMPRESSION: 1. IMPROVED AERATION, LEFT LUNG. 2. CONTINUING PATCHY OPACITIES IN THE RIGHT LUNG.
[2020-03-17 08:23] VITALS: BP 153/85; PULSE 62; RESP 22; TEMP 98
[2020-03-17] MEDS: PANTOPRAZOLE 40 MG TABLET PO SCH (08:25)
[2020-03-17] MEDS ORDERED: predniSONE 20 MG TAB PO SCH (10:45)
--- NOTE | 2020-03-17 11:54 | P.PN ---
Subjective Progress Note Date: 03/17/20 Principal diagnosis: Lingular pneumonia, community-acquired 59-year-old white male patient with past medical history of COPD, chronic bronchiectasis, previous episode of pneumonia, former smoker, patient care is [id number] smoking history, glaucoma, past history of chronic alcoholism, prostate cancer status post radiation therapy, paroxysmal atrial fibrillation and patient takes no anticoagulation for it. Patient is familiar to our service from previous admissions related to pneumonia and COPD exacerbation. In July 2019 patient was treated for right upper lobe pneumonia patient was treated with antibiotics and had bronchoscopy with bronchoalveolar lavage with negative cultures only positive for penicillium and Aspergillus, and negative cytology. Last time we saw the patient in the hospital was in September, and patient was treated for acute COPD exacerbation with chest x-ray showing partial clearing of the previously treated right upper lobe pneumonia. On 03/13/2020 patient presents to the emergency department with complaints of pain in his left chest that radiates to his left shoulder, and the pain was exacerbated with deep breathing. Also reports shortness of breath, but no fever, chills or cough, no body aches. No weakness or numbness, no abdominal pain, nausea vomiting or diarrhea. Reports no swelling in his calves. Patient reports quitting smoking about a month ago. He is on Ventolin and Symbicort for his COPD. Chest x-ray showed a chronic parenchyma changes with the new lingular acute infiltrate. Lab work showed a mild leukocytosis with a white blood cell count of 14.1, hemoglobin of 15.3, platelet count is 228, neutrophil, is 12.6, lymphocytes was 0.7, d-dimer was negative at 0.57, PT/INR were within normal limits, sodium was 132, potassium is 5.0, chloride was 97, the rest of the electrolytes and renal profile were within normal limits, plasma lactic acid was increased at 3.3, patient was tachycardic on admission, with borderline low blood pressure of 92/56, pulse ox was 92% on room air. Patient was placed on supplemental oxygen, patient has been placed on accommodation of Zithromax and Rocephin, IV steroids, he was given 2 L and IV fluid boluses, follow-up chest x- ray today shows worsening of the lingular airspace disease, hemodynamically patient stable, room air pulse ox is 95%, lung sounds reveal diminished breath sounds with end expiratory wheezing bilaterally. Occasional cough, nonproductive. On 03/15/2020 patient seen in follow-up on a general medical floor. He is feeling better, denies ear, he is on 2 L of oxygen with a pulse ox of 98%, hemodynamically stable, he is afebrile, lung sounds are diminished, with expiratory wheezing, and crackles over left lower lobe. Waqar on azithromycin and Rocephin for antibiotic coverage. His labs have been reviewed, slight increase in his white blood cell count up to 15.2, hemoglobin is 13.2, electrolytes unremarkable, BUN is 26, creatinine 0.66. His coronavirus was ruled out, PA spoke acetone level came back elevated at 2.35. Patient is afebri le On 03/16/2020 patient seen in follow-up on a general medical floor, continues to improve, he remains on 2 L of oxygen his pulse ox is 95-98%, hemodynamically stable, breathing is improving, less dyspneic last bronchospastic, no complaints of chest pain, his been afebrile, microbiology results have been reviewed showing blood cultures showing no growth so far, preliminary Gram stain of the sputum culture showed rare gram-positive cocci and rare yeast. Patient is on a combination of Rocephin and Zithromax, continues on IV steroids for COPD exacerbation, today's chest x-ray has been reviewed showing persistent left mid and lower lung pneumonia slightly less confluent and prior chest x-ray, overall improving. The patient is seen today 03/17/2020 in follow-up on the regular medical floor. He is doing better. Less shortness of breath. Less cough and congestion. He is maintaining good O2 saturations in the mid 90s on 2 L/m per nasal cannula. She's been afebrile. Hemodynamically stable. Blood culture reveals no growth. Sputum culture reveals no growth. He is continued on ceftriaxone and azithromycin. Remains on IV Solu-Medrol. Chest x-ray reveals improved aeration left lung. Continued patchy opacity in the right lung. Objective - Vital Signs Vital signs: Vital Signs Temp 98.0 F 03/17/20 07:00 Pulse 62 03/17/20 07:00 Resp 22 03/17/20 07:00 BP 153/85 03/17/20 07:00 Pulse Ox 96 03/17/20 07:00 Intake & Output 0403/17/20 03/17/20 18:59 06:59 18:59 Intake Total 222 Balance 222 Intake: Oral 222 Other: Voiding Method Toilet Toilet Toilet Urinal Urinal Urinal # Voids 2 1 - Exam GENERAL EXAM: Alert, active, pleasant 59 Gen. in, and 2 L nasal cannula, comfortable in no apparent distress. HEAD: Normocephalic. EYES: Normal reaction of pupils, equal size. NOSE: Clear with pink turbinates. THROAT: No erythema or exudates. NECK: No masses, no JVD. CHEST: No chest wall deformity. LUNGS: Equal air entry with few scattered rhonchi bilaterally. CVS: S1 and S2 normal with no audible murmur, regular rhythm. ABDOMEN: No hepatosplenomegaly, normal bowel sounds, no guarding or rigidity. SPINE: No scoliosis or deformity SKIN: No rashes CENTRAL NERVOUS SYSTEM: No focal deficits, tone is normal in all 4 extremities. EXTREMITIES: There is no peripheral edema. No clubbing, no cyanosis. Peripheral pulses are intact. - Labs CBC & Chem 7: 03/16/20 07:22 03/16/20 07:22 Labs: Microbiology - Last 24 Hours (Table) 03/15/20 09:00 Gram Stain - Final Sputum Sputum Culture - Final 03/13/20 18:40 Blood Culture - Preliminary Blood No Growth after 72 hours Assessment and Plan Assessment: #1. Shortness of breath and pleuritic chest pain related to lingular pneumonia, community acquired, COVID 19 infection has been ruled out #2. Lactic acidosis, improved with IV hydration, related to sepsis related to pneumonia #3. Elevated pro-calcitonin related to acute pneumonia #4. Elevated CRP related to pneumonia #5. Pleuritic chest discomfort, d-dimer is negative #6. Previous hospitalization for treatment of community-acquired right upper lobe pneumonia, in July and September 2019, with bronchoscopy with BAL on 08/05/2019 with bronchial lavage cultures positive only for penicillium species and Aspergillus not fumigatus, and negative cytology #7. Former smoker, patient carries a [id number] smoking history, which is currently in remission #8. COPD and chronic bronchiectasis #9. History of previous pneumonias #10. History of atrial fibrillation, currently in sinus not on any chronic anticoagulation #11. History of chronic alcoholism #12. History of prostate cancer post brachii therapy #13. History of glaucoma Plan: The patient was seen and evaluated by Dr. Thorne Chest x-ray reviewed Cleared for discharge from the pulmonary standpoint Complete a course of antibiotics with Ceftin and azithromycin Complete a prednisone taper starting at 40 mg daily for 4 days Follow-up chest x-ray in 1-2 weeks I, the cosigning physician, performed a history & physical examination of the patient. Lungs sounds with few scattered rhonchi. Maintaining good O2 saturations in the 90s on 2 L/m per nasal cannula. I discussed the assessment and plan of care with my nurse practitioner, Lashonda Damico. I attest to the above note as dictated by her.
== END 2020-03-17 16:43 | disposition home or self-care (01) | DRG 871 ==
LOC: EC 15:15 → 4SSUR 18:38
PROVIDERS: ADMIT Internal Medicine; ATTEND Internal Medicine
DX: A41.9 Sepsis, unspecified organism (principal); J18.9 Pneumonia, unspecified organism; E87.2 Acidosis; J44.0 Chronic obstructive pulmonary disease with (acute) lower respiratory infection; J44.1 Chronic obstructive pulmonary disease with (acute) exacerbation; F10.20 Alcohol dependence, uncomplicated; F17.210 Nicotine dependence, cigarettes, uncomplicated; I48.0 Paroxysmal atrial fibrillation; T38.0X5A Adverse effect of glucocorticoids and synthetic analogues, initial encounter; D72.829 Elevated white blood cell count, unspecified; Z79.51 Long term (current) use of inhaled steroids; Z82.49 Family history of ischemic heart disease and other diseases of the circulatory system; Z20.828 Contact with and (suspected) exposure to other viral communicable diseases; Z82.5 Family history of asthma and other chronic lower respiratory diseases; Z85.46 Personal history of malignant neoplasm of prostate; Z87.01 Personal history of pneumonia (recurrent); Z92.3 Personal history of irradiation; Z95.1 Presence of aortocoronary bypass graft; I25.10 Atherosclerotic heart disease of native coronary artery without angina pectoris; H40.9 Unspecified glaucoma
CPT/HCPCS: 36415; 71045; 80048; 80053; 82728; 82784; 83605; 83615; 83735; 84145; 85025; 85379; 85610; 85730; 86140; 87040; 87070; 87205; 87635; 93005; 94640; 96361; 96374; 96375; 99285

== ENCOUNTER 2020-03-22 18:06 | Inpatient (IN) | payer OTHER ==
[2020-03-22] MEDS ORDERED: IPRATROPIUM-ALBUTEROL 3 ML NEB INHALATION STA (18:24)
--- NOTE | 2020-03-22 18:55 | ED ---
General Adult HPI - General Chief complaint: Shortness of Breath Stated complaint: Pneumonia Time Seen by Provider: 03/22/20 18:20 Source: patient, RN notes reviewed Mode of arrival: ambulatory Limitations: no limitations - History of Present Illness Initial comments: Patient is a pleasant 59-year-old male presenting to the emergency department with difficulty in breathing. Patient was in the hospital last week diagnosed with pneumonia. Patient has similar symptoms. Symptoms have worsened over the past few days. Patient does have some discomfort during cough. Patient also has history of COPD. Sputum occasionally yellow. No fevers. - Related Data Home Medications Medication Instructions Recorded Confirmed Albuterol Sulfate [Ventolin HFA] 1 - 2 puff INHALATION RT-Q6H PRN 03/13/20 03/13/20 Previous Rx's Medication Instructions Recorded Azithromycin [Zithromax] 500 mg PO Q24H #3 tab 03/17/20 Cefuroxime Axetil [Ceftin] 500 mg PO BID 3 Days #6 tab 03/17/20 Pantoprazole [Protonix] 40 mg PO AC-BRKFST #30 tablet. 03/17/20 predniSONE See Taper PO DIRECTED #30 tab 03/17/20 Allergies Allergy/AdvReac Type Severity Reaction Status Date / Time No Known Allergies Allergy Verified 03/22/20 18:17 Review of Systems ROS Statement: Those systems with pertinent positive or pertinent negative responses have been documented in the HPI. ROS Other: All systems not noted in ROS Statement are negative. Constitutional: Denies: fever Eyes: Denies: eye pain ENT: Denies: ear pain Respiratory: Reports: as per HPI, cough, dyspnea Cardiovascular: Denies: chest pain Endocrine: Denies: fatigue Gastrointestinal: Denies: abdominal pain Genitourinary: Denies: dysuria Musculoskeletal: Denies: back pain Skin: Denies: rash Neurological: Denies: weakness Past Medical History Past Medical History: Atrial Fibrillation, Cancer, COPD, Eye Disorder, Pneumonia, Prostate Disorder Additional Past Medical History / Comment(s): ETOH abuse, DTs, tracheobronchitis, pneumonias, pleurisy, acute respiratory failure/vented, bilateral glaucoma, prostate cancer History of Any Multi-Drug Resistant Organisms: None Reported Past Surgical History: Hernia Repair, Prostate Surgery, Tonsillectomy Additional Past Surgical History / Comment(s): R inguinal hernia repair, pros patel-radiation implant, colonoscopy-normal Past Anesthesia/Blood Transfusion Reactions: No Reported Reaction Past Psychological History: No Psychological Hx Reported Smoking Status: Former smoker Past Alcohol Use History: Daily, Heavy Past Drug Use History: None Reported - Past Family History Father Family Medical History: COPD Additional Family Medical History / Comment(s): Father of COPD in his 70's Mother Family Medical History: Coronary Artery Disease (CAD) Additional Family Medical History / Comment(s): Mother of heart disease at the age of 65 yrs. General Exam Limitations: no limitations General appearance: alert, in no apparent distress Head exam: Present: normocephalic Eye exam: Present: normal appearance Neck exam: Present: normal inspection Respiratory exam: Present: rhonchi, accessory muscle use Cardiovascular Exam: Present: regular rate, normal rhythm GI/Abdominal exam: Present: soft. Absent: tenderness Extremities exam: Present: normal inspection. Absent: pedal edema, calf tenderness Neurological exam: Present: alert Psychiatric exam: Present: normal affect, normal mood Skin exam: Present: normal color Course Vital Signs 03/22/20 03/22/20 03/22/20 18:13 18:35 18:44 Temperature 97.9 F Pulse Rate 91 79 85 Respiratory 32 H 18 20 Rate Blood Pressure 128/80 O2 Sat by Pulse 88 L Oximetry 03/22/20 20:33 Temperature Pulse Rate 80 Respiratory 19 Rate Blood Pressure 142/80 O2 Sat by Pulse 96 Oximetry EKG Findings - EKG Comments: EKG Findings:: Normal sinus rhythm 76. HI 134. QRS 88. QT 378. QTC 425. Normal axis. Normal QRS. No acute ST change. Medical Decision Making - Medical Decision Making Patient is having chest discomfort, more in the left side. Patient still feels somewhat short of breath. Patient updated on results and plan. Case discussed in detail with Dr. Banda, who will admit covering for dr. colon - Lab Data Result diagrams: 03/22/20 18:35 03/22/20 18:35 Lab Results 03/22/20 03/22/20 03/22/20 Range/Units 18:35 18:35 18:35 WBC 11.2 H (3.8-10.6) k/uL RBC 4.38 (4.30-5.90) m/uL Hgb 13.8 (13.0-17.5) gm/dL Hct 42.4 (39.0-53.0) % MCV 96.8 (80.0-100.0) fL MCH 31.4 (25.0-35.0) pg MCHC 32.5 (31.0-37.0) g/dL RDW 14.2 (11.5-15.5) % Plt Count 343 (150-450) k/uL Neutrophils % 70 % Lymphocytes % 21 % Monocytes % 4 % Eosinophils % 3 % Basophils % 0 % Neutrophils # 7.9 H (1.3-7.7) k/uL Lymphocytes # 2.4 (1.0-4.8) k/uL Monocytes # 0.5 (0-1.0) k/uL Eosinophils # 0.3 (0-0.7) k/uL Basophils # 0.0 (0-0.2) k/uL PT 9.4 (9.0-12.0) sec INR 0.9 (<1.2) APTT 24.2 (22.0-30.0) sec Sodium 136 L (137-145) mmol/L Potassium 4.0 (3.5-5.1) mmol/L Chloride 103 (98-107) mmol/L Carbon Dioxide 22 (22-30) mmol/L Anion Gap 11 mmol/L BUN 15 (9-20) mg/dL Creatinine 0.53 L (0.66-1.25) mg/dL Est GFR (CKD-EPI)AfAm >90 (>60 ml/min/1.73 sqM) Est GFR (CKD-EPI)NonAf >90 (>60 ml/min/1.73 sqM) Glucose 124 H (74-99) mg/dL Plasma Lactic Acid Jw (0.7-2.0) mmol/L Calcium 8.7 (8.4-10.2) mg/dL Magnesium 1.8 (1.6-2.3) mg/dL Total Bilirubin 0.3 (0.2-1.3) mg/dL AST 21 (17-59) U/L ALT 26 (4-49) U/L Alkaline Phosphatase 70 (38-126) U/L Lactate Dehydrogenase 330 (313-618) U/L C-Reactive Protein 44.5 H (<10.0) mg/L Total Protein 6.4 (6.3-8.2) g/dL Albumin 3.4 L (3.5-5.0) g/dL Coronavirus (PCR) (Not Detectd) 03/22/20 03/22/20 Range/Units 18:35 19:05 WBC (3.8-10.6) k/uL RBC (4.30-5.90) m/uL Hgb (13.0-17.5) gm/dL Hct (39.0-53.0) % MCV (80.0-100.0) fL MCH (25.0-35.0) pg MCHC (31.0-37.0) g/dL RDW (11.5-15.5) % Plt Count (150-450) k/uL Neutrophils % % Lymphocytes % % Monocytes % % Eosinophils % % Basophils % % Neutrophils # (1.3-7.7) k/uL Lymphocytes # (1.0-4.8) k/uL Monocytes # (0-1.0) k/uL Eosinophils # (0-0.7) k/uL Basophils # (0-0.2) k/uL PT (9.0-12.0) sec INR (<1.2) APTT (22.0-30.0) sec Sodium (137-145) mmol/L Potassium (3.5-5.1) mmol/L Chloride (98-107) mmol/L Carbon Dioxide (22-30) mmol/L Anion Gap mmol/L BUN (9-20) mg/dL Creatinine (0.66-1.25) mg/dL Est GFR (CKD-EPI)AfAm (>60 ml/min/1.73 sqM) Est GFR (CKD-EPI)NonAf (>60 ml/min/1.73 sqM) Glucose (74-99) mg/dL Plasma Lactic Acid Jw 1.5 (0.7-2.0) mmol/L Calcium (8.4-10.2) mg/dL Magnesium (1.6-2.3) mg/dL Total Bilirubin (0.2-1.3) mg/dL AST (17-59) U/L ALT (4-49) U/L Alkaline Phosphatase (38-126) U/L Lactate Dehydrogenase (313-618) U/L C-Reactive Protein (<10.0) mg/L Total Protein (6.3-8.2) g/dL Albumin (3.5-5.0) g/dL Coronavirus (PCR) Not Detected (Not Detectd) - Radiology Data Radiology results: image reviewed (Chest x-ray does have perihilar infiltrates, slight improvement from previous.) Disposition Clinical Impression: COPD (chronic obstructive pulmonary disease), Pneumonia Disposition: ADMITTED IP TO THIS HOSP Is patient prescribed a controlled substance at d/c from ED?: No Referrals: Aiden Colon MD [Primary Care Provider] - 1-2 days Decision Time: 20:40
--- NOTE | 2020-03-22 19:21 | XR ---
EXAMINATION TYPE: XR chest 1V portable DATE OF EXAM: 03/22/2020 COMPARISON: 03/17/2020 INDICATION: Suspected Covid 19 pneumonia cough short of breath TECHNIQUE: Single frontal view of the chest is obtained. FINDINGS: The heart size is normal. The pulmonary vasculature is normal. There are increased lung markings in the perihilar regions. Some linear opacities in the left midlung and left lower lobe. Findings are nonspecific. Atelectasis, atypical pneumonia could be considered. IMPRESSION: 1. Slight improvement of perihilar infiltrates from comparison. Findings can be compatible with atypi yvette pneumonia in the proper clinical setting.
[2020-03-22 19:24] LABS: Basophils % (A) 0 %; Eosinophils # (A) 0.3 k/uL (0-0.7); Eosinophils % (A) 3 %; HCT 42.4 % (39.0-53.0); HGB 13.8 gm/dL (13.0-17.5); Lymphocytes # (A) 2.4 k/uL (1.0-4.8); Lymphocytes % (A) 21 %; MCH 31.4 pg (25.0-35.0); MCHC 32.5 g/dL (31.0-37.0); MCV 96.8 fL (80.0-100.0); Mean Platelet Volume 7.2; Monocytes # (A) 0.5 k/uL (0-1.0); Monocytes % (A) 4 %; Neutrophils # (A) 7.9 k/uL (1.3-7.7); Neutrophils % (A) 70 %; Platelet Count 343 k/uL (150-450); RBC 4.38 m/uL (4.30-5.90); RDW 14.2 % (11.5-15.5); Sodium 136 mmol/L (137-145); WBC 11.2 k/uL (3.8-10.6)
[2020-03-22 19:27] LABS: ALT 26 U/L (4-49); AST 21 U/L (17-59); African American GFR (CKD) >90 (>60 ml/min/1.73 sqM); Albumin 3.4 g/dL (3.5-5.0); Alkaline Phosphatase 70 U/L (38-126); Anion Gap 11 mmol/L; Blood Urea Nitrogen 15 mg/dL (9-20); C Reactive Protein 44.5 mg/L (<10.0); Calcium 8.7 mg/dL (8.4-10.2); Carbon Dioxide 22 mmol/L (22-30); Chloride 103 mmol/L (98-107); Glucose 124 mg/dL (74-99); LDH 330 U/L (313-618); Magnesium 1.8 mg/dL (1.6-2.3); Non-African American GFR(CKD) >90 (>60 ml/min/1.73 sqM); Total Bilirubin 0.3 mg/dL (0.2-1.3); Total Protein 6.4 g/dL (6.3-8.2)
[2020-03-22 19:54] LABS: INR 0.9 (<1.2); Partial Thromboplastin Time 24.2 sec (22.0-30.0); Prothrombin Time 9.4 sec (9.0-12.0)
[2020-03-22] MEDS ORDERED: MORPHINE SULFATE 4 MG/ML SYRINGE IVP STA (20:34)
[2020-03-22] MEDS ORDERED: LEVOFLOXACIN 750MG-D5W PMX 750 MG in DEXTROSE/WATER 1 150ML.BAG IVPB STA (20:40)
[2020-03-22] MEDS ORDERED: PIPERACILLIN-TAZOBACTAM 3.375 GM in SODIUM CHLORIDE 0.9% 100 ML IVPB STA (20:40)
[2020-03-22] MEDS ORDERED: ALBUTEROL HFA INHALER INHALATION PRN (20:40)
[2020-03-22] MEDS ORDERED: PNEUMONIA PROTOCOL UTILIZED 1 EACH MISC PO PRN (20:40)
[2020-03-22] MEDS: SODIUM CHLORIDE 0.9% 1,000 ML IV SCH (20:54)
[2020-03-23] MEDS ORDERED: PIPERACILLIN-TAZOBACTAM 3.375 GM in SODIUM CHLORIDE 0.9% 100 ML IVPB SCH (06:00)
[2020-03-23] MEDS: ALBUTEROL HFA INHALER INHALATION SCH ×4 (08:33→20:06)
[2020-03-23] MEDS: TIOTROPIUM 18 MCG/PUFF INHALER INHALATION SCH (08:34)
[2020-03-23] MEDS: SODIUM CHLORIDE 0.9% 1,000 ML IV SCH ×3 (08:50→23:10)
[2020-03-23] MEDS: MORPHINE SULFATE 4 MG/ML SYRINGE IVP PRN (08:59)
[2020-03-23] MEDS ORDERED: predniSONE 20 MG TAB PO SCH (10:30)
--- NOTE | 2020-03-23 11:41 | CT ---
EXAMINATION TYPE: CT angio chest DATE OF EXAM: 03/23/2020 COMPARISON: Chest x-ray dated 03/22/[address] dated 08/04/2019 HISTORY: pulmonary embolus. Suspected Covid 19 pneumonia , cough and short of breath. CT DLP: 292.1 mGycm. Automated Exposure Control for Dose Reduction was Utilized. CONTRAST: CTA scan of the thorax is performed with IV Contrast, patient injected with 100 mL of Isovue 370, pul monary embolism protocol. MIP Images are created on CT scanner and reviewed. FINDINGS: LUNGS: Both emphysematous changes of the right lung apex. There are scattered groundglass opacities i n the dependent left upper lobe and more confluent in the anterior left upper lobe anteriorly and steven gula. Chronic interstitial change in the right lower lobe is redemonstrated from the prior of 017. Diffuse peribronchial cuffing is greater on the right than left. Small left pleural effusion and left basilar atelectasis with left hemidiaphragm elevation. MEDIASTINUM: There is satisfactory enhancement of the pulmonary artery and its branches, there is no CT evidence for pulmonary embolism. As seen on the prior there are enlarged mediastinal lymph nodes m easuring 1.6 cm in the subcarinal region and 1.4 cm in the aorticopulmonary window. No thoracic aorti c aneurysm. No cardiomegaly. Trace pericardial effusion is seen. Bolus timing limits evaluation of coronary artery calcifications, however at least moderate atherosclerosis is seen. OTHER: Old fracture deformity of the L1 right transverse process. Partially visualized old left clavi cular fracture deformity. Multiple old healed left-sided rib fractures. Mild multilevel degenerative change of the spine. IMPRESSION: 1. No CT evidence of pulmonary embolism. 2. Multifocal left-sided round glass opacities are nonspecific but can be seen in Covid 19 pneumonia, underlying pneumonias, or inflammatory disorders. Interstitial change of the right lower lobe is red emonstrated from 2019. Although findings appear less pronounced than 2017 bronchoscopy should be cons idered pending clinical status. 3. Redemonstration of mediastinal adenopathy improved from the prior of 2019. 4. Small left pleural effusion.
--- NOTE | 2020-03-23 11:45 | XR ---
EXAMINATION TYPE: XR chest 1V portable DATE OF EXAM: 03/23/2020 COMPARISON: 03/22/2020 HISTORY: Follow-up for pneumonia. TECHNIQUE: Single frontal view of the chest is obtained. FINDINGS: Chronic appearing right perihilar and midlung interstitial prominence. Multifocal patchy l ingular and left midlung opacities. Stable cardiomediastinal silhouette. Trace left pleural effusion. IMPRESSION: Stable findings from 03/22/2020 with chronic right perihilar airspace disease and multifo yvette left midlung and lingular interstitial airspace disease. Trace left pleural effusion.
--- NOTE | 2020-03-23 12:00 | P.HPIM ---
History of Present Illness Patient is a pleasant 5-year-old male came to emergency department compensative shortness of breath, without any significant sputum production patient was recently diagnosed with pneumonia and COPD was discharged home few days ago co mes back with significant chest pain sharp in nature with pleuritic in nature nonradiating. Patient has been coughing for a while. Patient denied any fever chills. Patient to COVID 19 test was negative patient LDH is not elevated patient doesn't have any lymphopenia but does have elevated d-dimer because of which are pending a computed tomography scan to rule out any pulmonary embolism which showed diffuse nonspecific infiltrate and groundglass opacities which can be seen in Covid 19. Patient denied any dysuria nausea vomiting. Review of Systems REVIEW OF SYSTEMS: CONSTITUTIONAL: No fever, no malaise, no fatigue. HEENT: No recent visual problems or hearing problems. Denied any sore throat. CARDIOVASCULAR: No chest pain, orthopnea, PND, no palpitations, no syncope. PULMONARY: No shortness of breath, no cough, no hemoptysis. GASTROINTESTINAL: No diarrhea, no nausea, no vomiting, no abdominal pain. NEUROLOGICAL: No headaches, no weakness, no numbness. HEMATOLOGICAL: Denies any bleeding or petechiae. GENITOURINARY: Denies any burning micturition, frequency, or urgency. MUSCULOSKELETAL/RHEUMATOLOGICAL: Denies any joint pain, swelling, or any muscle pain. ENDOCRINE: Denies any polyuria or polydipsia. The rest of the 14-point review of systems is negative. Past Medical History Past Medical History: Atrial Fibrillation, Cancer, COPD, Eye Disorder, Pneumonia, Prostate Disorder Additional Past Medical History / Comment(s): ETOH abuse, DTs, tracheobronchitis, pneumonias, pleurisy, acute respiratory failure/vented, bilateral glaucoma, prostate cancer History of Any Multi-Drug Resistant Organisms: None Reported Past Surgical History: Hernia Repair, Prostate Surgery, Tonsillectomy Additional Past Surgical History / Comment(s): R inguinal hernia repair, prostate-radiation implant, colonoscopy-normal Past Anesthesia/Blood Transfusion Reactions: No Reported Reaction Past Psychological History: No Psychological Hx Reported Additional Psychological History / Comment(s): Pt is living with his niece. He rides his bike or walks. Smoking Status: Former smoker Past Alcohol Use History: Daily, Heavy Additional Past Alcohol Use History / Comment(s): Pt states he started smoking as a teen and is a 1.5 ppd smoker. States he stopped smoking about 3 weeks ago. Pt states he drinks 3 24 oz beers a day last drink 03/12 Past Drug Use History: None Reported - Past Family History Father Family Medical History: COPD Additional Family Medical History / Comment(s): Father of COPD in his 70's Mother Family Medical History: Coronary Artery Disease (CAD) Additional Family Medical History / Comment(s): Mother of heart disease at the age of 65 yrs. Medications and Allergies Home Medications Medication Instructions Recorded Confirmed Type Albuterol Sulfate [Ventolin HFA] 1 - 2 puff INHALATION RT-Q6H PRN 03/13/20 03/22/20 History Pantoprazole [Protonix] 40 mg PO AC-BRKFST #30 tablet. 03/17/20 03/22/20 Rx predniSONE See Taper PO DIRECTED #30 tab 03/17/20 03/22/20 Rx Allergies Allergy/AdvReac Type Severity Reaction Status Date / Time No Known Allergies Allergy Verified 03/22/20 21:56 Physical Exam Vitals: Vital Signs Temp Pulse Pulse Resp BP BP Pulse Ox 03/23/20 07:41 98.9 F 75 16 153/94 94 L 03/23/20 02:10 98.2 F 73 18 147/85 94 L 03/23/20 00:00 80 18 03/22/20 23:00 98.2 F 80 18 142/87 96 03/22/20 21:25 97.9 F 03/22/20 20:33 80 19 142/80 96 03/22/20 18:44 85 20 03/22/20 18:35 79 18 03/22/20 18:13 97.9 F 91 32 H 128/80 88 L Intake and Output 03/22/20 03/23/20 03/23/20 22:59 06:59 14:59 Intake Total 240 Output Total 800 Balance -800 240 Intake: Oral 240 Output: Urine 800 Other: Voiding Method Toilet Urinal Weight 65.771 kg 65.771 kg PHYSICAL EXAMINATION: GENERAL: The patient is alert and oriented x3, not in any acute distress. Well developed, well nourished. HEENT: Pupils are round and equally reacting to light. EOMI. No scleral icterus. No conjunctival pallor. Normocephalic, atraumatic. No pharyngeal erythema. No thyromegaly. CARDIOVASCULAR: S1 and S2 present. No murmurs, rubs, or gallops. PULMONARY: Distant entry into bilateral lung boo no wheezing was appreciated some tenderness in the left chest wall ABDOMEN: Soft, nontender, nondistended, normoactive bowel sounds. No palpable organomegaly. MUSCULOSKELETAL: No joint swelling or deformity. EXTREMITIES: No cyanosis, clubbing, or pedal edema. NEUROLOGICAL: Gross neurological examination did not reveal any focal deficits. SKIN: No rashes. Results CBC & Chem 7: 03/22/20 18:35 03/22/20 18:35 Labs: Abnormal Lab Results - Last 24 Hours (Table) 03/22/20 03/22/20 03/22/20 Range/Units 18:35 18:35 18:35 WBC 11.2 H (3.8-10.6) k/uL Neutrophils # 7.9 H (1.3-7.7) k/uL D-Dimer 1.34 H (<0.60) mg/L FEU Sodium 136 L (137-145) mmol/L Creatinine 0.53 L (0.66-1.25) mg/dL Glucose 124 H (74-99) mg/dL C-Reactive Protein 44.5 H (<10.0) mg/L Albumin 3.4 L (3.5-5.0) g/dL Thrombosis Risk Factor Assmnt - Choose All That Apply Each Factor Represents 1 point: Abnormal pulmonary function (COPD), Age 41-60 years Other Risk Factors: No Other congenital or acquired thrombophilia - If yes, enter type in comment: No Thrombosis Risk Factor Assessment Total Risk Factor Score: 2 Thrombosis Risk Factor Assessment Level: Low Risk Assessment and Plan Plan: -Shortness of breath and chest pain: Chest pain is probably musculoskeletal from coughing. Shortness of breath can be secondary to COPD exacerbation with a superimposed either atypical pneumonia or COVID 19 infection. I cannot completely rule out Covid 19 at this time. Zosyn and levofloxacin will be discontinued patient was started on azithromycin which will be continued patient was started on high-dose systemic steroids by pulmonology which will be continued. -COPD with acute exacerbation cranial with inhalational treatments systemic steroids as mentioned above, patient is a previous smoker doesn't smoke anymore. -Atrial fibrillation presently rate controlled patient is not on antiplatelet correlation at this time -Benign prostatic hypertrophy
[2020-03-23] MEDS: AZITHROMYCIN 500 MG TAB PO SCH (13:19)
[2020-03-23] MEDS: methylPREDNISolone SOD SUCCI 125 MG/2 ML VIAL IV SCH ×3 (13:19→23:08)
--- NOTE | 2020-03-23 13:39 | P.CNPUL ---
History of Present Illness Consult date: 03/23/20 Requesting physician: Carol Flanagan Reason for consult: dyspnea, abnormal CXR/CT (Multifocal left-sided groundglass opacities. Interstitial changes of the right lower lobe. ) Chief complaint: Shortness of breath, cough, congestion History of present illness: This is a very pleasant 59-year-old gentleman who follows with Dr. Escalera as his primary care provider. He has a history of chronic tobacco dependence, chronic alcohol abuse, recurrent pneumonias suspect aspiration, previous ventilatory dependent respiratory failure, atrial fibrillation. He was just discharged from here approximately 5 days ago following an episode of lingular pneumonia community-acquired. Cold in 19 infection ruled out. He was some slightly improved, treated and released. He presented back to the emergency room yesterday with complaints of increasing shortness of breath, cough or congestion. No fever or chills. Occasional productive sputum with yellow phlegm. He had been discharged on Ceftin and azithromycin along with a prednisone taper. Today's chest x-ray revealed stable findings compared to yesterday with chronic right perihilar airspace disease and multifocal left midlung lingular interstitial airspace disease. Previous right upper lobe infiltrate cleared. CT angiogram ruled out pulmonary embolism. There was multifocal left-sided groundglass opacities along with interstitial changes the right lower lobe. Mediastinal adenopathy is improved from 2019. Previous endoscopy and biopsies biopsies negative for malignancy. He is seen today in consultation on the regular medical floor. He is currently sitting up at the bedside. Awake and alert in no acute distress. States he is breathing a bit easier today compared to yesterday. Still with a loose nonproductive cough. Maintaining O2 saturations in the mid 90s on room air. He's afebrile. Hemodynamically stable. CoVID 19 screen was again negative. White count 11.2. Hemoglobin 13.8. D-dimer 1.34. Sodium 136. Potassium 4.0. Creatinine 0.53. LDH 330. C-reactive protein 44.5. Pro-calcitonin 0.07. Ferritin 172. Lactic acid 1.5. Glucose 124. He's been initiated on ceftriaxone and azithromycin along with Symbicort, Spiriva, albuterol and IV Solu-Medrol Review of Systems REVIEW OF SYSTEMS: CONSTITUTIONAL: Denies any recent significant weight loss or weight gain. EYES: Denies change in vision. EARS, NOSE, MOUTH, THROAT: Denies headaches, denies sore throat. CARDIOVASCULAR: Denies chest pain, palpitations or syncopal episodes. RESPIRATORY: Positive for shortness of breath, cough, congestion no hemoptysis. GASTROINTESTINAL: Denies change in appetite, denies abdominal pain GENITOURINARY: Denies hematuria, denies infections. MUSKULOSKELETAL: Denies pain, denies swelling. INTEGUMENTARY: Denies rash, denies eczema. NEUROLOGICAL: Denies recent memory loss, no recent seizure activity. PSYCHIATRIC: Denies anxiety, denies depression. HEMATOLOGIC/LYMPHATIC: Denies anemia, denies enlarged lymph nodes. Past Medical History Past Medical History: Atrial Fibrillation, Cancer, COPD, Eye Disorder, Pneumonia, Prostate Disorder Additional Past Medical History / Comment(s): ETOH abuse, DTs, tracheobronchitis, pneumonias, pleurisy, acute respiratory failure/vented, bilateral glaucoma, prostate cancer History of Any Multi-Drug Resistant Organisms: None Reported Past Surgical History: Hernia Repair, Prostate Surgery, Tonsillectomy Additional Past Surgical History / Comment(s): R inguinal hernia repair, prostate-radiation implant, colonoscopy-normal Past Anesthesia/Blood Transfusion Reactions: No Reported Reaction Past Psychological History: No Psychological Hx Reported Additional Psychological History / Comment(s): Pt is living with his niece. He rides his bike or walks. Smoking Status: Former smoker Past Alcohol Use History: Daily, Heavy Additional Past Alcohol Use History / Comment(s): Pt states he started smoking as a teen and is a 1.5 ppd smoker. States he stopped smoking about 3 weeks ago. Pt states he drinks 3 24 oz beers a day last drink 03/12 Past Drug Use History: None Reported - Past Family History Father Family Medical History: COPD Additional Family Medical History / Comment(s): Father of COPD in his 70's Mother Family Medical History: Coronary Artery Disease (CAD) Additional Family Medical History / Comment(s): Mother of heart disease at the age of 65 yrs. Medications and Allergies Home Medications Medication Instructions Recorded Confirmed Type Albuterol Sulfate [Ventolin HFA] 1 - 2 puff INHALATION RT-Q6H PRN 03/13/20 03/22/20 History Pantoprazole [Protonix] 40 mg PO AC-GAYLAKFST #30 tablet. 03/17/20 03/22/20 Rx predniSONE See Taper PO DIRECTED #30 tab 03/17/20 03/22/20 Rx Allergies Allergy/AdvReac Type Severity Reaction Status Date / Time No Known Allergies Allergy Verified 03/22/20 21:56 Physical Exam Vitals: Vital Signs Temp Pulse Pulse Resp BP BP Pulse Ox 03/23/20 07:41 98.9 F 75 16 153/94 94 L 03/23/20 02:10 98.2 F 73 18 147/85 94 L 03/23/20 00:00 80 18 03/22/20 23:00 98.2 F 80 18 142/87 96 03/22/20 21:25 97.9 F 03/22/20 20:33 80 19 142/80 96 03/22/20 18:44 85 20 03/22/20 18:35 79 18 03/22/20 18:13 97.9 F 91 32 H 128/80 88 L Intake and Output 03/22/20 03/23/20 03/23/20 22:59 06:59 14:59 Intake Total 240 Output Total 800 Balance -800 240 Intake: Oral 240 Output: Urine 800 Other: Voiding Method Toilet Urinal Weight 65.771 kg 65.771 kg GENERAL EXAM: Alert, pleasant 59-year-old gentleman, on room air comfortable in no apparent distress. HEAD: Normocephalic. EYES: Normal reaction of pupils, equal size. NOSE: Clear with pink turbinates. THROAT: No erythema or exudates. NECK: No masses, no JVD. CHEST: No chest wall deformity. LUNGS: Equal air entry with few scattered rhonchi bilaterally CVS: S1 and S2 normal with no audible murmur, regular rhythm. ABDOMEN: No hepatosplenomegaly, normal bowel sounds, no guarding or rigidity. SPINE: No scoliosis or deformity SKIN: No rashes CENTRAL NERVOUS SYSTEM: No focal deficits, tone is normal in all 4 extremities. EXTREMITIES: There is no peripheral edema. No clubbing, no cyanosis. Peripheral pulses are intact. Results - Laboratory Findings CBC and BMP: 03/22/20 18:35 03/22/20 18:35 PT/INR, D-dimer PT 9.4 sec (9.0-12.0) 03/22/20 18:35 INR 0.9 (<1.2) 03/22/20 18:35 D-Dimer 1.34 mg/L FEU (<0.60) H 03/22/20 18:35 Abnormal lab findings: Abnormal Labs 03/22/20 03/22/20 03/22/20 18:35 18:35 18:35 WBC 11.2 H Neutrophils # 7.9 H D-Dimer 1.34 H Sodium 136 L Creatinine 0.53 L Glucose 124 H C-Reactive Protein 44.5 H Albumin 3.4 L - Diagnostic Findings Chest x-ray: image reviewed CT scan - chest: image reviewed Assessment and Plan Assessment: 1 Acute hypoxic respiratory failure secondary to an acute bilateral multifocal pneumonia, suspect hospital-acquired. Covid 19 infection ruled out 2 Recent admission for community-acquired pneumonia 3 Previous community-acquired right upper lobe pneumonia in July 2019 status post bronchoscopy with BAL and biopsy is negative for malignancy. 4 Acute exacerbation of chronic obstructive pulmonary disease 5 Chronic bronchiectasis 6 Chronic tobacco dependence 7 History of chronic alcoholism 8 History of atrial fibrillation 9 History of prostate cancer Plan: The patient was seen and evaluated by Dr. Smith. We'll continue with ceftriaxone and azithromycin Continue Symbicort, Spiriva, albuterol Continue IV Solu-Medrol Follow-up chest x-ray Patient denies aspiration or passing out from alcohol Again educated regarding alcohol cessation Educated regarding continued and ongoing smoking cessation We will continue to follow make further recommendations based on his clinical status I, the cosigning physician, performed a history & physical examination of the patient. Lungs sounds with bilateral scattered rhonchi. Maintaining good O2 saturations in the 90s on room air. I discussed the assessment and plan of care with my nurse practitioner, Lashonda Damico. I attest to the above note as dictated by her. Time with Patient: Greater than 30
[2020-03-23 16:59] LABS: Glucose,Whole Blood 128 mg/dL (75-99)
[2020-03-23] MEDS: SYMBICORT 160-4.5 MCG INHALER INHALATION SCH (20:07)
[2020-03-23 20:43] LABS: Glucose,Whole Blood 195 mg/dL (75-99)
[2020-03-23] MEDS ORDERED: LEVOFLOXACIN 750MG-D5W PMX 750 MG in DEXTROSE/WATER 1 150ML.BAG IVPB SCH (21:00)
[2020-03-24] MEDS: methylPREDNISolone SOD SUCCI 125 MG/2 ML VIAL IV SCH ×2 (05:26→11:08)
[2020-03-24 06:47] LABS: Glucose,Whole Blood 152 mg/dL (75-99)
[2020-03-24 06:52] LABS: HCT 42.9 % (39.0-53.0); HGB 13.1 gm/dL (13.0-17.5); MCH 30.1 pg (25.0-35.0); MCHC 30.6 g/dL (31.0-37.0); MCV 98.3 fL (80.0-100.0); Platelet Count 333 k/uL (150-450); RBC 4.36 m/uL (4.30-5.90); RDW 14.2 % (11.5-15.5); WBC 19.6 k/uL (3.8-10.6)
[2020-03-24 07:21] LABS: African American GFR (CKD) >90 (>60 ml/min/1.73 sqM); Anion Gap 8 mmol/L; Blood Urea Nitrogen 14 mg/dL (9-20); Calcium 8.6 mg/dL (8.4-10.2); Carbon Dioxide 21 mmol/L (22-30); Chloride 104 mmol/L (98-107); Glucose 149 mg/dL (74-99); Non-African American GFR(CKD) >90 (>60 ml/min/1.73 sqM); Potassium 4.5 mmol/L (3.5-5.1); Sodium 133 mmol/L (137-145)
[2020-03-24] MEDS: SYMBICORT 160-4.5 MCG INHALER INHALATION SCH ×2 (07:24→19:44)
[2020-03-24] MEDS: ALBUTEROL HFA INHALER INHALATION SCH ×4 (07:24→19:43)
[2020-03-24] MEDS: TIOTROPIUM 18 MCG/PUFF INHALER INHALATION SCH (07:24)
[2020-03-24] MEDS: AZITHROMYCIN 500 MG TAB PO SCH (08:07)
[2020-03-24] MEDS: PANTOPRAZOLE 40 MG TABLET PO SCH (08:07)
[2020-03-24] MEDS: SODIUM CHLORIDE 0.9% 1,000 ML IV SCH ×2 (11:07→21:36)
[2020-03-24 11:09] LABS: Glucose,Whole Blood 143 mg/dL (75-99)
--- NOTE | 2020-03-24 13:10 | P.PN ---
Subjective Progress Note Date: 03/24/20 Principal diagnosis: Acute hypoxic respiratory failure secondary to acute bilateral multifocal pneumonia. This is a very pleasant 59-year-old gentleman who follows with Dr. Escalera as his primary care provider. He has a history of chronic tobacco dependence, chronic alcohol abuse, recurrent pneumonias suspect aspiration, previous ventilatory dependent respiratory failure, atrial fibrillation. He was just discharged from here approximately 5 days ago following an episode of lingular pneumonia community-acquired. Cold in 19 infection ruled out. He was some slightly improved, treated and released. He presented back to the emergency room yesterday with complaints of increasing shortness of breath, cough or congestion. No fever or chills. Occasional productive sputum with yellow phlegm. He had been discharged on Ceftin and azithromycin along with a prednisone taper. Today's chest x-ray revealed stable findings compared to yesterday with chronic right perihilar airspace disease and multifocal left midlung lingular interstitial airspace disease. Previous right upper lobe infiltrate cleared. CT angiogram ruled out pulmonary embolism. There was multifocal left-sided groundglass opacities along with interstitial changes the right lower lobe. Mediastinal adenopathy is improved from 2019. Previous endoscopy and biopsies biopsies negative for malignancy. He is seen today in consultation on the regular medical floor. He is currently sitting up at the bedside. Awake and alert in no acute distress. States he is breathing a bit easier today compared to yesterday. Still with a loose nonproductive cough. Maintaining O2 saturations in the mid 90s on room air. He's afebrile. Hemodynamically stable. CoVID 19 screen was again negative. White count 11.2. Hemoglobin 13.8. D-dimer 1.34. Sodium 136. Potassium 4.0. Creatinine 0.53. LDH 330. C-reactive protein 44.5. Pro-calcitonin 0.07. Ferritin 172. Lactic acid 1.5. Glucose 124. He's been initiated on ceftriaxone and azithromycin along with Symbicort, Spiriva, albuterol and IV Solu-Medrol The patient is seen today 03/24/2020 in follow-up on the regular medical floor. He is currently sitting up at the bedside. Awake and alert in no acute distress. His breathing is improved today compared to yesterday. He is maintaining O2 saturations in the mid 90s on room air. He's been afebrile. Hemodynamically stable. Less chest wall pain as well. He is continued on IV Solu-Medrol, ceftriaxone, Symbicort, Spiriva and albuterol. White count 19.6. Hemoglobin 13.1. Sodium 133. Potassium 4.5. Bicarb 21. Creatinine 0.48. Objective - Vital Signs Vital signs: Vital Signs Temp 98.2 F 03/24/20 07:52 Pulse 84 03/24/20 07:52 Resp 18 03/24/20 07:58 BP 155/85 03/24/20 07:52 Pulse Ox 96 03/24/20 07:52 Intake & Output 03/23/20 03/24/20 03/24/20 18:59 06:59 18:59 Intake Total 720 450 Output Total 1600 Balance 720 -1150 Intake: Oral 720 450 Output: Urine 1600 Other: Voiding Method Toilet Toilet Urinal Urinal # Voids 3 1 - Exam ENERAL EXAM: Alert, pleasant 59-year-old gentleman, on room air, comfortable in no apparent distress. HEAD: Normocephalic. EYES: Normal reaction of pupils, equal size. NOSE: Clear with pink turbinates. THROAT: No erythema or exudates. NECK: No masses, no JVD. CHEST: No chest wall deformity. LUNGS: Equal air entry with few scattered rhonchi bilaterally, diminished CVS: S1 and S2 normal with no audible murmur, regular rhythm. ABDOMEN: No hepatosplenomegaly, normal bowel sounds, no guarding or rigidity. SPINE: No scoliosis or deformity SKIN: No rashes CENTRAL NERVOUS SYSTEM: No focal deficits, tone is normal in all 4 extremities. EXTREMITIES: There is no peripheral edema. No clubbing, no cyanosis. Peripheral pulses are intact. - Labs CBC & Chem 7: 03/24/20 06:39 03/24/20 06:39 Labs: Abnormal Lab Results - Last 24 Hours (Table) 03/23/20 03/23/20 03/24/20 Range/Units 16:54 20:42 06:39 WBC 19.6 H (3.8-10.6) k/uL MCHC 30.6 L (31.0-37.0) g/dL Sodium (137-145) mmol/L Carbon Dioxide (22-30) mmol/L Creatinine (0.66-1.25) mg/dL Glucose (74-99) mg/dL POC Glucose (mg/dL) 128 H 195 H (75-99) mg/dL 03/24/20 03/24/20 03/24/20 Range/Units 06:39 06:46 11:08 WBC (3.8-10.6) k/uL MCHC (31.0-37.0) g/dL Sodium 133 L (137-145) mmol/L Carbon Dioxide 21 L (22-30) mmol/L Creatinine 0.48 L (0.66-1.25) mg/dL Glucose 149 H (74-99) mg/dL POC Glucose (mg/dL) 152 H 143 H (75-99) mg/dL Microbiology - Last 24 Hours (Table) 03/23/20 20:30 Gram Stain - Preliminary Sputum Sputum Culture - Preliminary 03/22/20 18:35 Blood Culture - Preliminary Blood No Growth after 24 hours Assessment and Plan Assessment: 1 Acute hypoxic respiratory failure secondary to an acute bilateral multifocal pneumonia, suspect hospital-acquired. Covid 19 infection ruled out. 2 Recent admission for community-acquired pneumonia 3 Previous community-acquired right upper lobe pneumonia in July 2019 status post bronchoscopy with BAL and biopsy is negative for malignancy. 4 Acute exacerbation of chronic obstructive pulmonary disease 5 Chronic bronchiectasis 6 Chronic tobacco dependence 7 History of chronic alcoholism 8 History of atrial fibrillation 9 History of prostate cancer Plan: The patient was seen and evaluated by Dr. Smith. He is improved today compared to yesterday. We'll continue with ceftriaxone Continue Symbicort, Spiriva, albuterol Continue IV Solu-Medrol Follow-up chest x-ray in a.m. Patient denies aspiration or passing out from alcohol Again educated regarding alcohol cessation Educated regarding continued and ongoing smoking cessation Probable discharge in the next 24-48 hour We will continue to follow make further recommendations based on his clinical status I, the cosigning physician, performed a history & physical examination of the patient. Lungs sounds with bilateral scattered rhonchi. Maintaining good O2 saturations in the 90s on room air. I discussed the assessment and plan of care with my nurse practitioner, Lashonda Damico. I attest to the above note as dictated by her.
--- NOTE | 2020-03-24 14:55 | P.PN ---
Subjective Patient is a pleasant 59-year-old male came to emergency department compensative shortness of breath, without any significant sputum production patient was recently diagnosed with pneumonia and COPD was discharged home few days ago comes back with significant chest pain sharp in nature with pleuritic in nature nonradiating. Patient has been coughing for a while. Patient denied any fever chills. Patient to COVID 19 test was negative patient LDH is not elevated patient doesn't have any lymphopenia but does have elevated d-dimer because of which are pending a computed tomography scan to rule out any pulmonary embolism which showed diffuse nonspecific infiltrate and groundglass opacities which can be seen in Covid 19. Patient denied any dysuria nausea vomiting. 03/24/2020 Patient is being treated for the pneumonia bacterial, obtaining mycoplasma and legionella antigens. Patient had nonsustained VT because of which I discontinued azithromycin and levofloxacin has a seemed risk because of which I'm not starting him on levofloxacin patient will be continued on Rocephin patient has significant improvement in his respiratory status mycoplasma and Legionella tests are pending Covid 19 is negative patient had bit of worsening leukocytosis due to IV steroids. ECG is being obtained to assess for QT Constitutional: Denied any fatigue denied any fever. Cardio vascular: denied any chest pain, palpitations Gastrointestinal denied any nausea vomiting Pulmonary: Patient is feeling much better today he believes he'll be ready to be discharged tomorrow Neurologic denied any new focal deficits All inpatient medications were reviewed and appropriate changes in these medications as dictated in the interval history and assessment and plan. Objective - Vital Signs Vital signs: Vital Signs Temp 98.2 F 03/24/20 07:52 Pulse 84 03/24/20 07:52 Resp 18 03/24/20 07:58 BP 155/85 03/24/20 07:52 Pulse Ox 96 03/24/20 07:52 Intake & Output 03/23/20 03/24/20 03/24/20 18:59 06:59 18:59 Intake Total 720 450 Output Total 1600 Balance 720 -1150 Intake: Oral 720 450 Output: Urine 1600 Other: Voiding Method Toilet Toilet Urinal Urinal # Voids 3 1 - Exam PHYSICAL EXAMINATION: GENERAL: The patient is alert and oriented x3, not in any acute distress. Well developed, well nourished. HEENT: Pupils are round and equally reacting to light. EOMI. No scleral icterus. No conjunctival pallor. Normocephalic, atraumatic. No pharyngeal erythema. No thyromegaly. CARDIOVASCULAR: S1 and S2 present. No murmurs, rubs, or gallops. PULMONARY: Distant entry into bilateral lung boo no wheezing was appreciated some tenderness in the left chest wall ABDOMEN: Soft, nontender, nondistended, normoactive bowel sounds. No palpable organomegaly. MUSCULOSKELETAL: No joint swelling or deformity. EXTREMITIES: No cyanosis, clubbing, or pedal edema. NEUROLOGICAL: Gross neurological examination did not reveal any focal deficits. SKIN: No rashes. - Labs CBC & Chem 7: 03/24/20 06:39 03/24/20 06:39 Labs: Abnormal Lab Results - Last 24 Hours (Table) 03/23/20 03/23/20 03/24/20 Range/Units 16:54 20:42 06:39 WBC 19.6 H (3.8-10.6) k/uL MCHC 30.6 L (31.0-37.0) g/dL Sodium (137-145) mmol/L Carbon Dioxide (22-30) mmol/L Creatinine (0.66-1.25) mg/dL Glucose (74-99) mg/dL POC Glucose (mg/dL) 128 H 195 H (75-99) mg/dL 03/24/20 03/24/20 03/24/20 Range/Units 06:39 06:46 11:08 WBC (3.8-10.6) k/uL MCHC (31.0-37.0) g/dL Sodium 133 L (137-145) mmol/L Carbon Dioxide 21 L (22-30) mmol/L Creatinine 0.48 L (0.66-1.25) mg/dL Glucose 149 H (74-99) mg/dL POC Glucose (mg/dL) 152 H 143 H (75-99) mg/dL Microbiology - Last 24 Hours (Table) 03/23/20 20:30 Gram Stain - Preliminary Sputum Sputum Culture - Preliminary 03/22/20 18:35 Blood Culture - Preliminary Blood No Growth after 24 hours Assessment and Plan Plan: -Shortness of breath and chest pain: Chest pain is probably musculoskeletal from coughing. Shortness of breath can be secondary to COPD exacerbation with a superimposed either atypical pneumonia, pneumococcal pneumonia or low possibility COVID 19 infection. I cannot completely rule out Covid 19 at this time. Patient is presently on on Rocephin only at this time -COPD with acute exacerbation cranial with inhalational treatments systemic steroids as mentioned above, patient is a previous smoker doesn't smoke anymore. -Atrial fibrillation presently rate controlled patient is not on antiplatelet correlation at this time -Benign prostatic hypertrophy
[2020-03-24 16:42] LABS: Glucose,Whole Blood 164 mg/dL (75-99)
[2020-03-24] MEDS: methylPREDNISolone SOD SUCCI 40 MG/ML 1 ML VIAL IV SCH (19:58)
[2020-03-24 20:12] LABS: Glucose,Whole Blood 140 mg/dL (75-99)
[2020-03-25 06:52] LABS: Glucose,Whole Blood 118 mg/dL (75-99)
[2020-03-25 06:56] LABS: HCT 39.9 % (39.0-53.0); HGB 12.6 gm/dL (13.0-17.5); Hypochromasia Slight; MCH 31.1 pg (25.0-35.0); MCHC 31.5 g/dL (31.0-37.0); MCV 98.6 fL (80.0-100.0); Mean Platelet Volume 7.2; Platelet Count 361 k/uL (150-450); RBC 4.05 m/uL (4.30-5.90); RDW 14.3 % (11.5-15.5); WBC 25.7 k/uL (3.8-10.6)
[2020-03-25 07:07] LABS: African American GFR (CKD) >90 (>60 ml/min/1.73 sqM); Anion Gap 5 mmol/L; Blood Urea Nitrogen 18 mg/dL (9-20); Calcium 8.7 mg/dL (8.4-10.2); Carbon Dioxide 26 mmol/L (22-30); Chloride 105 mmol/L (98-107); Glucose 109 mg/dL (74-99); Non-African American GFR(CKD) >90 (>60 ml/min/1.73 sqM); Potassium 4.8 mmol/L (3.5-5.1); Sodium 136 mmol/L (137-145)
--- NOTE | 2020-03-25 08:01 | XR ---
EXAMINATION TYPE: XR chest 1V DATE OF EXAM: 03/25/2020 HISTORY: pneumonia. REFERENCE: Previous study dated 03/23/2020. FINDINGS: Lung volumes are prominent. Heart size is slightly prominent. There is improved aeration of both lungs with decreasing interstitial change. No definite lobar pneumonia is seen. There is blunti ng of both CP angles and I could not exclude tiny, bilateral effusions. IMPRESSION: IMPROVED AERATION, BOTH LUNGS.
[2020-03-25] MEDS: SYMBICORT 160-4.5 MCG INHALER INHALATION SCH ×4 (08:02→20:43)
[2020-03-25] MEDS: ALBUTEROL HFA INHALER INHALATION SCH ×4 (08:02→20:43)
[2020-03-25] MEDS: TIOTROPIUM 18 MCG/PUFF INHALER INHALATION SCH (08:08)
[2020-03-25] MEDS: SODIUM CHLORIDE 0.9% 1,000 ML IV SCH ×2 (08:27→08:32)
[2020-03-25] MEDS: methylPREDNISolone SOD SUCCI 40 MG/ML 1 ML VIAL IV SCH (08:28)
[2020-03-25] MEDS: PANTOPRAZOLE 40 MG TABLET PO SCH (08:28)
--- NOTE | 2020-03-25 11:16 | P.PN ---
Subjective Progress Note Date: 03/25/20 Principal diagnosis: Acute hypoxic respiratory failure secondary to acute bilateral multifocal pneumonia. This is a very pleasant 59-year-old gentleman who follows with Dr. Mayfield as his primary care provider. He has a history of chronic tobacco dependence, chronic alcohol abuse, recurrent pneumonias suspect aspiration, previous ventilatory dependent respiratory failure, atrial fibrillation. He was just discharged from here approximately 5 days ago following an episode of lingular pneumonia community-acquired. Cold in 19 infection ruled out. He was some slightly improved, treated and released. He presented back to the emergency room yesterday with complaints of increasing shortness of breath, cough or congestion. No fever or chills. Occasional productive sputum with yellow phlegm. He had been discharged on Ceftin and azithromycin along with a prednisone taper. Today's chest x-ray revealed stable findings compared to yesterday with chronic right perihilar airspace disease and multifocal left midlung lingular interstitial airspace disease. Previous right upper lobe infiltrate cleared. CT angiogram ruled out pulmonary embolism. There was multifocal left-sided groundglass opacities along with interstitial changes the right lower lobe. Mediastinal adenopathy is improved from 2019. Previous endoscopy and biopsies biopsies negative for malignancy. He is seen today in consultation on the regular medical floor. He is currently sitting up at the bedside. Awake and alert in no acute distress. States he is breathing a bit easier today compared to yesterday. Still with a loose nonproductive cough. Maintaining O2 saturations in the mid 90s on room air. He's afebrile. Hemodynamically stable. CoVID 19 screen was again negative. White count 11.2. Hemoglobin 13.8. D-dimer 1.34. Sodium 136. Potassium 4.0. Creatinine 0.53. LDH 330. C-reactive protein 44.5. Pro-calcitonin 0.07. Ferritin 172. Lactic acid 1.5. Glucose 124. He's been initiated on ceftriaxone and azithromycin along with Symbicort, Spiriva, albuterol and IV Solu-Medrol The patient is seen today 03/24/2020 in follow-up on the regular medical floor. He is currently sitting up at the bedside. Awake and alert in no acute distress. His breathing is improved today compared to yesterday. He is maintaining O2 saturations in the mid 90s on room air. He's been afebrile. Hemodynamically stable. Less chest wall pain as well. He is continued on IV Solu-Medrol, ceftriaxone, Symbicort, Spiriva and albuterol. White count 19.6. Hemoglobin 13.1. Sodium 133. Potassium 4.5. Bicarb 21. Creatinine 0.48. The patient is seen today 03/25/2020 in follow-up on the regular medical floor. He is awake and alert in no acute distress. He is maintaining good O2 saturatio ns in the 90s on room air. He's been afebrile. Blood and sputum cultures reveal no growth. White count up to 25.7. Hemoglobin 12.6. Sodium 136. Potassium 4.8. Creatinine 0.65. He is continued on Symbicort, Spiriva and albuterol along with IV Solu-Medrol. Antibiotics in the form of ceftriaxone. Objective - Vital Signs Vital signs: Vital Signs Temp 98.2 F 03/25/20 07:25 Pulse 59 L 03/25/20 07:25 Resp 18 03/25/20 07:27 BP 159/88 03/25/20 07:25 Pulse Ox 96 03/25/20 07:25 Intake & Output 03/24/20 03/25/20 03/25/20 18:59 06:59 18:59 Intake Total 322 Balance 322 Intake: Oral 322 Other: Voiding Method Toilet Toilet Toilet Urinal Urinal Urinal # Voids 1 1 - Exam ENERAL EXAM: Alert, pleasant 59-year-old gentleman, on room air, comfortable in no apparent distress. HEAD: Normocephalic. EYES: Normal reaction of pupils, equal size. NOSE: Clear with pink turbinates. THROAT: No erythema or exudates. NECK: No masses, no JVD. CHEST: No chest wall deformity. LUNGS: Equal air entry with few scattered rhonchi bilaterally, diminished CVS: S1 and S2 normal with no audible murmur, regular rhythm. ABDOMEN: No hepatosplenomegaly, normal bowel sounds, no guarding or rigidity. SPINE: No scoliosis or deformity SKIN: No rashes CENTRAL NERVOUS SYSTEM: No focal deficits, tone is normal in all 4 extremities. EXTREMITIES: There is no peripheral edema. No clubbing, no cyanosis. Peripheral pulses are intact. - Labs CBC & Chem 7: 03/25/20 06:18 03/25/20 06:18 Labs: Abnormal Lab Results - Last 24 Hours (Table) 03/24/20 03/24/20 03/25/20 Range/Units 16:40 20:09 06:18 WBC 25.7 H (3.8-10.6) k/uL RBC 4.05 L (4.30-5.90) m/uL Hgb 12.6 L (13.0-17.5) gm/dL Sodium (137-145) mmol/L Creatinine (0.66-1.25) mg/dL Glucose (74-99) mg/dL POC Glucose (mg/dL) 164 H 140 H (75-99) mg/dL 03/25/20 03/25/20 Range/Units 06:18 06:51 WBC (3.8-10.6) k/uL RBC (4.30-5.90) m/uL Hgb (13.0-17.5) gm/dL Sodium 136 L (137-145) mmol/L Creatinine 0.65 L (0.66-1.25) mg/dL Glucose 109 H (74-99) mg/dL POC Glucose (mg/dL) 118 H (75-99) mg/dL Microbiology - Last 24 Hours (Table) 03/22/20 18:35 Blood Culture - Preliminary Blood No Growth after 48 hours Assessment and Plan Assessment: 1 Acute hypoxic respiratory failure secondary to an acute bilateral multifocal pneumonia, suspect hospital-acquired. Covid 19 infection ruled out. 2 Leukocytosis, trending upward, current white count 25.7 3 Recent admission for community-acquired pneumonia 4 Previous community-acquired right upper lobe pneumonia in July 2019 status post bronchoscopy with BAL and biopsy is negative for malignancy. 5 Acute exacerbation of chronic obstructive pulmonary disease 6 Chronic bronchiectasis 7 Chronic tobacco dependence 8 History of chronic alcoholism 9 History of atrial fibrillation 10 History of prostate cancer Plan: The patient was seen and evaluated by Dr. Smith. Chest x-ray shows improvement Increased white count today We'll continue with ceftriaxone Continue Symbicort, Spiriva, albuterol Discontinue IV Solu-Medrol, start prednisone taper Again educated regarding alcohol cessation Educated regarding continued and ongoing smoking cessation We will continue to follow make further recommendations based on his clinical status I, the cosigning physician, performed a history & physical examination of the patient. Lungs sounds with bilateral scattered rhonchi. Maintaining good O2 saturations in the 90s on room air. I discussed the assessment and plan of care with my nurse practitioner, Lashonda Damico. I attest to the above note as dictated by her.
[2020-03-25 12:03] LABS: Glucose,Whole Blood 113 mg/dL (75-99)
[2020-03-25] MEDS: MORPHINE SULFATE 4 MG/ML SYRINGE IVP PRN (12:05)
--- NOTE | 2020-03-25 13:55 | P.PN ---
Subjective Patient is a pleasant 59-year-old male came to emergency department compensative shortness of breath, without any significant sputum production patient was recently diagnosed with pneumonia and COPD was discharged home few days ago comes back with significant chest pain sharp in nature with pleuritic in nature nonradiating. Patient has been coughing for a while. Patient denied any fever chills. Patient to COVID 19 test was negative patient LDH is not elevated patient doesn't have any lymphopenia but does have elevated d-dimer because of which are pending a computed tomography scan to rule out any pulmonary embolism which showed diffuse nonspecific infiltrate and groundglass opacities which can be seen in Covid 19. Patient denied any dysuria nausea vomiting. 03/24/2020 Patient is being treated for the pneumonia bacterial, obtaining mycoplasma and legionella antigens. Patient had nonsustained VT because of which I discontinued azithromycin and levofloxacin has a seemed risk because of which I'm not starting him on levofloxacin patient will be continued on Rocephin patient has significant improvement in his respiratory status mycoplasma and Legionella tests are pending Covid 19 is negative patient had bit of worsening leukocytosis due to IV steroids. ECG is being obtained to assess for QT 03/25/2020 Patient is pretty status improved but the white blood cell count went up probably due to systemic steroids will change steroids to oral repeat the basic metabolic profile tomorrow blood cell count is 25,000 today. Patient Will Be Discharged Tomorrow Patient Also Clinically Stable No Diarrhea Constitutional: Denied any fatigue denied any fever. Cardio vascular: denied any chest pain, palpitations Gastrointestinal denied any nausea vomiting Pulmonary: Patient is feeling much better today he believes he'll be ready to be discharged tomorrow Neurologic denied any new focal deficits All inpatient medications were reviewed and appropriate changes in these medications as dictated in the interval history and assessment and plan. Objective - Vital Signs Vital signs: Vital Signs Temp 98.2 F 03/25/20 07:25 Pulse 59 L 03/25/20 07:25 Resp 18 03/25/20 07:27 BP 159/88 03/25/20 07:25 Pulse Ox 96 03/25/20 07:25 Intake & Output 03/24/20 03/25/20 03/25/20 18:59 06:59 18:59 Intake Total 322 Balance 322 Intake: Oral 322 Other: Voiding Method Toilet Toilet Toilet Urinal Urinal Urinal # Voids 1 1 - Exam PHYSICAL EXAMINATION: GENERAL: The patient is alert and oriented x3, not in any acute distress. Well developed, well nourished. HEENT: Pupils are round and equally reacting to light. EOMI. No scleral icterus. No conjunctival pallor. Normocephalic, atraumatic. No pharyngeal erythema. No thyromegaly. CARDIOVASCULAR: S1 and S2 present. No murmurs, rubs, or gallops. PULMONARY: Distant entry into bilateral lung boo no wheezing was appreciated some tenderness in the left chest wall ABDOMEN: Soft, nontender, nondistended, normoactive bowel sounds. No palpable organomegaly. MUSCULOSKELETAL: No joint swelling or deformity. EXTREMITIES: No cyanosis, clubbing, or pedal edema. NEUROLOGICAL: Gross neurological examination did not reveal any focal deficits. SKIN: No rashes. - Labs CBC & Chem 7: 03/25/20 06:18 03/25/20 06:18 Labs: Abnormal Lab Results - Last 24 Hours (Table) 03/24/20 03/24/20 03/25/20 Range/Units 16:40 20:09 06:18 WBC 25.7 H (3.8-10.6) k/uL RBC 4.05 L (4.30-5.90) m/uL Hgb 12.6 L (13.0-17.5) gm/dL Sodium (137-145) mmol/L Creatinine (0.66-1.25) mg/dL Glucose (74-99) mg/dL POC Glucose (mg/dL) 164 H 140 H (75-99) mg/dL 03/25/20 03/25/20 03/25/20 Range/Units 06:18 06:51 12:02 WBC (3.8-10.6) k/uL RBC (4.30-5.90) m/uL Hgb (13.0-17.5) gm/dL Sodium 136 L (137-145) mmol/L Creatinine 0.65 L (0.66-1.25) mg/dL Glucose 109 H (74-99) mg/dL POC Glucose (mg/dL) 118 H 113 H (75-99) mg/dL Microbiology - Last 24 Hours (Table) 03/22/20 18:35 Blood Culture - Preliminary Blood No Growth after 48 hours Assessment and Plan Plan: -Shortness of breath and chest pain: Chest pain is probably musculoskeletal from coughing. Shortness of breath can be secondary to COPD exacerbation with a superimposed either atypical pneumonia, pneumococcal pneumonia or low possibility COVID 19 infection. I cannot completely rule out Covid 19 at this time. Patient is presently on on Rocephin only at this time -COPD with acute exacerbation cranial with inhalational treatments systemic steroids as mentioned above, patient is a previous smoker doesn't smoke anymore. -Atrial fibrillation presently rate controlled patient is not on antiplatelet correlation at this time -Benign prostatic hypertrophy
[2020-03-25 16:38] LABS: Glucose,Whole Blood 126 mg/dL (75-99)
[2020-03-25] MEDS: HYDROcodone/APAP 5-325MG 1 EACH TAB PO PRN (17:08)
[2020-03-25 20:21] LABS: Glucose,Whole Blood 137 mg/dL (75-99)
[2020-03-26] MEDS: SODIUM CHLORIDE 0.9% 1,000 ML IV SCH (03:25)
[2020-03-26 03:49] LABS: Mycoplasma IgG Antibody (EIA) 2.41 INDEX (<=0.90); Mycoplasma IgM Antibody 1.72 INDEX (<=0.90)
[2020-03-26 06:45] LABS: Glucose,Whole Blood 89 mg/dL (75-99)
[2020-03-26] MEDS: PANTOPRAZOLE 40 MG TABLET PO SCH (07:51)
[2020-03-26] MEDS: HYDROcodone/APAP 5-325MG 1 EACH TAB PO PRN (07:51)
[2020-03-26 08:02] VITALS: BP 168/82; PULSE 70; RESP 16; TEMP 97.9
[2020-03-26 08:07] LABS: Basophils % (A) 0 %; Eosinophils # (A) 0.1 k/uL (0-0.7); Eosinophils % (A) 0 %; HCT 42.4 % (39.0-53.0); HGB 13.4 gm/dL (13.0-17.5); Hypochromasia Slight; Lymphocytes # (A) 2.9 k/uL (1.0-4.8); Lymphocytes % (A) 22 %; MCH 31.2 pg (25.0-35.0); MCHC 31.7 g/dL (31.0-37.0); MCV 98.4 fL (80.0-100.0); Mean Platelet Volume 7.5; Monocytes # (A) 0.8 k/uL (0-1.0); Monocytes % (A) 7 %; Neutrophils % (A) 70 %; Platelet Count 399 k/uL (150-450); RBC 4.31 m/uL (4.30-5.90); RDW 14.2 % (11.5-15.5); WBC 12.9 k/uL (3.8-10.6)
[2020-03-26] MEDS: SYMBICORT 160-4.5 MCG INHALER INHALATION SCH (08:22)
[2020-03-26] MEDS: ALBUTEROL HFA INHALER INHALATION SCH ×2 (08:22→12:05)
[2020-03-26] MEDS: TIOTROPIUM 18 MCG/PUFF INHALER INHALATION SCH (08:22)
[2020-03-26] MEDS ORDERED: predniSONE 20 MG TAB PO SCH (09:00)
[2020-03-26 11:44] LABS: Glucose,Whole Blood 96 mg/dL (75-99)
--- NOTE | 2020-03-26 12:01 | P.DS ---
Providers Date of admission: 03/22/20 20:41 Expected date of discharge: 03/26/20 Attending physician: Claribel Banda Consults: 03/22/20 20:40 Consult Physician Routine Consulting Provider: Tatyana Thorne Consult Reason/Comments: pneumonia, copd Do you want consulting provider notified?: Yes Primary care physician: Tran Rao [facility] Course: Final diagnosis -Shortness of breath and chest pain: Chest pain is probably musculoskeletal from coughing. Shortness of breath can be secondary to COPD exacerbation with a superimposed either atypical pneumonia, pneumococcal pneumonia or low possibility COVID 19 infection. I cannot completely rule out Covid 19 at this time -COPD with acute exacerbation -Atrial fibrillation presently rate controlled -Benign prostatic hypertrophy Discharge disposition Patient is being discharged in a stable condition with guarded prognosis to home. Patient will follow-up with Dr. Mayfield in the outpatient setting. Patient will continue on a short course of oral antibiotics in the form of Ceftin twice daily for the next 3 days and then may discontinue. Total time taken is 35 minutes. History of present illness This is a 59-year-old female who was recently admitted with compensative shortness of breath without any significant sputum production recently diagnosed with pneumonia and COPD exacerbation and was being closely monitored. Patient was recently admitted for the same symptoms although was having some chest pain sharp in nature also pleuritic and nonradiating and continue to have increasing shortness of breath with no improvement. No history of fever or chills. Patient was tested for Covid 19 and was negative. Patient's LDH is within normal limits and does not have any lymphopenia but does have an elevated d-dim er. Patient had computed tomography scan of the chest to rule out PE but did show diffuse nonspecific infiltrate and groundglass opacities which can possibly be present in Covid 19 patients. Patient had a slight increase in white blood count most likely related to steroids. White blood count today trending down and is currently 12.9. Patient will continue on a prednisone taper in the outpatient setting along with an oral course of antibiotics in the form of Levaquin 500 mg daily for the next 5 days. Currently no reports of chest pain, worsening shortness of breath, or palpitations. Patient is afebrile. No reports of nausea or vomiting and patient is tolerating diet. Discussed with the patient at length about continuing to avoid tobacco along with alcohol use in the outpatient setting. On exam vital signs are stable. Temp is 97.9 F, pulse is 70, respiration is 16, blood pressure is 168/82, oxygen saturation is 95% on room air. Cardio S1, S2 present. Respiratory shows diminished breath sounds at the bases with some scattered rhonchi and expiratory wheezing noted. Abdomen is soft and nontender. Nervous system shows no focal deficits. Please refer to medication reconciliation sheet for a list of medications. Patient Condition at Discharge: Stable Plan - Discharge Summary Discharge Rx Participant: No New Discharge Prescriptions: New HYDROcodone/APAP 5-325MG [[place] 5-325] 1 each PO Q6HR PRN #12 tab PRN Reason: Pain predniSONE 10 mg PO DIRECTED #30 tab Tiotropium 18 Mcg/Puff [Spiriva] 1 puff INHALATION DAILY 30 Days #1 inhaler Budesonide-Formot 160-4.5 Mcg [Symbicort 160-4.5 Mcg Inhaler] 2 puff INHALATION RT-BID 30 Days #1 puff Levofloxacin [Levaquin] 500 mg PO DAILY #5 tab Continue Albuterol Sulfate [Ventolin HFA] 1 - 2 puff INHALATION RT-Q6H PRN PRN Reason: Shortness Of Breath Pantoprazole [Protonix] 40 mg PO AC-BRKFST #30 tablet. Discontinued predniSONE See Taper PO DIRECTED #30 tab Discharge Medication List Albuterol Sulfate [Ventolin HFA] 1 - 2 puff INHALATION RT-Q6H PRN 03/13/20 [History] Pantoprazole [Protonix] 40 mg PO AC-BRKFST #30 tablet. 03/17/20 [Rx] Budesonide-Formot 160-4.5 Mcg [Symbicort 160-4.5 Mcg Inhaler] 2 puff INHALATION RT-BID 30 Days #1 puff 03/26/20 [Rx] HYDROcodone/APAP 5-325MG [[place] 5-325] 1 each PO Q6HR PRN #12 tab 03/26/20 [Rx] Levofloxacin [Levaquin] 500 mg PO DAILY #5 tab 03/26/20 [Rx] Tiotropium 18 Mcg/Puff [Spiriva] 1 puff INHALATION DAILY 30 Days #1 inhaler 03/26/20 [Rx] predniSONE 10 mg PO DIRECTED #30 tab 03/26/20 [Rx] Follow up Appointment(s)/Referral(s): Aiden Mayfield MD [Primary Care Provider] - 1-2 days (Please call office to make appointment) Activity/Diet/Wound Care/Special Instructions: Activity Limited until follow-up Continue current antibiotics until finished Continue with prednisone taper Continue to avoid alcohol and tobacco use Follow-up with primary care provider upon discharge Follow-up with pulmonary in the outpatient setting Discharge Disposition: HOME SELF-CARE
--- NOTE | 2020-03-26 12:35 | P.PN ---
Subjective Progress Note Date: 03/26/20 Principal diagnosis: Acute hypoxic respiratory failure secondary to acute bilateral multifocal pneumonia. This is a very pleasant 59-year-old gentleman who follows with Dr. Mayfield as his primary care provider. He has a history of chronic tobacco dependence, chronic alcohol abuse, recurrent pneumonias suspect aspiration, previous ventilatory dependent respiratory failure, atrial fibrillation. He was just discharged from here approximately 5 days ago following an episode of lingular pneumonia community-acquired. Cold in 19 infection ruled out. He was some slightly improved, treated and released. He presented back to the emergency room yesterday with complaints of increasing shortness of breath, cough or congestion. No fever or chills. Occasional productive sputum with yellow phlegm. He had been discharged on Ceftin and azithromycin along with a prednisone taper. Today's chest x-ray revealed stable findings compared to yesterday with chronic right perihilar airspace disease and multifocal left midlung lingular interstitial airspace disease. Previous right upper lobe infiltrate cleared. CT angiogram ruled out pulmonary embolism. There was multifocal left-sided groundglass opacities along with interstitial changes the right lower lobe. Mediastinal adenopathy is improved from 2019. Previous endoscopy and biopsies biopsies negative for malignancy. He is seen today in consultation on the regular medical floor. He is currently sitting up at the bedside. Awake and alert in no acute distress. States he is breathing a bit easier today compared to yesterday. Still with a loose nonproductive cough. Maintaining O2 saturations in the mid 90s on room air. He's afebrile. Hemodynamically stable. CoVID 19 screen was again negative. White count 11.2. Hemoglobin 13.8. D-dimer 1.34. Sodium 136. Potassium 4.0. Creatinine 0.53. LDH 330. C-reactive protein 44.5. Pro-calcitonin 0.07. Ferritin 172. Lactic acid 1.5. Glucose 124. He's been initiated on ceftriaxone and azithromycin along with Symbicort, Spiriva, albuterol and IV Solu-Medrol The patient is seen today 03/24/2020 in follow-up on the regular medical floor. He is currently sitting up at the bedside. Awake and alert in no acute distress. His breathing is improved today compared to yesterday. He is maintaining O2 saturations in the mid 90s on room air. He's been afebrile. Hemodynamically stable. Less chest wall pain as well. He is continued on IV Solu-Medrol, ceftriaxone, Symbicort, Spiriva and albuterol. White count 19.6. Hemoglobin 13.1. Sodium 133. Potassium 4.5. Bicarb 21. Creatinine 0.48. The patient is seen today 03/25/2020 in follow-up on the regular medical floor. He is awake and alert in no acute distress. He is maintaining good O2 saturatio ns in the 90s on room air. He's been afebrile. Blood and sputum cultures reveal no growth. White count up to 25.7. Hemoglobin 12.6. Sodium 136. Potassium 4.8. Creatinine 0.65. He is continued on Symbicort, Spiriva and albuterol along with IV Solu-Medrol. Antibiotics in the form of ceftriaxone. The patient is seen today 03/26/2020 in follow-up on the regular medical floor. He is sitting up at the bedside. Awake alert no acute distress. His breathing is nearly back to his baseline. No worsening shortness of breath, cough or congestion. Follow-up chest x-ray had revealed improved aeration in both lungs. He is maintaining good O2 saturations in the mid 90s on room air. He's been afebrile. Blood and sputum cultures reveal no growth. White count improved to 12.9. Hemoglobin 13.4. He remains on ceftriaxone. Objective - Vital Signs Vital signs: Vital Signs Temp 97.9 F 03/26/20 08:01 Pulse 70 03/26/20 08:01 Resp 16 03/26/20 08:01 BP 168/82 03/26/20 08:01 Pulse Ox 95 03/26/20 08:01 Intake & Output 03/25/20 03/26/20 03/26/20 18:59 06:59 18:59 Intake Total 242 20 Balance 242 20 Intake: Oral 242 20 Other: Voiding Method Toilet Toilet Urinal Urinal # Voids 1 - Exam ENERAL EXAM: Alert, pleasant 59-year-old gentleman, on room air, comfortable in no apparent distress. HEAD: Normocephalic. EYES: Normal reaction of pupils, equal size. NOSE: Clear with pink turbinates. THROAT: No erythema or exudates. NECK: No masses, no JVD. CHEST: No chest wall deformity. LUNGS: Equal air entry with few scattered rhonchi bilaterally, diminished CVS: S1 and S2 normal with no audible murmur, regular rhythm. ABDOMEN: No hepatosplenomegaly, normal bowel sounds, no guarding or rigidity. SPINE: No scoliosis or deformity SKIN: No rashes CENTRAL NERVOUS SYSTEM: No focal deficits, tone is normal in all 4 extremities. EXTREMITIES: There is no peripheral edema. No clubbing, no cyanosis. Peripheral pulses are intact. - Labs CBC & Chem 7: 03/26/20 07:05 03/25/20 06:18 Labs: Abnormal Lab Results - Last 24 Hours (Table) 03/23/20 03/25/20 03/25/20 Range/Units 10:55 16:37 20:19 WBC (3.8-10.6) k/uL Neutrophils # (1.3-7.7) k/uL POC Glucose (mg/dL) 126 H 137 H (75-99) mg/dL Mycoplasma pneumon IgG 2.41 H (<=0.90) INDEX Mycoplasma pneumon IgM 1.72 H (<=0.90) INDEX 03/26/20 Range/Units 07:05 WBC 12.9 H (3.8-10.6) k/uL Neutrophils # 9.0 H (1.3-7.7) k/uL POC Glucose (mg/dL) (75-99) mg/dL Mycoplasma pneumon IgG (<=0.90) INDEX Mycoplasma pneumon IgM (<=0.90) INDEX Microbiology - Last 24 Hours (Table) 03/23/20 20:30 Gram Stain - Final Sputum Sputum Culture - Final 03/22/20 18:35 Blood Culture - Preliminary Blood No Growth after 72 hours Assessment and Plan Assessment: 1 Acute hypoxic respiratory failure secondary to an acute bilateral multifocal pneumonia, suspect hospital-acquired. Covid 19 infection ruled out. 2 Leukocytosis, trending upward, max white count 25.7, currently 12.9 3 Recent admission for community-acquired pneumonia 4 Previous community-acquired right upper lobe pneumonia in July 2019 status post bronchoscopy with BAL and biopsy is negative for malignancy. 5 Acute exacerbation of chronic obstructive pulmonary disease 6 Chronic bronchiectasis 7 Chronic tobacco dependence 8 History of chronic alcoholism 9 History of atrial fibrillation 10 History of prostate cancer Plan: The patient was seen and evaluated by Dr. Zelaya. White count improved Chest x-ray improved He is cleared for discharge from the pulmonary standpoint Complete course of antibiotics Complete a prednisone taper Continue Symbicort, Spiriva, albuterol Again educated regarding alcohol cessation Educated regarding continued and ongoing smoking cessation Follow-up in our office in 1-2 weeks' time I, the cosigning physician, performed a history & physical examination of the patient. Lungs sounds with bilateral scattered rhonchi. Maintaining good O2 saturations in the 90s on room air. I discussed the assessment and plan of care with my nurse practitioner, Lashonda Damico. I attest to the above note as dictated by her.
--- NOTE | 2020-03-27 09:47 | ECHOF ---
Referral Reason:routine, run of 9 MEASUREMENTS -------- HEIGHT: 167.6 cm WEIGHT: 65.8 kg BP: 168/82 RVIDd: 4.1 cm (< 3.3) IVSd: 1.3 cm (0.6 - 1.1) LVIDd: 4.4 cm (3.9 - 5.3) LVPWd: 1.5 cm (0.6 - 1.1) IVSs: 1.9 cm LVIDs: 3.1 cm LVPWs: 1.9 cm LAESV Index (A-L): 31.10 ml/m Ao Diam: 3.3 cm (2.0 - 3.7) AV Cusp: 1.9 cm (1.5 - 2.6) MV EXCURSION: 22.213 mm (> 18.000) MV EF SLOPE: 211 mm/s (70 - 150) EPSS: 1.2 cm MV E Reinier: 0.75 m/s MV DecT: 161 ms MV A Reinier: 0.64 m/s MV E/A Ratio: 1.19 RAP: 5.00 mmHg RVSP: 20.45 mmHg FINDINGS -------- Sinus rhythm. This was a technically adequate study. The left ventricular size is normal. There is mild concentric left ventricular hypertrophy. Overa ll left ventricular systolic function is mild-moderately impaired with, an EF between 40 - 45 %. Th e diastolic filling pattern is normal for the age of the patient 11.19. The right ventricle is moderately enlarged. LA is midly dilated 29-33ml/m2. The right atrial size is normal. Interatrial and interventricular septum intact. There is mild aortic valve sclerosis. There is no evidence of aortic regurgitation. There is no e vidence of aortic stenosis. Mild mitral regurgitation is present. Mild tricuspid regurgitation present. There is no evidence of pulmonary hypertension. The right v entricular systolic pressure, as measured by Doppler, is 20.45mmHg. There is no pulmonic regurgitation present. The aortic root size is normal. Normal inferior vena cava with normal inspiratory collapse consistent with estimated right atrial pre ssure of 5 mmHg. There is no pericardial effusion. CONCLUSIONS -------- 1. Sinus rhythm. 2. This was a technically adequate study. 3. The left ventricular size is normal. 4. There is mild concentric left ventricular hypertrophy. 5. Overall left ventricular systolic function is mild-moderately impaired with, an EF between 40 - 45 %. 6. The diastolic filling pattern is normal for the age of the patient 11.19 7. The right ventricle is moderately enlarged. 8. LA is midly dilated 29-33ml/m2. 9. The right atrial size is normal. 10. Interatrial and interventricular septum intact. 11. There is mild aortic valve sclerosis. 12. There is no evidence of aortic regurgitation. 13. There is no evidence of aortic stenosis. 14. Mild mitral regurgitation is present. 15. Mild tricuspid regurgitation present. 16. There is no evidence of pulmonary hypertension. 17. The right ventricular systolic pressure, as measured by Doppler, is 20.45mmHg. 18. There is no pulmonic regurgitation present. 19. The aortic root size is normal. 20. Normal inferior vena cava with normal inspiratory collapse consistent with estimated right atrial pressure of 5 mmHg. 21. There is no pericardial effusion. CHANGE NUMBER OPERATOR: Neida Rowley RDCS
--- NOTE | 2020-03-29 13:38 | CDI ---
Documentation Clarification Form Date: 03/29/2020 01:03:53 PM From: Vivi Villareal RN, CCDS Admit Date: 03/22/2020 08:41:00 PM Patient Name: Marco Antonio Betancourt Visit Number: [id number] Discharge Date: 03/26/2020 02:03:00 PM ATTENTION: The Clinical Documentation Specialists (CDI) and [facility] Coding Staff appreciate your assistance in clarifying documentation. Please respond to the clarification below the line at the bottom and electronically sign. The CDI & [facility] Coding staff will review the response and follow-up if needed. Please note: Queries are made part of the Legal Health Record. If you have any questions, please contact the author of this message via ITS. Dr. Flanagan Conflicting documentation regarding Covid-19 status has been noted in the medical record and requires clarification from the attending physician. Patient history/risk factors: Recent pneumonia, COPD, ETOH, Prostate cancer, Hx of acute respiratory with vent, former smoker Clinical Indicators: 03/22 Chief Complaint: LYDIA, Diagnosed pneumonia w hospitalization 1 week [employer]ESSION[employer] with worsening symptoms, cough, yellow sputum 03/23-03/26 Pulmonary Consult and Progress notes: "History of present illness: Covid 19 screen was again negative. Assessment: Covid 19 infection ruled out." 03/23-03/26 H&P, Progress notes, and D/C Summary: "History of Present Illness: Patient to COVID 19 test was negative patient LDH is not elevated patient doesn't have any lymphopenia but does have elevated d-dimer because of which are pending a computed tomography scan to rule out any pulmonary embolism which showed diffuse nonspecific infiltrate and groundglass opacities which can be seen in Covid 19. Plan: Shortness of breath can be secondary to COPD exacerbation with a superimposed either atypical pneumonia or COVID 19 infection. I cannot completely rule out Covid 19 at this time." 03/22/2020 CXR:"Slight improvement of perihilar infiltrates from comparison. Findings can be compatible with atypical pneumonia in the proper clinical setting." 03/22-03/26Labs: WBC 11.2/19.6/25.7/12.9, neutrophils 7.9/9 Ferritin 172, LDH 330, CRP 44.5, mycoplasma Pneumonia IgG 2.41, Mycoplasma Pneumonia IgM 1.72 03/22 Coronavirus (PCR) not detected 03/223 Admission Vital Signs: Temp 97.9, HR 91, RR 32, B/P 128/80, Spo2 88% RA Treatment: Ceftriaxone 1gm IVPB Q 24 hrs Levaquin 750 mg IVPB Q 24 hrs Zosyn 3.375 gm IVPB Q 8 hrs 0.9%NS @ 100 cc/hr In order to capture the severity of condition, please clarify if the above treatment/clinical indicators signify: COVID-19 ruled out False negative, treating for COVID-19 based on these clinical indicators: Other, please specify (Last Form Revision: January 2020) Unable to determine MTDD
== END 2020-03-26 14:03 | disposition home or self-care (01) | DRG 190 ==
LOC: EC 18:06 → 4SSUR 20:41
PROVIDERS: ADMIT Internal Medicine; ATTEND Internal Medicine
DX: J44.1 Chronic obstructive pulmonary disease with (acute) exacerbation (principal); J96.01 Acute respiratory failure with hypoxia; J13 Pneumonia due to Streptococcus pneumoniae; Z20.828 Contact with and (suspected) exposure to other viral communicable diseases; I48.91 Unspecified atrial fibrillation; J44.0 Chronic obstructive pulmonary disease with (acute) lower respiratory infection; F10.20 Alcohol dependence, uncomplicated; H40.9 Unspecified glaucoma; N40.0 Benign prostatic hyperplasia without lower urinary tract symptoms; R59.0 Localized enlarged lymph nodes; D72.829 Elevated white blood cell count, unspecified; T38.0X5A Adverse effect of glucocorticoids and synthetic analogues, initial encounter; Z71.6 Tobacco abuse counseling; Z79.899 Other long term (current) drug therapy; Z87.01 Personal history of pneumonia (recurrent); Z85.46 Personal history of malignant neoplasm of prostate; Z98.890 Other specified postprocedural states; Z87.891 Personal history of nicotine dependence; Z92.3 Personal history of irradiation; Z82.5 Family history of asthma and other chronic lower respiratory diseases; Z82.49 Family history of ischemic heart disease and other diseases of the circulatory system
CPT/HCPCS: 36415; 71045; 71275; 80048; 80053; 82728; 83605; 83615; 83735; 84145; 85025; 85027; 85379; 85610; 85730; 86140; 86738; 87040; 87070; 87205; 87449; 87635; 93005; 93306; 94640; 96365; 96375; 99285

== ENCOUNTER 2021-12-02 12:56 | Observation (INO) | payer OTHER ==
[2021-12-02] MEDS ORDERED: SODIUM CHLORIDE 0.9% 1,000 ML IV ONE (15:34)
[2021-12-02] MEDS ORDERED: KETOROLAC 15 MG/ML 1 ML VIAL IVP STA (15:34)
--- NOTE | 2021-12-02 16:00 | ED ---
General Adult HPI - General Chief complaint: ENT Stated complaint: facial swelling, SOB, leg pain & swelling Time Seen by Provider: 12/02/21 15:22 Source: patient, RN notes reviewed, old records reviewed Mode of arrival: wheelchair Limitations: no limitations - History of Present Illness Initial comments: 61-year-old male presented for evaluation of facial pain and swelling. Patient states symptoms have been present for the past 3 days. He's noticed swelling predominantly under his upper lip and states that his nose is very tender. He denies fevers but has had chills. He has poor dentition. He does admit to daily alcohol consumption. He denies any recent trauma. - Related Data Home Medications Medication Instructions Recorded Confirmed No Known Home Medications 12/02/21 12/02/21 Allergies Allergy/AdvReac Type Severity Reaction Status Date / Time No Known Allergies Allergy Verified 12/02/21 17:05 Review of Systems ROS Statement: Those systems with pertinent positive or pertinent negative responses have been documented in the HPI. ROS Other: All systems not noted in ROS Statement are negative. Past Medical History Past Medical History: Atrial Fibrillation, Cancer, COPD, Eye Disorder, Pneumonia, Prostate Disorder Additional Past Medical History / Comment(s): ETOH abuse, DTs, tracheobronchitis, pneumonias, pleurisy, acute respiratory failure/vented, bilateral glaucoma, prostate cancer History of Any Multi-Drug Resistant Organisms: None Reported Past Surgical History: Hernia Repair, Prostate Surgery, Tonsillectomy Additional Past Surgical History / Comment(s): R inguinal hernia repair, prostate-radiation implant, colonoscopy-normal Past Anesthesia/Blood Transfusion Reactions: No Reported Reaction Past Psychological History: No Psychological Hx Reported Smoking Status: Current every day smoker Past Alcohol Use History: None Reported, Daily, Heavy Past Drug Use History: None Reported - Past Family History Father Family Medical History: COPD Additional Family Medical History / Comment(s): Father of COPD in his 70's Mother Family Medical History: Coronary Artery Disease (CAD) Additional Family Medical History / Comment(s): Mother of heart disease at the age of 65 yrs. General Exam Limitations: no limitations General appearance: alert, in no apparent distress Head exam: Present: atraumatic, normocephalic Eye exam: Present: normal appearance, PERRL ENT exam: Present: other (Soft tissue pain and swelling of the upper lip. Tenderness to palpation of the nose. There is poor dentition throughout.) Neck exam: Present: normal inspection. Absent: tenderness, meningismus Respiratory exam: Present: normal lung sounds bilaterally, respiratory distress Cardiovascular Exam: Present: regular rate, normal rhythm GI/Abdominal exam: Present: soft. Absent: distended, tenderness, guarding Extremities exam: Present: normal inspection, normal capillary refill. Absent: pedal edema Neurological exam: Present: alert, oriented X3, CN II-XII intact. Absent: motor sensory deficit Psychiatric exam: Present: normal affect, normal mood Skin exam: Present: warm, dry, intact. Absent: cyanosis, diaphoretic Course Vital Signs 12/02/21 14:04 Temperature 98.2 F Pulse Rate 105 H Respiratory 20 Rate Blood Pressure 156/77 O2 Sat by Pulse 98 Oximetry Procedures - Incision & Drainage Consent Obtained: verbal consent Site: oral Sterile Field Used?: No Needle Aspiration Performed?: Yes Irrigation Performed?: No I&D Drainage Obtained: Pus Culture Obtained?: Yes Patient Tolerated Procedure: well Medical Decision Making - Medical Decision Making 61-year-old male presenting with 3 days of facial pain and swelling. On exam he has an indurated tender upper lip. I did initiate workup includes CBC, CMP, lactic acid, blood cultures. CT was performed which showed a an abscessed fluid collection just below the nose. I was able to visualize this from the inside of the lip and needle aspiration was performed with copious amounts of purulent material. This was sent for culture. Patient had been started on Unasyn and vancomycin. He will be admitted with infectious disease on consult given the location of this infection. Case discussed with Dr. Murray. - Lab Data Result diagrams: 12/02/21 15:51 12/02/21 15:51 Lab Results 12/02/21 12/02/21 12/02/21 Range/Units 15:51 15:51 15:51 WBC 11.1 H (3.8-10.6) k/uL RBC 4.50 (4.30-5.90) m/uL Hgb 14.6 (13.0-17.5) gm/dL Hct 43.9 (39.0-53.0) % MCV 97.5 (80.0-100.0) fL MCH 32.5 (25.0-35.0) pg MCHC 33.4 (31.0-37.0) g/dL RDW 13.2 (11.5-15.5) % Plt Count 296 (150-450) k/uL MPV 7.1 Neutrophils % 79 % Lymphocytes % 12 % Monocytes % 6 % Eosinophils % 2 % Basophils % 0 % Neutrophils # 8.8 H (1.3-7.7) k/uL Lymphocytes # 1.3 (1.0-4.8) k/uL Monocytes # 0.6 (0-1.0) k/uL Eosinophils # 0.3 (0-0.7) k/uL Basophils # 0.0 (0-0.2) k/uL Sodium 134 L (137-145) mmol/L Potassium 4.3 (3.5-5.1) mmol/L Chloride 98 (98-107) mmol/L Carbon Dioxide 25 (22-30) mmol/L Anion Gap 11 mmol/L BUN 8 L (9-20) mg/dL Creatinine 0.60 L (0.66-1.25) mg/dL Est GFR (CKD-EPI)AfAm >90 (>60 ml/min/1.73 sqM) Est GFR (CKD-EPI)NonAf >90 (>60 ml/min/1.73 sqM) Glucose 101 H (74-99) mg/dL Plasma Lactic Acid Jw 1.4 (0.7-2.0) mmol/L Calcium 9.2 (8.4-10.2) mg/dL Total Bilirubin 0.9 (0.2-1.3) mg/dL AST 23 (17-59) U/L ALT 13 (4-49) U/L Alkaline Phosphatase 67 (38-126) U/L Total Protein 8.1 (6.3-8.2) g/dL Albumin 4.5 (3.5-5.0) g/dL Disposition Clinical Impression: Facial abscess, Oral abscess Disposition: ADMITTED IP TO THIS [facility] Condition: Stable Is patient prescribed a controlled substance at d/c from ED?: No Referrals: Aiden Mayfield MD [Primary Care Provider] - 1-2 days Time of Disposition: 17:35 Decision to Admit Reason: Admit from EC Decision Date: 12/02/21 Decision Time: 17:35
[2021-12-02 16:08] LABS: Basophils % (A) 0 %; Eosinophils # (A) 0.3 k/uL (0-0.7); Eosinophils % (A) 2 %; HCT 43.9 % (39.0-53.0); HGB 14.6 gm/dL (13.0-17.5); Lymphocytes # (A) 1.3 k/uL (1.0-4.8); Lymphocytes % (A) 12 %; MCH 32.5 pg (25.0-35.0); MCHC 33.4 g/dL (31.0-37.0); MCV 97.5 fL (80.0-100.0); Mean Platelet Volume 7.1; Monocytes # (A) 0.6 k/uL (0-1.0); Monocytes % (A) 6 %; Neutrophils # (A) 8.8 k/uL (1.3-7.7); Neutrophils % (A) 79 %; Platelet Count 296 k/uL (150-450); RDW 13.2 % (11.5-15.5); WBC 11.1 k/uL (3.8-10.6)
[2021-12-02 16:22] LABS: ALT 13 U/L (4-49); AST 23 U/L (17-59); African American GFR (CKD) >90 (>60 ml/min/1.73 sqM); Albumin 4.5 g/dL (3.5-5.0); Alkaline Phosphatase 67 U/L (38-126); Anion Gap 11 mmol/L; Blood Urea Nitrogen 8 mg/dL (9-20); Calcium 9.2 mg/dL (8.4-10.2); Carbon Dioxide 25 mmol/L (22-30); Chloride 98 mmol/L (98-107); Glucose 101 mg/dL (74-99); Non-African American GFR(CKD) >90 (>60 ml/min/1.73 sqM); Sodium 134 mmol/L (137-145); Total Bilirubin 0.9 mg/dL (0.2-1.3); Total Protein 8.1 g/dL (6.3-8.2)
[2021-12-02] MEDS ORDERED: AMPICILLIN-SULBACTAM 3 GM in SODIUM CHLORIDE 0.9% 100 ML IVPB STA (16:37)
--- NOTE | 2021-12-02 16:40 | CT ---
EXAMINATION TYPE: CT facial bones w con DATE OF EXAM: 12/02/2021 COMPARISON: None available HISTORY: upper lip swelling CT DLP: 531.9 mGycm Automated exposure control for dose reduction was used. CONTRAST: CT scan of the facial bones is performed with IV Contrast, patient injected with 100 mL of Isovue 300 . TECHNIQUE: CT scan of the facial bones is performed with contrast, axial images are obtained, coronal reformatted images are also reviewed. FINDINGS: There is 2.4 x 1.4 cm low attenuating area within the soft tissues superficial to the anterior maxill a. No soft tissue gas is seen. There is surrounding mild soft tissue thickening/fat stranding. There is no acute fracture or dislocation. There is remote posttraumatic changes of the nasal bones. The paranasal sinuses are adequately aerated. No CT evidence of bony destruction or osseous lesions. IMPRESSION: 2.4 cm low attenuating area about the anterior maxillary superficial soft tissues/upper lip. Findings are consistent with phlegmon/early abscess in the appropriate clinical setting. No acute osseous abnormality.
[2021-12-02 16:41] LABS: Potassium 4.3 mmol/L (3.5-5.1)
[2021-12-02] MEDS ORDERED: ACETAMINOPHEN TAB 325 MG TAB PO PRN (17:17)
[2021-12-02] MEDS ORDERED: VANCOMYCIN IV PER PHARMACY 1 EACH MISC MISCELLANE PRN (17:17)
[2021-12-02] MEDS ORDERED: NALOXONE 0.4 MG/ML 1 ML VIAL IV PRN (17:17)
[2021-12-02] MEDS ORDERED: KETOROLAC 15 MG/ML 1 ML VIAL IVP PRN (17:17)
[2021-12-02] MEDS ORDERED: VANCOMYCIN 1,250 MG in SODIUM CHLORIDE 0.9% 250 ML IVPB STA (17:19)
[2021-12-02] MEDS ORDERED: LORazepam 2 MG/ML INJ IV PRN ×3 (17:35)
[2021-12-02] MEDS ORDERED: THIAMINE 100 MG/ML 2 ML VIAL IM STA (17:35)
--- NOTE | 2021-12-02 18:46 | HP ---
HISTORY AND PHYSICAL DATE OF SERVICE: 12/02/2021 CHIEF COMPLAINT: Pain and swelling around the upper lip and under the nose. HISTORY OF PRESENT ILLNESS: 61-year-old gentleman with a past medical history of atrial fibrillation, COPD, history of pneumonia, history of prostate CA, history of EtOH abuse, DTs, tracheobronchitis, being followed by Dr. Mayfield in the outpatient setting, was complaining of pain and swelling of the right upper lip for the last 3 days. The patient has significant tenderness and the patient has some poor dentition. The patient came to [facility] and admitted for further evaluation and treatment. There is no history of fever, rigors or chills. No history of headache, loss of consciousness, seizures. The white count is 11.1. The ER doctor has got some pus by incising the abscess area also. Face CT was done at the time of admission, which I reviewed showed 2.4 cm low attenuating area about the anterior maxilla superficial soft tissue upper lip. Phlegmon and early abscess was noted. No osseous abnormalities noted. There is no history of fever, rigors, chills at this time. PAST MEDICAL HISTORY: History of atrial fibrillation, history of COPD, history of pneumonia, history EtOH abuse, hernia surgery. MEDICATIONS: Home medications are none. ALLERGIES: None. FAMILY HISTORY: History of COPD in the family. SOCIAL HISTORY: History of smoking, continued ongoing and history of alcohol use. REVIEW OF SYSTEMS: ENT: As mentioned earlier. CARDIOVASCULAR: No angina or palpitations. RESPIRATION: No cough or hemoptysis. GI: No nausea or vomiting. : No dysuria. NERVOUS SYSTEM: No numbness or weakness. ALLERGY/IMMUNOLOGY: No asthma or hay fever. MUSCULOSKELETAL as mentioned earlier. HEMATOLOGY/ONCOLOGY: No history of anemia. ENDOCRINE: No history of diabetes or hypothyroidism. CONSTITUTIONAL: As mentioned earlier. DERMATOLOGY: Negative. RHEUMATOLOGY: Negative. PSYCHIATRIC: As mentioned earlier. PHYSICAL EXAMINATION: Alert and oriented x3. Pulse is 105. Blood pressure 156/77, respiration 20, temperature 98.7, pulse ox 98% on room air. HEENT: Conjunctivae normal. NECK: No JVD. CARDIOVASCULAR: S1, S2 normal. RESPIRATORY: Breath sounds diminished in the bases. A few scattered rhonchi. ABDOMEN: Soft. Nontender. NERVOUS SYSTEM: Higher functions as mentioned earlier. Moves all four limbs. No focal deficits. Lymphatics: No lymph nodes palpable in the neck, axillae or groin. SKIN: No ulcer, no rash and no bleeding. JOINTS: No active deforming arthropathy. Examination of face: Significant swelling and tenderness of the upper lip and upper present. LABS: WBC 11.3, sodium 135. ASSESSMENT: 1. Oral abscess in the midline, status post incision and drainage with possible early sepsis. 2. 2.4 cm low attenuating area above the anterior maxillary superficial soft- tissue area. 3. Hyponatremia. 4. Increased WBC. 5. History of atrial fibrillation. 6. History of chronic obstructive pulmonary disease. 7. History of pneumonia. 8. History of prostate disorder. 9. History EtOH and DTs. 10.History of tracheobronchitis. 11.History of pleurisy. 12.Acute respiratory failure. 13.History of continued ongoing nicotine dependence. 14.FULL CODE. RECOMMENDATIONS AND DISCUSSION: This 61-year-old gentleman who presented with multiple complex medical issues, we will monitor the patient closely. Continue the current medications, management and symptomatic treatment. Otherwise, at this time, I recommend broad-spectrum IV antibiotics, infectious disease evaluation. ENT evaluation. Resume the home medications. Prognosis guarded because of multiple complex medical issues. Further recommendations to follow. See orders for details. A copy of dictation being forwarded to Dr. Mayfield who is the primary physician. MMODL / IJN: [id number] / ROB
[2021-12-02] MEDS: SODIUM CHLORIDE 0.9% 1,000 ML IV SCH (19:00)
--- NOTE | 2021-12-02 23:46 | P.CONS ---
History of Present Illness - Reason for Consult Consult date: 12/02/21 facial abscess Requesting physician: Jelly Murray - Chief Complaint upper lip pain and swelling x 3 days - History of Present Illness History of Present Illness : Patient is a 61-year-old male presenting to the ER for evaluation of a painful swelling to the upper lip area just below the in this patient symptoms started about 3 days before presentation to the hos pital patient denies any history of any trauma patient was complaining of pain to the upper lip area to be more of a sharp to dull aching intensity 7-8 out of 10 some relief with the pain medication patient on presentation to the hospital was afebrile patient did have white count of 11.1 with a left shift patient did have a CT of the face which did shows small abscess in the superficial soft tissue of the upper lip patient did have a bedside drainage of this abscess by the ER physician with a copious amount of purulent material which was sent for culture patient was started on Unasyn and vancomycin infectious was consulted for further management of antibiotic therapy Review of system: CONSTITUTIONAL: Positive for weakness denies high-grade fever. EYES: No complaint. ENT: As per history of present illness. RESPIRATORY: No complaint. CARDIOVASCULAR: No complaint. GENITOURINARY: No complaint. GASTROINTESTINAL: No complaint. MUSCULOSKELETAL: No complaint. INTEGUMENTARY : No complaint. PSYCHOLOGIC: No complaint. ENDOCRINE: No complaint. NEUROLOGIC: No complaint. Past medical history : Reviewed, documented below Past surgical history : Reviewed, documented below Social history: Reviewed, documented below Medications: Reviewed, as documented below EXAMINATION: Vital sigans= Reviewed and documented below GENERAL DESCRIPTION: Middle-aged male lying in bed, no distress. No tachypnea or accessory muscle of respiration use. HEENT: Shows Pallor , no scleral icterus. Oral mucous membrane is dry. Some swelling of the upper lip was noticed no drainage NECK: Trachea central, no thyromegaly. LUNGS: Unlabored breathing. Clear to auscultation anteriorly. No wheeze or crac kle. HEART: S1, S2, regular rate and rhythm. ABDOMEN: Soft, no tenderness , guarding or rigidity EXTREMITIES: No edema feet SKIN: No rash, no masses palpable. NEUROLOGICAL: The patient is awake, alert, oriented x3, mood and affect normal. LABS AND RADIOLOGY: Reviewed results see below Assessment : Patient is a hospital with a facial abscess and cellulitis predominantly involving the upper lip area and this patient did have bedside aspirate of the purulent secretion which has been sent for culture likely pathogen will be gram-positive skin taty and less likely gram-negative or oral taty Plan: 1-vancomycin pharmacy to dose target trough of 15 while watching kidney function and vancomycin trough closely 2-Unasyn 3 g every 6 hours 3-warm compression to the area We will follow on clinical condition and cultures to further adjust medication if needed Thank you for this consultation we will follow the patient along with you Past Medical History Past Medical History: Atrial Fibrillation, Cancer, COPD, Eye Disorder, Pneumonia, Prostate Disorder Additional Past Medical History / Comment(s): ETOH abuse, DTs, tracheobro nchitis, pneumonias, pleurisy, acute respiratory failure/vented, bilateral glaucoma, prostate cancer History of Any Multi-Drug Resistant Organisms: None Reported Past Surgical History: Hernia Repair, Prostate Surgery, Tonsillectomy Additional Past Surgical History / Comment(s): R inguinal hernia repair, prostate-radiation implant, colonoscopy-normal Past Anesthesia/Blood Transfusion Reactions: No Reported Reaction Past Psychological History: No Psychological Hx Reported Smoking Status: Current every day smoker Past Alcohol Use History: None Reported, Daily, Heavy Past Drug Use History: None Reported - Past Family History Father Family Medical History: COPD Additional Family Medical History / Comment(s): Father of COPD in his 70's Mother Family Medical History: Coronary Artery Disease (CAD) Additional Family Medical History / Comment(s): Mother of heart disease at the age of 65 yrs. Medications and Allergies Home Medications Medication Instructions Recorded Confirmed Type No Known Home Medications 12/02/21 12/02/21 History Allergies Allergy/AdvReac Type Severity Reaction Status Date / Time No Known Allergies Allergy Verified 12/02/21 17:05 Physical Exam Vitals: Vital Signs Temp Pulse Resp BP Pulse Ox 12/02/21 14:04 98.2 F 105 H 20 156/77 98 Intake and Output 12/02/21 12/02/21 12/02/21 06:59 14:59 22:59 Other: Weight 65.771 kg Results CBC & Chem 7: 12/02/21 15:51 12/02/21 15:51 Labs: Abnormal Lab Results - Last 24 Hours (Table) 12/02/21 12/02/21 Range/Units 15:51 15:51 WBC 11.1 H (3.8-10.6) k/uL Neutrophils # 8.8 H (1.3-7.7) k/uL Sodium 134 L (137-145) mmol/L BUN 8 L (9-20) mg/dL Creatinine 0.60 L (0.66-1.25) mg/dL Glucose 101 H (74-99) mg/dL
[2021-12-03] MEDS ORDERED: AMPICILLIN-SULBACTAM 3 GM in SODIUM CHLORIDE 0.9% 100 ML IVPB SCH ×2
[2021-12-03] MEDS: HYDROmorphone 0.5 MG/0.5 ML SYRINGE IVP PRN ×2 (00:04→10:29)
[2021-12-03] MEDS: SODIUM CHLORIDE 0.9% 1,000 ML IV SCH ×3 (00:05→16:36)
[2021-12-03] MEDS: AMPICILLIN-SULBACTAM 3 GM in SODIUM CHLORIDE 0.9% 100 ML IVPB SCH ×4 (00:05→18:07)
[2021-12-03] MEDS: VANCOMYCIN 1,250 MG in SODIUM CHLORIDE 0.9% 250 ML IVPB SCH ×3 (03:57→20:08)
[2021-12-03 08:05] LABS: Basophils % (A) 0 %; Eosinophils # (A) 0.6 k/uL (0-0.7); Eosinophils % (A) 8 %; HGB 13.3 gm/dL (13.0-17.5); Lymphocytes # (A) 1.6 k/uL (1.0-4.8); Lymphocytes % (A) 23 %; MCH 32.4 pg (25.0-35.0); MCHC 32.5 g/dL (31.0-37.0); MCV 99.4 fL (80.0-100.0); Mean Platelet Volume 7.2; Monocytes # (A) 0.5 k/uL (0-1.0); Monocytes % (A) 7 %; Neutrophils # (A) 4.2 k/uL (1.3-7.7); Neutrophils % (A) 60 %; Platelet Count 273 k/uL (150-450); RBC 4.12 m/uL (4.30-5.90); RDW 13.2 % (11.5-15.5); WBC 7.1 k/uL (3.8-10.6)
[2021-12-03 08:22] LABS: African American GFR (CKD) >90 (>60 ml/min/1.73 sqM); Anion Gap 7 mmol/L; Blood Urea Nitrogen 9 mg/dL (9-20); Calcium 8.1 mg/dL (8.4-10.2); Carbon Dioxide 24 mmol/L (22-30); Chloride 106 mmol/L (98-107); Glucose 93 mg/dL (74-99); Non-African American GFR(CKD) >90 (>60 ml/min/1.73 sqM); Potassium 3.9 mmol/L (3.5-5.1); Sodium 137 mmol/L (137-145)
[2021-12-03] MEDS: PANTOPRAZOLE 40 MG TABLET PO SCH (10:24)
[2021-12-03] MEDS: THIAMINE 100 MG TAB PO SCH ×2 (10:24→18:07)
[2021-12-03] MEDS: NICOTINE 14MG/24HR PATCH TRANSDERM SCH (10:24)
[2021-12-03] MEDS: KETOROLAC 30 MG/ML 1 ML VIAL IVP PRN (12:55)
[2021-12-03] MEDS ORDERED: VANCOMYCIN TROUGH DUE 1 EACH MISC MISCELLANE ONE (18:00)
--- NOTE | 2021-12-03 21:44 | PN ---
PROGRESS NOTE DATE OF SERVICE: 12/03/2021 REASON FOR FOLLOWUP: Upper lip abscess and cellulitis. INTERVAL HISTORY: The patient is afebrile. The patient is feeling slightly. slightly decreased. no drainage. No chest pain, shortness of breath or cough. No abdominal pain or diarrhea. PHYSICAL EXAMINATION: Blood pressure 149/90 with a pulse of 77, temperature 98.6. He is 99% on room air. General description is a middle-aged male lying in bed in no distress. Respiratory system: Unlabored breathing, clear to auscultation anteriorly. Heart S1, S2. Regular rate and rhythm. Abdomen soft, no tenderness. Upper lip swelling has slightly decreased. No drainage. LABS: Hemoglobin is 13, white count 7.1, creatinine 0.6. DIAGNOSTIC IMPRESSION AND PLAN: Patient with upper lip abscess status post drainage in the ER. Cultures currently pending. Patient to continue with Unasyn and vancomycin with discharge antibiotic based on the culture report. Continue supportive care. MMODL / IJN: [id number] /
[2021-12-04] MEDS: AMPICILLIN-SULBACTAM 3 GM in SODIUM CHLORIDE 0.9% 100 ML IVPB SCH ×5 (00:17→21:41)
[2021-12-04] MEDS: SODIUM CHLORIDE 0.9% 1,000 ML IV SCH ×2 (00:17→08:14)
[2021-12-04] MEDS: VANCOMYCIN 1,250 MG in SODIUM CHLORIDE 0.9% 250 ML IVPB SCH ×3 (02:47→22:41)
[2021-12-04 06:31] LABS: African American GFR (CKD) >90 (>60 ml/min/1.73 sqM); Anion Gap 6 mmol/L; Blood Urea Nitrogen 9 mg/dL (9-20); Calcium 8.2 mg/dL (8.4-10.2); Carbon Dioxide 23 mmol/L (22-30); Chloride 106 mmol/L (98-107); Glucose 101 mg/dL (74-99); Non-African American GFR(CKD) >90 (>60 ml/min/1.73 sqM); Potassium 4.1 mmol/L (3.5-5.1); Sodium 135 mmol/L (137-145)
[2021-12-04 08:04] LABS: Basophils % (A) 0 %; Eosinophils # (A) 0.7 k/uL (0-0.7); Eosinophils % (A) 11 %; HCT 40.8 % (39.0-53.0); HGB 12.9 gm/dL (13.0-17.5); Lymphocytes # (A) 1.7 k/uL (1.0-4.8); Lymphocytes % (A) 26 %; MCH 31.9 pg (25.0-35.0); MCHC 31.6 g/dL (31.0-37.0); MCV 101.2 fL (80.0-100.0); Macrocytosis Slight; Mean Platelet Volume 7.6; Monocytes # (A) 0.4 k/uL (0-1.0); Monocytes % (A) 6 %; Neutrophils # (A) 3.6 k/uL (1.3-7.7); Neutrophils % (A) 55 %; Platelet Count 299 k/uL (150-450); RBC 4.03 m/uL (4.30-5.90); RDW 13.8 % (11.5-15.5); WBC 6.5 k/uL (3.8-10.6)
[2021-12-04] MEDS: THIAMINE 100 MG TAB PO SCH ×2 (08:14→18:02)
[2021-12-04] MEDS: PANTOPRAZOLE 40 MG TABLET PO SCH (08:14)
[2021-12-04] MEDS: NICOTINE 14MG/24HR PATCH TRANSDERM SCH ×2 (08:14→08:15)
[2021-12-04] MEDS: amLODIPine 5 MG TAB PO SCH (08:14)
--- NOTE | 2021-12-04 08:45 | P.PN ---
Subjective Progress Note Date: 12/03/21 This is a 61-year-old male who was recently admitted with pain and increased swelling of the right upper lip for the last 3 days that had progressively been getting worse and is being closely monitored. Infectious disease following an patient is maintained on IV antibiotics in the form of vancomycin and Unasyn while awaiting for cultures. Patient continues with tenderness and reports that the swelling has somewhat improved. Multiple dental caries and missing teeth and poor dentition noted. Patient maintained on clear liquids and expressing hunger requesting an advancing diet. Will increase diet and monitor closely. Patient is maintained on IV fluids and will continue with repeat labs. Ap parently the ER physician aspirated some purulence at the site and awaiting cultures to determine discharge antibiotics. Patient is afebrile. Patient denies any chest pain or shortness of breath. Labs: WBC is 7.1, hemoglobin is 13.3, platelets are 273, sodium is 137, potassium 3.9, BUN 9, creatinine 0.65, calcium 8.1, Vanco trough is 12.7, COVID-19 was negative Review of systems: Constitutional: No reports of fatigue, fever, or chills, reports facial swelling with some improvement and upper lip swelling Cardiovascular: No reports of chest pain or palpitations Respiratory: No reports of shortness of breath GI: No reports of nausea, vomiting, or diarrhea : No reports of dysuria or retention Neurovascular: No reports of weakness or numbness All medications have been reviewed Active Medications Acetaminophen (Acetaminophen Tab 325 Mg Tab) 650 mg PO Q6HR PRN PRN Reason: Mild Pain or Fever > 100.5 Hydromorphone HCl (Hydromorphone 0.5 Mg/0.5 Ml Syringe) 0.5 mg IVP Q3HR PRN PRN Reason: Moderate Pain Last Admin: 12/03/21 10:29 Dose: 0.5 mg Documented by: Sodium Chloride (Saline 0.9%) 1,000 mls @ 130 mls/hr IV .Q7H42M [facility] Last Admin: 12/03/21 00:05 Dose: 130 mls/hr Documented by: Vancomycin HCl 1,250 mg/ (Sodium Chloride) 250 mls @ 125 mls/hr IVPB Q8H [facility] Last Admin: 12/03/21 10:50 Dose: 125 mls/hr Documented by: Ampicillin Sodium/Sulbactam (Sodium 3 gm/ Sodium Chloride) 100 mls @ 200 mls/hr IVPB Q6HR [facility] Last Admin: 12/03/21 12:52 Dose: 200 mls/hr Documented by: Ketorolac Tromethamine (Ketorolac 30 Mg/Ml 1 Ml Vial) 15 mg IVP Q6HR PRN PRN Reason: Moderate Pain Stop: 12/05/21 17:19 Last Admin: 12/03/21 12:55 Dose: 15 mg Documented by: Lorazepam (Lorazepam 2 Mg/Ml Inj) 1 mg IV Q2HR PRN PRN Reason: CIWA 8 or 9 Lorazepam (Lorazepam 2 Mg/Ml Inj) 1 mg IV Q1HR PRN PRN Reason: CIWA 10 to 15 Lorazepam (Lorazepam 2 Mg/Ml Inj) 2 mg IV Q10M PRN PRN Reason: CIWA 16 or higher Stop: 12/04/21 17:35 Miscellaneous Information (Vancomycin Trough Due 1 Each Misc) 1 each MISCELLANE ONCE ONE Stop: 12/03/21 18:01 Naloxone HCl (Naloxone 0.4 Mg/Ml 1 Ml Vial) 0.2 mg IV Q2M PRN PRN Reason: Opioid Reversal Nicotine (Nicotine 14mg/24hr Patch) 1 patch TRANSDERM DAILY [facility] Last Admin: 12/03/21 10:24 Dose: Not Given Documented by: Pantoprazole Sodium (Pantoprazole 40 Mg Tablet) 40 mg PO AC-BRKFST [facility] Last Admin: 12/03/21 10:24 Dose: Not Given Documented by: Thiamine HCl (Thiamine 100 Mg Tab) 100 mg PO BID-W/MEALS [facility] Last Admin: 12/03/21 10:24 Dose: 100 mg Documented by: Physical Exam: Gen: This is a 61-year-old male who is awake, alert and oriented 3, well- developed, well-nourished. Temp is 98.8 F, pulse is 82 respirations are 18, blood pressure is 154/91, oxygen saturation is 97% on room air HEENT: Head is atraumatic, normocephalic. Pupils equal, round. Sclerae is anicteric. Right side facial swelling noted with some redness of the upper right lip and swelling of the gums multiple dental caries and missing teeth noted NECK: Supple. No JVD. No lymphadenopathy. No thyromegaly. LUNGS: Breath sounds diminished with no wheezing or rhonchi noted. No intercostal retractions. HEART: S1, S2 are muffled ABDOMEN: Soft. Bowel sounds are present. No masses. No tenderness. EXTREMITIES: No pedal edema. No calf tenderness. NEUROLOGICAL: Patient is awake, alert and oriented 3, no focal deficits . Assessment: Oral abscess in the midline, status post incision and drainage with possible early sepsis 2.4 cm low attenuating area above the anterior maxillary superficial soft tissue area noted on CT Hyponatremia Increased WBC History of atrial fibrillation History of chronic obstructive pulmonary disease history of pneumonia history of prostate disorder history of EtOH and delirium tremens history of tracheobronchitis history of pleurisy acute respiratory failure history of continued ongoing nicotine dependence Full code Plan: Recommend to continue with current medications home management, and symptomatic treatment. Patient is continued on IV vancomycin and Unasyn with infectious disease following closely. Awaiting finalized cultures to determine discharge antibiotics. Patient with facial swelling and reports to improvement in the swelling although continues to have significant swelling of the gums and upper right lip area. Patient was maintained on clear liquids and asking for advance in diet. Patient is continued on IV hydration and will repeat labs. Patient to lerating diet with no reports of nausea or vomiting noted. Patient will also continue on CIWA protocol and monitor closely for any signs of alcohol withdrawal. We'll continue to monitor closely and repeat labs. Given the extent of continued swelling and infection patient will require more than 2 night hospitalization with IV antibiotic therapy and awaiting for cultures to finalize to determine proper discharge antibiotics. Due to multiple complex medical issues prognosis is guarded. Objective - Vital Signs Vital signs: Vital Signs Temp 98.8 F 12/03/21 07:00 Pulse 82 12/03/21 07:00 Resp 18 12/03/21 10:39 BP 154/91 12/03/21 07:00 Pulse Ox 97 12/03/21 07:00 Intake & Output 12/02/21 12/03/21 12/03/21 18:59 06:59 18:59 Intake Total 250 Balance 250 Weight 65.771 kg Intake: Oral 250 Other: # Voids 1 1 - Labs CBC & Chem 7: 12/04/21 05:23 12/04/21 05:23 Labs: Abnormal Lab Results - Last 24 Hours (Table) 12/02/21 12/02/21 12/03/21 Range/Units 15:51 15:51 07:25 WBC 11.1 H (3.8-10.6) k/uL RBC 4.12 L (4.30-5.90) m/uL Neutrophils # 8.8 H (1.3-7.7) k/uL Sodium 134 L (137-145) mmol/L BUN 8 L (9-20) mg/dL Creatinine 0.60 L (0.66-1.25) mg/dL Glucose 101 H (74-99) mg/dL Calcium (8.4-10.2) mg/dL 12/03/21 Range/Units 07:25 WBC (3.8-10.6) k/uL RBC (4.30-5.90) m/uL Neutrophils # (1.3-7.7) k/uL Sodium (137-145) mmol/L BUN (9-20) mg/dL Creatinine 0.65 L (0.66-1.25) mg/dL Glucose (74-99) mg/dL Calcium 8.1 L (8.4-10.2) mg/dL Microbiology - Last 24 Hours (Table) 12/02/21 17:36 Gram Stain - Preliminary Face Wound Culture - Preliminary
[2021-12-04] MEDS ORDERED: IPRATROPIUM-ALBUTEROL 3 ML NEB INHALATION PRN (12:12)
--- NOTE | 2021-12-04 14:40 | P.PN ---
Subjective Progress Note Date: 12/04/21 This is a 61-year-old male who was recently admitted with pain and increased swelling of the right upper lip for the last 3 days that had progressively been getting worse and is being closely monitored. Infectious disease following an patient is maintained on IV antibiotics in the form of vancomycin and Unasyn while awaiting for cultures. Patient continues with tenderness and reports that the swelling has somewhat improved. Multiple dental caries and missing teeth and poor dentition noted. Patient maintained on clear liquids and expressing hunger requesting an advancing diet. Will increase diet and monitor closely. Patient is maintained on IV fluids and will continue with repeat labs. Ap parently the ER physician aspirated some purulence at the site and awaiting cultures to determine discharge antibiotics. Patient is afebrile. Patient denies any chest pain or shortness of breath. 12/04/2021 Patient is seen in follow-up today continues with some swelling and discomfort of the right side of the face although states continues to improve. Patient is maintained on IV antibiotics in the form of vancomycin and Unasyn and awaiting cultures. Preliminary culture showing many gram-positive cocci many gram negative bacilli and gram-positive bacilli and will await finalized culture. Infectious disease is following. Patient is also maintained on CIWA protocol and denies any withdrawal symptoms. Patient is tolerating diet with no reports of nausea or vomiting noted. Patient does have history of COPD with some minimal expiratory wheezing noted and will resume albuterol inhaler and continue with DuoNeb treatments for now. Patient denies any chest pain or worsening shortness of breath. Patient also smokes daily always refusing nicotine patch at this time. Patient was maintained on IV hydration and will discontinue his patient is tolerating diet and BMP within normal limits today. Labs: WBC is 6.5, hemoglobin is 12.9, platelets are 299, sodium is 135, potassium is 4.1, BUN is 9, creatinine is 0.66, calcium is 8.2. Review of systems: Constitutional: No reports of fatigue, fever, or chills, reports facial swelling with continued improvement of upper lip swelling Cardiovascular: No reports of chest pain or palpitations Respiratory: No reports of shortness of breath, reports some cough today GI: No reports of nausea, vomiting, or diarrhea : No reports of dysuria or retention Neurovascular: No reports of weakness or numbness All medications have been reviewed Active Medications Acetaminophen (Acetaminophen Tab 325 Mg Tab) 650 mg PO Q6HR PRN PRN Reason: Mild Pain or Fever > 100.5 Albuterol/Ipratropium (Ipratropium-Albuterol 3 Ml Neb) 3 ml INHALATION RT-QID PRN PRN Reason: Shortness Of Breath Or Wheezing Albuterol/Ipratropium (Ipratropium-Albuterol 3 Ml Neb) 3 ml INHALATION RT-QID [facility] Amlodipine Besylate (Amlodipine 5 Mg Tab) 5 mg PO DAILY [facility] Last Admin: 12/04/21 08:14 Dose: 5 mg Documented by: Hydromorphone HCl (Hydromorphone 0.5 Mg/0.5 Ml Syringe) 0.5 mg IVP Q3HR PRN PRN Reason: Moderate Pain Last Admin: 12/03/21 10:29 Dose: 0.5 mg Documented by: Sodium Chloride (Saline 0.9%) 1,000 mls @ 130 mls/hr IV .Q7H42M [facility] Last Admin: 12/04/21 08:14 Dose: 130 mls/hr Documented by: Vancomycin HCl 1,250 mg/ (Sodium Chloride) 250 mls @ 125 mls/hr IVPB Q8H [facility] Last Admin: 12/04/21 11:49 Dose: 125 mls/hr Documented by: Ampicillin Sodium/Sulbactam (Sodium 3 gm/ Sodium Chloride) 100 mls @ 200 mls/hr IVPB Q6H [facility] Last Admin: 12/04/21 13:50 Dose: 200 mls/hr Documented by: Ketorolac Tromethamine (Ketorolac 30 Mg/Ml 1 Ml Vial) 15 mg IVP Q6HR PRN PRN Reason: Moderate Pain Stop: 12/05/21 17:19 Last Admin: 12/03/21 12:55 Dose: 15 mg Documented by: Lorazepam (Lorazepam 2 Mg/Ml Inj) 1 mg IV Q2HR PRN PRN Reason: CIWA 8 or 9 Lorazepam (Lorazepam 2 Mg/Ml Inj) 1 mg IV Q1HR PRN PRN Reason: CIWA 10 to 15 Lorazepam (Lorazepam 2 Mg/Ml Inj) 2 mg IV Q10M PRN PRN Reason: CIWA 16 or higher Stop: 12/04/21 17:35 Naloxone HCl (Naloxone 0.4 Mg/Ml 1 Ml Vial) 0.2 mg IV Q2M PRN PRN Reason: Opioid Reversal Nicotine (Nicotine 14mg/24hr Patch) 1 patch TRANSDERM DAILY [facility] Last Admin: 12/04/21 08:15 Dose: Not Given Documented by: Pantoprazole Sodium (Pantoprazole 40 Mg Tablet) 40 mg PO AC-BRKFST [facility] Last Admin: 12/04/21 08:14 Dose: 40 mg Documented by: Thiamine HCl (Thiamine 100 Mg Tab) 100 mg PO BID-W/MEALS [facility] Last Admin: 12/04/21 08:14 Dose: 100 mg Documented by: Physical Exam: Gen: This is a 61-year-old male who is awake, alert and oriented 3, well- developed, well-nourished. Temp is 97.0 F, pulse is 76 respirations are 18, blood pressure is 148/93, oxygen saturation is 99% on room air HEENT: Head is atraumatic, normocephalic. Pupils equal, round. Sclerae is anicte nick. Right side facial swelling noted with some redness of the upper right lip and swelling of the gums multiple dental caries and missing teeth noted NECK: Supple. No JVD. No lymphadenopathy. No thyromegaly. LUNGS: Breath sounds diminished with some scattered rhonchi and mild expiratory wheezing noted. No intercostal retractions. HEART: S1, S2 are muffled ABDOMEN: Soft. Bowel sounds are present. No masses. No tenderness. EXTREMITIES: No pedal edema. No calf tenderness. NEUROLOGICAL: Patient is awake, alert and oriented 3, no focal deficits . Assessment: Oral abscess in the midline, status post incision and drainage with possible early sepsis 2.4 cm low attenuating area above the anterior maxillary superficial soft tissue area noted on CT Hyponatremia Increased WBC History of atrial fibrillation chronic obstructive pulmonary disease, acute exacerbation history of pneumonia history of prostate disorder history of EtOH and delirium tremens history of tracheobronchitis history of pleurisy acute respiratory failure history of continued ongoing nicotine dependence Full code Plan: Recommend to continue with current medications home management, and symptomatic treatment. Patient is continued on IV vancomycin and Unasyn with infectious disease following closely. Awaiting finalized cultures to determine discharge antibiotics. Patient with facial swelling and reports to improvement in the swelling although continues to have significant swelling of the gums and upper right lip area. She is currently tolerating diet and will discontinue IV fluids as BMP was within normal limits. Patient having some cough or shortness of breath and does have history of COPD and will resume albuterol inhaler and add DuoNeb treatments. Patient will also continue on CIWA protocol and monitor closely for any signs of alcohol withdrawal. We'll continue to monitor closely and repeat labs. Preliminary culture showing many gram positive and gram- negative bacilli. Will await finalized cultures and discuss with infectious disease about discharge antibiotics. Due to multiple complex medical issues prognosis is guarded. Possible discharge in 24-48 hours. Objective - Vital Signs Vital signs: Vital Signs Temp 98.2 F 12/04/21 07:00 Pulse 82 12/04/21 07:00 Resp 18 12/04/21 07:48 BP 158/87 12/04/21 07:00 Pulse Ox 99 12/04/21 07:00 Intake & Output 12/03/21 12/04/21 12/04/21 18:59 06:59 18:59 Intake Total 370 200 Output Total 300 Balance 70 200 Intake: Oral 370 200 Output: Urine 300 Other: Voiding Method Toilet # Voids 1 1 - Labs CBC & Chem 7: 12/04/21 05:23 12/04/21 05:23 Labs: Abnormal Lab Results - Last 24 Hours (Table) 12/04/21 12/04/21 Range/Units 05:23 05:23 RBC 4.03 L (4.30-5.90) m/uL Hgb 12.9 L (13.0-17.5) gm/dL MCV 101.2 H (80.0-100.0) fL Sodium 135 L (137-145) mmol/L Glucose 101 H (74-99) mg/dL Calcium 8.2 L (8.4-10.2) mg/dL Microbiology - Last 24 Hours (Table) 12/02/21 15:37 Blood Culture Gram Stain - Preliminary Blood Blood Culture - Preliminary Coagulase Negative Staph 12/02/21 15:37 Blood Culture - Final Blood 12/02/21 15:54 Blood Culture - Preliminary Blood No Growth after 24 hours 12/02/21 17:36 Gram Stain - Preliminary Face Wound Culture - Preliminary
[2021-12-04] MEDS: KETOROLAC 30 MG/ML 1 ML VIAL IVP PRN (15:19)
--- NOTE | 2021-12-04 15:57 | PN ---
PROGRESS NOTE DATE OF SERVICE: 12/04/2021. REASON FOR FOLLOWUP: Upper lip abscess. INTERVAL HISTORY: The patient is afebrile. The patient ( ) to the upper lip has decreased. The patient denies having any chest pain, shortness of breath or cough. No abdominal pain or diarrhea. PHYSICAL EXAMINATION: Blood pressure 142/93 with a pulse of 76, temperature 97. He is 99% on room air. General description is a middle-aged male up in the room in no distress. HEENT examination: The upper lip swelling and redness has decreased and no drainage. LABS: Blood cultures are coagulase negative Staph. Cultures from the aspirate of the upper lip are currently pending. DIAGNOSTIC IMPRESSION AND PLAN: 1. Patient with upper lip abscess status post drainage in the ER. Cultures are currently pending. Continue with Vancomycin ( ) following cultures. 2. Positive blood cultures with coagulase negative staph, likely skin contaminant. MMODL / IJN: [id number] /
[2021-12-04] MEDS ORDERED: ALBUTEROL HFA INHALER INHALATION SCH (16:00)
[2021-12-04] MEDS: IPRATROPIUM-ALBUTEROL 3 ML NEB INHALATION SCH ×2 (16:32→20:56)
[2021-12-05] MEDS: AMPICILLIN-SULBACTAM 3 GM in SODIUM CHLORIDE 0.9% 100 ML IVPB SCH ×2 (02:55→07:29)
[2021-12-05] MEDS: VANCOMYCIN 1,250 MG in SODIUM CHLORIDE 0.9% 250 ML IVPB SCH (05:11)
[2021-12-05] MEDS: NICOTINE 14MG/24HR PATCH TRANSDERM SCH (07:26)
[2021-12-05] MEDS: THIAMINE 100 MG TAB PO SCH (07:27)
[2021-12-05] MEDS: amLODIPine 5 MG TAB PO SCH (07:27)
[2021-12-05] MEDS: PANTOPRAZOLE 40 MG TABLET PO SCH (07:28)
[2021-12-05 07:31] LABS: African American GFR (CKD) >90 (>60 ml/min/1.73 sqM); Non-African American GFR(CKD) >90 (>60 ml/min/1.73 sqM)
[2021-12-05 07:34] VITALS: BP 173/95; RESP 18; TEMP 97.6
[2021-12-05] MEDS: IPRATROPIUM-ALBUTEROL 3 ML NEB INHALATION SCH ×2 (08:52→11:59)
[2021-12-05 12:10] VITALS: PULSE 80
[2021-12-05] MEDS ORDERED: VANCOMYCIN 1,250 MG in SODIUM CHLORIDE 0.9% 250 ML IVPB SCH (14:00)
--- NOTE | 2021-12-05 15:16 | PN ---
PROGRESS NOTE DATE OF SERVICE: 12/05/2021 REASON FOR FOLLOWUP: Upper lip abscess and cellulitis. INTERVAL HISTORY: The patient was seen on rounds this morning. The patient has been afebrile. Overall pain and discomfort to the upper lip has decreased. No chest pain, shortness of breath or cough. No abdominal pain or diarrhea. PHYSICAL EXAMINATION: Blood pressure is 173/95 with a pulse of 73, temperature 97.6. He is 97% on room air. General description is a middle-aged male up in the room in no distress. HEENT examination: The upper lip swelling and redness have decreased. Lungs with unlabored breathing. Clear to auscultation anteriorly. Heart S1, S2. Regular rate and rhythm. Abdomen soft, no tenderness. LABS: Creatinine 0.76. The drainage from the upper lip cultures came back skin taty. DIAGNOSTIC IMPRESSION AND PLAN: Patient with upper lip abscess, status post drainage in the ER. Culture has been negative for MRSA. Finishing therapy with oral Augmentin x10 days with close outpatient followup. MMODL / IJN: [id number] /
[2021-12-06] MEDS ORDERED: VANCOMYCIN TROUGH DUE 1 EACH MISC MISCELLANE ONE (05:00)
--- NOTE | 2021-12-06 15:03 | P.DS ---
Providers Date of admission: 12/04/21 13:38 Expected date of discharge: 12/05/21 Attending physician: Jelly Murray Consults: 12/02/21 17:18 Consult Physician Routine Consulting Provider: Magnolia De Leon Consult Reason/Comments: Infra nasal abscess Do you want consulting provider notified?: Yes [facility] [place] [facility]: Final diagnosis Oral abscess in the midline, status post incision and drainage with possible early sepsis 2.4 cm low attenuating area above the anterior maxillary superficial soft tissue area noted on CT Hyponatremia Increased WBC History of atrial fibrillation chronic obstructive pulmonary disease, acute exacerbation history of pneumonia history of prostate disorder history of EtOH and delirium tremens history of tracheobronchitis history of pleurisy acute respiratory failure history of continued ongoing nicotine dependence Full code Discharge disposition Patient is being discharged in a stable condition with guarded prognosis to home. Patient will continue with oral Augmentin twice daily for the next 10 days in the outpatient setting. Patient will follow-up with Dr. Mayfield upon discharge. Patient will also follow-up with Dr. De Leon closely in the outpatient setting as scheduled on 12/10/2021. Total time taken is greater than 35 minutes. Hospital course This is a 61-year-old male who was recently admitted with pain and increasing swelling and redness of the right upper lip that had progressively been getting worse. Patient underwent needle aspiration of the area and cultures have been negative. Patient did have a positive blood culture showing coagulation negative staph which is most likely contaminant and further cultures have been negative. Patient was followed closely by infectious disease and maintained on IV antibiotics and we'll transition to oral Augmentin twice daily for the next 10 days and recommend close outpatient follow-up with Dr. De Leon as scheduled on 12/10/2021. Patient is anxious to go home. Patient encouraged to follow-up with primary care provider as well. Currently no reports of chest pain, shortness of breath, or palpitations. Patient is afebrile. No reports of nausea or vomiting and patient is tolerating diet. Patient will be discharged to home today. Guarded prognosis. On exam vital signs are stable. Cardio S1, S2 are muffled. Respiratory system shows diminished breath sounds at the bases with some mild expiratory wheezing noted. Abdomen is soft and nontender. Nervous system shows no focal deficits. Please refer to medication reconciliation sheet for a list of medications. Patient Condition at Discharge: Stable Plan - Discharge Summary Discharge Rx Participant: No New Discharge Prescriptions: New amLODIPine [Norvasc] 5 mg PO DAILY 30 Days #30 tab Amoxic-Pot Clav 875-125Mg [Augmentin 875-125] 1 tab PO Q12HR 10 Days #20 tab Thiamine [Vitamin B-1] 100 mg PO BID-W/MEALS 30 Days #60 tab Continue Albuterol Inhaler [Ventolin Hfa Inhaler] 2 puff INHALATION RT-QID 30 Days #1 each Discharge Medication List Albuterol Inhaler [Ventolin Hfa Inhaler] 2 puff INHALATION RT-QID 30 Days #1 each 12/05/21 [Rx] Amoxic-Pot Clav 875-125Mg [Augmentin 875-125] 1 tab PO Q12HR 10 Days #20 tab 12/05/21 [Rx] Thiamine [Vitamin B-1] 100 mg PO BID-W/MEALS 30 Days #60 tab 12/05/21 [Rx] amLODIPine [Norvasc] 5 mg PO DAILY 30 Days #30 tab 12/05/21 [Rx] Follow up Appointment(s)/Referral(s): Aiden Mayfield MD [Primary Care Provider] - 1-2 days Magnolia De Leon MD [STAFF PHYSICIAN] - 12/10/21 2:30 pm Activity/Diet/Wound Care/Special Instructions: Activity Limited until follow-up Follow-up primary care provider on discharge continuetaking antibiotics as prescribed until finished Follow-up with infectious disease Dr. De Leon in one week Continue current diet Follow-up with dentist outpatient Discharge Disposition: HOME SELF-CARE
== END 2021-12-05 13:30 | disposition home or self-care (01) ==
LOC: EC 12:56 → 1SOBS 17:17 → 6NMEDSUR 21:35 → INTOOBSV 12-04 13:38 → OBSVTOIN 12-04 13:38 → UNDODISIN 12-05 13:30
PROVIDERS: ADMIT Hospitalist; ATTEND Hospitalist
PROC: 0C903ZZ Drainage of Upper Lip, Percutaneous Approach (ICD-10-PCS; principal; 2021-12-02)
DX: K12.2 Cellulitis and abscess of mouth (principal); E87.1 Hypo-osmolality and hyponatremia; I48.91 Unspecified atrial fibrillation; K02.9 Dental caries, unspecified; H40.9 Unspecified glaucoma; M79.606 Pain in leg, unspecified; F10.10 Alcohol abuse, uncomplicated; F17.200 Nicotine dependence, unspecified, uncomplicated; Z20.822 Contact with and (suspected) exposure to COVID-19; Z87.09 Personal history of other diseases of the respiratory system; Z85.46 Personal history of malignant neoplasm of prostate; Z92.3 Personal history of irradiation; Z98.890 Other specified postprocedural states; Z87.01 Personal history of pneumonia (recurrent); Z82.49 Family history of ischemic heart disease and other diseases of the circulatory system; Z82.5 Family history of asthma and other chronic lower respiratory diseases
CPT/HCPCS: 96376 ×2; 96361 ×3; 96366 ×4; 96365; 96367; 96375; 99285; 40800; 36415; 94640 ×3; 80053; 80048 ×2; 82565; 83605; 85025 ×3; 80202; 87040; 87070; 87205; 87075; 87635; 70487; G0378 ×5; J3370 ×4; J1885 ×3; J0295 ×4; J1170; Q9967; 10060; 96374; 99284

== ENCOUNTER 2022-06-18 16:13 | Inpatient (IN) | payer OTHER ==
[2022-06-18] MEDS ORDERED: SODIUM CHLORIDE 0.9% 500 ML 500 ML IV STA (16:44)
[2022-06-18] MEDS ORDERED: MAGNESIUM SULFATE-D5W PMX 1 GM in DEXTROSE/WATER 1 100ML.BAG IVPB STA (16:44)
[2022-06-18] MEDS ORDERED: IPRATROPIUM-ALBUTEROL 3 ML NEB INHALATION STA ×3 (16:44→17:34)
[2022-06-18] MEDS ORDERED: methylPREDNISolone SOD SUCCI 125 MG/2 ML VIAL IV STA (16:44)
[2022-06-18 17:08] LABS: Basophils # (A) 0.1 k/uL (0-0.2); Basophils % (A) 1 %; Eosinophils # (A) 0.3 k/uL (0-0.7); Eosinophils % (A) 3 %; HCT 41.6 % (39.0-53.0); HGB 13.4 gm/dL (13.0-17.5); Lymphocytes # (A) 1.8 k/uL (1.0-4.8); Lymphocytes % (A) 18 %; MCH 32.1 pg (25.0-35.0); MCHC 32.2 g/dL (31.0-37.0); MCV 99.7 fL (80.0-100.0); Mean Platelet Volume 7.4; Monocytes # (A) 0.7 k/uL (0-1.0); Monocytes % (A) 7 %; Neutrophils # (A) 7.2 k/uL (1.3-7.7); Neutrophils % (A) 70 %; Platelet Count 268 k/uL (150-450); RBC 4.17 m/uL (4.30-5.90); RDW 14.3 % (11.5-15.5); WBC 10.3 k/uL (3.8-10.6)
[2022-06-18 17:17] LABS: ALT 16 U/L (4-49); AST 23 U/L (17-59); African American GFR (CKD) >90 (>60 ml/min/1.73 sqM); Albumin 4.6 g/dL (3.5-5.0); Alkaline Phosphatase 61 U/L (38-126); Anion Gap 12 mmol/L; Blood Urea Nitrogen 12 mg/dL (9-20); Calcium 9.2 mg/dL (8.4-10.2); Carbon Dioxide 21 mmol/L (22-30); Chloride 104 mmol/L (98-107); Glucose 96 mg/dL (74-99); Magnesium 1.8 mg/dL (1.6-2.3); Non-African American GFR(CKD) >90 (>60 ml/min/1.73 sqM); Sodium 137 mmol/L (137-145); Total Bilirubin 0.8 mg/dL (0.2-1.3); Total Protein 7.9 g/dL (6.3-8.2)
[2022-06-18 17:28] LABS: INR 0.9 (<1.2); Partial Thromboplastin Time 25.9 sec (22.0-30.0); Prothrombin Time 9.7 sec (9.0-12.0)
--- NOTE | 2022-06-18 18:05 | XR ---
EXAMINATION TYPE: XR chest 2V DATE OF EXAM: 06/18/2022 5:39 PM COMPARISON: 03/25/2020 TECHNIQUE: XR chest 2V Frontal and lateral views of the chest. CLINICAL INDICATION:Male, 62 years old with history of difficulty breathing; FINDINGS: Lungs/Pleura: Increased airspace opacities within the right mid and upper lung and left lung to a les ser extent. There is increased lucency within the lung apices with finding of the diaphragms. There i s no evidence of pleural effusion or pneumothorax. Heart/mediastinum: Cardiomediastinal silhouette is unremarkable. Musculoskeletal: No acute osseous pathology. IMPRESSION: New airspace opacities within the right mid and upper lung and to a lesser extent the left lung. Ernestine elate for atypical pneumonia. Superimposed COPD changes.
--- NOTE | 2022-06-18 18:06 | ED ---
General Adult HPI - General Chief complaint: Shortness of Breath Stated complaint: LYDIA Time Seen by Provider: 06/18/22 16:40 Source: patient, RN notes reviewed, old records reviewed Mode of arrival: ambulatory Limitations: no limitations - History of Present Illness Initial comments: Patient is a 62-year-old male with past medical history remarkable for COPD who presents emergency Department complaining of worsening shortness of breath. Has a history of pneumonia. Has been having a productive cough of greenish mucus that is abnormal for him in addition to increased work of breathing. Please his COPD is acting up. Is not normally on check baseline. Was not vaccinated for Covid or influenza. He is concerned he may have pneumonia again. Denies chest pain, abdominal pain, nausea, vomiting. Percents for further evaluation at this time. Denies any lower extremity swelling. Is not on blood thinners. - Related Data Home Medications Medication Instructions Recorded Confirmed No Known Home Medications 06/18/22 06/18/22 Allergies Allergy/AdvReac Type Severity Reaction Status Date / Time No Known Allergies Allergy Verified 06/18/22 17:58 Review of Systems ROS Statement: Those systems with pertinent positive or pertinent negative responses have been documented in the HPI. Review of Systems: CONST: Denies fever EYES: Denies blurry vision ENT: Endorses nasal congestion C/V: Denies Chest pain RESP: Endorses shortness of breath, cough GI: Denies abdominal pain : Denies dysuria SKIN: Denies rash. MSK: Denies joint pain. NEURO: Denies headache ROS Other: All systems not noted in ROS Statement are negative. Past Medical History Past Medical History: Atrial Fibrillation, Cancer, COPD, Eye Disorder, Pneumonia, Prostate Disorder Additional Past Medical History / Comment(s): ETOH abuse, DTs, tracheobronchitis, pneumonias, pleurisy, acute respiratory failure/vented, bilateral glaucoma, prostate cancer History of Any Multi-Drug Resistant Organisms: None Reported Past Surgical History: Hernia Repair, Prostate Surgery, Tonsillectomy Additional Past Surgical History / Comment(s): R inguinal hernia repair, prostate-radiation implant, colonoscopy-normal Past Anesthesia/Blood Transfusion Reactions: No Reported Reaction Past Psychological History: No Psychological Hx Reported Smoking Status: Current every day smoker Past Alcohol Use History: None Reported, Daily, Heavy Past Drug Use History: None Reported - Past Family History Father Family Medical History: COPD Additional Family Medical History / Comment(s): Father of COPD in his 70's Mother Family Medical History: Coronary Artery Disease (CAD) Additional Family Medical History / Comment(s): Mother of heart disease at the age of 65 yrs. General Exam - General Exam Comments Initial Comments: General: Appears in no acute distress. HEAD: Normal with no signs of head trauma. EYES: PERRLA, EOMI, conjunctiva normal, no discharge. ENT: Hearing grossly intact, normal oropharynx. RESPIRATORY: Bilateral end expiratory wheezing. No rhonchi appreciated. No hypoxia at rest on room air. Mild increased work of breathing. C/V: Regular rate and rhythm. S1 and S2 auscultated, no edema, peripheral pulses 2+ and intact throughout ABD: Abd is soft, nontender, nondistended EXT: Normal range of motion, no obvious deformity SKIN: No rashes or lesions observed on exposed skin. NEURO: Alert and oriented 4. Limitations: no limitations Course Vital Signs 06/18/22 06/18/22 06/18/22 16:19 16:49 17:00 Temperature 98 F Pulse Rate 99 96 86 Respiratory 22 20 24 Rate Blood Pressure 116/73 128/78 O2 Sat by Pulse 94 L 100 Oximetry 06/18/22 06/18/22 06/18/22 17:02 17:30 17:34 Temperature Pulse Rate 90 93 Respiratory 20 24 22 Rate Blood Pressure 126/74 O2 Sat by Pulse 98 Oximetry 06/18/22 06/18/22 06/18/22 17:41 17:50 18:00 Temperature Pulse Rate 104 H 95 99 Respiratory 18 20 24 Rate Blood Pressure 141/69 O2 Sat by Pulse 98 Oximetry 06/18/22 06/18/22 06/18/22 18:30 19:00 19:29 Temperature Pulse Rate 100 97 100 Respiratory 20 20 18 Rate Blood Pressure 133/77 137/76 116/71 O2 Sat by Pulse 100 91 L 95 Oximetry 06/18/22 20:37 Temperature 98.1 F Pulse Rate 90 Respiratory 18 Rate Blood Pressure 137/75 O2 Sat by Pulse 95 Oximetry Medical Decision Making - Medical Decision Making Based on the patient's presentation and physical exam, concern for COPD ex acerbation. Cannot Rule out pulmonary infection at this time. We will obtain cardiopulmonary laboratory studies. We will administer 2 breathing she moves as well as IV steroids. Covid is also be obtained. Patient was in agreement with this plan. EKG shows no signs of acute ischemia. Chest x-ray reveals findings concerning for atypical pneumonia with bilateral airspace opacities. Laboratory studies are remarkable for negative Covid influence testing. Remainder the labs are unremarkable. On reevaluation, patient remains wheezy. I recommended admission the hospital which she accepted. Patient will be started on IV antibiotics. Blood cultures were obtained and sent. We will continue IV steroids as well as breathing treatments to dementia COPD. Patient was in agreement this plan. Pulmonology was consulted to evaluate the patient tomorrow. I spoke with the admitting MLP Kala who accepted the patient. - Lab Data Result diagrams: 06/18/22 16:49 06/18/22 16:49 Lab Results 06/18/22 06/18/22 06/18/22 Range/Units 16:49 16:49 16:49 WBC 10.3 (3.8-10.6) k/uL RBC 4.17 L (4.30-5.90) m/uL Hgb 13.4 (13.0-17.5) gm/dL Hct 41.6 (39.0-53.0) % MCV 99.7 (80.0-100.0) fL MCH 32.1 (25.0-35.0) pg MCHC 32.2 (31.0-37.0) g/dL RDW 14.3 (11.5-15.5) % Plt Count 268 (150-450) k/uL MPV 7.4 Neutrophils % 70 % Lymphocytes % 18 % Monocytes % 7 % Eosinophils % 3 % Basophils % 1 % Neutrophils # 7.2 (1.3-7.7) k/uL Lymphocytes # 1.8 (1.0-4.8) k/uL Monocytes # 0.7 (0-1.0) k/uL Eosinophils # 0.3 (0-0.7) k/uL Basophils # 0.1 (0-0.2) k/uL PT 9.7 (9.0-12.0) sec INR 0.9 (<1.2) APTT 25.9 (22.0-30.0) sec Sodium 137 (137-145) mmol/L Potassium 4.0 (3.5-5.1) mmol/L Chloride 104 (98-107) mmol/L Carbon Dioxide 21 L (22-30) mmol/L Anion Gap 12 mmol/L BUN 12 (9-20) mg/dL Creatinine 0.75 (0.66-1.25) mg/dL Est GFR (CKD-EPI)AfAm >90 (>60 ml/min/1.73 sqM) Est GFR (CKD-EPI)NonAf >90 (>60 ml/min/1.73 sqM) Glucose 96 (74-99) mg/dL Calcium 9.2 (8.4-10.2) mg/dL Magnesium 1.8 (1.6-2.3) mg/dL Total Bilirubin 0.8 (0.2-1.3) mg/dL AST 23 (17-59) U/L ALT 16 (4-49) U/L Alkaline Phosphatase 61 (38-126) U/L Total Protein 7.9 (6.3-8.2) g/dL Albumin 4.6 (3.5-5.0) g/dL Coronavirus (PCR) (Not Detectd) Influenza Type A RNA (Not Detectd) Influenza Type B (PCR) (Not Detectd) 06/18/22 06/18/22 Range/Units 16:49 16:49 WBC (3.8-10.6) k/uL RBC (4.30-5.90) m/uL Hgb (13.0-17.5) gm/dL Hct (39.0-53.0) % MCV (80.0-100.0) fL MCH (25.0-35.0) pg MCHC (31.0-37.0) g/dL RDW (11.5-15.5) % Plt Count (150-450) k/uL MPV Neutrophils % % Lymphocytes % % Monocytes % % Eosinophils % % Basophils % % Neutrophils # (1.3-7.7) k/uL Lymphocytes # (1.0-4.8) k/uL Monocytes # (0-1.0) k/uL Eosinophils # (0-0.7) k/uL Basophils # (0-0.2) k/uL PT (9.0-12.0) sec INR (<1.2) APTT (22.0-30.0) sec Sodium (137-145) mmol/L Potassium (3.5-5.1) mmol/L Chloride (98-107) mmol/L Carbon Dioxide (22-30) mmol/L Anion Gap mmol/L BUN (9-20) mg/dL Creatinine (0.66-1.25) mg/dL Est GFR (CKD-EPI)AfAm (>60 ml/min/1.73 sqM) Est GFR (CKD-EPI)NonAf (>60 ml/min/1.73 sqM) Glucose (74-99) mg/dL Calcium (8.4-10.2) mg/dL Magnesium (1.6-2.3) mg/dL Total Bilirubin (0.2-1.3) mg/dL AST (17-59) U/L ALT (4-49) U/L Alkaline Phosphatase (38-126) U/L Total Protein (6.3-8.2) g/dL Albumin (3.5-5.0) g/dL Coronavirus (PCR) Not Detected (Not Detectd) Influenza Type A RNA Not Detected (Not Detectd) Influenza Type B (PCR) Not Detected (Not Detectd) - EKG Data -: EKG Interpreted by Me EKG Comments: 12-lead Electrocardiogram Interpretation Note EKG was reviewed and interpreted by myself. 12-lead ECG performed at 1623 is interpreted by me as revealing normal sinus rhythm at a rate of 94 beats per minute. Morris is normal. MA interval is 169 ms, QRS duration is 89 ms, QTc is 398 ms.. There were no ST or T wave abnormalities to suggest myocardial ischemia or injury. R wave progression across the precordium was satisfactory. By my interpretation this EKG is non-diagnostic for acute ischemia. Disposition Clinical Impression: Pneumonia, COPD exacerbation Disposition: ADMITTED IP TO THIS HOSP Condition: Stable Time of Disposition: 18:45
[2022-06-18] MEDS ORDERED: AZITHROMYCIN 500 MG in SODIUM CHLORIDE 0.9% 250 ML IVPB STA (18:55)
[2022-06-18] MEDS ORDERED: IPRATROPIUM-ALBUTEROL 3 ML NEB INHALATION PRN (18:55)
[2022-06-18] MEDS ORDERED: PNEUMONIA PROTOCOL UTILIZED 1 EACH MISC PO PRN (18:55)
[2022-06-18] MEDS: HYDROcodone/APAP 5-325MG 1 EACH TAB PO PRN (20:36)
[2022-06-18] MEDS ORDERED: LORazepam 1 MG TAB PO PRN (22:42)
[2022-06-19] MEDS: THIAMINE 100 MG TAB PO SCH ×3 (00:29→15:57)
[2022-06-19] MEDS: HEPARIN SODIUM,PORCINE/PF 5,000 UNIT/0.5 ML SYRINGE SQ SCH ×3 (00:35→15:57)
[2022-06-19] MEDS: methylPREDNISolone SOD SUCCI 40 MG/ML 1 ML VIAL IV SCH ×3 (00:35→15:57)
[2022-06-19] MEDS: FAMOTIDINE 20 MG TAB PO SCH (07:21)
[2022-06-19] MEDS: amLODIPine 5 MG TAB PO SCH (07:21)
[2022-06-19] MEDS: HYDROcodone/APAP 5-325MG 1 EACH TAB PO PRN ×2 (07:21→13:16)
--- NOTE | 2022-06-19 08:17 | XR ---
EXAMINATION TYPE: XR chest 2V DATE OF EXAM: 06/19/2022 COMPARISON: 06/18/2022 TECHNIQUE: PA and lateral views submitted. HISTORY: Pneumonia FINDINGS: Patchy predominantly interstitial infiltrates seen with underlying COPD. Heart size. Large bulla righ t upper lobe noted. Osseous structures stable. Atherosclerotic change aorta. Nodular appearing densit y in the right upper lobe. IMPRESSION: 1. COPD with persistent interstitial infiltrates greater on the right. Correlate for interstitial chr onic lung disease with superimposed pneumonitis. Somewhat nodular density in the upper the right michelle mmend CT chest. 2. There is lucency along the right apex is stable. Could be on the basis of a large bulla rather dion n pneumothorax. Recommend CT chest.
[2022-06-19 08:41] LABS: Basophils # (A) 0.01 X 10*3/uL (0.00-0.10); Basophils % (A) 0.1 %; Eosinophils # (A) 0 X 10*3/uL (0.04-0.35); Eosinophils % (A) 0 %; HCT 39.7 % (39.6-50.0); HGB 12.9 g/dL (13.0-17.0); Immature Grans, Automated 0.4 %; Lymphocytes # (A) 0.56 X 10*3/uL (0.90-5.00); MCH 31.9 pg (27.0-32.0); MCHC 32.5 g/dL (32.0-37.0); Mean Platelet Volume 10.1 fL (9.5-12.2); Monocytes # (A) 0.09 X 10*3/uL (0.20-1.00); Monocytes % (A) 1.3 %; NRBC Per 100 WBC 0 /100 WBCS (0.0-0.0); Neutrophils # (A) 6.31 X 10*3/uL (1.80-7.70); Neutrophils % (A) 90.2 %; Platelet Count 263 X 10*3/uL (140-440); RBC 4.05 X 10*6/uL (4.40-5.60); RDW 14.9 % (11.5-14.5)
[2022-06-19 08:59] LABS: Anion Gap 11.7 mmol/L (10.00-18.00); BUN/Creat Ratio 24.33 Ratio (12.00-20.00); Blood Urea Nitrogen 14.6 mg/dL (9.0-27.0); Calcium 8.9 mg/dL (8.7-10.3); Carbon Dioxide 23.3 mmol/L (20.0-27.5); Potassium 4.7 mmol/L (3.5-5.5)
[2022-06-19] MEDS ORDERED: AZITHROMYCIN 500 MG TAB PO SCH (09:00)
--- NOTE | 2022-06-19 09:02 | P.HPIM ---
History of Present Illness This is a pleasant 62 years old male with past medical history of Atrial Fibrillation, , COPD,, ETOH abuse, DTs, tracheobronchitis, pneumonias, pleurisy, acute respiratory failure/vented, bilateral glaucoma, prostate cancer Patient presents because of worsening dyspnea over the last 2 days, he has difficulty talking because of his dyspnea associated with cough and no phlegm. He has central pleuritic-like chest pain and tightness over the last 2 days, nonradiating and in the middle felt like sharp increase the breathing. About 7/10 in severity. He smoker about half-pack per day and he is counseled to quit and he agrees but he declines nicotine patch. Or illicit drugs. He denies abdominal pain or vomiting or diarrhea or urinary complaints. No fever. No headache or dizziness Patient is afebrile, he is mildly tachypneic and saturated 91-100% on room air and 95% on 3 to oxygen via nasal cannula. showing unremarkable CBC, INR, BMP and liver enzymes. Richard and influenza virus are UNDETECTED. EKG showed normal sinus rhythm at [address]-T changes. Chest x-ray: New upper space opacities within the right middle and upper lung and to lesser extent the left lung correlate for atypical pneumonia. Superimposed COPD changes In the emergency room and received a breathing treatment, normal saline, IV steroids. Review of Systems Review of systems CONSTITUTIONAL: No fever, no malaise, no fatigue. HEENT: No recent visual problems or hearing problems. Denied any sore throat. CARDIOVASCULAR: No orthopnea, PND, no palpitations, no syncope. PULMONARY: No chest wall tenderness, no cough, no hemoptysis. GASTROINTESTINAL: No diarrhea, no nausea, no vomiting, no abdominal pain. Normoactive bowel sounds. NEUROLOGICAL: No headaches, no weakness, no numbness. HEMATOLOGICAL: Denies any bleeding or petechiae. GENITOURINARY: Denies any burning micturition, frequency, or urgency. MUSCULOSKELETAL/RHEUMATOLOGICAL: Denies any joint pain, swelling, or any muscle pain. ENDOCRINE: Denies any polyuria or polydipsia. Past Medical History Past Medical History: Atrial Fibrillation, Cancer, COPD, Eye Disorder, Pneumonia, Prostate Disorder Additional Past Medical History / Comment(s): ETOH abuse, DTs, tracheobronchitis, pneumonias, pleurisy, acute respiratory failure/vented, bilateral glaucoma, prostate cancer History of Any Multi-Drug Resistant Organisms: None Reported Past Surgical History: Hernia Repair, Prostate Surgery, Tonsillectomy Additional Past Surgical History / Comment(s): R inguinal hernia repair, prostate-radiation implant, colonoscopy-normal Past Anesthesia/Blood Transfusion Reactions: No Reported Reaction Past Psychological History: No Psychological Hx Reported Smoking Status: Current every day smoker Past Alcohol Use History: None Reported, Daily, Heavy Past Drug Use History: None Reported - Past Family History Father Family Medical History: COPD Additional Family Medical History / Comment(s): Father of COPD in his 70's Mother Family Medical History: Coronary Artery Disease (CAD) Additional Family Medical History / Comment(s): Mother of heart disease at the age of 65 yrs. Medications and Allergies Home Medications Medication Instructions Recorded Confirmed Type No Known Home Medications 06/18/22 06/18/22 History Allergies Allergy/AdvReac Type Severity Reaction Status Date / Time No Known Allergies Allergy Verified 06/18/22 17:58 Physical Exam Vitals: Vital Signs Temp Pulse Pulse Resp BP BP Pulse Ox 06/19/22 08:50 92 06/19/22 08:00 98.8 F 68 17 151/84 94 L 06/19/22 00:41 97.8 F 80 15 136/84 95 06/18/22 22:10 18 06/18/22 20:37 98.1 F 90 18 137/75 95 06/18/22 19:29 100 18 116/71 95 06/18/22 19:00 97 20 137/76 91 L 06/18/22 18:30 100 20 133/77 100 06/18/22 18:00 99 24 141/69 98 06/18/22 17:50 95 20 06/18/22 17:41 104 H 18 06/18/22 17:34 22 06/18/22 17:30 93 24 126/74 98 06/18/22 17:02 90 20 06/18/22 17:00 86 24 128/78 100 06/18/22 16:49 96 20 06/18/22 16:19 98 F 99 22 116/73 94 L Intake and Output 06/18/22 06/19/22 06/19/22 22:59 06:59 14:59 Intake Total 540 Output Total 100 Balance 440 Intake: Oral 540 Output: Urine 100 Other: Voiding Method Toilet Urinal Weight 65.771 kg GENERAL: The patient is alert and oriented x3, not in any acute distress. Well developed, well nourished. HEENT: Pupils are round and equally reacting to light. EOMI. No scleral icterus. No conjunctival pallor. Normocephalic, atraumatic. No pharyngeal erythema. No thyromegaly. CARDIOVASCULAR: S1 and S2 present. No murmurs, rubs, or gallops. -PULMONARY: Chest is clear to auscultation, no crackles. Tachypnea with expiratory wheezing and limited air entry in both sides ABDOMEN: Soft, nontender, nondistended, normoactive bowel sounds. No palpable organomegaly. MUSCULOSKELETAL: No joint swelling or deformity. EXTREMITIES: No cyanosis, clubbing, or pedal edema. NEUROLOGICAL: Gross neurological examination did not reveal any focal deficits. SKIN: No rashes. no petechiae. Results CBC & Chem 7: 06/19/22 03:12 06/18/22 16:49 Labs: Abnormal Lab Results - Last 24 Hours (Table) 06/18/22 06/18/22 06/19/22 Range/Units 16:49 16:49 03:12 RBC 4.17 L 4.05 L (4.30-5.90) m/uL Hgb 12.9 L (13.0-17.0) g/dL MCV 98.0 H (80.0-97.0) fL RDW 14.9 H (11.5-14.5) % Lymphocytes # 0.56 L (0.90-5.00) X 10*3/uL Monocytes # 0.09 L (0.20-1.00) X 10*3/uL Eosinophils # 0 L (0.04-0.35) X 10*3/uL Carbon Dioxide 21 L (22-30) mmol/L Thrombosis Risk Factor Assmnt - Choose All That Apply Each Factor Represents 1 point: Abnormal pulmonary function (COPD) Each Risk Factor Represents 2 Points: Age 61-74 years Thrombosis Risk Factor Assessment Total Risk Factor Score: 3 Thrombosis Risk Factor Assessment Level: Moderate Risk Assessment and Plan Assessment: bilateral pulmonary infiltrate, pneumonia suspected , no fever or leukocytosis. Versus others possible elements of acute COPD exacerbation Paroxysmal Atrial fibrillation COPD, no acute exacerbation History of alcohol abuse and DTs History of pneumonia and pleurisy History of prostatic cancer Plan: This is a pleasant 62 years old male who presents with bilateral pulmonary consolidation, pneumonia versus others. Continue with present treatment Check procalcitonin Continue with antibiotic Start Solu-Medrol pulmonary team consult Labs and medication were reviewed.. Continue same treatment. Continue with symptomatic treatment. Resume home medication. Monitor lytes and vitals. DVT and GI prophylaxis. Further recommendations as per clinical course of the dominique ent DVT prophylaxis: Subcutaneous heparin GI Prophylaxis: Pepcid PT/OT: Pending Prognosis is guarded
--- NOTE | 2022-06-19 10:47 | CT ---
CT CHEST FOR PULMONARY EMBOLISM. EXAMINATION TYPE: CT angio chest DATE OF EXAM: 06/19/2022 INDICATION: Chest pain dyspnea CT DLP: 279 mGycm, Automated exposure control for dose reduction was used. CONTRAST: Patient injected with 100 mL of Isovue 370. COMPARISON: 03/23/2020 TECHNIQUE: CT of the chest is performed on a spiral scan at 2 mm thick sections. Study is performed with intravenous contrast timed for evaluation for pulmonary embolism. This will limit additional po rtions of the evaluation. 3-D MIP images reconstructed by the technologist are reviewed on the compu ter in the coronal and sagittal planes. FINDINGS: No persistent filling defects are evident to suggest an acute pulmonary embolism. There is some mass effect at the right suprahilar region which may be encasing a upper lobe vessel. This appears stable from prior study. No mediastinal or hilar adenopathy enlarged by CT criteria is evident. The ascending aorta diameter at the level of the main pulmonary artery is 2.9 cm. The main pulmonary artery diameter at the bifur cation is 2.9 cm. Emphysematous changes are at the right apex. Peribronchial thickening is present within the mid to lo wer lung boo greater on the right. Stranding is in the right medial lower lung field Limited CT section through the upper abdomen are unremarkable. IMPRESSIONS: 1. No acute pulmonary embolism. 2. Right suprahilar density similar to prior examination 3. Emphysematous changes right apex
--- NOTE | 2022-06-19 11:48 | P.CNPUL ---
History of Present Illness Consult date: 06/19/22 Requesting physician: Jelly Murray Reason for consult: dyspnea, chest pain, COPD Chief complaint: Shortness of breath, chest pain History of present illness: This is a 62-year-old male patient who follows with Dr. Mayfield as his primary care provider with a known history of alcohol abuse, delirium tremens, chronic and ongoing tobacco dependence, chronic obstructive pulmonary disease, paroxysmal a trial fibrillation, prostate cancer with previous surgery and radiation. He presented here to the emergency room yesterday with complaints of increasing shortness of breath, chest pain, cough and congestion. Chest x-ray shows some right perihilar and hilar chronic changes and scarring. EKG revealed normal sinus rhythm with no significant acid or T wave abnormalities. White count 10.0. Hemoglobin 12.9. Platelets 263. MCV 98. Sodium 139. Potassium 4.7. BUN 15. Creatinine 0.6. Troponin negative times one. ProBNP 259. Pro- calcitonin 0.04. Chronic virus by PCR not detected. Influenza screen negative. CT angiogram ruled out pulmonary embolism. There is again right suprahilar density similar to previous. Emphysematous changes in the right apex. He's been initiated on DuoNeb inhalations, IV Solu-Medrol, antibiotics in the form of ceftriaxone and azithromycin. Heparin for DVT prophylaxis. Review of Systems REVIEW OF SYSTEMS: CONSTITUTIONAL: Denies any recent significant weight loss or weight gain. EYES: Denies change in vision. EARS, NOSE, MOUTH, THROAT: Denies headaches, denies sore throat. CARDIOVASCULAR: Positive for chest pain, no palpitations or syncopal episodes. RESPIRATORY: Acid of 4 shortness of breath, cough, congestion no hemoptysis. GASTROINTESTINAL: Denies change in appetite, denies abdominal pain GENITOURINARY: Denies hematuria, denies infections. MUSKULOSKELETAL: Denies pain, denies swelling. INTEGUMENTARY: Denies rash, denies eczema. NEUROLOGICAL: Denies recent memory loss, no recent seizure activity. PSYCHIATRIC: Denies anxiety, denies depression. HEMATOLOGIC/LYMPHATIC: Denies anemia, denies enlarged lymph nodes. Past Medical History Past Medical History: Atrial Fibrillation, Cancer, COPD, Eye Disorder, Pneumonia, Prostate Disorder Additional Past Medical History / Comment(s): ETOH abuse, DTs, tracheobronchitis, pneumonias, pleurisy, acute respiratory failure/vented, bilateral glaucoma, prostate cancer History of Any Multi-Drug Resistant Organisms: None Reported Past Surgical History: Hernia Repair, Prostate Surgery, Tonsillectomy Additional Past Surgical History / Comment(s): R inguinal hernia repair, prostate-radiation implant, colonoscopy-normal Past Anesthesia/Blood Transfusion Reactions: No Reported Reaction Past Psychological History: No Psychological Hx Reported Smoking Status: Current every day smoker Past Alcohol Use History: None Reported, Daily, Heavy Past Drug Use History: None Reported - Past Family History Father Family Medical History: COPD Additional Family Medical History / Comment(s): Father of COPD in his 70's Mother Family Medical History: Coronary Artery Disease (CAD) Additional Family Medical History / Comment(s): Mother of heart disease at the age of 65 yrs. Medications and Allergies Home Medications Medication Instructions Recorded Confirmed Type No Known Home Medications 06/18/22 06/18/22 History Allergies Allergy/AdvReac Type Severity Reaction Status Date / Time No Known Allergies Allergy Verified 06/18/22 17:58 Physical Exam Vitals: Vital Signs Temp Pulse Pulse Resp BP BP Pulse Ox 06/19/22 09:04 96 06/19/22 08:50 92 06/19/22 08:00 98.8 F 68 17 151/84 94 L 06/19/22 00:41 97.8 F 80 15 136/84 95 06/18/22 22:10 18 06/18/22 20:37 98.1 F 90 18 137/75 95 06/18/22 19:29 100 18 116/71 95 06/18/22 19:00 97 20 137/76 91 L 06/18/22 18:30 100 20 133/77 100 06/18/22 18:00 99 24 141/69 98 06/18/22 17:50 95 20 06/18/22 17:41 104 H 18 06/18/22 17:34 22 06/18/22 17:30 93 24 126/74 98 06/18/22 17:02 90 20 06/18/22 17:00 86 24 128/78 100 06/18/22 16:49 96 20 06/18/22 16:19 98 F 99 22 116/73 94 L Intake and Output 06/18/22 06/19/22 06/19/22 22:59 06:59 14:59 Intake Total 540 Output Total 100 Balance 440 Intake: Oral 540 Output: Urine 100 Other: Voiding Method Toilet Urinal Weight 65.771 kg GENERAL EXAM: Alert, 62-year-old male patient, on room air, comfortable in no apparent distress. HEAD: Normocephalic. EYES: Normal reaction of pupils, equal size. NOSE: Clear with pink turbinates. THROAT: No erythema or exudates. NECK: No masses, no JVD. CHEST: No chest wall deformity. LUNGS: Equal air entry with bilateral wheezing, diminished. CVS: S1 and S2 normal with no audible murmur, regular rhythm. ABDOMEN: No hepatosplenomegaly, normal bowel sounds, no guarding or rigidity. SPINE: No scoliosis or deformity SKIN: No rashes CENTRAL NERVOUS SYSTEM: No focal deficits, tone is normal in all 4 extremities. EXTREMITIES: There is no peripheral edema. No clubbing, no cyanosis. Peripheral pulses are intact. Results - Laboratory Findings CBC and BMP: 06/19/22 03:12 06/19/22 03:12 PT/INR, D-dimer PT 9.7 sec (9.0-12.0) 06/18/22 16:49 INR 0.9 (<1.2) 06/18/22 16:49 Abnormal lab findings: Abnormal Labs 06/18/22 06/18/22 06/19/22 16:49 16:49 03:12 RBC 4.17 L 4.05 L Hgb 12.9 L MCV 98.0 H RDW 14.9 H Lymphocytes # 0.56 L Monocytes # 0.09 L Eosinophils # 0 L Carbon Dioxide 21 L BUN/Creatinine Ratio Glucose 06/19/22 03:12 RBC Hgb MCV RDW Lymphocytes # Monocytes # Eosinophils # Carbon Dioxide BUN/Creatinine Ratio 24.33 H Glucose 144 H - Diagnostic Findings Chest x-ray: image reviewed CT scan - chest: image reviewed Assessment and Plan Assessment: 1 Acute exacerbation of chronic obstructive pulmonary disease with no clear evidence of a pneumonia. Pro-calcitonin 0.04. Chest x-ray and CAT scan revealing scarring in the right perihilar region. Emphysematous changes.. 2 Atypical chest pain, pulmonary embolism ruled out 3 Chronic and ongoing tobacco dependence 4 History of alcohol abuse 5 history of ventilatory dependent respiratory failure 6 History of prostate cancer status post radiation Plan: The patient was seen and evaluated Chest x-ray, CAT scan and labs reviewed Continue DuoNeb inhalations, IV Solu-Medrol Add Pulmicort and Perforomist inhalations DC ceftriaxone and azithromycin Add doxycycline Cardiology consult We will continue to follow and make further recommendations based on his clinical status I have personally seen and examined the patient, performed the documentation and the assessment and plan as written. Number of minutes spent on the visit: 20.
--- NOTE | 2022-06-19 11:52 | P.CRDCN ---
History of Present Illness Consult date: 06/19/22 History of present illness: HISTORY OF PRESENT ILLNESS: This is a 62 year old male with a past medical history significant for atrial fibrillation, COPD, prostate cancer, nicotine dependence, and alcohol abuse. Patient states he does not follow with a assistant engineer. We have been asked to see the patient in consultation for chest pain. Patient examined at the bedside. Patient is admitted to the hospital secondary to acute COPD exacerbation and suspected pneumonia. He reports mild shortness of breath. He reports having discomfort in the middle of his chest, that is worse with deep inspiration and chest wall palpation. Denies any radiation of the pain. Vital signs are stable. * EKG reveals sinus mechanism with PACs. No acute ischemia noted. * Chest xray COPD with persistent interstitial infiltrates greater on the right. Correlate for interstitial chronic lung disease with superimposed pneumonitis. * CTA: Negative for PE * Laboratory data: WBC 7.0. Hemoglobin 12.9. Platelet count 263. Sodium 139. Potassium 4.7. BUN 14. Creatinine 0.6. Troponin negative 1. * Current home cardiac medications include none * Most recent echocardiogram obtained in March 2020 revealed ejection fraction 40- 45%, mild mitral regurgitation, mild tricuspid regurgitation REVIEW OF SYSTEMS: At the time of my exam: CONSTITUTIONAL: Denies fever or chills. HEENT: Denies blurred vision, vision changes, or eye pain. Denies hemoptysis CARDIOVASCULAR: Denies chest pain. Denies orthopnea. Denies PND. Denies palpitations RESPIRATORY: Denies shortness of breath. GASTROINTESTINAL: Denies abdominal pain. Denies nausea or vomiting. HEMATOLOGIC: Denies bleeding disorders. GENITOURINARY: Denies any blood in urine. SKIN: Denies pruitis. Denies rash. PHYSICAL EXAM: VITAL SIGNS: Reviewed. GENERAL: Well-developed in no acute distress. HEENT: Head is normocephalic. Pupils are equal, round. Sclerae anicteric. Mucous membranes of the mouth are moist. Neck supple. No JVD or thyromegaly LUNGS: Respirations even and unlabored. Lungs diminished to auscultation bilaterally. HEART: Regular rate and rhythm. S1 and S2 heard. ABDOMEN: Soft. Nondistended. Nontender. EXTREMITIES: Normal range of motion. No clubbing or cyanosis. Peripheral pulses intact. No lower extremity edema NEUROLOGIC: Awake and alert. Oriented x 3. ASSESSMENT: Chest pain, atypical, reproducible Acute COPD exacerbation Possible pneumonia Hypertension Paroxysmal atrial fibrillation, not on anticoagulation, reason unknown History of prostate cancer Nicotine dependence History of alcohol abuse PLAN: Add aspirin 81mg daily Add metoprolol 25mg BID Trend troponins Obtain 2D echo to assess cardiac structure and function Patient has a history of atrial fibrillation but denies ever being prescribed anticoagulation. Per Dr. Jeffery, no anticoagulation at this time. Outpatient stress testing recommended Smoking cessation recommended Further recommendations pending patient course. Nurse practitioner note has been reviewed by physician. Signing provider agrees with the documented findings, assessment, and plan of care. Past Medical History Past Medical History: Atrial Fibrillation, Cancer, COPD, Eye Disorder, Pneumo brennen, Prostate Disorder Additional Past Medical History / Comment(s): ETOH abuse, DTs, tracheobronchitis, pneumonias, pleurisy, acute respiratory failure/vented, bilateral glaucoma, prostate cancer History of Any Multi-Drug Resistant Organisms: None Reported Past Surgical History: Hernia Repair, Prostate Surgery, Tonsillectomy Additional Past Surgical History / Comment(s): R inguinal hernia repair, prostate-radiation implant, colonoscopy-normal Past Anesthesia/Blood Transfusion Reactions: No Reported Reaction Past Psychological History: No Psychological Hx Reported Smoking Status: Current every day smoker Past Alcohol Use History: None Reported, Daily, Heavy Past Drug Use History: None Reported - Past Family History Father Family Medical History: COPD Additional Family Medical History / Comment(s): Father of COPD in his 70's Mother Family Medical History: Coronary Artery Disease (CAD) Additional Family Medical History / Comment(s): Mother of heart disease at the age of 65 yrs. Medications and Allergies Home Medications Medication Instructions Recorded Confirmed Type No Known Home Medications 06/18/22 06/18/22 History Allergies Allergy/AdvReac Type Severity Reaction Status Date / Time No Known Allergies Allergy Verified 06/18/22 17:58 Physical Exam Vitals: Vital Signs Temp Pulse Pulse Resp BP BP Pulse Ox 06/19/22 09:04 96 06/19/22 08:50 92 06/19/22 08:00 98.8 F 68 17 151/84 94 L 06/19/22 00:41 97.8 F 80 15 136/84 95 06/18/22 22:10 18 06/18/22 20:37 98.1 F 90 18 137/75 95 06/18/22 19:29 100 18 116/71 95 06/18/22 19:00 97 20 137/76 91 L 06/18/22 18:30 100 20 133/77 100 06/18/22 18:00 99 24 141/69 98 06/18/22 17:50 95 20 06/18/22 17:41 104 H 18 06/18/22 17:34 22 06/18/22 17:30 93 24 126/74 98 06/18/22 17:02 90 20 06/18/22 17:00 86 24 128/78 100 06/18/22 16:49 96 20 06/18/22 16:19 98 F 99 22 116/73 94 L Intake and Output 06/18/22 06/19/22 06/19/22 22:59 06:59 14:59 Intake Total 540 Output Total 100 Balance 440 Intake: Oral 540 Output: Urine 100 Other: Voiding Method Toilet Urinal Weight 65.771 kg Results 06/19/22 03:12 06/19/22 03:12 Cardiac Enzymes 06/18/22 06/19/22 Range/Units 16:49 09:40 AST 23 (17-59) U/L Troponin I <0.012 (0.000-0.034) ng/mL Coagulation 06/18/22 Range/Units 16:49 PT 9.7 (9.0-12.0) sec APTT 25.9 (22.0-30.0) sec CBC 06/18/22 06/19/22 Range/Units 16:49 03:12 WBC 10.3 7.00 (3.8-10.6) k/uL RBC 4.17 L 4.05 L (4.30-5.90) m/uL Hgb 13.4 12.9 L (13.0-17.5) gm/dL Hct 41.6 39.7 (39.0-53.0) % Plt Count 268 263 (150-450) k/uL Comprehensive Metabolic Panel 06/18/22 06/19/22 Range/Units 16:49 03:12 Sodium 137 139 (137-145) mmol/L Potassium 4.0 4.7 (3.5-5.1) mmol/L Chloride 104 104 (98-107) mmol/L Carbon Dioxide 21 L 23.3 (22-30) mmol/L BUN 12 14.6 (9-20) mg/dL Creatinine 0.75 0.6 (0.66-1.25) mg/dL Glucose 96 144 H (74-99) mg/dL Calcium 9.2 8.9 (8.4-10.2) mg/dL AST 23 (17-59) U/L ALT 16 (4-49) U/L Alkaline Phosphatase 61 (38-126) U/L Total Protein 7.9 (6.3-8.2) g/dL Albumin 4.6 (3.5-5.0) g/dL Current Medications Generic Name Dose Route Start Last Admin Trade Name Freq PRN Reason Stop Dose Admin Hydrocodone Bitart/Acetaminophen 1 each 06/18/22 20:00 06/19/22 07:21 Hydrocodone/Apap 5-325mg 1 Each Tab PO 1 each Q6HR PRN Administration Pain Albuterol/Ipratropium 3 ml 06/18/22 18:55 06/19/22 08:49 Ipratropium-Albuterol 3 Ml Neb INHALATION 3 ml RT-Q4H PRN Administration shortness of breath Amlodipine Besylate 5 mg 06/19/22 09:00 06/19/22 07:21 Amlodipine 5 Mg Tab PO 5 mg DAILY LB Administration Aspirin 81 mg 06/19/22 11:15 Aspirin 81 Mg PO DAILY LB Azithromycin 500 mg 06/19/22 09:00 06/19/22 07:21 Azithromycin 500 Mg Tab PO 06/20/22 09:01 500 mg DAILY LB Administration Protocol Famotidine 20 mg 06/19/22 09:00 06/19/22 07:21 Famotidine 20 Mg Tab PO 20 mg DAILY LB Administration Heparin Sodium (Porcine) 5,000 unit 06/19/22 00:00 06/19/22 07:21 Heparin Sodium,Porcine/Pf 5,000 Unit/0.5 Ml Syringe SQ 5,000 unit Q8HR LB Administration Ceftriaxone Sodium 2 gm/ 50 mls @ 100 mls/hr 06/19/22 21:00 Sodium Chloride IVPB 06/22/22 21:29 Q24H LB Protocol Lorazepam 1 mg 06/18/22 22:42 Lorazepam 1 Mg Tab PO TID PRN Alcohol Withdrawal Methylprednisolone Sodium Succinate 40 mg 06/19/22 00:00 07/28/22 08:08 Methylprednisolone Sod Succi 40 Mg/Ml 1 Ml Vial IV 40 mg Q8HR LB Administration Metoprolol Tartrate 25 mg 06/19/22 11:15 Metoprolol Tartrate 25 Mg Tab PO BID [facility] Miscellaneous Information 1 each 06/18/22 18:55 Pneumonia Protocol Utilized 1 Each Misc PO ONCE PRN Per Protocol Thiamine HCl 100 mg 06/18/22 17:30 06/19/22 07:21 Thiamine 100 Mg Tab PO 100 mg BID-W/MEALS LB Administration Intake and Output 06/18/22 06/19/22 06/19/22 22:59 06:59 14:59 Intake Total 540 Output Total 100 Balance 440 Intake: Oral 540 Output: Urine 100 Other: Voiding Method Toilet Urinal Weight 65.771 kg 06/19/22 03:12 06/19/22 03:12
[2022-06-19] MEDS: METOPROLOL TARTRATE 25 MG TAB PO SCH ×2 (12:05→20:22)
[2022-06-19] MEDS: ASPIRIN 81 MG PO SCH (12:05)
[2022-06-19] MEDS: IPRATROPIUM-ALBUTEROL 3 ML NEB INHALATION SCH ×3 (12:28→19:00)
[2022-06-19] MEDS: FORMOTEROL FUMARATE 20 MCG/2 ML NEBU INHALATION SCH (19:00)
[2022-06-19] MEDS: BUDESONIDE 1 MG/2 ML NEBU INHALATION SCH (19:00)
[2022-06-19] MEDS: DOXYCYCLINE 100 MG CAP PO SCH (20:22)
[2022-06-20] MEDS: methylPREDNISolone SOD SUCCI 40 MG/ML 1 ML VIAL IV SCH ×3 (00:26→17:27)
[2022-06-20] MEDS: HEPARIN SODIUM,PORCINE/PF 5,000 UNIT/0.5 ML SYRINGE SQ SCH ×3 (00:27→17:27)
[2022-06-20] MEDS: BUDESONIDE 1 MG/2 ML NEBU INHALATION SCH (07:18)
[2022-06-20] MEDS: IPRATROPIUM-ALBUTEROL 3 ML NEB INHALATION SCH ×3 (07:18→15:04)
[2022-06-20] MEDS: FORMOTEROL FUMARATE 20 MCG/2 ML NEBU INHALATION SCH (07:18)
--- NOTE | 2022-06-20 08:54 | CA ---
Transthoracic Echo Report Name: Marco Antonio Betancourt Age: 62 Gender: M : 1960 Exam Date: 06/19/2022 13:04 Exam Location: [facility] Ht (in): 66 Wt (lb): 145 Ordering Physician: Lakia Brothers Attending/Referring Phys: [id number], Zev Ct Scan Tech Mariama Ibarra RDCS Procedure CPT: Indications: LV function Cardiac Hx: COPD Technical Quality: Fair Contrast 1: Total Dose (mL): Contrast 2: Total Dose (mL): MEASUREMENTS (Male / Female) Normal Values 2D ECHO LV Diastolic Diameter PLAX 4.7 cm 4.2 - 5.9 / 3.9 - 5.3 cm LV Systolic Diameter PLAX 2.7 cm IVS Diastolic Thickness 1.2 cm 0.6 - 1.0 / 0.6 - 0.9 cm LVPW Diastolic Thickness 1.1 cm 0.6 - 1.0 / 0.6 - 0.9 cm LV Relative Wall Thickness 0.5 LVOT Diameter 1.6 cm M-MODE Aortic Root Diameter MM 3.6 cm LA Systolic Diameter MM 2.2 cm LA Ao Ratio MM 0.6 MV E Point Septal Separation 1.4 cm AV Cusp Separation MM 1.2 cm DOPPLER AV Peak Velocity 136.2 cm/s AV Peak Gradient 7.4 mmHg MV Area PHT 2.8 cm??? MR Peak Velocity 93.9 cm/s MR Peak Gradient 3.5 mmHg Mitral E Point Velocity 56.0 cm/s Mitral A Point Velocity 82.4 cm/s Mitral E to A Ratio 0.7 MV Deceleration Time 270.4 ms TR Peak Velocity 134.4 cm/s TR Peak Gradient 7.2 mmHg Right Ventricular Systolic Press 11.9 mmHg FINDINGS Left Ventricle Mildly increased septal wall thickness. Left ventricular ejection fraction is estimated at 55-60 %. Left ventricular cavity size normal. Right Ventricle The right ventricle is normal in size and function. Right Atrium The right atrium is normal in size. Left Atrium The left atrium is normal in size. Mitral Valve Structurally normal mitral valve without significant stenosis or prolapse. There is mild mitral regurgitation. Mitral annular calcification. Aortic Valve Structurally normal aortic valve without significant sclerosis or stenosis. There is no aortic regurgitation. Focal thickening of the aortic valve cusps. Tricuspid Valve Structurally normal tricuspid valve without significant stenosis. Pulmonary artery systolic pressure is normal. Mild tricuspid regurgitation. Pulmonic Valve Structurally normal pulmonic valve without significant stenosis. There is no pulmonic regurgitation. Pericardium Normal pericardium without effusion. Aorta Normal aortic root dimension. CONCLUSIONS Normal LV size and systolic function with mild concentric LVH. Aortic valve revealed mild calcification of leaflets without restriction. Mild mitral and tricuspid insufficiency without pulmonary hypertension. No pericardial effusion Previewed by: Dr. Justin Jeffery MD (Electronically Signed) Final Date: 20 June 2022 08:53
[2022-06-20] MEDS: FAMOTIDINE 20 MG TAB PO SCH (09:10)
[2022-06-20] MEDS: ASPIRIN 81 MG PO SCH (09:10)
[2022-06-20] MEDS: METOPROLOL TARTRATE 25 MG TAB PO SCH (09:10)
[2022-06-20] MEDS: DOXYCYCLINE 100 MG CAP PO SCH (09:11)
[2022-06-20] MEDS: THIAMINE 100 MG TAB PO SCH (09:11)
[2022-06-20] MEDS: amLODIPine 5 MG TAB PO SCH (09:12)
[2022-06-20] MEDS: HYDROcodone/APAP 5-325MG 1 EACH TAB PO PRN ×2 (09:21→17:33)
--- NOTE | 2022-06-20 09:38 | P.PN ---
Subjective Progress Note Date: 06/20/22 HISTORY OF PRESENT ILLNESS: This is a 62 year old male with a past medical history significant for atrial fibrillation, COPD, prostate cancer, nicotine dependence, and alcohol abuse. 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 We have been asked to see the patient in consultation for chest pain. Patient examined at the bedside. Patient is admitted to the hospital secondary to acute COPD exacerbation and suspected pneumonia. He reports mild shortness of breath. He reports having discomfort in the middle of his chest, that is worse with deep inspiration and chest wall palpation. Denies any radiation of the pain. Vital signs are stable. * EKG reveals sinus mechanism with PACs. No acute ischemia noted. * Chest xray COPD with persistent interstitial infiltrates greater on the right. Correlate for interstitial chronic lung disease with superimposed pneumonitis. * CTA: Negative for PE * Laboratory data: WBC 7.0. Hemoglobin 12.9. Platelet count 263. Sodium 139. Potassium 4.7. BUN 14. Creatinine 0.6. Troponin negative 1. * Current home cardiac medications include none * Most recent echocardiogram obtained in March 2020 revealed ejection fraction 40- 45%, mild mitral regurgitation, mild tricuspid regurgitation 06/20/2022 Patient examined this morning at the bedside. Patient denies chest pain or pressure. He currently denies shortness of breath. He has been up ambulating in his room. Echocardiogram completed revealing ejection fraction 55-60%, mild MR, mild TR. Vital signs are stable. PHYSICAL EXAM: VITAL SIGNS: Reviewed. GENERAL: Well-developed in no acute distress. HEENT: Head is normocephalic. Pupils are equal, round. Sclerae anicteric. Mucous membranes of the mouth are moist. Neck supple. No JVD or thyromegaly LUNGS: Respirations even and unlabored. Lungs diminished to auscultation bilaterally. HEART: Regular rate and rhythm. S1 and S2 heard. ABDOMEN: Soft. Nondistended. Nontender. EXTREMITIES: Normal range of motion. No clubbing or cyanosis. Peripheral pulses intact. No lower extremity edema NEUROLOGIC: Awake and alert. Oriented x 3. ASSESSMENT: Chest pain, atypical, reproducible Acute COPD exacerbation Possible pneumonia Hypertension Paroxysmal atrial fibrillation, not on anticoagulation, reason unknown History of prostate cancer Nicotine dependence History of alcohol abuse PLAN: Continue current cardiac medications Patient has a history of atrial fibrillation but denies ever being prescribed anticoagulation. Per Dr. Jeffery, no anticoagulation at this time. Outpatient stress testing recommended Smoking cessation recommended No further inpatient recommendations from a cardiac standpoint We will sign off. Please reconsult if needed.. Nurse practitioner note has been reviewed by physician. Signing provider agrees with the documented findings, assessment, and plan of care. Objective - Vital Signs Vital signs: Vital Signs Temp 98.4 F 06/20/22 01:01 Pulse 76 06/20/22 07:42 Resp 15 06/20/22 07:30 BP 132/72 06/20/22 01:01 Pulse Ox 95 06/20/22 01:01 FiO2 Intake & Output 06/19/22 06/20/22 06/20/22 18:59 06:59 18:59 Intake Total 1270 Balance 1270 Intake: Oral 1270 Other: Voiding Method Toilet Toilet Toilet Urinal # Voids 4 2 - Labs CBC & Chem 7: 06/19/22 03:12 06/19/22 03:12 Labs: Microbiology - Last 24 Hours (Table) 06/18/22 19:52 Blood Culture - Preliminary Blood No Growth after 24 hours
--- NOTE | 2022-06-20 12:37 | P.PN ---
Subjective Progress Note Date: 06/20/22 This is a 62-year-old male patient who follows with Dr. Mayfield as his primary care provider with a known history of alcohol abuse, delirium tremens, chronic and ongoing tobacco dependence, chronic obstructive pulmonary disease, paroxysmal atrial fibrillation, prostate cancer with previous surgery and radiation. He presented here to the emergency room yesterday with complaints of increasing shortness of breath, chest pain, cough and congestion. Chest x-ray shows some right perihilar and hilar chronic changes and scarring. EKG revealed normal sinus rhythm with no significant acid or T wave abnormalities. White count 10.0. Hemoglobin 12.9. Platelets 263. MCV 98. Sodium 139. Potassium 4.7. BUN 15. Creatinine 0.6. Troponin negative times one. ProBNP 259. Pro- calcitonin 0.04. Chronic virus by PCR not detected. Influenza screen negative. CT angiogram ruled out pulmonary embolism. There is again right suprahilar density similar to previous. Emphysematous changes in the right apex. He's been initiated on DuoNeb inhalations, IV Solu-Medrol, antibiotics in the form of ceftriaxone and azithromycin. Heparin for DVT prophylaxis. The patient is seen today 06/20/2022 in follow-up on the regular medical floor. He is currently sitting up in a chair at the bedside. Awake and alert in no acute distress. Continue O2 saturations in the upper 90s on room air. Afebrile. Hemodynamically stable. Blood cultures reveal no growth to date. Troponins negative 3. Pro-calcitonin 0.04. He's been maintained on DuoNeb inhalations, Pulmicort and Perforomist inhalations, IV Solu-Medrol. Heparin for DVT prophylaxis. Empiric antibiotics in the form of Vibramycin. Objective - Vital Signs Vital signs: Vital Signs Temp 97.5 F L 06/20/22 08:00 Pulse 80 06/20/22 11:51 Resp 18 06/20/22 08:00 BP 131/78 06/20/22 08:00 Pulse Ox 99 06/20/22 08:00 FiO2 Intake & Output 06/19/22 06/20/22 06/20/22 18:59 06:59 18:59 Intake Total 1270 Balance 1270 Intake: Oral 1270 Other: Voiding Method Toilet Toilet Toilet Urinal # Voids 4 2 - Exam GENERAL EXAM: Alert, 62-year-old male patient, on room air, comfortable in no apparent distress. HEAD: Normocephalic. EYES: Normal reaction of pupils, equal size. NOSE: Clear with pink turbinates. THROAT: No erythema or exudates. NECK: No masses, no JVD. CHEST: No chest wall deformity. LUNGS: Equal air entry with bilateral end expiratory wheezing, diminished. CVS: S1 and S2 normal with no audible murmur, regular rhythm. ABDOMEN: No hepatosplenomegaly, normal bowel sounds, no guarding or rigidity. SPINE: No scoliosis or deformity SKIN: No rashes CENTRAL NERVOUS SYSTEM: No focal deficits, tone is normal in all 4 extremities. EXTREMITIES: There is no peripheral edema. No clubbing, no cyanosis. Peripheral pulses are intact. - Labs CBC & Chem 7: 06/19/22 03:12 06/19/22 03:12 Labs: Microbiology - Last 24 Hours (Table) 06/18/22 19:52 Blood Culture - Preliminary Blood No Growth after 24 hours Assessment and Plan Assessment: 1 Acute exacerbation of chronic obstructive pulmonary disease with no clear evidence of a pneumonia. Pro-calcitonin 0.04. Chest x-ray and CAT scan revealing scarring in the right perihilar region. Emphysematous changes.. 2 Atypical chest pain, pulmonary embolism ruled out. Acute coronary syndrome ruled out 3 Chronic and ongoing tobacco dependence 4 History of alcohol abuse 5 history of ventilatory dependent respiratory failure 6 History of prostate cancer status post radiation Plan: The patient was seen and evaluated Stable for discharge from the pulmonary standpoint Symbicort, albuterol HFA, along with DuoNeb inhalations Complete a prednisone taper starting at 40 mg daily for 4 days Would benefit from a follow-up in our office in 1-2 weeks' I have personally seen and examined the patient, performed the documentation and the assessment and plan as written. Number of minutes spent on the visit: 10.
[2022-06-20 15:44] VITALS: BP 123/76; PULSE 75; RESP 16; TEMP 98.1
--- NOTE | 2022-06-20 22:48 | P.DS ---
Providers Date of admission: 06/18/22 18:57 Attending physician: Jelly Murray Consults: 06/18/22 22:27 Consult Physician Routine Consulting Provider: Adan Smith Consult Reason/Comments: copd exacerbation, pneumonia Do you want consulting provider notified?: Yes, Notify in am Primary care physician: Tran Wolfe Hospital Course: Diagnoses: bilateral pulmonary infiltrate, pneumonia suspected , no fever or leukocytosis. Versus others possible elements of acute COPD exacerbation Paroxysmal Atrial fibrillation COPD, no acute exacerbation History of alcohol abuse and DTs History of pneumonia and pleurisy History of prostatic cancer Hospital course: This is a pleasant 62 years old male with past medical history of Atrial Fibrillation, , COPD,, ETOH abuse, DTs, tracheobronchitis, pneumonias, pleurisy, acute respiratory failure/vented, bilateral glaucoma, prostate cancer Patient presents because of worsening dyspnea over the last 2 days, he has difficulty talking because of his dyspnea associated with cough and no phlegm. He has central pleuritic-like chest pain and tightness over the last 2 days, nonradiating and in the middle felt like sharp increase the breathing. About 7/10 in severity. Chest x-ray: New upper space opacities within the right middle and upper lung and to lesser extent the left lung correlate for atypical pneumonia. Superimposed COPD changes . Pulmonary team were consulted and after further evaluation most likely this abnormality in the chest x-ray most likely is secondary to pulmonary scarring rather than infection. Patient has no leukocytosis or fever. His priorcalcitonin is normal at 0.04. Also CTA of the chest is negative for pulmonary embolism or other significant infiltrate. Patient have evidence of expiratory wheezing and required intravenous steroids. Cardiology team evaluated the patient for chest pain. Chest pain has resolved and cartilage team. The patient for discharge with recommendation for outpatient stress test, patient informed and he agrees. Patient showed interval improvement and today his been cleared by both pulmonary and cardiology team for discharge On the day of discharge patient was walking in the room freely. The morning he wanted to leave AMA but then he agrees to stay till he will be discharged. He denies chest pain. No change in urine or bowel habits. No fever. Patient will be discharged on tapering prednisone, doxycycline, aspirin, metoprolol, Norvasc and thiamine and Pepcid Problems and management plan were discussed with the patient and he verbalized understanding and acceptance Patient was found stable and can be discharged home however he needs follow-up as an outpatient. Patient was instructed to follow up with PCP Dr. Escalera within one week and patient agrees Patient was instructed to follow up with geographical historian Dr. Solorzano in 2 weeks and vegetable farm worker Dr. Jeffery in one week and patient agrees to call and make his own appointment Physical exam Gen: patient is a AAOx3, no distress CVS: S1-S2, RRR, no murmur Lungs: B/L CTA, no wheezing Abdomen: soft, no distention, no tenderness, positive bowel sounds Extremity: no leg edema or induration Time spent more than 35 minutes Patient Condition at Discharge: Stable Plan - Discharge Summary New Discharge Prescriptions: New Metoprolol Tartrate [Lopressor] 25 mg PO BID 30 Days #60 tab Famotidine [Pepcid] 20 mg PO DAILY #30 tab predniSONE 10 mg PO DIRECTED #40 tab Albuterol Inhaler [Ventolin Hfa Inhaler] 2 puff INHALATION RT-Q6H PRN #1 inh PRN Reason: Shortness Of Breath Or Wheezing Doxycycline [Vibramycin] 100 mg PO BID 4 Days #8 cap Aspirin 81 mg PO DAILY #30 tab amLODIPine [Norvasc] 5 mg PO DAILY #30 tab Thiamine [Vitamin B-1] 100 mg PO BID-W/MEALS #30 tab Discharge Medication List Albuterol Inhaler [Ventolin Hfa Inhaler] 2 puff INHALATION RT-Q6H PRN #1 inh 06/20/22 [Rx] Aspirin 81 mg PO DAILY #30 tab 06/20/22 [Rx] Doxycycline [Vibramycin] 100 mg PO BID 4 Days #8 cap 06/20/22 [Rx] Famotidine [Pepcid] 20 mg PO DAILY #30 tab 06/20/22 [Rx] Metoprolol Tartrate [Lopressor] 25 mg PO BID 30 Days #60 tab 06/20/22 [Rx] Thiamine [Vitamin B-1] 100 mg PO BID-W/MEALS #30 tab 06/20/22 [Rx] amLODIPine [Norvasc] 5 mg PO DAILY #30 tab 06/20/22 [Rx] predniSONE 10 mg PO DIRECTED #40 tab 06/20/22 [Rx] Follow up Appointment(s)/Referral(s): Adan Smith MD [STAFF PHYSICIAN] - 2 Weeks Justin Jeffery MD [STAFF PHYSICIAN] - 1 Week (we recommend stress test as an outpatient) Aiden Mayfield MD [Primary Care Provider] - 1-2 days Patient Instructions/Handouts: COPD (Chronic Obstructive Pulmonary Disease) (DC) Activity/Diet/Wound Care/Special Instructions: PATIENT REQUESTING NEW INHALER UPON D/C FROM HOSPITAL. Discharge Disposition: HOME SELF-CARE
== END 2022-06-20 18:30 | disposition home or self-care (01) | DRG 192 ==
LOC: EC 16:13 → 4SSUR 18:57
PROVIDERS: ADMIT Hospitalist; ATTEND Hospitalist
DX: J44.1 Chronic obstructive pulmonary disease with (acute) exacerbation (principal); F17.210 Nicotine dependence, cigarettes, uncomplicated; R07.89 Other chest pain; Z20.822 Contact with and (suspected) exposure to COVID-19; J40 Bronchitis, not specified as acute or chronic; I10 Essential (primary) hypertension; I48.0 Paroxysmal atrial fibrillation; F10.10 Alcohol abuse, uncomplicated; I08.1 Rheumatic disorders of both mitral and tricuspid valves; Z71.6 Tobacco abuse counseling; Z85.46 Personal history of malignant neoplasm of prostate; Z92.3 Personal history of irradiation; Z87.01 Personal history of pneumonia (recurrent); F03.90 Unspecified dementia, unspecified severity, without behavioral disturbance, psychotic disturbance, mood disturbance, and anxiety; Z82.49 Family history of ischemic heart disease and other diseases of the circulatory system; Z82.5 Family history of asthma and other chronic lower respiratory diseases; Z87.19 Personal history of other diseases of the digestive system
CPT/HCPCS: 36415; 71046; 71275; 80048; 80053; 83735; 83880; 84145; 84484; 85025; 85610; 85730; 87040; 87070; 87205; 87502; 87635; 93005; 93306; 94640; 96365; 96366; 96367; 96375; 99285

== ENCOUNTER 2022-09-26 14:34 | Observation (INO) | payer OTHER ==
--- NOTE | 2022-09-26 15:32 | XR ---
EXAMINATION TYPE: XR chest 2V DATE OF EXAM: 09/26/2022 HISTORY: Shortness of breath. COMPARISON: 06/19/2022 TECHNIQUE: Single view of the chest is submitted. FINDINGS: Demonstrated are scattered senescent parenchymal change. Hyperinflation compatible with COPD. There is no evidence for focal infiltrate. The heart is stable. Hilar and mediastinal structures are within normal limits. Degenerative changes are seen of the dorsal spine. IMPRESSION: 1. Chronic changes without evidence for acute pulmonary disease.
[2022-09-26] MEDS ORDERED: IBUPROFEN 400 MG TAB PO STA (17:38)
[2022-09-26] MEDS ORDERED: HYDROcodone/APAP 5-325MG 1 EACH TAB PO STA ×2 (17:38→21:01)
[2022-09-26] MEDS ORDERED: ALBUTEROL NEBULIZED 2.5 MG/3 ML INHALATION STA (18:07)
[2022-09-26] MEDS ORDERED: IPRATROPIUM-ALBUTEROL 3 ML NEB INHALATION STA (18:07)
[2022-09-26] MEDS ORDERED: predniSONE 20 MG TAB PO STA (18:07)
--- NOTE | 2022-09-26 18:16 | ED ---
SOB HPI - General Chief Complaint: Shortness of Breath Stated Complaint: LYDIA, R sided hip pain Time Seen by Provider: 09/26/22 17:30 Source: patient Mode of arrival: ambulatory Limitations: no limitations - History of Present Illness MD Complaint: shortness of breath, cough, pain with inspiration Onset/Timin -: days(s) Severity: moderate Quality: aching Consistency: intermittent Improves With: nothing Worsens With: inspiration Known History Of: COPD Associated Symptoms: denies other symptoms Treatments Prior to Arrival: none - Related Data Home Oxygen Therapy: No Home Medications Medication Instructions Recorded Confirmed No Known Home Medications 09/26/22 09/26/22 Allergies Allergy/AdvReac Type Severity Reaction Status Date / Time No Known Allergies Allergy Verified 09/26/22 18:41 Review of Systems ROS Statement: Those systems with pertinent positive or pertinent negative responses have been documented in the HPI. ROS Other: All systems not noted in ROS Statement are negative. Constitutional: Denies: fever, chills Respiratory: Reports: cough, dyspnea, wheezes. Denies: hemoptysis, stridor Cardiovascular: Reports: chest pain. Denies: palpitations, orthopnea, edema, syncope Gastrointestinal: Denies: abdominal pain, vomiting, diarrhea Genitourinary: Denies: dysuria, hematuria Musculoskeletal: Denies: back pain Skin: Denies: rash Neurological: Denies: headache, weakness Past Medical History Past Medical History: Atrial Fibrillation, Cancer, COPD, Eye Disorder, Pneumonia, Prostate Disorder Additional Past Medical History / Comment(s): ETOH abuse, DTs, tracheo bronchitis, pneumonias, pleurisy, acute respiratory failure/vented, bilateral glaucoma, prostate cancer History of Any Multi-Drug Resistant Organisms: None Reported Past Surgical History: Hernia Repair, Prostate Surgery, Tonsillectomy Additional Past Surgical History / Comment(s): R inguinal hernia repair, prostate-radiation implant, colonoscopy-normal Past Anesthesia/Blood Transfusion Reactions: No Reported Reaction Past Psychological History: No Psychological Hx Reported Smoking Status: Current every day smoker Past Alcohol Use History: None Reported, Daily, Heavy Past Drug Use History: None Reported - Past Family History Father Family Medical History: COPD Additional Family Medical History / Comment(s): Father of COPD in his 70's Mother Family Medical History: Coronary Artery Disease (CAD) Additional Family Medical History / Comment(s): Mother of heart disease at the age of 65 yrs. General Exam Limitations: no limitations General appearance: alert, in no apparent distress Head exam: Present: atraumatic, normocephalic Eye exam: Present: normal appearance. Absent: scleral icterus, conjunctival injection Neck exam: Present: normal inspection Respiratory exam: Present: respiratory distress (Mild tachypnea), wheezes, decreased breath sounds, other (There are bronchial breath sounds at the right base). Absent: rales, rhonchi, stridor, chest wall tenderness, accessory muscle use Cardiovascular Exam: Present: regular rate, normal rhythm, normal heart sounds. Absent: systolic murmur, diastolic murmur, rubs, gallop GI/Abdominal exam: Present: soft. Absent: distended, tenderness, guarding, rebound, rigid Extremities exam: Present: normal inspection, normal capillary refill. Absent: pedal edema, calf tenderness Back exam: Present: normal inspection Neurological exam: Present: alert Skin exam: Present: warm, dry, intact, normal color. Absent: rash Course Vital Signs 09/26/22 09/26/22 09/26/22 15:06 18:10 18:40 Temperature 97.8 F Pulse Rate 104 H 85 79 Respiratory 22 16 Rate Blood Pressure 97/59 121/72 O2 Sat by Pulse 94 L 96 Oximetry 09/26/22 09/26/22 09/26/22 18:50 20:00 21:08 Temperature Pulse Rate 84 78 83 Respiratory 20 20 Rate Blood Pressure 140/68 131/72 O2 Sat by Pulse 98 98 Oximetry Medical Decision Making - Lab Data Result diagrams: 09/26/22 18:20 09/26/22 18:20 Lab Results 09/26/22 09/26/22 09/26/22 Range/Units 18:20 18:20 18:20 WBC 7.3 (3.8-10.6) k/uL RBC 4.46 (4.30-5.90) m/uL Hgb 14.3 (13.0-17.5) gm/dL Hct 42.9 (39.0-53.0) % MCV 96.2 (80.0-100.0) fL MCH 32.1 (25.0-35.0) pg MCHC 33.3 (31.0-37.0) g/dL RDW 13.0 (11.5-15.5) % Plt Count 273 (150-450) k/uL MPV 7.3 Neutrophils % 48 % Lymphocytes % 34 % Monocytes % 4 % Eosinophils % 11 % Basophils % 1 % Neutrophils # 3.5 (1.3-7.7) k/uL Lymphocytes # 2.5 (1.0-4.8) k/uL Monocytes # 0.3 (0-1.0) k/uL Eosinophils # 0.8 H (0-0.7) k/uL Basophils # 0.0 (0-0.2) k/uL PT 10.2 (9.0-12.0) sec INR 0.9 (<1.2) APTT 24.5 (22.0-30.0) sec D-Dimer 0.60 H (<0.60) mg/L FEU Sodium 141 (137-145) mmol/L Potassium 4.0 (3.5-5.1) mmol/L Chloride 102 (98-107) mmol/L Carbon Dioxide 24 (22-30) mmol/L Anion Gap 15 mmol/L BUN 14 (9-20) mg/dL Creatinine 1.01 (0.66-1.25) mg/dL Est GFR (CKD-EPI)AfAm >90 (>60 ml/min/1.73 sqM) Est GFR (CKD-EPI)NonAf 79 (>60 ml/min/1.73 sqM) Glucose 89 (74-99) mg/dL Calcium 9.1 (8.4-10.2) mg/dL Total Bilirubin 0.4 (0.2-1.3) mg/dL AST 27 (17-59) U/L ALT 22 (4-49) U/L Alkaline Phosphatase 38 (38-126) U/L Troponin I (0.000-0.034) ng/mL Total Protein 7.4 (6.3-8.2) g/dL Albumin 4.7 (3.5-5.0) g/dL Coronavirus (PCR) (Not Detectd) Influenza Type A RNA (Not Detectd) Influenza Type B (PCR) (Not Detectd) 09/26/22 09/26/22 09/26/22 Range/Units 18:20 18:20 18:20 WBC (3.8-10.6) k/uL RBC (4.30-5.90) m/uL Hgb (13.0-17.5) gm/dL Hct (39.0-53.0) % MCV (80.0-100.0) fL MCH (25.0-35.0) pg MCHC (31.0-37.0) g/dL RDW (11.5-15.5) % Plt Count (150-450) k/uL MPV Neutrophils % % Lymphocytes % % Monocytes % % Eosinophils % % Basophils % % Neutrophils # (1.3-7.7) k/uL Lymphocytes # (1.0-4.8) k/uL Monocytes # (0-1.0) k/uL Eosinophils # (0-0.7) k/uL Basophils # (0-0.2) k/uL PT (9.0-12.0) sec INR (<1.2) APTT (22.0-30.0) sec D-Dimer (<0.60) mg/L FEU Sodium (137-145) mmol/L Potassium (3.5-5.1) mmol/L Chloride (98-107) mmol/L Carbon Dioxide (22-30) mmol/L Anion Gap mmol/L BUN (9-20) mg/dL Creatinine (0.66-1.25) mg/dL Est GFR (CKD-EPI)AfAm (>60 ml/min/1.73 sqM) Est GFR (CKD-EPI)NonAf (>60 ml/min/1.73 sqM) Glucose (74-99) mg/dL Calcium (8.4-10.2) mg/dL Total Bilirubin (0.2-1.3) mg/dL AST (17-59) U/L ALT (4-49) U/L Alkaline Phosphatase (38-126) U/L Troponin I 0.012 (0.000-0.034) ng/mL Total Protein (6.3-8.2) g/dL Albumin (3.5-5.0) g/dL Coronavirus (PCR) Not Detected (Not Detectd) Influenza Type A RNA Not Detected (Not Detectd) Influenza Type B (PCR) Not Detected (Not Detectd) - EKG Data -: EKG Interpreted by Ut EKG shows normal: sinus rhythm, axis (Normal), intervals (Normal), QRS complexes (Normal), ST-T waves (Normal) Rate: normal (Rate 80 bpm) Interpretation: normal EKG Disposition Clinical Impression: COPD (chronic obstructive pulmonary disease), Pleuritic chest pain Disposition: ADMITTED IP TO THIS HOSP Condition: Fair Is patient prescribed a controlled substance at d/c from ED?: No Referrals: None,Stated [Primary Care Provider] - 1-2 days
[2022-09-26 18:29] LABS: Basophils % (A) 1 %; Eosinophils # (A) 0.8 k/uL (0-0.7); Eosinophils % (A) 11 %; HCT 42.9 % (39.0-53.0); HGB 14.3 gm/dL (13.0-17.5); Lymphocytes # (A) 2.5 k/uL (1.0-4.8); Lymphocytes % (A) 34 %; MCH 32.1 pg (25.0-35.0); MCHC 33.3 g/dL (31.0-37.0); MCV 96.2 fL (80.0-100.0); Mean Platelet Volume 7.3; Monocytes # (A) 0.3 k/uL (0-1.0); Monocytes % (A) 4 %; Neutrophils # (A) 3.5 k/uL (1.3-7.7); Neutrophils % (A) 48 %; Platelet Count 273 k/uL (150-450); RBC 4.46 m/uL (4.30-5.90); WBC 7.3 k/uL (3.8-10.6)
[2022-09-26 18:54] LABS: INR 0.9 (<1.2); Partial Thromboplastin Time 24.5 sec (22.0-30.0); Prothrombin Time 10.2 sec (9.0-12.0)
[2022-09-26 18:55] LABS: ALT 22 U/L (4-49); AST 27 U/L (17-59); African American GFR (CKD) >90 (>60 ml/min/1.73 sqM); Albumin 4.7 g/dL (3.5-5.0); Alkaline Phosphatase 38 U/L (38-126); Anion Gap 15 mmol/L; Blood Urea Nitrogen 14 mg/dL (9-20); Calcium 9.1 mg/dL (8.4-10.2); Carbon Dioxide 24 mmol/L (22-30); Chloride 102 mmol/L (98-107); Glucose 89 mg/dL (74-99); Non-African American GFR(CKD) 79 (>60 ml/min/1.73 sqM); Sodium 141 mmol/L (137-145); Total Bilirubin 0.4 mg/dL (0.2-1.3); Total Protein 7.4 g/dL (6.3-8.2)
--- NOTE | 2022-09-26 20:58 | CT ---
EXAMINATION TYPE: CT chest angio for PE CT DLP: 289.8 mGycm, Automated exposure control for dose reduction was used. DATE OF EXAM: 09/26/2022 8:22 PM COMPARISON: Chest radiograph from same day. Multiple CTs of the chest with most recent on 06/11/2022 . CLINICAL INDICATION:Male, 62 years old with history of Right pleuritic chest pain; Right pleuritic ch est pain TECHNIQUE/CONTRAST: CTA scan of the thorax is performed with IV Contrast, patient injected with 100ml mL of Isovue 370, p ulmonary embolism protocol. MIP images are created and reviewed. FINDINGS: Pulmonary Artery: There is no evidence for a filling defect within the pulmonary vasculature to sugge st acute pulmonary embolism. The pulmonary artery is of normal size. Lungs/Pleura: No evidence of focal consolidation, pleural effusion or pneumothorax. Centrilobular emp hysema changes with multiple bullae in the right upper lung apex. There is some scarring atelectasis noted in the posterior aspect of the right lung. Airway: Large airways are patent. Heart: Heart is within normal limits for size.. Vasculature: No evidence of aortic aneurysm. Mediastinum: No gross evidence of adenopathy. Musculoskeletal: No acute osseous abnormalities, remote left clavicle fracture. There is left-sided r ib fractures involving left 3 and 4 as well as cortical irregularity left rib 7 anteriorly. Soft Tissues: Unremarkable. Lower neck: No significant findings. Upper Abdomen: No significant findings. IMPRESSION: 1. No evidence of pulmonary embolism. 2. Moderate emphysema changes with bulla in the right lung apex. 3. Multiple left-sided cortical irregularities within the left ribs which is for age-indeterminate fr actures. Correlate with point tenderness.
[2022-09-26] MEDS ORDERED: NALOXONE 0.4 MG/ML 1 ML VIAL IVP PRN (21:11)
[2022-09-26] MEDS ORDERED: IPRATROPIUM-ALBUTEROL 3 ML NEB INHALATION PRN (21:11)
[2022-09-27] MEDS: IPRATROPIUM-ALBUTEROL 3 ML NEB INHALATION SCH ×4 (09:38→19:23)
[2022-09-27] MEDS: HYDROcodone/APAP 5-325MG 1 EACH TAB PO PRN ×2 (09:49→21:36)
[2022-09-27] MEDS: AZITHROMYCIN 500 MG TAB PO SCH (09:49)
[2022-09-27] MEDS: predniSONE 20 MG TAB PO SCH (09:50)
[2022-09-27] MEDS: HEPARIN SODIUM,PORCINE/PF 5,000 UNIT/0.5 ML SYRINGE SQ SCH ×2 (09:50→21:35)
--- NOTE | 2022-09-27 21:36 | P.HPIM ---
History of Present Illness H&P Date: 09/27/22 Patient is a 62-year-old male with a known history of COPD, EtOH abuse and DTs, history of prostate cancer s/p surgery ambulatory fibrillation not on any anticoagulation and currently everyday smoker presents to ER with complaints of worsening shortness of breath and cough. Denies any complaints of chest pain. No fever no chills. Patient has been having symptoms for the past 3 days. No nausea vomiting abdominal pain or diarrhea. No headache or dizziness or lightheadedness. No fever no chills. Chest x-ray showed chronic changes without evidence for acute pulmonary disease. EKG showed normal sinus rhythm D-dimer is elevated 0.[address] angiogram of the chest showed no evidence of PE. Moderate emphysematous changes in the bullae in the right lung apex. Laboratory data showed WBC 7.3 hemoglobin 14.3 and platelets 273 D-dimer 0.6 sodium 141 potassium 4.0 chloride 102 bicarb is 24 BUN 49 creatinine 1.0 liver enzymes not elevated COVID-19 PCR not detected and troponin x1 nega tive Review of Systems Constitutional: Patient denies any fever or chills . no Generalized weakness. Abdomen: Patient denied any nausea or vomiting or abd. pain Cardiovascular: Patient denies any chest pain. Positive for short of breath no palpitations. No leg swelling. Respiratory: Patient does have cough and without sputum production. Patient also worsening shortness of breath Neurologic: Patient denied any numbness or tingling headache. Musculoskeletal: Patient denies any complaints of joint swelling or deformity. Skin: Negative Psychiatric: Negative Endocrine: No heat or cold intolerance. No recent weight gain. Genitourinary: No dysuria or hematuria. All other 14 point ROS negative except the above Past Medical History Past Medical History: Atrial Fibrillation, Cancer, COPD, Eye Disorder, Pneumonia, Prostate Disorder Additional Past Medical History / Comment(s): ETOH abuse, DTs, trach eobronchitis, pneumonias, pleurisy, acute respiratory failure/vented, bilateral glaucoma, prostate cancer History of Any Multi-Drug Resistant Organisms: None Reported Past Surgical History: Hernia Repair, Prostate Surgery, Tonsillectomy Additional Past Surgical History / Comment(s): R inguinal hernia repair, prostate-radiation implant, colonoscopy-normal Past Anesthesia/Blood Transfusion Reactions: No Reported Reaction Past Psychological History: No Psychological Hx Reported Additional Psychological History / Comment(s): Pt is living with his niece. He rides his bike or walks. Smoking Status: Current every day smoker Past Alcohol Use History: None Reported, Daily, Heavy Additional Past Alcohol Use History / Comment(s): Pt states he started smoking as a teen and is a 1.5 ppd smoker. States he stopped smoking about 3 weeks ago. Pt states he drinks 3 24 oz beers a day last drink 03/12 Past Drug Use History: None Reported - Past Family History Father Family Medical History: COPD Additional Family Medical History / Comment(s): Father of COPD in his 70's Mother Family Medical History: Coronary Artery Disease (CAD) Additional Family Medical History / Comment(s): Mother of heart disease at the age of 65 yrs. Medications and Allergies Home Medications Medication Instructions Recorded Confirmed Type No Known Home Medications 09/26/22 09/26/22 History Allergies Allergy/AdvReac Type Severity Reaction Status Date / Time No Known Allergies Allergy Verified 09/26/22 18:41 Physical Exam Vitals: Vital Signs Temp Pulse Pulse Resp BP BP Pulse Ox 09/27/22 08:40 84 09/27/22 08:30 80 09/27/22 02:00 97.9 F 77 18 139/82 94 L 09/26/22 21:56 89 20 140/86 98 09/26/22 21:08 83 20 131/72 98 09/26/22 20:00 78 20 140/68 98 09/26/22 18:50 84 09/26/22 18:40 79 09/26/22 18:10 85 16 121/72 96 09/26/22 15:06 97.8 F 104 H 22 97/59 94 L Intake and Output 09/26/22 09/27/22 09/27/22 22:59 06:59 14:59 Intake Total 120 Balance 120 Intake: Oral 120 Other: # Voids 0 1 Weight 74.843 kg PHYSICAL EXAMINATION: Patient is lying in the bed comfortably, no acute distress, awake alert and oriented.. HEENT: Normocephalic. Neck is supple. Pupils reactive. Nostrils clear. Oral cavity is moist. Neck reveals no JVD, carotid bruits, or thyromegaly. CHEST EXAMINATION: Trachea is central. Symmetrical expansion. Bibasilar diminished sounds and mild expiratory wheeze.. CARDIAC: Normal S1, S2 with no gallops. No murmurs ABDOMEN: Soft. Bowel sounds present. Nontender. No organomegaly. No abdominal bruits. Extremities: reveal no edema. No clubbing or cyanosis Neurologically awake, alert, oriented x3 with well-coordinated movements. No focal deficits noted Skin: No rash or skin lesions. Psychiatric: Coperative. Nonsuicidal, anxious. Musculoskeletal: No joint swelling or deformity. Normal range of motion. Results CBC & Chem 7: 09/26/22 18:20 09/26/22 18:20 Labs: Abnormal Lab Results - Last 24 Hours (Table) 09/26/22 09/26/22 Range/Units 18:20 18:20 Eosinophils # 0.8 H (0-0.7) k/uL D-Dimer 0.60 H (<0.60) mg/L FEU Thrombosis Risk Factor Assmnt - DVT/VTE Prophylaxis DVT/VTE Prophylaxis: Pharmacologic Prophylaxis ordered - Choose All That Apply Any of the Below Risk Factors Present?: Yes Each Factor Represents 1 point: Abnormal pulmonary function (COPD), Obesity (BMI >25) Other Risk Factors: Yes Each Risk Factor Represents 2 Points: Age 61-74 years Other congenital or acquired thrombophilia - If yes, enter type in comment: No Thrombosis Risk Factor Assessment Total Risk Factor Score: 4 Thrombosis Risk Factor Assessment Level: Moderate Risk Assessment and Plan Assessment: Shortness of breath secondary to acute COPD exacerbation History of alcohol abuse we will monitor for alcohol withdrawal symptoms Elevated D-dimer level. CTA negative for PE Moderate emphysematous changes and bullae in the right lung apex. History of DVTs Glaucoma bilaterally Prostate cancer status post surgery Atrial fibrillation history Currently everyday smoker DVT prophylaxis Heparin subcu Plan: Patient will be continued on Telemetry monitoring. Continue with prednisone, duo nebs and continue with home medications. Antibiotics in the form of azithromycin. Follow-up closely. Monitor for alcohol withdrawal symptoms. Smoking cessation and alcohol abstinence has been counseled extensively. Time with Patient: Greater than 30
[2022-09-28] MEDS: IPRATROPIUM-ALBUTEROL 3 ML NEB INHALATION SCH ×4 (07:10→19:16)
[2022-09-28] MEDS: predniSONE 20 MG TAB PO SCH (08:42)
[2022-09-28] MEDS: AZITHROMYCIN 500 MG TAB PO SCH (08:42)
[2022-09-28] MEDS: HEPARIN SODIUM,PORCINE/PF 5,000 UNIT/0.5 ML SYRINGE SQ SCH ×2 (08:42→20:30)
[2022-09-28 11:24] LABS: Basophils # (A) 0.02 X 10*3/uL (0.00-0.10); Basophils % (A) 0.2 %; Eosinophils # (A) 0.16 X 10*3/uL (0.04-0.35); Eosinophils % (A) 1.5 %; HCT 41.5 % (39.6-50.0); HGB 13.3 g/dL (13.0-17.0); Immature Grans, Automated 0.3 %; Lymphocytes # (A) 3.09 X 10*3/uL (0.90-5.00); Lymphocytes % (A) 28.9 %; MCH 31.3 pg (27.0-32.0); MCV 97.6 fL (80.0-97.0); Mean Platelet Volume 9.7 fL (9.5-12.2); Monocytes % (A) 5.6 %; NRBC Per 100 WBC 0 /100 WBCS (0.0-0.0); Neutrophils # (A) 6.79 X 10*3/uL (1.80-7.70); Neutrophils % (A) 63.5 %; Platelet Count 281 X 10*3/uL (140-440); RBC 4.25 X 10*6/uL (4.40-5.60); RDW 13.4 % (11.5-14.5); WBC 10.69 X 10*3/uL (4.50-10.00)
[2022-09-28 11:48] LABS: African American GFR (CKD) 106.5 (60.0-200.0); Anion Gap 8.8 mmol/L (10.00-18.00); BUN/Creat Ratio 17.95 Ratio (12.00-20.00); Blood Urea Nitrogen 15.6 mg/dL (9.0-27.0); Calcium 8.8 mg/dL (8.7-10.3); Carbon Dioxide 27.4 mmol/L (20.0-27.5); Non-African American GFR(CKD) 91.9 (60.0-200.0); Potassium 4.3 mmol/L (3.5-5.5)
[2022-09-28] MEDS: HYDROcodone/APAP 5-325MG 1 EACH TAB PO PRN (20:32)
--- NOTE | 2022-09-28 23:15 | P.PN ---
Subjective Progress Note Date: 09/28/22 Patient is a 62-year-old male with a known history of COPD, EtOH abuse and DTs, history of prostate cancer s/p surgery ambulatory fibrillation not on any anticoagulation and currently everyday smoker presents to ER with complaints of worsening shortness of breath and cough. Denies any complaints of chest pain. No fever no chills. Patient has been having symptoms for the past 3 days. No nausea vomiting abdominal pain or diarrhea. No headache or dizziness or lightheadedness. No fever no chills. Chest x-ray showed chronic changes without evidence for acute pulmonary disease. EKG showed normal sinus rhythm D-dimer is elevated 0.[address] angiogram of the chest showed no evidence of PE. Moderate emphysematous changes in the bullae in the right lung apex. Laboratory data showed WBC 7.3 hemoglobin 14.3 and platelets 273 D-dimer 0.6 sodium 141 potassium 4.0 chloride 102 bicarb is 24 BUN 49 creatinine 1.0 liver enzymes not elevated COVID-19 PCR not detected and troponin x1 negative 09/28/2022 Patient is currently sitting on the side of the bed. Awake alert and oriented. Requiring 2 L oxygen via nasal cannula. Patient still having exertional dyspnea and diminished air entry bilaterally. Currently on prednisone 40 mg daily and duo nebs. Pulmicort and Perforomist was added. Patient is also on antibiotics and off azithromycin. No complaints of nausea vomiting abdominal pain or diarrhea. No cough or sputum production. No headache or dizziness or lightheadedness. Laboratory data showed WBC 10.6 hemoglobin 13.3 and platelets 281 Sodium 139 potassium 4.3 chloride 103 bicarb is 27.4 BUN 15.6 and creatinine 0.9 Current medications reviewed. Objective - Vital Signs Vital signs: Vital Signs Temp 98.3 F 09/28/22 15:00 Pulse 80 09/28/22 15:38 Resp 18 09/28/22 15:00 BP 136/82 09/28/22 15:00 Pulse Ox 97 09/28/22 15:00 FiO2 Intake & Output 09/27/22 09/28/22 09/28/22 19:59 06:59 18:59 Intake Total 240 Balance 240 Intake: Oral 240 Other: # Voids 3 - Exam PHYSICAL EXAMINATION: Patient is lying in the bed comfortably, no acute distress, awake alert and oriented.. HEENT: Normocephalic. Neck is supple. Pupils reactive. Nostrils clear. Oral cavity is moist. Neck reveals no JVD, carotid bruits, or thyromegaly. CHEST EXAMINATION: Trachea is central. Symmetrical expansion. Bibasilar diminished sounds and mild expiratory wheeze.. CARDIAC: Normal S1, S2 with no gallops. No murmurs ABDOMEN: Soft. Bowel sounds present. Nontender. No organomegaly. No abdominal bruits. Extremities: reveal no edema. No clubbing or cyanosis Neurologically awake, alert, oriented x3 with well-coordinated movements. No focal deficits noted Skin: No rash or skin lesions. Psychiatric: Coperative. Nonsuicidal, anxious. Musculoskeletal: No joint swelling or deformity. Normal range of motion. - Labs CBC & Chem 7: 09/28/22 07:17 09/28/22 07:17 Labs: Abnormal Lab Results - Last 24 Hours (Table) 09/28/22 09/28/22 Range/Units 07:17 07:17 WBC 10.69 H (4.50-10.00) X 10*3/uL RBC 4.25 L (4.40-5.60) X 10*6/uL MCV 97.6 H (80.0-97.0) fL Anion Gap 8.80 L (10.00-18.00) mmol/L Assessment and Plan Assessment: Shortness of breath secondary to acute COPD exacerbation History of alcohol abuse we will monitor for alcohol withdrawal symptoms Elevated D-dimer level. CTA negative for PE Moderate emphysematous changes and bullae in the right lung apex. History of DVTs Glaucoma bilaterally Prostate cancer status post surgery Atrial fibrillation history Currently everyday smoker DVT prophylaxis Heparin subcu Plan: Patient will be continued on Telemetry monitoring. Continue with prednisone, duo nebs and continue with home medications. Pulmicort and Perforomist was ad ded. Antibiotics in the form of azithromycin. Follow-up closely. Monitor for alcohol withdrawal symptoms. Smoking cessation and alcohol abstinence has been counseled extensively. Time with Patient: Greater than 30
[2022-09-29] MEDS: FORMOTEROL FUMARATE 20 MCG/2 ML NEBU INHALATION SCH ×2 (01:23→08:48)
[2022-09-29 06:18] VITALS: BP 143/78; RESP 18; TEMP 98.2
[2022-09-29] MEDS: AZITHROMYCIN 500 MG TAB PO SCH (08:16)
[2022-09-29] MEDS: predniSONE 20 MG TAB PO SCH (08:17)
[2022-09-29] MEDS: HEPARIN SODIUM,PORCINE/PF 5,000 UNIT/0.5 ML SYRINGE SQ SCH (08:17)
[2022-09-29 08:44] LABS: Basophils # (A) 0.02 X 10*3/uL (0.00-0.10); Basophils % (A) 0.2 %; Eosinophils # (A) 0.06 X 10*3/uL (0.04-0.35); Eosinophils % (A) 0.6 %; HCT 39.5 % (39.6-50.0); HGB 13.3 g/dL (13.0-17.0); Immature Grans, Automated 0.3 %; Lymphocytes # (A) 2.93 X 10*3/uL (0.90-5.00); Lymphocytes % (A) 31.3 %; MCH 32.1 pg (27.0-32.0); MCHC 33.7 g/dL (32.0-37.0); MCV 95.4 fL (80.0-97.0); Mean Platelet Volume 9.9 fL (9.5-12.2); Monocytes # (A) 0.56 X 10*3/uL (0.20-1.00); NRBC Per 100 WBC 0 /100 WBCS (0.0-0.0); Neutrophils # (A) 5.75 X 10*3/uL (1.80-7.70); Neutrophils % (A) 61.6 %; Platelet Count 302 X 10*3/uL (140-440); RBC 4.14 X 10*6/uL (4.40-5.60); RDW 13.4 % (11.5-14.5); WBC 9.35 X 10*3/uL (4.50-10.00)
[2022-09-29] MEDS: IPRATROPIUM-ALBUTEROL 3 ML NEB INHALATION SCH ×2 (08:48→11:58)
[2022-09-29] MEDS ORDERED: FOLIC ACID 1 MG TAB PO SCH (09:00)
[2022-09-29] MEDS ORDERED: THIAMINE 100 MG TAB PO SCH (09:00)
[2022-09-29 09:07] LABS: African American GFR (CKD) 110.2 (60.0-200.0); Anion Gap 8.8 mmol/L (10.00-18.00); BUN/Creat Ratio 22.63 Ratio (12.00-20.00); Blood Urea Nitrogen 18.1 mg/dL (9.0-27.0); Calcium 9.1 mg/dL (8.7-10.3); Carbon Dioxide 24.2 mmol/L (20.0-27.5); Non-African American GFR(CKD) 95.1 (60.0-200.0); Potassium 4.5 mmol/L (3.5-5.5)
[2022-09-29 10:53] VITALS: PULSE 76
[2022-09-29] MEDS ORDERED: BUDESONIDE 0.5 MG/2 ML NEBU INHALATION SCH (22:49)
--- NOTE | 2022-10-02 10:21 | P.DS ---
Providers Date of admission: 09/26/22 21:12 Expected date of discharge: 09/29/22 Attending physician: Jelly Murray Primary care physician: Stated None Hospital Course: Final diagnosis Shortness of breath secondary to acute COPD exacerbation History of alcohol abuse, not actively withdrawing Elevated D-dimer level. CTA negative for PE Moderate emphysematous changes and bullae in the right lung apex. History of DVTs Glaucoma bilaterally Prostate cancer status post surgery Atrial fibrillation history Currently everyday smoker DVT prophylaxis Discharge disposition Patient is being discharged in a stable condition with guarded prognosis to home. Patient will follow-up with Dr. Jerome Murray in the outpatient setting upon discharge. Patient is to follow-up with pulmonary Dr. Thorne as scheduled. Patient will continue on a prednisone taper along with DuoNeb's and inhalers on discharge. Total time taken is greater than 35 minutes. Hospital course This is a 62-year-old male who was recently admitted with shortness of breath and acute COPD exacerbation was being closely monitored. Patient was maintained on DuoNeb treatments along with steroids showing improvements. Patient did have an elevated d-dimer of 0.6 and underwent CTA which was negative for PE. Patient does have moderate emphysematous changes in the bullae in the right lung. Patient reports to feeling better and will continue on a prednisone taper along with DuoNeb breathing treatments and close outpatient follow-up with pulmonary Dr. Thorne as scheduled. Currently no reports of chest pain, worsening shortness of breath, or palpitations. Patient is afebrile. No reports of nausea or vomiting and patient is tolerating diet. Patient is extremely anxious to be discharged today. Patient will be discharged home today. Physical exam: Gen: This is a 62-year-old male awake, alert and oriented 3, well-developed, well-nourished. HEENT: Head is atraumatic, normocephalic. Pupils equal, round. Sclerae is anicteric. NECK: Supple. No JVD. No lymphadenopathy. No thyromegaly. LUNGS: Diminished breath sounds bilaterally with some coarse scattered rhonchi and mild expiratory wheezing. No intercostal retractions. HEART: Regular rate and rhythm. No murmur. ABDOMEN: Soft. Bowel sounds are present. No masses. No tenderness. EXTREMITIES: No pedal edema. No calf tenderness. NEUROLOGICAL: Patient is awake, alert and oriented x3. Cranial nerves 2 through 12 are grossly intact. Please refer to medication reconciliation sheet for a list of medications. The impression and plan of care has been dictated by Lulu Barrientos, Nurse Practitioner as directed. Dr. Heather MD I have performed a history and examination and MDM of this patient, discussed the same with the dictator, and agree with the dictator's assessment and plan a s written ,documented as a scribe. Based on total visit time, I have performed more than 50% of the visit. Patient Condition at Discharge: Fair Plan - Discharge Summary Discharge Rx Participant: No New Discharge Prescriptions: New Ipratropium-Albuterol Nebulize [Duoneb 0.5 mg-3 mg/3 ml Soln] 3 ml INHALATION RT-QID #100 each Ipratropium-Albuterol Nebulize [Duoneb 0.5 mg-3 mg/3 ml Soln] 3 ml INHALATION RT-Q2H PRN each PRN Reason: Shortness Of Breath Or Wheezing Albuterol Inhaler [Ventolin Hfa Inhaler] 1 puff INHALATION QID 30 Days #8 gm Thiamine [Vitamin B-1] 100 mg PO DAILY #30 tab Folic Acid 1 mg PO DAILY 30 Days #30 tab predniSONE 10 mg PO DIRECTED #20 tab Budesonide-Formot 160-4.5 Mcg [Symbicort 160-4.5 Mcg Inhaler] 2 puff INHALATION BID 30 Days #10.2 gm Discharge Medication List Albuterol Inhaler [Ventolin Hfa Inhaler] 1 puff INHALATION QID 30 Days #8 gm 09/29/22 [Rx] Budesonide-Formot 160-4.5 Mcg [Symbicort 160-4.5 Mcg Inhaler] 2 puff INHALATION BID 30 Days #10.2 gm 09/29/22 [Rx] Folic Acid 1 mg PO DAILY 30 Days #30 tab 09/29/22 [Rx] Ipratropium-Albuterol Nebulize [Duoneb 0.5 mg-3 mg/3 ml Soln] 3 ml INHALATION RT-Q2H PRN each 09/29/22 [Rx] Ipratropium-Albuterol Nebulize [Duoneb 0.5 mg-3 mg/3 ml Soln] 3 ml INHALATION RT-QID #100 each 09/29/22 [Rx] Thiamine [Vitamin B-1] 100 mg PO DAILY #30 tab 09/29/22 [Rx] predniSONE 10 mg PO DIRECTED #20 tab 09/29/22 [Rx] Follow up Appointment(s)/Referral(s): Hazel Hardy MD [STAFF PHYSICIAN] - 1 Week Tatyana Thorne MD [STAFF PHYSICIAN] - 10/09/22 2:15 pm (Appointment made with Dr Smith ) Patient Instructions/Handouts: Emphysema (GEN), COPD (Chronic Obstructive Pulmonary Disease) (GEN) Activity/Diet/Wound Care/Special Instructions: Activity Limited until follow-up Continue taking medications as prescribed Continue with DuoNeb treatments 4 times daily and as needed Continue with inhalers as prescribed and keep rescue inhaler with you at all times Follow-up and establish with primary care provider Follow-up with pulmonary outpatient Avoid all alcohol intake Discharge Disposition: HOME SELF-CARE
== END 2022-09-29 15:00 | disposition home or self-care (01) ==
LOC: EC 14:34 → 6NMEDSUR 21:12
PROVIDERS: ADMIT Hospitalist; ATTEND Hospitalist
DX: J44.1 Chronic obstructive pulmonary disease with (acute) exacerbation (principal); I48.91 Unspecified atrial fibrillation; F10.10 Alcohol abuse, uncomplicated; R77.8 Other specified abnormalities of plasma proteins; H40.9 Unspecified glaucoma; F17.200 Nicotine dependence, unspecified, uncomplicated; Z85.46 Personal history of malignant neoplasm of prostate; Z86.718 Personal history of other venous thrombosis and embolism; Z92.3 Personal history of irradiation; Z82.5 Family history of asthma and other chronic lower respiratory diseases; Z82.49 Family history of ischemic heart disease and other diseases of the circulatory system; Z20.822 Contact with and (suspected) exposure to COVID-19
CPT/HCPCS: 96372 ×3; 99285; 36415; 94640 ×7; 93005; 85379; 80053; 80048 ×2; 84484; 85025 ×3; 85610; 85730; 87502; 87635; 71046; 71275; G0378 ×4; J7512 ×4; Q9967; J1644 ×3

== ENCOUNTER 2023-04-12 18:15 | Emergency (ER) | payer OTHER ==
[2023-04-12 18:55] VITALS: TEMP 97.9
--- NOTE | 2023-04-12 19:44 | ED ---
SOB HPI - General Chief Complaint: Shortness of Breath Stated Complaint: LYDIA bilat edema Time Seen by Provider: 04/12/23 19:04 Source: patient, RN notes reviewed, old records reviewed Mode of arrival: wheelchair Limitations: no limitations - History of Present Illness Initial Comments: This is a 62-year-old male to the emergency department for shortness of breath chest pain exertional dyspnea right-sided chest pain and lower extremity edema. Patient does state that edema does appear to be improved as he presents to ER today. No current cough congestion fever. No other complaints MD Complaint: shortness of breath, cough -: days(s) Severity: moderate Severity scale (1-10): 6 Quality: sharp Consistency: constant Improves With: nothing Worsens With: exertion, movement Known History Of: COPD Context: recent URI, anxiety, recent illness Associated Symptoms: chest pain, cough, sputum production Treatments Prior to Arrival: none - Related Data Home Medications Medication Instructions Recorded Confirmed Albuterol Inhaler [Ventolin Hfa 2 puff INHALATION RT-QID 04/12/23 04/12/23 Inhaler] Budesonide-Formot 160-4.5 Mcg 2 puff INHALATION RT-BID 04/12/23 04/12/23 [Symbicort 160-4.5 Mcg Inhaler] Chlorthalidone 25 mg PO DAILY 04/12/23 04/12/23 Ergocalciferol (Vitamin D2) 1,250 mcg PO TU 04/12/23 04/12/23 [Drisdol (50,000 Iu)] Losartan Potassium [Cozaar] 100 mg PO DAILY 04/12/23 04/12/23 Previous Rx's Medication Instructions Recorded Ipratropium-Albuterol Nebulize 3 ml INHALATION RT-Q2H PRN each 09/29/22 [Duoneb 0.5 mg-3 mg/3 ml Soln] Ipratropium-Albuterol Nebulize 3 ml INHALATION RT-QID #100 each 09/29/22 [Duoneb 0.5 mg-3 mg/3 ml Soln] Albuterol Nebulized [Ventolin 2.5 mg INHALATION Q4H PRN #25 each 04/12/23 Nebulized] Azithromycin [Zithromax] 500 mg PO DAILY #5 tab 04/12/23 predniSONE 50 mg PO DAILY #5 tab 04/12/23 Allergies Allergy/AdvReac Type Severity Reaction Status Date / Time No Known Allergies Allergy Verified 04/12/23 19:36 Review of Systems ROS Statement: Those systems with pertinent positive or pertinent negative responses have been documented in the HPI. ROS Other: All systems not noted in ROS Statement are negative. Past Medical History Past Medical History: Atrial Fibrillation, Cancer, COPD, Eye Disorder, Pneumonia, Prostate Disorder Additional Past Medical History / Comment(s): ETOH abuse, DTs, tracheobronchitis, pneumonias, pleurisy, acute respiratory failure/vented, bilateral glaucoma, prostate cancer History of Any Multi-Drug Resistant Organisms: None Reported Past Surgical History: Hernia Repair, Prostate Surgery, Tonsillectomy Additional Past Surgical History / Comment(s): R inguinal hernia repair, prostate-radiation implant, colonoscopy-normal Past Anesthesia/Blood Transfusion Reactions: No Reported Reaction Past Psychological History: No Psychological Hx Reported Smoking Status: Current every day smoker Past Alcohol Use History: None Reported, Daily, Heavy Past Drug Use History: None Reported - Past Family History Father Family Medical History: COPD Additional Family Medical History / Comment(s): Father of COPD in his 70's Mother Family Medical History: Coronary Artery Disease (CAD) Additional Family Medical History / Comment(s): Mother of heart disease at the age of 65 yrs. General Exam Limitations: no limitations General appearance: alert, in no apparent distress Head exam: Present: atraumatic, normocephalic, normal inspection Eye exam: Present: normal appearance, PERRL, EOMI. Absent: scleral icterus, conjunctival injection, periorbital swelling ENT exam: Present: normal exam, mucous membranes moist Neck exam: Present: normal inspection. Absent: tenderness, meningismus, lymphadenopathy Respiratory exam: Present: normal lung sounds bilaterally. Absent: respiratory distress, wheezes, rales, rhonchi, stridor Cardiovascular Exam: Present: regular rate, normal rhythm, normal heart sounds. Absent: systolic murmur, diastolic murmur, rubs, gallop, clicks GI/Abdominal exam: Present: soft, normal bowel sounds. Absent: distended, tenderness, guarding, rebound, rigid Extremities exam: Present: normal inspection, full ROM, normal capillary refill. Absent: tenderness, pedal edema, joint swelling, calf tenderness Back exam: Present: normal inspection Neurological exam: Present: alert, oriented X3, CN II-XII intact Psychiatric exam: Present: normal affect, normal mood Skin exam: Present: warm, dry, intact, normal color. Absent: rash Course Vital Signs 04/12/23 04/12/23 04/12/23 18:53 20:18 20:37 Temperature 97.9 F Pulse Rate 96 88 90 Respiratory 22 25 H 20 Rate Blood Pressure 133/86 139/103 O2 Sat by Pulse 94 L 97 100 Oximetry 04/12/23 04/12/23 04/12/23 20:46 20:47 20:53 Temperature Pulse Rate 81 81 80 Respiratory Rate Blood Pressure O2 Sat by Pulse Oximetry 04/12/23 22:00 Temperature Pulse Rate 83 Respiratory 27 H Rate Blood Pressure 139/103 O2 Sat by Pulse 92 L Oximetry - Reevaluation(s) Reevaluation #1: 04/12/23 23:54 Medical records reviewed Reevaluation #2: 04/12/23 23:54 Symptoms resolved Reevaluation #3: 04/12/23 23:54 Patient informed results questions answered Reevaluation #4: 04/12/23 23:54 Was pt. sent in by a medical professional or institution? @ -no Did you speak to anyone other than the patient for history? @ -no Did you review nursing and triage notes? @ -agree Were old charts reviewed? @ -no Differential Diagnosis? @ -prior EKG interpreted by me (3pts min.)? @ -yes X-rays interpreted by me (1pt min.)? @ -yes CT interpreted by me (1pt min.)? @ -no U/S interpreted by me (1pt. min.)? @ -no What testing was considered but not performed? (CT, X-rays, U/S, labs)? Why? @ -no What meds were considered but not given? Why? @ -no Did you discuss the management of the patient with other professionals? @ -no Did you reconcile home meds? @ -no Was smoking cessation discussed for >3mins.? @ -no Was critical care preformed (if so, how long)? @ -no Were there social determinants of health that impacted care today? How? (Homelessness, low income, unemployed, alcoholism, drug addiction, transportation, low edu. Level, literacy, decrease access to med. care, penitentiary, rehab)? @ -no Was there de-escalation of care discussed even if they declined? (Discuss DNR or withdrawal of care, Hospice)? @ -no What co-morbidities impacted this encounter? (DM, HTN, Smoking, COPD, CAD, Cancer, CVA, Hep., AIDS, mental health diagnosis, sleep apnea, morbid obesity)? @ -none Was patient admitted / discharged? @ -62 male feeling better after breathing treatments here in the ER as he presented with shortness of breath COPD exacerbation, patient has no other findings and can be discharged home Discharged Undiagnosed new problem with uncertain prognosis? @ -no Drug Therapy requiring intensive monitoring for toxicity (Heparin, Nitro, Insulin, Cardizem)? @ -no Were any procedures done? @ -no Diagnosis/symptom? @ -Acute exacerbation of COPD Acute, or Chronic, or Acute on Chronic? @ -Acute Uncomplicated (without systemic symptoms) or Complicated (systemic symptoms)? @ -uncomplicated Side effects of treatment? @ -no Exacerbation, Progression, or Severe Exacerbation] @ -no Poses a threat to life or bodily function? @ -yes, with respiratory failure and hypoxia Reevaluation #5: 04/12/23 23:54 Differential Dyspnea: Coronary syndrome, arrhythmia, tamponade, asthma, COPD, pulmonary embolism, pneumonia, pneumothorax, pulmonary effusion, anaphylaxis, diabetic ketoacidosis, flailed chest, pulmonary contusion, diaphragmatic rupture, anemia, neuromuscular, this is not meant to be an all-inclusive list. Medical Decision Making - Medical Decision Making 62male to the emergency department for evaluation of shortness of breath patient presents today for evaluation of shortness of breath like edema leg edema is insignificant he does have Lasix at home and he does take as needed. Shortness of breath is improving and patient can be discharged home - Lab Data Result diagrams: 04/12/23 20:14 04/12/23 20:14 Lab Results 04/12/23 04/12/23 04/12/23 Range/Units 20:14 20:14 20:14 WBC 9.1 (3.8-10.6) k/uL RBC 4.81 (4.30-5.90) m/uL Hgb 14.5 (13.0-17.5) gm/dL Hct 44.2 (39.0-53.0) % MCV 92.1 (80.0-100.0) fL MCH 30.2 (25.0-35.0) pg MCHC 32.8 (31.0-37.0) g/dL RDW 14.2 (11.5-15.5) % Plt Count 316 (150-450) k/uL MPV 7.2 Neutrophils % 45 % Lymphocytes % 32 % Monocytes % 4 % Eosinophils % 16 % Basophils % 1 % Neutrophils # 4.2 (1.3-7.7) k/uL Lymphocytes # 3.0 (1.0-4.8) k/uL Monocytes # 0.4 (0-1.0) k/uL Eosinophils # 1.4 H (0-0.7) k/uL Basophils # 0.0 (0-0.2) k/uL PT 9.8 (9.0-12.0) sec INR 0.9 (<1.2) APTT 25.3 (22.0-30.0) sec Sodium 142 (137-145) mmol/L Potassium 4.0 (3.5-5.1) mmol/L Chloride 101 (98-107) mmol/L Carbon Dioxide 27 (22-30) mmol/L Anion Gap 14 mmol/L BUN 13 (9-20) mg/dL Creatinine 0.67 (0.66-1.25) mg/dL Est GFR (CKD-EPI)AfAm >90 (>60 ml/min/1.73 sqM) Est GFR (CKD-EPI)NonAf >90 (>60 ml/min/1.73 sqM) Glucose 93 (74-99) mg/dL Plasma Lactic Acid Jw (0.7-2.0) mmol/L Calcium 9.9 (8.4-10.2) mg/dL Magnesium 2.0 (1.6-2.3) mg/dL Total Bilirubin 0.4 (0.2-1.3) mg/dL AST 30 (17-59) U/L ALT 21 (4-49) U/L Alkaline Phosphatase 56 (38-126) U/L Troponin I (0.000-0.034) ng/mL NT-Pro-B Natriuret Pep pg/mL Total Protein 8.8 H (6.3-8.2) g/dL Albumin 5.1 H (3.5-5.0) g/dL 04/12/23 04/12/2323 Range/Units 20:14 20:14 20:14 WBC (3.8-10.6) k/uL RBC (4.30-5.90) m/uL Hgb (13.0-17.5) gm/dL Hct (39.0-53.0) % MCV (80.0-100.0) fL MCH (25.0-35.0) pg MCHC (31.0-37.0) g/dL RDW (11.5-15.5) % Plt Count (150-450) k/uL MPV Neutrophils % % Lymphocytes % % Monocytes % % Eosinophils % % Basophils % % Neutrophils # (1.3-7.7) k/uL Lymphocytes # (1.0-4.8) k/uL Monocytes # (0-1.0) k/uL Eosinophils # (0-0.7) k/uL Basophils # (0-0.2) k/uL PT (9.0-12.0) sec INR (<1.2) APTT (22.0-30.0) sec Sodium (137-145) mmol/L Potassium (3.5-5.1) mmol/L Chloride (98-107) mmol/L Carbon Dioxide (22-30) mmol/L Anion Gap mmol/L BUN (9-20) mg/dL Creatinine (0.66-1.25) mg/dL Est GFR (CKD-EPI)AfAm (>60 ml/min/1.73 sqM) Est GFR (CKD-EPI)NonAf (>60 ml/min/1.73 sqM) Glucose (74-99) mg/dL Plasma Lactic Acid Jw 1.6 (0.7-2.0) mmol/L Calcium (8.4-10.2) mg/dL Magnesium (1.6-2.3) mg/dL Total Bilirubin (0.2-1.3) mg/dL AST (17-59) U/L ALT (4-49) U/L Alkaline Phosphatase (38-126) U/L Troponin I <0.012 (0.000-0.034) ng/mL NT-Pro-B Natriuret Pep 143 pg/mL Total Protein (6.3-8.2) g/dL Albumin (3.5-5.0) g/dL - EKG Data -: EKG Interpreted by Me (EKG sinus 82 IA 134 QRS 100 QTc is 405) - Radiology Data Radiology results: report reviewed (Chest x-rays negative for acute disease), image reviewed Disposition Clinical Impression: COPD (chronic obstructive pulmonary disease), Acute exacerbation of chronic obstructive airways disease, Acute exacerbation of chronic obstructive pulmonary disease, Fall Disposition: HOME SELF-CARE Condition: Poor Instructions (If sedation given, give patient instructions): Acute Bronchitis (ED), Chronic Bronchitis (ED) Prescriptions: predniSONE 50 mg PO DAILY #5 tab Albuterol Nebulized [Ventolin Nebulized] 2.5 mg INHALATION Q4H PRN #25 each PRN Reason: Shortness Of Breath Azithromycin [Zithromax] 500 mg PO DAILY #5 tab Is patient prescribed a controlled substance at d/c from ED?: No Referrals: Reddy Peng MD [Primary Care Provider] - 1-2 days Time of Disposition: 22:30
[2023-04-12] MEDS ORDERED: IPRATROPIUM-ALBUTEROL 3 ML NEB INHALATION STA (19:53)
--- NOTE | 2023-04-12 20:11 | XR ---
EXAMINATION TYPE: XR chest 1V portable DATE OF EXAM: 04/12/2023 8:07 PM COMPARISON: Chest radiographs from 09/26/2022. TECHNIQUE: XR chest 1V portable Frontal view of the chest. CLINICAL INDICATION:Male, 62 years old with history of sob; FINDINGS: Lungs/Pleura: There is flattening of the diaphragm with increased lucency of the lungs. No evidence o f pneumothorax, pleural effusion or focal consolidation. Pulmonary vascularity: Unremarkable. Heart/mediastinum: Cardiomediastinal silhouette is unremarkable. Musculoskeletal: No acute osseous pathology. IMPRESSION: 1. No acute cardiopulmonary disease process. 2. COPD changes.
[2023-04-12 20:46] VITALS: BP 139/103
[2023-04-12 20:48] LABS: Basophils % (A) 1 %; Eosinophils # (A) 1.4 k/uL (0-0.7); Eosinophils % (A) 16 %; HCT 44.2 % (39.0-53.0); HGB 14.5 gm/dL (13.0-17.5); Lymphocytes % (A) 32 %; MCH 30.2 pg (25.0-35.0); MCHC 32.8 g/dL (31.0-37.0); MCV 92.1 fL (80.0-100.0); Mean Platelet Volume 7.2; Monocytes # (A) 0.4 k/uL (0-1.0); Monocytes % (A) 4 %; Neutrophils # (A) 4.2 k/uL (1.3-7.7); Neutrophils % (A) 45 %; Platelet Count 316 k/uL (150-450); RBC 4.81 m/uL (4.30-5.90); RDW 14.2 % (11.5-15.5); WBC 9.1 k/uL (3.8-10.6)
[2023-04-12 20:56] LABS: ALT 21 U/L (4-49); AST 30 U/L (17-59); African American GFR (CKD) >90 (>60 ml/min/1.73 sqM); Albumin 5.1 g/dL (3.5-5.0); Alkaline Phosphatase 56 U/L (38-126); Anion Gap 14 mmol/L; Blood Urea Nitrogen 13 mg/dL (9-20); Calcium 9.9 mg/dL (8.4-10.2); Carbon Dioxide 27 mmol/L (22-30); Chloride 101 mmol/L (98-107); Glucose 93 mg/dL (74-99); Non-African American GFR(CKD) >90 (>60 ml/min/1.73 sqM); Sodium 142 mmol/L (137-145); Total Bilirubin 0.4 mg/dL (0.2-1.3); Total Protein 8.8 g/dL (6.3-8.2)
[2023-04-12 20:58] LABS: INR 0.9 (<1.2); Partial Thromboplastin Time 25.3 sec (22.0-30.0); Prothrombin Time 9.8 sec (9.0-12.0)
[2023-04-12] MEDS ORDERED: AZITHROMYCIN 500 MG TAB PO STA (22:10)
[2023-04-12] MEDS ORDERED: KETOROLAC 15 MG/ML 1 ML VIAL IVP STA (22:10)
[2023-04-12] MEDS ORDERED: DEXAMETHASONE SOD PHOSPHATE 10 MG/ML 1 ML VIAL IVP STA (22:11)
[2023-04-12 22:42] VITALS: PULSE 83; RESP 27
== END 2023-04-12 22:59 | disposition home or self-care (01) ==
LOC: EC 18:15
DX: J44.1 Chronic obstructive pulmonary disease with (acute) exacerbation (principal); I48.91 Unspecified atrial fibrillation; F17.200 Nicotine dependence, unspecified, uncomplicated; Z79.51 Long term (current) use of inhaled steroids; Z79.899 Other long term (current) drug therapy
CPT/HCPCS: 36415; 94640 ×2; 93005; 83880; 80053; 83605; 83735; 84484; 85025; 85610; 85730; 71045; 99285; 96374; 96375; J1100; J1885